=== PATIENT | female | born 1995 ===

== ENCOUNTER 2024-11-16 21:46 | Emergency (ER) | payer MEDICAID, SELFPAY ==
[2024-11-16 21:51] VITALS: BP 141/111; PULSE 81; RESP 17; TEMP 36.4; O2SAT 97; BMI 30.1
[2024-11-16 22:27] LABS: MANUAL DIFF FLAG NO
[2024-11-16 22:28] LABS: Basophils Percent Auto 0.7 % (0-2); Eosinophils Absolute Auto 0.2 X10*3/uL (0.0-0.4); Eosinophils Percent Auto 2.9 % (0-4); Hematocrit 36.6 % (37.0-47.0); Hemoglobin 12.5 g/dl (12.0-16.0); Imm Gran Abs Auto 0.01 X10*3/uL (0.00-0.03); Imm Gran Pct Auto 0.2 % (0.0-0.4); Lymphocytes Percent Auto 33.3 % (20-40); Mean Corpuscular HGB Conc 34.2 g/dl (31.0-35.0); Mean Corpuscular Hemoglobin 31.8 pg (27.0-33.0); Mean Corpuscular Volume 93.1 fL (80.0-98.0); Mean Platelet Volume 9.3 fL (9.4-12.3); Monocytes Absolute Auto 0.4 X10*3/uL (0.1-1.2); Monocytes Percent Auto 6.5 % (2-11); Neutrophils Absolute Auto 3.3 x10*3/uL (2.0-8.3); Neutrophils Percent Auto 56.4 % (45-73); Platelet Count 302 X10*3/uL (160-400); Red Blood Count 3.93 X10*6/uL (4.20-5.50); Red Cell Distribution Width 13.8 % (11.0-16.0); White Blood Count 5.9 X10*3/uL (4.8-10.8)
[2024-11-16 22:41] LABS: Alanine Aminotransferase 80 U/L (0-31); Albumin Level 4.4 g/dL (3.5-5.0); Alkaline Phosphatase 137 U/L (39-117); Anion Gap 16 (12-20); Aspartate Amino Transferase 248 U/L (5-31); Bilirubin Total 0.9 mg/dL (0.0-1.0); Blood Urea Nitrogen 13 mg/dL (9-16); Calcium 9.1 mg/dL (8.4-10.2); Carbon Dioxide 26 mmol/L (22-29); Chloride 103 mmol/L (96-108); Creatinine Clr Calc Pharmacy 88.1; Estimated Glomerular Filt Rate > 60; Glucose Random 108 mg/dL (60-115); Potassium 3.5 mmol/L (3.3-5.1); Sodium 141 mmol/L (135-145); Total Protein 7.8 g/dL (6.5-8.0)
== END 2024-11-17 01:58 | disposition left against medical advice (07) ==
PROVIDERS: Emergency Provider Emergency Medicine
DX: R21 Rash and other nonspecific skin eruption (principal); R10.2 Pelvic and perineal pain; M54.50 Low back pain, unspecified; M54.2 Cervicalgia; N64.4 Mastodynia; Z03.818 Encounter for observation for suspected exposure to other biological agents ruled out; Z79.899 Other long term (current) drug therapy
CPT/HCPCS: 0241U; 36415; 74177; 80048; 80053; 80076; 80307; 81001; 83690; 83735; 84702; 85025; 86704; 86706; 86709; 86803; 87086; 87340; 87651; 99281; 99284; J0131; J1200; J2270; J2919; Q9967

== ENCOUNTER 2024-11-17 04:24 | Emergency (ER) | payer MEDICAID, SELFPAY ==
--- NOTE | ~2024-11-17 | CT_ITS ---
EXAMINATION: CT ABDOMEN AND PELVIS WITH CONTRAST CLINICAL INFORMATION: Abdominal pain. History of pancreatitis. COMPARISON: None available. TECHNIQUE: Multidetector volumetric images were obtained from the superior aspect of the liver through the pubic symphysis following administration 85 mL of Omnipaque 350 intravenous contrast. Sagittal and coronal reformatted images were obtained on the technologist's workstation. Oral contrast: No This CT examination was performed using dose optimization techniques as appropriate, variously including the following: *Automated exposure control *Adjustment of mA and/or kV according to patient size (this includes techniques or standardized protocols for targeted exams where dose is matched to indication/reason for exam; i.e. extremities or head) *Use of iterative reconstruction technique DLP: 537 mGy centimeter. FINDINGS: LUNG BASES: No acute airspace disease or gross pulmonary nodules in the included lungs. LIVER, GALLBLADDER, AND BILIARY TREE: Liver measures 16 cm. Focal decreased enhancement adjacent to the falciform ligament likely focal fatty infiltration. No focal mass. Portal veins, hepatic veins and intrahepatic portion of the IVC are patent. Status post cholecystectomy. Common bile duct measures 7 mm. PANCREAS: No focal mass. No main pancreatic ductal dilatation. No peripancreatic fluid collections. No peripancreatic edema pattern. SPLEEN: 8 cm. No focal lesion. ADRENAL GLANDS: No nodular lesions. KIDNEYS AND URETERS: No renal mass. No hydronephrosis. 4 mm calcification in the posterior midportion left kidney. BLADDER: Fluid-filled. GASTROINTESTINAL TRACT: Appendix is normal, retrocecal and abutting the posterior inferior right hepatic lobe. Abundant stool. No intestinal obstruction pattern. Nonspecific gas fluid prominent proximal jejunal loops. No ascites. No pneumoperitoneum. No peripheral enhancing fluid collections in the peritoneal cavity. ABDOMINAL WALL: Small fat-containing umbilical hernia. LYMPH NODES: Nonspecific less than 1 cm mesenteric lymph nodes. VASCULAR: No aneurysm or dissection, abdominal aorta. PELVIC VISCERA: 2 cm cystic structure right adnexa likely dominant follicle. OSSEOUS STRUCTURES: Spondylosis L5-S1. Mild S-shaped curvature of the lower lumbar spine which could be positional. CT/CT abdomen pelvis w IV con IMPRESSION: Small fat-containing umbilical hernia. Probable 4 mm calcification left kidney without hydronephrosis. Mild enteritis should be considered in the correct clinical settings. Fleischner guidelines were followed. Electronically signed by: Dionte Lu MD 11/17/2024:01 PM LORI RP
[2024-11-17 04:41] VITALS: BP 144/99; PULSE 95; RESP 18; TEMP 36.9; O2SAT 98; BMI 31.1
--- NOTE | 2024-11-17 09:40 | ED.SKABFB ---
HPI - Skin/Abscess/Foreign Bdy General Chief complaint: Skin/Abscess/Foreign Body Stated complaint: rash Time Seen by Provider: 11/17/24 08:58 Source: patient and RN notes reviewed Mode of arrival: ambulatory Limitations: no limitations History of Present Illness ED Provider: Mami Styles PA-C HPI narrative: This is a 29-year-old female, with a history of pancreatitis, who presents emergency department with complaints of rash and abdominal pain. Patient states that over the last 3 days she has noticed a rash that started in her lower abdomen, which has since progressed throughout her torso and into her back. She states that the rashes burning and itching in nature. She also reports that over the last several days she has had increased pain, nausea and vomiting over the last 3 days. She denies any recent changes to her medications, new soaps, lotions, or detergents. Denies history of similar rashes in the past. Denies shortness or breath or difficulty swallowing. No other complaints or concerns at this time. MD complaint: rash Onset (ago): day(s) Location: generalized Severity: moderate Quality: burning Pain Consistency: constant Relieving factors: none Exacerbating factors: none Context: none Associated symptoms: denies other symptoms Treatments prior to arrival: none Related Data Previous Rx's ?Medication ?Instructions ?Recorded prednisone 20 mg tablet 40 mg (2 x 20 mg) PO DAILY 5 days 11/17/24 #10 tabs Allergies Allergy/AdvReac Type Severity Reaction Status Date / Time amoxicillin Allergy Shortness Verified 11/17/24 04:42 of Breath ceftriaxone Allergy Hives Verified 11/17/24 04:42 Penicillins Allergy Shortness Verified 11/17/24 04:42 of Breath potassium chloride Allergy Itching Verified 11/17/24 04:42 Review of Systems Review of Systems: Yes all other systems are reviewed and are negative Constitutional: Constitutional: Reports as per [facility] Social History Social History Advance Directives: No Advance Directives Information Provided: Yes Do you have a plan to hurt others: No Plan Physical Exam Vital Signs: Vital Signs: Last Vital Signs Temp 98.5 F 11/17/24 14:28 Pulse 65 11/17/24 14:28 Resp 15 11/17/24 14:28 BP 149/91 H 11/17/24 14:28 Pulse Ox 100 11/17/24 14:28 O2 Del Method Room Air 11/17/24 14:28 BMI result Body Mass Index 31.1 Const: General: cooperative, comfortable and no acute distress Orientation/consciousness: patient oriented x3 Limitations: no limitations HEENT: Head: Yes normal to inspection, Yes normocephalic and Yes atraumatic Ears: hearing grossly normal bilaterally General nose exam: Normal external nose present Face and sinus: Yes normal facial exam Mouth: Normal oral and palatal mucosa present, oropharynx normal and moist mucous membranes Throat: Yes posterior oropharynx normal Eyes: General: appearance normal, both eyes and all related structures Eyelids: Yes eyelids normal Conjunctivae: conjunctivae normal Sclerae: sclerae normal Pupils: Equal, round and reactive pupils present EOM: EOMs intact bilaterally Neck: Neck: Yes normal visual inspection, Yes full ROM and Yes no lymphadenopathy Lymphatic: no lymphadenopathy noted Chest: Chest palpation & inspection: normal inspection of the chest Resp: Effort & Inspection: normal respiratory effort and able to speak in complete sentences Auscultation: clear to auscultation bilaterally, no crackles, no rales, no rhonchi and no wheezes Cardio: Rate: regular rate Rhythm: regular rhythm Heart sounds: S1 normal heart sound present and S2 normal heart sound present GI: Other: Abdomen is soft, with diffuse tenderness throughout, worse in the upper quadrants. No rebound or guarding. Inspection: Yes normal to inspection Skin: Other: Diffuse maculopapular rash, sandpaper-like, noted on the abdomen, and extending into the back. Neuro: General: patient oriented x3 and moves all extremities Cranial nerves: Yes Equal, round and reactive pupils present Extrem: General: Yes normal to inspection Right upper extremity: normal to inspection Left upper extremity: normal to inspection Right lower extremity: normal to inspection Left lower extremity: normal to inspection Course Reevaluation(s) Reevaluation #1: CT abdomen and pelvis revealing enteritis. Also showing small fat containing umbilical hernia, and a probable 4 mm calcification left kidney without hydronephrosis. Discussed findings with patient. Patient reporting increased pain therefore will medicate with morphine. Will also treat with dose of Solu-Medrol to treat for rash. This will also help with inflammation as well. Will continue to monitor to ensure improvement of overall symptoms. Patient does have elevation in her liver enzymes. It appears that patient had labs drawn yesterday, revealing elevated AST 248, and elevated ALT at 80; I ordered labs, revealing AST and ALT of 100 and 58. We will continue to closely monitor. I inquired on patient's hepatitis status. She has no known history of hepatitis. No history of drug use. Will order hepatitis panel and will monitor for symptomatic improvement. She states that she drinks 3 to 4 times a week, last drink on Friday. Time: 14:15 Reevaluation #2: Patient feeling well, will discharge with course of prednisone. Will also draw for hepatitis panel. We will call with any positive results. She understands and agrees with plan. She will follow-up with the primary care physician. Given strict return precautions. Patient stable for discharge. Time: 15:30 Medications Administered Discontinued Medications Generic Name Dose Route Start Last Admin Trade Name Tracey PRN Reason Stop Dose Admin Diphenhydramine HCl 25 mg 11/17/24 09:49 11/17/24 10:18 Diphenhydramine Hcl 50 Mg/Ml Vial IVPUSH 11/17/24 09:50 25 mg ONCE ONE Administration Acetaminophen 1,000 mg in 100 mls @ 400 mls/hr 11/17/24 09:49 11/17/24 11:33 Ofirmev IV 11/17/24 10:03 Infused ONCE ONE Infusion Iohexol 100 ml 11/17/24 12:38 11/17/24 12:38 Iohexol 350 Mg/Ml 100 Ml Infus..Btl IV 11/17/24 12:39 85 ml ONCE ONE Administration Methylprednisolone Sodium Succinate 60 mg 11/17/24 13:39 11/17/24 14:15 Methylprednisolone Sod Succ 125 Mg/2 Ml Vial IVPUSH 11/17/24 13:40 60 mg ONCE ONE Administration Morphine Sulfate 4 mg 11/17/24 13:39 11/17/24 14:13 Morphine Sulfate 4 Mg/Ml Cartridge IVPUSH 11/17/24 13:40 4 mg ONCE ONE Administration Protocol Medical Decision Making Medical Decision Making MDM Narrative: This is a 29-year-old female who presents emergency department with concerns for rash and abdominal pain, nausea and vomiting. On arrival, blood pressure mildly elevated at 144/99, all other vital signs within normal limits. She is speaking full sentences under no acute distress. Lungs are clear to auscultation bilaterally. Dry, sandpaper-like rash noted to the abdomen, and back. Abdomen is soft, with tenderness throughout. She has a history of pancreatitis. Given abdominal pain, and rash, will obtain labs, CT. Will medicate with Tylenol, and Benadryl. Differential diagnoses include acute pancreatitis, gastroenteritis, SBO, gastritis, contact dermatitis, allergic reaction. She reports that she does not drink alcohol daily, last alcohol use was on Friday. Plan: Labs, CT abdomen and pelvis, medicate with Tylenol and Benadryl, we will continue to closely monitor. Differential Diagnosis Differential Diagnoses: The differential diagnosis associated with the presentation includes See above Admission/Observation Consideration of admission/observation: Escalation of care including admission/observation considered Lab Data MDM Lab Attestation statement: I reviewed the patient's lab results. 11/17/24 10:02 11/17/24 11:48 Labs: Lab Results 11/17/24 11/17/24 11/17/24 Range/Units 10:02 10:04 10:07 WBC 6.2 (4.8-10.8) X10*3/uL RBC 3.87 L (4.20-5.50) X10*6/uL Hgb 12.1 (12.0-16.0) g/dl Hct 36.1 L (37.0-47.0) % MCV 93.3 (80.0-98.0) fL MCH 31.3 (27.0-33.0) pg MCHC 33.5 (31.0-35.0) g/dl RDW 14.0 (11.0-16.0) % Plt Count 313 (160-400) X10*3/uL MPV 9.9 (9.4-12.3) fL Immature Gran % (Auto) 0.5 H (0.0-0.4) % Neut % (Auto) 63.2 (45-73) % Lymph % (Auto) 23.8 (20-40) % Eagle % (Auto) 7.4 (2-11) % Eos % (Auto) 4.3 H (0-4) % Baso % (Auto) 0.8 (0-2) % Lymph # (Auto) 1.5 (1.2-4.9) X10*3/uL Eagle # (Auto) 0.5 (0.1-1.2) X10*3/uL Eos # (Auto) 0.3 (0.0-0.4) X10*3/uL Baso # (Auto) 0.1 (0.0-0.2) X10*3/uL Abs Immat Gran (auto) 0.03 (0.00-0.03) X10*3/uL Absolute Neuts (auto) 3.9 (2.0-8.3) x10*3/uL Absolute Nucleated RBC 0.000 (0.0-0.012) X10*3/uL Nucleated RBC % (auto) 0.0 (0.0-0.2) /100WBC Sodium (135-145) mmol/L Potassium (3.3-5.1) mmol/L Chloride (96-108) mmol/L Carbon Dioxide (22-29) mmol/L Anion Gap (12-20) BUN (9-16) mg/dL Creatinine (0.5-1.4) mg/dL Estim Creat Clear Calc Estimated GFR Random Glucose (60-115) mg/dL Calcium (8.4-10.2) mg/dL Magnesium (1.6-2.6) mg/dL Total Bilirubin (0.0-1.0) mg/dL Direct Bilirubin (0.0-0.5) mg/dL AST (5-31) U/L ALT (0-31) U/L Alkaline Phosphatase (39-117) U/L Total Protein (6.5-8.0) g/dL Albumin (3.5-5.0) g/dL Lipase (8-78) U/L Beta HCG, Quant mIU/mL Urine Color Yellow Urine Appearance Turbid Urine pH 6.0 (5.0-9.0) Ur Specific [place] 1.025 (1.005-1.025) Urine Protein Trace (Neg-Trace) mg/dL Urine Glucose (UA) Negative (Negative) mg/dL Urine Ketones Negative (Negative) mg/dL Urine Blood Trace H (Negative) Urine Nitrite Negative (Negative) Ur Leukocyte Esterase Small (1+) H (Negative) Urine RBC 6-10 H (0-2) /HPF Urine WBC 11-20 H (0-5) /HPF Ur Squamous Epith Cells 11-20 (0-2) /HPF Urine Bacteria 4+ (None Seen) Hyaline Casts 0-2 (0-2) /LPF Ethyl Alcohol mg/dL Influenza Type A (PCR) NEGATIVE (Negative) Influenza Type B (PCR) NEGATIVE (Negative) RSV RNA Qual (PCR) NEGATIVE (Negative) SARS-CoV-2 RNA (RT-PCR) NEGATIVE (Negative) S. pyogenes GrpA ELEONORA Negative (Negative) 11/17/24 Range/Units 11:48 WBC (4.8-10.8) X10*3/uL RBC (4.20-5.50) X10*6/uL Hgb (12.0-16.0) g/dl Hct (37.0-47.0) % MCV (80.0-98.0) fL MCH (27.0-33.0) pg MCHC (31.0-35.0) g/dl RDW (11.0-16.0) % Plt Count (160-400) X10*3/uL MPV (9.4-12.3) fL Immature Gran % (Auto) (0.0-0.4) % Neut % (Auto) (45-73) % Lymph % (Auto) (20-40) % Eagle % (Auto) (2-11) % Eos % (Auto) (0-4) % Baso % (Auto) (0-2) % Lymph # (Auto) (1.2-4.9) X10*3/uL Eagle # (Auto) (0.1-1.2) X10*3/uL Eos # (Auto) (0.0-0.4) X10*3/uL Baso # (Auto) (0.0-0.2) X10*3/uL Abs Immat Gran (auto) (0.00-0.03) X10*3/uL Absolute Neuts (auto) (2.0-8.3) x10*3/uL Absolute Nucleated RBC (0.0-0.012) X10*3/uL Nucleated RBC % (auto) (0.0-0.2) /100WBC Sodium 138 (135-145) mmol/L Potassium 3.5 (3.3-5.1) mmol/L Chloride 106 (96-108) mmol/L Carbon Dioxide 24 (22-29) mmol/L Anion Gap 12 (12-20) BUN 9 (9-16) mg/dL Creatinine 0.83 (0.5-1.4) mg/dL Estim Creat Clear Calc 94.4 Estimated GFR > 60 Random Glucose 94 (60-115) mg/dL Calcium 8.5 D (8.4-10.2) mg/dL Magnesium 1.7 (1.6-2.6) mg/dL Total Bilirubin 0.6 (0.0-1.0) mg/dL Direct Bilirubin 0.2 (0.0-0.5) mg/dL AST 100 H (5-31) U/L ALT 58 H (0-31) U/L Alkaline Phosphatase 117 (39-117) U/L Total Protein 7.1 (6.5-8.0) g/dL Albumin 4.1 (3.5-5.0) g/dL Lipase 27 (8-78) U/L Beta HCG, Quant < 2 mIU/mL Urine Color Urine Appearance Urine pH (5.0-9.0) Ur Specific Durham (1.005-1.025) Urine Protein (Neg-Trace) mg/dL Urine Glucose (UA) (Negative) mg/dL Urine Ketones (Negative) mg/dL Urine Blood (Negative) Urine Nitrite (Negative) Ur Leukocyte Esterase (Negative) Urine RBC (0-2) /HPF Urine WBC (0-5) /HPF Ur Squamous Epith Cells (0-2) /HPF Urine Bacteria (None Seen) Hyaline Casts (0-2) /LPF Ethyl Alcohol < 10 mg/dL Influenza Type A (PCR) (Negative) Influenza Type B (PCR) (Negative) RSV RNA Qual (PCR) (Negative) SARS-CoV-2 RNA (RT-PCR) (Negative) S. pyogenes GrpA ELEONORA (Negative) Radiology Impression Discussion of test interpretation with radiology: I have reviewed the radiologist's reading. External Record Review External record reviewed: Inpatient record, Office record, Outpatient record, Prior outpatient labs, Prior outpatient radiology, Primary care record and Outside ED record Discharge Plan Discharge Clinical Impression: Enteritis, Rash Patient Disposition: Home, Self-Care Instructions: Acute Rash (ED), Enteritis (ED) Additional Instructions: You were seen in the emergency department due to rash, and abdominal pain. Your blood work was reassuring. You do have slight elevation in your liver enzymes therefore we marilyn for additional labs. Your rash could be something your allergic to, a viral rash, or related to your liver. Make sure you drink plenty of fluids get plenty of rest. Take prescribed prednisone as directed, finish the entire course even if your symptoms improve. We will call you if your hepatitis panel is positive. Please follow-up with your primary care physician. Continue Benadryl at home. If any new or worsening symptoms occur including but not limited to severe shortness of breath, chest pain, severe abdominal pain, please seek emergent care. Your CT scan shows the following: CT/CT abdomen pelvis w IV con IMPRESSION: Small fat-containing umbilical hernia. Probable 4 mm calcification left kidney without hydronephrosis. Mild enteritis should be considered in the correct clinical settings. Fleischner guidelines were followed. Prescriptions: New prednisone 20 mg tablet 40 mg PO DAILY 5 Days Qty: 10 0RF Print Language: Spanish
--- OUTSIDE RECORDS SUMMARY | 2024-11-17 09:44 | XMS_ITS | Encounter Summary ---
Author Organization [facility] Address [address] [place] [address] Care Team Providers Care Modeling Instructor Name Role Phone Unavailable Primary Care Provider Unavailabl e Encounter Details Date Type Department Care Team (Late st Contact Info) Description 11/28/2021 Documentation [facility] [address] [place], [place] [id number] Melchor Emerson LCSW [address] [place], [place] Social History Tobacco Use Types Packs/Day Years Used Date Smoking Tobacco: Every Day Cigarettes 0.3 15 Smokeless Tobacco: Never Alcohol Use Standard Drinks/Week Comments Yes 0 (1 standard drink = 0.6 oz pur e alcohol) occ PHQ-2 Answer Date Recorded PHQ-2 Total Score 0 10/24/2021 Comments No Sex and Gender Information Value Date Recorded Sex Assigned at Female 08/22/2021 1:39 PM EST Legal Sex Female 12:36 PM EST Gender Identity Female 08/22/2021 1:39 PM EST Sexual Orientation Straight 08/22/2021 1: 39 PM EST documented as of this encounter Miscellaneous Notes * Office/Comment Note - Melchor Emerson LCSW - 11/28/2021 11:50 AM EST BH referral received from medical/women health provider, this global technical writer reached out to clt regarding bh referral. This global technical writer was able to reach clt, therefore, though clt stated she was not free she wasat work and couldn't talk, global technical writer gave clt this global technical writer contact info and told her she could call back whenever desired. BH referral team will also reach out with a call and letter in attempt to engage clt. documented in this encounter Plan of Treatment Not on file documented as of this encounter Visit Diagnoses Not on filedocumented in this encounter Additional Health Concerns Infection Onset Date Last Indicated Resolved Time R/O Respiratory Virus 12/10/2021 12/10/20212021 10:04 PM EST R/O COVID-19 12/10/2021 12/10/2021 12/10/2021 10:0 4 PM EST R/O Respiratory Virus 01/13/2022 01/13/20222021 3:48 AM EDT R/O COVID-19 01/13/2022 01/13/2022 01/13/2022 3:48 AM EDT R/O COVID-19 01/20/2022 01/20/2022 01/20/2022 11:1 9 PM EDT R/O COVID-19 01/22/2022 01/22/2022 01/22/2022 9:02 PM EDT R/O COVID-19 02/05/2022 02/05/2022 02/05/2022 10:1 3 PM EDT R/O COVID-19 05/23/2022 05/23/2022 05/24/2022 12:2 8 AM EDT R/O COVID-19 05/28/2022 05/28/2022 05/28/2022 2:48 PM EDT R/O COVID-19 08/20/2022 08/20/2022 08/20/2022 4:17 AM EST R/O COVID-19 01/02/2023 01/02/2023 01/02/2023 4:53 AM EDT Assessment Noted Time PHQ-9 Depression Total Score: 0 01/19/20 22 4:55 PM EST documented as of this encounter
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
--- OUTSIDE RECORDS SUMMARY | 2024-11-17 09:45 | XMS_ITS | Encounter Summary ---
Author Organization [facility] and [facility] Address [address] [place] [phone] Care Team Providers Care Librarian Special Collections Name Role Phone Obtain, Unable To Primary Care Provider Unavaila ble Encounter Details Date Type Department Care Team (Late st Contact Info) Description 01/05/2015 Scanned Document [facility] [address] [facility] [address] [facility] [place], [place] [id number] Camilo Esteban MD [address] [place] [phone] Social History Tobacco Use Types Packs/Day Years Used Date Smoking Tobacco: Never Smokeless Tobacco: Never Alcohol Use Standard Drinks/Week Comments No 0 (1 standard drink = 0.6 oz pur e alcohol) Comments Unknown Sex and Gender Information Value Date Recorded Sex Assigned at Female 08/22/2021 1:39 PM EST Legal Sex Female 12:36 PM EST Gender Identity Female 08/22/2021 1:39 PM EST Sexual Orientation Straight 08/22/2021 1: 39 PM EST documented as of this encounter Plan of Treatment Not on file documented as of this encounter Visit Diagnoses Not on filedocumented in this encounter Additional Health Concerns Infection Onset Date Last Indicated Resolved Time R/O COVID-19 03/20/2021 03/20/2021 03/20/2021 9:41 AM EDT R/O COVID-19 10/15/2021 10/15/2021 10/15/2021 9:26 AM EST R/O Respiratory Virus 12/10/2021 12/10/20212021 10:04 PM [...] COVID-19 01/02/2023 01/02/2023 01/02/2023 4:53 AM EDT documented as of this encounter Care Teams Librarian Special Collections Relationship Specialty Start Date End Date Obtain, Unable To PCP - General 10/06/21 11/01/21 documented as of this encounter
--- OUTSIDE RECORDS SUMMARY | 2024-11-17 09:45 | XMS_ITS | Encounter Summary ---
Author Organization [facility] Address [address] [place] [address] Care Team Providers Care Housing Relocation Name Role Phone [facility] Primary Care Provider Encounter Details Date Type Department Care Team (Late st Contact Info) Description 03/22/2024 Scanned Document [facility] Terrell Harry MD [address] [place] [phone] Social History Tobacco Use Types Packs/Day Years Used Date Smoking Tobacco: Every Day Cigarettes Smokeless Tobacco: Never Alcohol Use Standard Drinks/Week Comments Yes 4 (1 standard drink = 0.6 oz pur e alcohol) Reports last drink 08/19 AUDIT-C Answer Date Recorded Q1: How often do you have a drink containing alc ohol? Monthly or less 02/15/2024 Q2: How many drinks containi ng alcohol do you have on a typical day when you are drinking? 1 or 2 02/15/2024 Q3: How often do you have si x or more drinks on one occasion? Never 02/15/2024 Sex and Gender Information Value Date Recorded Sex Assigned at Female 12/31/2022 9:09 AM EDT Gender Identity Female 12/31/2022 9:09 AM EDT Sexual Orientation Heterosexual (straight) 01/04 4:18 PM EDT Sexual Orientation Choose not to disclose 2023 4:18 PM EDT documented as of this encounter Plan of Treatment Not on file documented as of this encounter Visit Diagnoses Not on filedocumented in this encounter Care Teams Housing Relocation Relationship Specialty Start Date End Date Formerly [facility], [facility] [address] [place] [address] PCP - General 08/26/23 documented as of this encounter
--- OUTSIDE RECORDS SUMMARY | 2024-11-17 09:45 | XMS_ITS | Encounter Summary ---
Author Organization [facility] and [facility] Address [address] [place] [phone] Care Team Providers Care Health Inspector Name Role Phone Obtain, Unable To Primary Care Provider Unavaila ble Encounter Details Date Type Department Care Team (Late st Contact Info) Description 10/24/2012 Abstract [facility] Health Information Management [address] [place] [id number] [place] [address] [place] [address] [place] [address] Social History Tobacco Use Types Packs/Day Years Used Date Smoking Tobacco: Never Assessed Comments Yes Sex and Gender Information Value Date Recorded Sex Assigned at Female 08/22/2021 1:39 PM EST Legal Sex Female 12:36 PM EST Gender Identity Female 08/22/2021 1:39 PM EST Sexual Orientation Straight 08/22/2021 1: 39 PM EST documented as of this encounter Last Filed Vital Signs Vital Sign Reading Time Taken Comments Blood Pressure - - Pulse - - Temperature - - Respiratory Rate - - Oxygen Saturation - - Inhaled Oxygen Concentration - - Weight 64.8 kg (142 lb 12.7 oz) 012 12:01 AM EST Height 158.8 cm (5' 2.5 ) 06/04/2012 12 :01 AM EDT Body Mass Index 25.7 06/04/2012 12:01 AM EDT documented in this encounter Plan of Treatment [...] documented as of this encounter Care Teams Health Inspector Relationship Specialty Start Date End Date Obtain, Unable To PCP - General 10/06/21 11/01/21 documented as of this encounter
--- OUTSIDE RECORDS SUMMARY | 2024-11-17 09:45 | XMS_ITS ---
Author Organization [facility], Address [address] [place] [address] Care Team Providers Care Machine Joiner Cementer Name Role Phone Barron LUTHER, Edmund Unavailable Unavailable Avril Giordano Unavailable [phone] Allergies Allergen (clinical drug ingredient) Drug/Non Drug Allergy documented on EMR Reaction Allergy Type Onset Date Status amoxicillin Amoxicillin Unknown Drug Allergy Act edgar Results Component Value Reference Range Notes Strep A Cepheid Reviewed date:12/31/2023 06:15:00 PM Interpretation: Performing Lab: Notes/Report: Strep A NOT DETECTED NOT DETECTED Cepheid 4 Plex Reviewed date:12/31/2023 06:15:00 PM Interpretation: Performing Lab: Notes/Report: Avril Giordano, [id number] [address] [place] [phone] Flu A NEGATIVE Negative Flu B NEGATIVE Negative RSV NEGATIVE Negative SARS RT-PCR NEGATIVE Negative REASON FOR VISIT SORE THROAT , FEVER 100.6 FOR THE PAST 2 DAYS . BODAY ACHE AND HEADACHE. PT STATED TOOK MUCINEX , TYLENOL, MOTRIN . TERAFLU. Medications Medication SIG (Take, Route, Frequency, Duration) Notes Start Date End Date Status Promethazine-Codeine 6.25-10 MG/5ML 5 ml as needed for severe cough Orally every 12 hrs.avoid alcohol, driving adn operating [address] as the syrup may cause drowsiness for 4 days 12/22/2015 Not-Taking Zithromax Z-Aldo 250 MG 2 tablets on the first day, then 1 tablet daily for 4 days Orally Once a day for 5 day(s) 12/22/2015 Not-Taki ng Lidocaine Viscous HCl 2 % 15 ml as needed swish and spit Mouth/Throat every 8 hrs for 2 days 12/31/2023 01/02/2024 Active Social History Tobacco Use: Social History Observation Description Date Details (start date - stop date) Current Smoker NA - NA Sex Assigned At : Social History Observation Description Sex Assigned At Female Tobacco Use/Smoking Question Answer Notes Are you a current smoker Alcohol Screen (Audit-C) Question Answer Notes Did you have a drink containing alcohol in the p ast year? Yes Tobacco use other than smoking: Question Answer Notes Are you an other tobacco user? No Problems Problem Type SNOMED Code ICD Code Onset Dates Problem Status W/U Status Risk Notes Problem Exposure to communicable disease (391286670) Contact with and (suspected) exposure to other viral communicable diseases (Z20.828) Active confirmed Problem 591096556 Sore throat (J02.9) Active confirmed Problem Depression Screening (859642110) Encounter for screening for depression (Z13.31) Active confirmed Problem Body mass index 30.00 to 34.99 (530449078402468 ) Body mass index [BMI] 31.0-31.9, adult (Z68.31) Active confirmed Vital Signs Temperature 98.8 degrees Fahrenheit 12/31/19 24 Heart Rate 86 /min 12/31/2023 Blood pressure systolic 122 mm Hg 12/31/19 24 Blood pressure diastolic 84 mm Hg 024 Height 63 in 12/31/2023 Weight 180 lbs 12/31/2023 BMI 31.88 kg/m2 12/31/2023 Respiratory Rate 18 /min 12/31/2023 Oximetry 98 % 12/31/2023 Encounters Encounter Location Date Provider Diagnosis [facility] [address] [place] [address] 12/31/2023 Avril Giordano Contact with and (suspected) exposure to other viral communicable diseases Z20.828 ; Sore throat J02.9 ; Encounter for screening for depression Z13.31 and Body mass index [BMI] 31.0-31.9, adult Z68.31 Assessments Encounter Date Diagnosis (ICD Code) Assessment Notes Treatment Notes Treatment Clinical Notes Section Notes 12/31/2023 Contact with and (suspected) exposure to other viral communicable diseases (ICD-10 - Z20.828) Patient was swabbed in office today Rapid COVID PCR test came back If covid positive than paxlovid and or molnupiravir would be indicated If flu positive than xofluxa and or oseltemavir would be indicated. Testing discussed more information available [email or web address] 12/31/2023 Sore throat (ICD-10 - J02.9) If positive than antibiotics to be administered. strep A negative throat c to lab work note 01/01/24 12/31/2023 Encounter for screening for depression (ICD-10 - Z13.31) 12/31/2023 Body mass index [BMI] 31.0-31.9, adult (ICD-10 - Z68.31) 12/31/2023 Other Telemedicine visit performed using synchronous audio video technology Physical examination was performed using FDA approved tyMultiplicom clinical device, that enables remote temperature check, lung exams, ear exams, heart sounds, throat exams, abdomen sounds, skin exams Plan Of Treatment Medication Medication Name Sig Start Date Stop Date Notes Lidocaine Viscous HCl 2 % 15 ml as neede d swish and spit Mouth/Throat every 8 hrs for 2 days 12/31/2023 01/02/2024 Treatment Notes Assessment Notes Contact with and (suspected) exposure to other viral communicable diseases Patient was swabbed in office today Rapid COVID PCR test came back If covid positive than paxlovid and or molnupiravir would be indicated If flu positive than xofluxa and or oseltemavir would be indicated. Testing discussed more information available [email or web address] Sore throat If positive than antibiotics to be administered. strep A negative throat c to lab work note 01/01/24 Other Telemedicine visit performed using synchronous audio video technology Physical examination was performed using FDA approved [employer] clinical device, that enables remote temperature check, lung exams, ear exams, heart sounds, throat exams, abdomen sounds, skin exams Next Appt Details Follow Up: 2-3 days, Reason: Progress Notes * Charlette CHANidaDOB:1994 (28 yo F)Acc No.[id number]:12/31/2023 Progress Notes Patient:?Red CHAN Provider:?Avril Giordano MD :1995???Age:28 Y???Sex:Female D ate:12/31/2023 Address:[place], [id number] Subjective: * Chief Complaints: * ???1. SORE THROAT , FEVER 10 0.6 FOR THE PAST 2 DAYS . BODAY ACHE AND HEADACHE. PT STATED TOOK MUCINEX , TYLENOL, MOTRIN . TERAFLU.. * HPI: ???Depression Screening:?PHQ-9?Little interest or pleasure in doing things?Not at all ?Feeling down, depressed, or hopeless?Not at all ?Trouble falling or staying asleep, or sleeping too much?Not at all ?Feeling tired or having little energy?Not at all ?Poor appetite or overeating?Not at all ?Feeling bad about yourself or that you are a failure, or have let yourself or your family down?Not at all ?Trouble concentrating on things, such as reading the newspaper or watching television?Not at all ?Moving or speaking so slowly that other people could have noticed; or the opposite, being so fidgety or restless that you have been moving around a lot more than usual?Not at all ?Thoughts that you would be better off or of hurting yourself in some way?Not at all ?Interpretation?Minimal Depression score 0-4, no action ???Comprehensive health Assessment:?[facility] Comprehensive Health Assessment?Race? 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 Sex?Female ???hpi:? [place] 28 yr old female bodyaches, sore throat, HARDIN, T 100.6, dry cough x3days(friday morning on ) 10 yr old son is ok works, [employer]. * ROS:?see HPI see HPI. * Medical History:?PTSD, ANXIE TY, Anemia: No, asthma: Yes, Cancer: No, DEPRESSION: No, Diabetes: No, high blood pressure: Yes, kidney disease: No, seizures: No, thyroid disease: No, Surgical History: None. * Family History:?Father: Edelmira west.?Spouse: Alive.?Mother: Alive.?Paternal Grand Father: Alive.?Paternal Grand Mother: Alive.?Maternal Grand Father: Alive.?Maternal Grand Mother: Alive.?Siblings: Alive.?Children: Alive.? depression, asthma, high blood pressure, anxiety. * Social History:?Tobacco Use:?Tobacco Use/Smoking?Are you a?current smoker ?Tobacco use other than smoking?Are you an other tobacco user??No ???Drugs/Alcohol:?Alcohol Screen (Audit-C)?Did you have a drink containing alcohol in the past year??Yes * Medications:?Not-Taking Zith romax Z-Aldo 250 MG Tablet 2 tablets on the first day, then 1 tablet daily for 4 days Orally Once a day , Not-Taking Promethazine- Codeine 6.25-10 MG/5ML Syrup 5 ml as needed for severe cough Orally every 12 hrs.avoid alcohol, driving adn operating [address] as the syrup may cause drowsiness , Medication List reviewed and reconciled with the patient * Allergies:?Amoxicillin. Objective: * Vitals:?Temp: 98.8 F, HR: 86 /min, BP: 122/84 mm Hg, Ht: 63 in, Wt: 180 lbs, BMI: 31.88 Index, RR: 18, Oxygen sat %: 98 %. * Examination: ???General Examination: ?GENERAL APPEARANCE:?Well developed, well nourished. No acute distress, non toxic appearing, alert , Well developed, well nourished. No acute distress, non toxic appearing, alert.?THROAT:??erythema, no exudate.? Assessment: * Assessment: 1.?Contact with and (suspect ed) exposure to other viral communicable diseases - Z20.828 (Primary)?2.?Sore throat - J02.9?3.?Encounter for screening for depression - Z13.31?4.?Body mass index [BMI] 31.0-31.9, adult - Z68.31? Plan: * Treatment: 2.?Sore throat? Start Lidocaine Viscous HCl Solution, 2 %, 15 ml as needed swish and spit, Mouth/Throat, every 8 hrs, 2 days, 90 ML, Refills 0.?LAB: Strep A Cepheid (Collection Date & Time - 12/31/2023 10:36 AM) Notes: If positive than antibiotics to be administered. strep A negative throat c to lab work note 01/01/24?? 3.?Others? Notes: Telemedicine visit performed using synchronous audio video technology Physical examination was performed using FDA approved [employer] clinical device, that enables remote temperature check, lung exams, ear exams, heart sounds, throat exams, abdomen sounds, skin exams?? * Labs:? * ?Lab: Cepheid 4 Plex (Co llection Date & Time - 12/31/2023 10:35 AM) ? Value Reference Range ?Influenza Virus B RNA [ Presence] in Respiratory specimen by FLAKITO with probe detection NEGATIVE Negative - * ?Influenza Virus A RNA [ Presence] in Respiratory specimen by FLAKITO with probe detection NEGATIVE Negative - * ?Respiratory syncytial v irus RNA [Presence] in Respiratory specimen by FLAKITO with probe detection NEGATIVE Neg ative - * ?LAURA-related coronavirus RNA [Presence] in Respiratory specimen by FLAKITO with probe detection NEGATIVE Neg ative - ?Lab: Strep A Cepheid (Collection Date & Time - 12/31/2023 10:36 AM)* ? Value Reference Range ?Strep A NOT DETECTED NOT DETECTED - * Procedure Codes:?99698 Covid - serology - in house, Modifiers: QW , 0241U NFCT DS VIR RESP RNA 4 TRGT, Modifiers: QW , 27228 STREP A, DNA, AMP PROBE, Modifiers: QW , 61780 BRIEF EMOTIONAL/BEHAV ASSMT * Follow Up:?2-3 days Care Plan: * Problems:? * Billing Information: * Visit Code:? 91082 Office Visit, New Patient. * Procedure Codes:? 51350 Covid - serology - in house. Modifiers: QW 0241U NFCT DS VIR RESP RNA 4 TRGT. Modifiers: QW 90736 STREP A, DNA, AMP PROBE. Modifiers: QW 19239 BRIEF EMOTIONAL/BEHAV ASSMT. Care Plan Details* * Sign off status: Completed true * Provider:?Avril Giordano MD Date:? 024 Generated for Butch carpenter/Vasile/eTransmitting on:?11/17/2024 09:44 AM EST History and Physical Notes * HPI (History of Present Illness) Category Sub-Category Detail Notes Category Not es Depression Screening PHQ-9 Little inte rest or pleasure in doing things: Not at all Feeling down, depressed, or hopeless: No t at all Trouble falling or staying asleep, or sl eeping too much: Not at all Feeling tired or having little energy: N ot at all Poor appetite or overeating: Not at all Feeling bad about yourself o r that you are a failure, or have let yourself or your family down: Not at all Trouble concentrating on thi ngs, such as reading the newspaper or watching television: Not at all Moving or speaking so slowly that other people could have noticed; or the opposite, being so fidgety or restless that you have been moving around a lot more than usual: Not at all Thoughts that you would be b ruma off or of hurting yourself in some way: Not at all Interpretation: Minimal Depression score 0-4, no action Comprehensive health Assessment PCM Comprehensive Health Assessment Race: or Martial Status: single 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 No acute distress, non toxic appearing, alert , Well developed, well nourished. No acute distress, non toxic appearing, alert THROAT: erythema, no exudate
--- OUTSIDE RECORDS SUMMARY | 2024-11-17 09:45 | XMS_ITS | Clinical Summary ---
Author Organization [address] [address] Phone Care Team Providers Care Refurbish Technician Name Role Phone Unavailable Primary Care Provider Unavailabl e Allergies Active Allergy Reactions Criticality Noted Date Comments Amoxicillin Swelling Medium 10/17/2012 Ceftriaxone Hives High 05/14/2019 Penicillins Angioedema 09/02/2019 Potassium Hives High 01/21/2022 Pt states The IV bag with the red letters makes me break out in hives Medications * This document contains information received from the source organization and may not represent a complete record from that organization. Miscellaneous Medical Supply Thigh high GAURAV hose stocking - 15-20 mm Hg Use as directed. 1 each 2 Active albuterol sulfate (PROAIR HFA) 90 mcg/actuation HFA aerosol inhalerIndications :Asthma, unspecified asthma severity, unspecified whether complicated, unspecified whether persistent Inhale 2 puffs into the lungs every 4 (four) hours as needed for wheezing. 6.7 g 1 3 Active acetaminophen (TYLENOL) 500 mg tablet Take 2 tablets (1,000 mg total) by mouth every 6 (six) hours as needed. Active ondansetron (ZOFRAN-ODT) [address] 1 tablet (4 mg total) onto the tongue every 8 (eight) hours as needed for nausea. Active disulfiram (ANTABUSE) 250 mg tablet Take 1 tablet (250 mg total) by mouth daily. 30 tablet 2 4 Active metoclopramide HCl (REGLAN) 10 mg tablet Take 1 tablet (10 mg total) by mouth 2 (two) times daily as needed for nausea or vomiting. 10 tablet 4 Active oxyCODONE (ROXICODONE) 10 mg Immediate Release tablet Take 1 tablet (10 mg total) by mouth every 6 (six) hours as needed for pain. 15 tablet 4 Active sertraline (ZOLOFT) 50 mg tabletIndications: Anxiety Take 1 tablet (50 mg total) by mouth daily. 90 tablet 3 2 022 Discontin ued(Stop Taking at Discharge ) Active Problems Problem Noted Date Diagnosed Date Chronic pancreatitis due to chronic alcoholism ( HC CODE) 04/06/2024 Alcohol-induced acute pancre atitis, unspecified complication status 2024 Hematemesis with nausea 02/26/2023 Vomiting 01/02/2023 Intractable nausea and vomiting 08/20/2022 Pancreatitis, unspecified pancreatitis type 05/07 Abdominal pain, unspecified abdominal location 0 05/23/2022 'Bthwz-gcs-izvys' with signs of mal nutrition 02/05/2022 Leg pain 02/05/2022 Closed fracture of left tibi al plafond with fibula involvement with routine healing, subsequent encounter 02/01/2022 Fracture of bone 01/22/2022 Acute left ankle pain 01/21/2022 Nausea & vomiting 01/13/2022 Esophagitis 12/15/2021 Epigastric pain 08/13/2021 Pelvic inflammatory disease 03/31/2018 Need for HPV vaccination 02/01/2015 Overview (02/01/2015): Please check with patient to see if she has received HPV vaccine. If not please offer History of vaginal delivery 02/27/2013 Asthma 10/17/2012 Resolved Problems Problem Noted Date Diagnosed Date Resolved Date Acute on chronic pancreatiti s (HC Code) (HC CODE) 12/10/2021 01/16/2022 Alcohol cessation counseling 10/24/2021 04/15/2023 Hyperemesis 10/20/2021 01/16/2022 Abdominal pain 10/15/2021 01/16/2022 Recurrent acute pancreatitis 03/20/2021 01/16/2022 PID (acute pelvic inflammatory disease) 03/31/2018 05/26/2022 care following vaginal delivery 01/26/2013 02/27/2013 Active labor 01/23/2013 01/26/2013 GBS (group B Streptococcus c arrier), +RV culture, currently 12/26/2012 01/24/2013 ERRONEOUS ENCOUNTER--DISREGARD 12/09/2012 12/23/2012 Supervision of normal first 10/17/2012 02/27/2013 Immunizations Name Administration Dates Next Due HPV9 05/24/2019 Influenza, split virus, trivalent, Preservative Free 07/08/2012 Influenza, trivalent, 0.25 m L (6-35MO) injectable, contains preservative 07/08/2012 MMR 01/26/2013 Pneumococcal polysaccharide PPSV23 01/26/2013 Tdap 01/20/2022,01/25/2013 Family History Medical History Relation Name Comments Depression Maternal Grandmother Breast cancer Mother Depression Mother Hypertension Mother Migraines Mother Relation Name Status Comments Maternal Grandmother Mother Alive Social History Tobacco Use Types Packs/Day Years Used Date Smoking Tobacco: Every Day Cigarettes 0.3 15 Smokeless Tobacco: Never Tobacco Cessation:Ready to Q uit: No; Counseling Given: No Comments:4 cigs per day Alcohol Use Standard Drinks/Week Comments Yes 1 (1 standard drink = 0.6 oz pur e alcohol) socially [facility] Utilities Answer Date Recorded In the past 12 months has Do IT developers, oil, or water [place] threatened to shut off services in your home? No 2024 AUDIT-C Answer Date Recorded Q1: How often do you have a drink containing alc ohol? 2-4 times a month 04/06/2024 Q2: How many drinks containi ng alcohol do you have on a typical day when you are drinking? 3 or 4 04/06/2024 Q3: How often do you have si x or more drinks on one occasion? Monthly 04/06/2024 Overall Financial Resource Strain (CARDIA) Answe r Date Recorded How hard is it for you to pa y for the very basics like food, housing, medical care, and heating? Patient declined 01/02/2023 PHQ-2 Answer Date Recorded PHQ-2 Total Score 0 04/06/2024 Hunger Vital Sign Answer Date Recorded Within the past 12 months, y ou worried that your food would run out before you got the money to buy more. Never true 02/10/20 24 Within the past 12 months, t he food you bought just didn't last and you didn't have money to get more. Never true 2024 PRAPARE - Transportation Answer Date Re corded In the past 12 months, has l ack of transportation kept you from medical appointments or from getting medications? No 04/2024 In the past 12 months, has l ack of transportation kept you from meetings, work, or from getting things needed for daily living? No 2024 Housing Stability Answer Date Recorded What is your living situation today? I have a [facility] place to live 2024 Housing Stability Not on file 2024 Interpersonal Safety Answer Date Record ed Is there anyone in your life that is hurting or threatening you in anyway? no 04/06/2024 Physical Indicators of Abuse No evidence of phys ical abuse 04/06/2024 Comments No Sex and Gender Information Value Date Recorded Sex Assigned at Female 08/22/2021 1:39 PM EST Legal Sex Female 12:36 PM EST Gender Identity Female 08/22/2021 1:39 PM EST Sexual Orientation Straight 08/22/2021 1: 39 PM EST Last Filed Vital Signs Vital Sign Reading Time Taken Comments Blood Pressure 138/92 04/08/2024 1:47 PM EDT Pulse 91 04/08/2024 1:47 PM EDT Temperature 36.9 ??C (98.4 ??F) 04/08/2024 1:47 PM ED T Respiratory Rate 20 04/08/2024 1:47 PM EDT Oxygen Saturation 97% 04/08/2024 1:47 PM EDT Inhaled Oxygen Concentration - - Weight 86 kg (189 lb 9.5 oz) 02/12/2024 1:39 PM EDT Height 160 cm (5' 3 ) 2024 5:58 PM EDT Body Mass Index 33.59 2024 5:58 PM EDT Plan of Treatment Health Maintenance Due Date Last Done Comments Pneumococcal Vaccine (2 of 2 - PCV) 01/26/2014 01/26/2013 Cervical cancer screening 05/24/2022 05/24/2019 Influenza vaccine 05/06/2024 07/08/2012, 07/08/2012 Covid-19 vaccine series (2 - season) 2024 04/15/2021 Tetanus adult (Td q 10,TDAP once) 01/20/2033 01/20/2023, 01/20/2022, 01/25/2013 RSV Discussion (1 - 1-dose 75+ series) 02/11/2068 Hepatitis C screening Completed 05/26/2022 , 03/31/2018, 08/04/2015 HIV screening Completed 2024, 05/07, 05/26/2022, Additional history exists Meningococcal Vaccine Aged Out No jessa neelima eligible based on patient's age to complete this topic Medical Devices Implanted Type Area Sand System Operator Device Identifier Shelf Expiration Date Model / Serial / Lot Plate 6hl 69x9 Lckg Tublr - [id number] Implanted:Qty: 1 on 01/21/2022 by Anderson Werner MD at [facility] [address] Implant Left: Fibula J J [employer] [id number] 241.361 / / Screw Donny 3.5x12mm Slf Tap St - [id number] Implanted:Qty: 5 on 01/21/2022 by Anderson Werner MD at [facility] [address] Implant Left: Fibula J J FALLON [id number] 02.200.0 12 / / Screw Donny 3.5x16mm Slf Tap St - [id number] Implanted:Qty: 1 on 01/21/2022 by Anderson Werner MD at [facility] [address] Implant Left: Fibula J J FALLON [id number] 02.200.0 16 / / Screw Metasp Sftap 2.7x30 W/T8 - [id number] Implanted:Qty: 1 on 02/01/2022 by Anderson Werner MD at [facility] [address] Implant Left: Ankle J J FALLON [id number] 02.118.5 30 / / Screw Strdrv Self-Tap 2.7x32mm - [id number] Implanted:Qty: 1 on 02/01/2022 by Anderson Werner MD at [facility] [address] Implant Left: Ankle Shea LEHMAN [id number] 02.118.5 32 / / Screw Metaphy W/T8 Viluops02e - [id number] Implanted:Qty: 1 on 02/01/2022 by Anderson Werner MD at [facility] [address] Implant Left: Ankle Shea Valdivia LEWIS TIFFANIE LEWIS [id number] 02.118.5 36 / / Screw Donny 2.7x[address] Ft Hex - [id number] Implanted:Qty: 2 on 02/01/2022 by Anderson Werner MD at [facility] [address] Implant Left: Ankle Shea LEHMAN [id number] 202.824 / / Screw Donny 3.5x[address] Ft Hex - [id number] Implanted:Qty: 1 on 02/01/2022 by Anderson Werner MD at [facility] [address] Implant Left: Ankle Shea Shea LEHMAN [id number] 204.824 / / Screw Donny 2.7x[address] Ft Hex - [id number] Implanted:Qty: 1 on 02/01/2022 by Anderson Werner MD at [facility] [address] Implant Left: Ankle Shea Shea LEHMAN [id number] 202.832 / / Screw Donny 3.5x26 [address] Ft Hex - [id number] Implanted:Qty: 1 on 02/01/2022 by Anderson Werner MD at [facility] [address] Implant Left: Ankle Shae Shea LEHMAN [id number] 204.826 / / Screw Donny 3.5x30mm Slf Tap - [id number] Implanted:Qty: 1 on 02/01/2022 by Anderson Werner MD at [facility] [address] Implant Left: Ankle Shea Shea LEHMAN [id number] 204.830 / / Screw Donny 2.4x36mm Cruciform - [id number] Implanted:Qty: 2 on 02/01/2022 by Anderson Werner MD at [facility] [address] Implant Left: Ankle Shea LEHMAN [id number] 201.666 / / Screw Donny 2.7x[address] Ft Hex - [id number] Implanted:Qty: 1 on 02/01/2022 by Anderson Werner MD at [facility] [address] Implant Left: Ankle Shea TUCKER LEWIS [id number] 202.824 / / Screw Donny 2.7x[address] Ft Hex - [id number] Implanted:Qty: 1 on 02/01/2022 by Anderson Werner MD at [facility] [address] Implant Left: Ankle Shea TUCKER LEWIS [id number] 202.812 / / Screw Donny 2.7x[address] Ft Hex - [id number] Implanted:Qty: 1 on 02/01/2022 by Anderson Werner MD at [facility] [address] Implant Left: Ankle Shea Shea LEHMAN [id number] 202.818 / / Cancellous Chip 15cc 1.7-10mm - [id number] Implanted:Qty: 1 on 02/01/2022 by Anderson Werner MD at [facility] [address] Implant Left: Ankle LIFENET 07/22/2026 [id number] / [id number] / [id number] 2.7/3.5mm Va-Lcp Anterolateral - [id number] Implanted:Qty: 1 on 02/01/2022 by Anderson Werner MD at [facility] [address] Implant Left: Ankle Shea Valdivia FALLON [id number] 02.118.2 07 / / Plate Lc-Dcp 12hl/113m 2.7mm - [id number] Implanted:Qty: 1 on 02/01/2022 by Anderson Werner MD at [facility] [address] Implant Left: Ankle Shea Valdivia FALLON [id number] 242.222 / / Plate 27x1.2 2mm 4hl - [id number] Implanted:Qty: 1 on 02/01/2022 by Anderson Werner MD at [facility] [address] Implant Left: Ankle Shea SAUCEDO [employer] LEWIS [id number] 243.584 / / Screw Donny 2.4x34mm Cruciform - [id number] Implanted:Qty: 1 on 02/01/2022 by Anderson Werner MD at [facility] [address] Implant Left: Ankle Shea Shea [employer]UC[employer] LEW[employer] [id number] 201.664 / / Explanted Type Area Sand System Operator Device Identifier Shelf Expiration Date Model / Serial / Lot Screw Donny 2.4x36mm Cruciform - [id number] Explanted:Qty : 1 on 02/01/2022 by Anderson Werner MD at [facility] [address] Implant Left: Ankle Shea [employer]UC[employer] [id number] 201.666 / / Screw [id number] 80mm Thrd Shnz - [id number] Explanted:Qty : 1 on 02/01/2022 by Anderson Werner MD at [facility] [address] Implant Left: Ankle Shea [employer]UC[employer] LEW[employer] [id number] 294.786 / / Screw [id number] 60mm Thrd Shnz - [id number] Implanted:Qty : 3 on 01/21/2022 by Anderson Werner MD at [facility] [address] Explanted:Qty : 3 on 02/01/2022 by Anderson Werner MD at [facility] [address] Implant Left: LEG LOWER Shea LEHMAN [id number] 294.785 / / Procedures Procedure Name Priority Date/Time Associated Diagnosis Comments HIV-1/HIV-2 ANTIBODY/ANTIGEN SCREEN W/REFLEX ([facility]) STAT 2024 11:24 AM EDT HEPATITIS C AB WITH REFLEX TO HCV PCR Routine 05/26/2022 6:33 AM EDT CYTOLOGY DOG FOOD DOUGH MIXER CASES ([facility]) Routine 05/24/2019 2:52 PM EDT Encounter for gynecological examination with abnormal finding from Last 3 Months or Most Recently Relevant to Health Maintenance Results * Automated HIV-1/HIV-2 antibody/antigen screen w/reflex ([facility]) (2024 11:24 AM EDT) HIV 1 and 2 Antibody/Antigen Screen Negative Negative 2024 5:09 PM EDT [facility]PARTMENT OF LABORATORY MEDICINE Comment:Interpretation: This specimen is HIV antibody and antigen negative. A negative test does not exclude the possibility of infection with HIV. If suspicion is high, submit a sample for HIV nucleic acid testing. Negative results may be seen in early infection, advanced AIDS and agammaglobulinemic patients, among others. Antiretroviral drugs taken for treatment and prophylaxis may limit the ability of diagnostic tests to detect HIV infection. The performance of this assay has not been clinically validated in patients less than 2 years old. Blood Venipuncture / Unknown 2024 11:24 AM EDT 2024 11:30 AM EDT Víctor RODRIGUEZ LAB BLOOD ORDERABLES Final Re sult Performing Organization Address [facility] Co de Phone Number [facility] DEPARTMENT OF LABORATORY MEDICINE [address] [place] [address] * Hepatitis C Ab with reflex to HCV PCR (05/26/2022 6:33 AM EDT) Pathologist [facility] Hepatitis C Antibody Negative Negative 05/26/2022 12:29 PM EDT [facility] OF LABORATORY MEDICINE Comment:A negative result do es not exclude HCV infection, since antibodies are not detectable for 4-8 weeks after initial infection, or may not develop in compromised hosts. In high-risk individuals, repeat antibody testing in 2 months and/or HCV RNA PCR should be considered. Blood ARM NEC / Unknown Venipuncture / Unknown 05/26/2022 6:33 AM EDT 05/26/2022 7:39 AM EDT Diogo Ruiz MD LAB BLOOD ORDERABLES Fin al Result Performing Organization Address [facility]/ZIP Co de Phone Number [facility] DEPARTMENT OF LABORATORY MEDICINE [address] [place] [address] * CYTOLOGY DOG FOOD DOUGH MIXER CASES ([facility]) - Place a patient demographic label on the specimen and send with the printed requisition form (05/24/2019 2:52 PM EDT) Cytology Stave Cutting Supervisor Cases ?CYTOLOGY REPORT ? Patient: DUSTIN, RED ?MR #: [id number] ([id number]=[id number]) ?Submitted by: Bianca Lara M.D. FINAL DIAGNOSIS SUREPATH PAP SMEAR: ? Primary Diagnosis: ? NEGATIVE FOR INTRAEPITHELIAL LESION OR MALIGNANCY. ? Additional Findings: NO ENDOCERVICAL CELLS SEEN. Specimen Adequacy: THIS SPECIMEN IS SATISFACTORY FOR EVALUATION. ? This specimen was manually screened with the assistance of the BD FocalPoint? ? Beyond [employer] System. NOTE: ??Cervical/vaginal cytology is a screening tool for cervical carcinoma and its precursor lesions with an inherent false negative rate. ??It is an inaccurate test for detection of endometrial lesions and should not be used to evaluate suspected endometrial abnormalities. ??(The [employer] System, 2001) ?? 05/31/2019 15:44 ?* Report Electronically Signed Out * ? This electronic signature indicates that the pathologist has personally reviewed the available gross and/or microscopic material and has based the diagnosis on that evaluation. ? Specimen(s) Received: SUREPATH PAP SMEAR Clinical History and Impression: {Not Available} ? [facility] CYTOLOGY Cervical Tracking Result Non-Tracking [facility] High Risk HPV Screening Not Applicable [facility] HPV 16/18 Genotyping Not Applicable [facility] Papanicolaou smear specimen (specimen) 05/24/2019 2:52 PM EDT Comment:SUREPATH PAP SMEAR Bianca Lara MD PATHOLOGY/CYTOLOGY ORDERABLES Final Result Performing Organization Address [facility]/State/[facility] Co de Phone Number [facility] CYTOLOGY Department of Pathology [address] [place] [address] [phone] [place] [address] from Last 3 Months or Most Recently Relevant to Health Maintenance Insurance [place] Advance Directives * Full Code (Latest Code Status on File) Date Activated Date Inactivated Comments 04/06/2024 9:01 PM 04/08/2024 6:54 PM Question Answer Comments With Whom was the Code Status Discussed? Patient * Full Code Date Activated Date Inactivated Comments 2024 6:44 PM 02/11/2024 2:47 PM * Full Code Date Activated Date Inactivated Comments 01/02/2023 7:52 AM 01/05/2023 4:05 PM Question Answer Comments With Whom was the Code Status Discussed? Patient * Full ACLS Date Activated Date Inactivated Comments 08/20/2022 4:36 AM 08/21/2022 9:18 PM * Full ACLS Date Activated Date Inactivated Comments 05/28/2022 3:52 PM 05/29/2022 2:30 PM Question Answer Comments With Whom was the Code Status Discussed? Patient
--- OUTSIDE RECORDS SUMMARY | 2024-11-17 09:45 | XMS_ITS ---
Author Name [facility] Organization Unknown Results Test Name/Text Value Interpretation Date Range Source AST SerPl-cCnc 18U/L Normal [id number] 10 - 50 [facility] ALP SerPl-cCnc 82U/L Normal [id number] 32 - 122 [facility] ALT SerPl-cCnc 14U/L Normal [id number] 10 - 50 [facility] Globulin Ser Calc-mCnc 2.5g/dL Normal [id number] 1.5 - 3.9 [facility] Bil[facility]ub Direct SerPl-mCnc 0.2mg/dL Normal [id number] 0 - 0.2 [facility] Albumin/Glob SerPl 1.4Ratio Normal [id number] 1 - 1.8 [facility] Albumin SerPl-mCnc 3.6g/dL Normal [id number] 3.5 - 5 [facility] Prot SerPl-mCnc 6.1g/dL Below low normal [id number] 6.3 - 8.3 [facility] Bilirub SerPl-mCnc 0.4mg/dL Normal [id number] 0.2 - 1 [facility] Calcium SerPl-mCnc 7.9mg/dL Below low normal [id number] 8 .7 - 10.5 [facility] BUN SerPl-mCnc 7mg/dL Below low normal [id number] 8 - 2 1 [facility] Creat SerPl-mCnc 0.8mg/dL Normal [id number] 0.4 - 1.1 [facility] GFR/BSA.pred SerPlBld ZDW-AFY-AzHSuz 90 Normal [id number] 59 - [facility] Chloride SerPl-sCnc 103mmol/L Normal [id number] 98 - 10 7 [facility] BUN/Creat SerPl 9Ratio Below low normal [id number] 10 - 25 [facility] CO2 SerPl-sCnc 25mmol/L Normal [id number] 22 - 33 [facility] Anion Gap Bld-sCnc 11 Normal [id number] 4 - 16 [facility] Potassium SerPl-sCnc 3.1mmol/L Below low normal [id number] 3.4 - 5.3 [facility] Glucose SerPl-mCnc 82mg/dL Normal [id number] 65 - 99 [facility] Sodium SerPl-sCnc 139mmol/L Normal [id number] 136 - 145 [facility] Magnesium SerPl-mCnc 1.6mg/dL Normal [id number] 1.6 - 2.7 [facility] Neutrophils num Bld Auto 2.93Thou/uL Normal [id number] 2 - 7.5 [facility] Monocytes num Bld Auto 0.39Thou/uL Normal [id number] 0.2 - 1.5 [facility] Eosinophil num Bld Auto 0.21Thou/uL Normal [id number] 0 - 0.7 [facility] WBC num Bld Auto 6Thou/uL Normal [id number] 4 - 11 [facility] MCHC RBC Auto-mCnc 32.5g/dL Normal [id number] 30 - 36 [facility] Monocytes/leuk NFr Bld Auto 6.5% Normal [id number] [facility] Hct VFr Bld Auto 31.4% Below low normal [id number] 35 - 47 [facility] RBC num Bld Auto 3.3Mil/uL Below low normal [id number] 4 - 5.4 [facility] RDW RBC Auto-Rto 15% Above high normal [id number] 11 .5 - 14.5 [facility] PMV Bld Auto 9.4fL Normal [id number] 7.5 - 12.[address] Eosinophil/leuk NFr Bld Auto 3.5% Normal 510404619438 [facility] MCH RBC Qn Auto 30.9pg Normal [id number] 26 - 34 [facility] Basophils/leuk NFr Bld Auto 0.7% Normal [id number] [facility] Basophils num Bld Auto 0.04Thou/uL Normal [id number] 0 - 0.2 [facility] Platelet num Bld Auto 231Thou/uL Normal [id number] 150 - 450 [facility] Neutrophils/leuk NFr Bld Auto 48.8% Normal [id number] [facility] MCV RBC Auto 95fL Normal [id number] 80 - 100 [facility] T Lymphocytes/leuk NFr Bld Auto 40.2% Normal [id number] [facility] Lymphocytes num Bld Auto 2.41Thou/uL Normal [id number] 1.5 - 4.5 [facility] Imm Granulocytes/leuk NFr Bld Auto 0.3% Normal [id number] [facility] Hgb Bld-mCnc 10.2g/dL Below low normal [id number] 11.7 - 15.7 [facility] Imm Granulocytes num Bld Auto 0.02Thou/uL Normal [id number] 0 - 0.1 [facility] Lipase SerPl-cCnc 54U/L Normal 13 - 60 [facility] AST SerPl-cCnc 31U/L Normal 10 - 50 [facility] ALT SerPl-cCnc 21U/L Normal 10 - 50 [facility] Creat SerPl-mCnc 1mg/dL Normal [id number] 0.4 - 1.1 [facility] Globulin Ser Calc-mCnc 3.2g/dL Normal [id number] 1.5 - 3.9 [facility] CO2 SerPl-sCnc 22mmol/L Normal [id number] 22 - 33 [facility] CCT Albumin/Glob SerPl 1.5Ratio Normal [id number] 1 - 1.8 [facility] Anion Gap Bld-sCnc 18 Above high normal [id number] 4 - 16 [facility] Potassium SerPl-sCnc 3.3mmol/L Below low normal [id number] 3.4 - 5.3 [facility] Bilirub SerPl-mCnc 0.3mg/dL Normal [id number] 0.2 - 1 [facility] Calcium SerPl-mCnc 10.1mg/dL Normal [id number] 8.7 - 10 .5 [facility] BUN SerPl-mCnc 13mg/dL Normal [id number] 8 - 21 [facility] ALP SerPl-cCnc 110U/L Normal [id number] 32 - 122 [facility] GFR/BSA.pred SerPlBld OTQ-TKT-QrSMwp 77 Normal [id number] 59 - [facility] Chloride SerPl-sCnc 100mmol/L Normal [id number] 98 - 10 7 [facility] BUN/Creat SerPl 13Ratio Normal [id number] 10 - 25 [facility] Albumin SerPl-mCnc 4.7g/dL Normal [id number] 3.5 - 5 [facility] Prot SerPl-mCnc 7.9g/dL Normal [id number] 6.3 - 8.3 [facility] Glucose SerPl-mCnc 112mg/dL Above high normal [id number] 65 - 99 [facility] Sodium SerPl-sCnc 140mmol/L Normal [id number] 136 - 145 [facility] Lipase SerPl-cCnc 52U/L Normal [id number] 13 - 60 [facility] Neutrophils num Bld Auto 6.73Thou/uL Normal [id number] 2 - 7.5 [facility] Monocytes num Bld Auto 0.76Thou/uL Normal [id number] 0.2 - 1.5 [facility] Eosinophil num Bld Auto 0.28Thou/uL Normal [id number] 0 - 0.7 [facility] WBC num Bld Auto 10.4Thou/uL Normal [id number] 4 - 11 [facility] MCHC RBC Auto-mCnc 34.3g/dL Normal [id number] 30 - 36 [facility] Monocytes/leuk NFr Bld Auto 7.3% Normal [id number] [facility] Hct VFr Bld Auto 36.1% Normal [id number] 35 - 47 [facility] RBC num Bld Auto 4Mil/uL Normal [id number] 4 - 5.4 [facility] RDW RBC Auto-Rto 14.9% Above high normal [id number] 11 .5 - 14.5 [facility] PMV Bld Auto 9.9fL Normal [id number] 7.5 - 12.[address] Eosinophil/leuk NFr Bld Auto 2.7% Normal [id number] [facility] MCH RBC Qn Auto 31pg Normal [id number] 26 - 34 [facility] Basophils/leuk NFr Bld Auto 0.5% Normal [id number] [facility] Basophils num Bld Auto 0.05Thou/uL Normal [id number] 0 - 0.2 [facility] Platelet num Bld Auto 327Thou/uL Normal [id number] 150 - 450 [facility] Neutrophils/leuk NFr Bld Auto 64.7% Normal 893305024150 [facility] MCV RBC Auto 90fL Normal [id number] 80 - 100 [facility] T Lymphocytes/leuk NFr Bld Auto 24.3% Normal [id number] [facility] Lymphocytes num Bld Auto 2.53Thou/uL Normal [id number] 1.5 - 4.5 [facility] Imm Granulocytes/leuk NFr Bld Auto 0.5% Normal [id number] [facility] Hgb Bld-mCnc 12.4g/dL Normal 11.7 - 15.7 HH CCT Imm Granulocytes num Bld Auto 0.05Thou/uL Normal 0 - 0.1 [facility] AST SerPl-cCnc 28U/L Normal 10 - 50 [facility] ALT SerPl-cCnc 18U/L Normal [id number] 10 - 50 [facility] CCT Creat SerPl-mCnc 0.8mg/dL Normal [id number] 0.4 - 1.1 [facility] Globulin Ser Calc-mCnc 3.2g/dL Normal 1.5 - 3.9 [facility] CO2 SerPl-sCnc 27mmol/L Normal [id number] 22 - 33 [facility] Albumin/Glob SerPl 1.1Ratio Normal [id number] 1 - 1.8 [facility] Anion Gap Bld-sCnc 10 Normal [id number] 4 - 16 [facility] Potassium SerPl-sCnc 3.7mmol/L Normal [id number] 3.4 - 5.3 [facility] Bilirub SerPl-mCnc 0.2mg/dL Normal [id number] 0.2 - 1 [facility] Calcium SerPl-mCnc 9.1mg/dL Normal [id number] 8.7 - 10 .5 [facility] BUN SerPl-mCnc 7mg/dL Below low normal [id number] 8 - 2 1 [facility] ALP SerPl-cCnc 171U/L Above high normal [id number] 32 - 122 [facility] GFR/BSA.pred SerPlBld QUA-UGD-WeVChu 90 Normal [id number] 59 - [facility] Chloride SerPl-sCnc 101mmol/L Normal [id number] 98 - 10 7 [facility] BUN/Creat SerPl 9Ratio Below low normal [id number] 10 - 25 [facility] Albumin SerPl-mCnc 3.6g/dL Normal [id number] 3.5 - 5 [facility] Prot SerPl-mCnc 6.8g/dL Normal [id number] 6.3 - 8.3 [facility] Glucose SerPl-mCnc 111mg/dL Above high normal [id number] 65 - 99 [facility] Sodium SerPl-sCnc 138mmol/L Normal [id number] 136 - 145 [facility] Ethanol SerPl-mCnc 11mg/dL Normal [id number] [facility] Lipase SerPl-cCnc 78U/L Above high normal [id number] 1 3 - 60 [facility] Neutrophils num Bld Auto 4.77Thou/uL Normal [id number] 2 - 7.5 [facility] Monocytes num Bld Auto 0.55Thou/uL Normal [id number] 0.2 - 1.5 [facility] Eosinophil num Bld Auto 0.27Thou/uL Normal [id number] 0 - 0.7 [facility] WBC num Bld Auto 7.3Thou/uL Normal [id number] 4 - 11 [facility] MCHC RBC Auto-mCnc 33.4g/dL Normal [id number] 30 - 36 [facility] Monocytes/leuk NFr Bld Auto 7.6% Normal [id number] [facility] Hct VFr Bld Auto 33.2% Below low normal [id number] 35 - 47 [facility] RBC num Bld Auto 3.62Mil/uL Below low normal [id number] 4 - 5.4 [facility] RDW RBC Auto-Rto 13.8% Normal [id number] 11.5 - 14. 5 [facility] PMV Bld Auto 9.6fL Normal [id number] 7.5 - 12.[address] Eosinophil/leuk NFr Bld Auto 3.7% Normal [id number] [facility] MCH RBC Qn Auto 30.7pg Normal [id number] 26 - 34 [facility] Basophils/leuk NFr Bld Auto 0.6% Normal [id number] [facility] Basophils num Bld Auto 0.04Thou/uL Normal [id number] 0 - 0.2 [facility] Platelet num Bld Auto 399Thou/uL Normal [id number] 150 - 450 [facility] Neutrophils/leuk NFr Bld Auto 65.7% Normal [id number] [facility] MCV RBC Auto 92fL Normal [id number] 80 - 100 [facility] T Lymphocytes/leuk NFr Bld Auto 22.1% Normal [id number] [facility] Lymphocytes num Bld Auto 1.6Thou/uL Normal [id number] 1.5 - 4.5 [facility] Imm Granulocytes/leuk NFr Bld Auto 0.3% Normal [id number] [facility] Hgb Bld-mCnc 11.1g/dL Below low normal [id number] 11.7 - 15.7 [facility] Imm Granulocytes num Bld Auto 0.02Thou/uL Normal [id number] 0 - 0.1 [facility] IgG1 Ser-mCnc 440mg/dL Normal [id number] 382 - 929 [facility] IgG2 Ser-mCnc 296mg/dL Normal [id number] 242 - 700 [facility] IgG4 Ser-mCnc 35.5mg/dL Normal [id number] 3.9 - 86.4 [facility] IgG3 Ser-mCnc 75mg/dL Normal [id number] 22 - 176 [facility] IgG SerPl-mCnc 903mg/dL Normal [id number] 700 - 1600 [facility] Mitochondria M2 IgG Ser-aCnc 5.8Units Normal [id number] - [facility] AST/ALT SerPl-cRto 1.7 Normal [id number] - [facility] Glucose SerPl-mCnc 96mg/dL Normal [id number] 70 - 100 [facility] AST SerPl w P-5'-P-cCnc 17U/L Normal [id number] 10 - 35 [facility] Calcium SerPl-mCnc 8.7mg/dL Below low normal [id number] 8 .8 - 10.2 [facility] ALT SerPl w/o P-5'-P-cCnc 10U/L Normal [id number] 10 - 35 [facility] Sodium SerPl-sCnc 138mmol/L Normal [id number] 136 - 144 [facility] BUN SerPl-mCnc 4mg/dL Below low normal [id number] 6 - 2 0 [facility] ALP SerPl-cCnc 103U/L Normal [id number] 9 - 122 [facility] Globulin Plas-mCnc 2.5g/dL Normal 693930228535 2 - 3.9 [facility] HCO3 SerPl-sCnc 26mmol/L Normal [id number] 20 - 30 [facility] Creat SerPl-mCnc 0.7mg/dL Normal [id number] 0.4 - 1.3 [facility] Anion Gap3 SerPl-sCnc 13 Normal [id number] 7 - 17 [facility] BUN/Creat SerPl 5.7 Below low normal [id number] 8 - 23 [facility] Albumin SerPl BCG-mCnc 3.9g/dL Normal [id number] 3.6 - 5.1 [facility] Bilirub SerPl-mCnc 0.6mg/dL Normal 878983961611 - [facility] Chloride SerPl-sCnc 99mmol/L Normal [id number] 98 - 10 7 [facility] Albumin/Glob SerPl 1.6 Normal [id number] 1 - 2.2 [facility] Potassium SerPl-sCnc 3.4mmol/L Normal [id number] 3.3 - 5.3 [facility] GFR/BSA.pred SerPlBld WGH-PKR-UcSQah 60mL/min/1.73m2 Normal [id number] - [facility] Prot SerPl-mCnc 6.4g/dL Normal [id number] 5.9 - 8.3 [facility] Phosphate SerPl-mCnc 2.5mg/dL Normal [id number] 2.2 - 4.5 [facility] Magnesium SerPl-mCnc 1.7mg/dL Normal [id number] 1.7 - 2.4 [facility] MCV RBC Auto 94.2fL Normal [id number] 80 - 100 [facility] Lymphocytes # Bld Auto 1.12g6493/uL Normal [id number] 0.6 - 3.7 [facility] WBC # Bld Auto 13.4f1791/uL Above high normal [id number] 4 - 11 [facility] Monocytes/leuk NFr Bld Auto 5.3% Normal [id number] 4 - 12 [facility] Imm Granulocytes/leuk NFr Bld Auto 0.4% Normal 381049037708 0 - 1 [facility] nRBC # Bld Auto 2m2135/uL Normal [id number] 0 - 1 [facility] Platelet # Bld Auto 561c9727/uL Normal [id number] 150 - 420 [facility] PMV Bld Auto 10.3fL Normal 369501329800 8 - 12 [facility] MCH RBC Qn Auto 31.4pg Normal [id number] 27 - 33 [facility] Eosinophil # Bld Auto 0.87w0108/uL Normal 364396554084 0 - 1 [facility] Neutrophils/leuk NFr Bld Auto 83.1% Above high normal 614121867704 39 - 72 [facility] Imm Granulocytes # Bld Auto 0.22f9728/uL Normal 476454026713 0 - 0.3 [facility] RBC # Bld Auto 3.79M/uL Below low normal 384862111475 4 - 6 [facility] Monocytes # Bld Auto 0.35e5302/uL Normal 480685990406 0 - 1 [facility] RDW RBC Auto-Rto 14.6% Normal 418837922034 11 - 15 [facility] Lymphocytes/leuk NFr Bld Auto 8.8% Below low normal 200117753403 17 - 50 [facility] Eosinophil/leuk NFr Bld Auto 2% Normal [id number] 0 - 5 [facility] Basophils # Bld Auto 0.97t5192/uL Normal 892973716575 0 - 1 [facility] nRBC/100 WBC Bld Auto-Rto 0% Normal [id number] 0 - 1 [facility] Neutrophils # Bld Auto 11.70a9964/uL Above high normal 998355805624 2 - 7.6 [facility] Hct VFr Bld Auto 35.7% Normal [id number] 35 - 45 [facility] Hgb Bld-mCnc 11.9g/dL Normal [id number] 11.7 - 15.5 [facility] MCHC RBC Auto-mCnc 33.3g/dL Normal [id number] 31 - 36 [facility] Basophils/leuk NFr Bld Auto 0.4% Normal 411188379145 0 - 1.4 [facility] IgA SerPl-mCnc 107mg/dL Normal 863240996812 70 - 470 [facility] IgM SerPl-mCnc 135mg/dL Normal [id number] 40 - 230 [facility] IgG SerPl-mCnc 952mg/dL Normal 614179933035 700 - 1600 [facility] AST/ALT SerPl-cRto 1.4 Normal [id number] - [facility] Glucose SerPl-mCnc 109mg/dL Above high normal 537057781629 70 - 100 [facility] AST SerPl w P-5'-P-cCnc 18U/L Normal [id number] 10 - 35 [facility] Calcium SerPl-mCnc 9mg/dL Normal 436214851530 8.8 - 10 .2 [facility] ALT SerPl w/o P-5'-P-cCnc 13U/L Normal [id number] 10 - 35 [facility] Sodium SerPl-sCnc 139mmol/L Normal [id number] 136 - 144 [facility] BUN SerPl-mCnc 7mg/dL Normal [id number] 6 - 20 [facility] ALP SerPl-cCnc 110U/L Normal [id number] 9 - 122 [facility] Globulin Plas-mCnc 2.5g/dL Normal [id number] 2 - 3.9 [facility] HCO3 SerPl-sCnc 23mmol/L Normal [id number] 20 - 30 [facility] Creat SerPl-mCnc 0.8mg/dL Normal 693652581797 0.4 - 1.3 [facility] Anion Gap3 SerPl-sCnc 15 Normal [id number] 7 - 17 [facility] BUN/Creat SerPl 8.8 Normal [id number] 8 - 23 [facility] Albumin SerPl BCG-mCnc 4.2g/dL Normal 497863340537 3.6 - 5.1 [facility] Bilirub SerPl-mCnc 0.7mg/dL Normal [id number] - [facility] Chloride SerPl-sCnc 101mmol/L Normal [id number] 98 - 10 7 [facility] Albumin/Glob SerPl 1.7 Normal [id number] 1 - 2.2 [facility] Potassium SerPl-sCnc 3.5mmol/L Normal 974582889490 3.3 - 5.3 [facility] GFR/BSA.pred SerPlBld WEY-GRF-FsZKsw 60mL/min/1.73m2 Normal [id number] - [facility] Prot SerPl-mCnc 6.7g/dL Normal [id number] 5.9 - 8.3 [facility] Phosphate SerPl-mCnc 2.7mg/dL Normal 404813938465 2.2 - 4.5 [facility] Magnesium SerPl-mCnc 1.7mg/dL Normal 051916564005 1.7 - 2.4 [facility] MCV RBC Auto 94fL Normal 738446398592 80 - 100 [facility] Lymphocytes # Bld Auto 1.11e6792/uL Normal 518982526844 0.6 - 3.7 [facility] WBC # Bld Auto 16.8d6588/uL Above high normal 729855873974 4 - 11 [facility] Monocytes/leuk NFr Bld Auto 4.9% Normal 678060908377 4 - 12 [facility] Imm Granulocytes/leuk NFr Bld Auto 0.4% Normal 206558125084 0 - 1 [facility] nRBC # Bld Auto 2h3862/uL Normal 967380490353 0 - 1 [facility] Platelet # Bld Auto 872g9837/uL Above high normal 8639191961 18 150 - 420 [facility] PMV Bld Auto 10.1fL Normal 290936973858 8 - 12 [facility] MCH RBC Qn Auto 30.9pg Normal 757662923363 27 - 33 [facility] Eosinophil # Bld Auto 0.87x0675/uL Normal 882862839213 0 - 1 [facility] Neutrophils/leuk NFr Bld Auto 84.1% Above high normal 748394526788 39 - 72 [facility] Imm Granulocytes # Bld Auto 0.22z0206/uL Normal 118496503089 0 - 0.3 [facility] RBC # Bld Auto 3.98M/uL Below low normal 897262070229 4 - 6 [facility] Monocytes # Bld Auto 0.8v4238/uL Normal 927279362498 0 - 1 [facility] RDW RBC Auto-Rto 14.6% Normal 847747231436 11 - 15 [facility] Lymphocytes/leuk NFr Bld Auto 10% Below low normal 795674320177 17 - 50 [facility] Eosinophil/leuk NFr Bld Auto 0.2% Normal 938769043103 0 - 5 [facility] Basophils # Bld Auto 0.44p5320/uL Normal 073582015324 0 - 1 [facility] nRBC/100 WBC Bld Auto-Rto 0% Normal 558899360526 0 - 1 [facility] Neutrophils # Bld Auto 13.29e4238/uL Above high normal 008488242538 2 - 7.6 [facility] Hct VFr Bld Auto 37.4% Normal 938279298950 35 - 45 [facility] Hgb Bld-mCnc 12.3g/dL Normal 784255680607 11.7 - 15.5 [facility] MCHC RBC Auto-mCnc 32.9g/dL Normal 138806061062 31 - 36 [facility] Basophils/leuk NFr Bld Auto 0.4% Normal 714872742742 0 - 1.4 [facility] Trigl SerPl-mCnc 50mg/dL Normal 889078122139 - [facility] Ethanol SerPl-mCnc 10mg/dL Normal 120828835818 - 10 [facility] CRP SerPl HS-mCnc 0.6mg/L Normal 921710990388 - [facility] Bacteria # Ur Auto Rare Normal [id number] - [facility] Squamous #/area UrnS Auto 15/HPF Above high normal 628095239115 0 - 5 [facility] WBC #/area UrnS Auto 1/HPF Normal 659967902048 0 - 5 [facility] RBC #/area UrnS Auto 5/HPF Above high normal 224453356889 0 - 2 [facility] Hyaline Casts #/area UrnS 1/LPF Normal 0 - 3 [facility] Glucose Ur Strip.auto-mCnc Negative Normal 548098550109 - [facility] Hgb Ur Ql Strip.auto 3+ Abnormal [id number] - [facility] Color Ur Auto Yellow Normal - [facility] Bilirub Ur Ql Strip.auto Negative Normal - [facility] Clarity Ur Refract.auto Cloudy Abnormal - [facility] Prot Ur Strip.auto-mCnc 1+ Abnormal 050370554300 - [facility] Nitrite Ur Ql Strip.auto Negative Normal - [facility] Ketones Ur Strip.auto-mCnc 1+ Abnormal 276594336795 - [facility] WBC # Ur Strip Negative Normal - [facility] Sp Gr Ur Refract.auto 1.028 Normal 1.005 - 1.03 [facility] Urobilinogen Ur Strip-mCnc 2mg/dL Normal - [facility] pH Ur Strip.auto 6.5 Normal 5.5 - 7.5 [facility] HCO3 SerPl-sCnc 21mmol/L Normal 20 - 30 [facility] Glucose SerPl-mCnc 119mg/dL Above high normal 70 - 100 [facility] Creat SerPl-mCnc 0.9mg/dL Normal 0.4 - 1.3 [facility] Calcium SerPl-mCnc 9.6mg/dL Normal 8.8 - 10 .2 [facility] Sodium SerPl-sCnc 139mmol/L Normal 136 - 144 [facility] Anion Gap3 SerPl-sCnc 18 Above high normal 090349853493 7 - 17 [facility] BUN SerPl-mCnc 10mg/dL Normal 581990323080 6 - 20 [facility] BUN/Creat SerPl 11.1 Normal 369336728110 8 - 23 [facility] Chloride SerPl-sCnc 100mmol/L Normal 366323237611 98 - 10 7 [facility] Potassium SerPl-sCnc 3.9mmol/L Normal 144689114949 3.3 - 5.3 [facility] GFR/BSA.pred SerPlBld SRL-ESE-EjGQkh 60mL/min/1.73m2 Normal 032233209135 - [facility] Lipase SerPl-cCnc 543U/L Above high normal 240318185737 1 1 - 55 [facility] Magnesium SerPl-mCnc 2mg/dL Normal [id number] 1.7 - 2.4 [facility] AST/ALT SerPl-cRto 1.9 Normal [id number] - [facility] AST SerPl w P-5'-P-cCnc 35U/L Normal 517889221551 10 - 35 [facility] ALT SerPl w/o P-5'-P-cCnc 18U/L Normal 793896115503 10 - 35 [facility] Bilirub Direct SerPl-mCnc 0.2mg/dL Normal [id number] - [facility] ALP SerPl-cCnc 116U/L Normal [id number] 9 - 122 [facility] Albumin SerPl BCG-mCnc 4.5g/dL Normal 215390665403 3.6 - 5.1 [facility] Bilirub SerPl-mCnc 0.4mg/dL Normal 379156964873 - [facility] Albumin/Glob SerPl 1.5 Normal 332574341225 1 - 2.2 [facility] Globulin Plas-mCnc 3.1g/dL Normal 431507165359 2 - 3.9 [facility] Prot SerPl-mCnc 7.6g/dL Normal [id number] 5.9 - 8.3 [facility] MCV RBC Auto 91.9fL Normal 232516940728 80 - 100 [facility] Lymphocytes # Bld Auto 3.57g6909/uL Normal 744593136021 0.6 - 3.7 [facility] WBC # Bld Auto 11.0b5231/uL Above high normal 065016626496 4 - 11 [facility] Monocytes/leuk NFr Bld Auto 5.2% Normal 892957938589 4 - 12 [facility] Imm Granulocytes/leuk NFr Bld Auto 0.3% Normal 891087354321 0 - 1 [facility] nRBC # Bld Auto 4m7794/uL Normal 346502497744 0 - 1 [facility] Platelet # Bld Auto 075h6465/uL Above high normal 2094534242 40 150 - 420 [facility] PMV Bld Auto 9.7fL Normal 554014163801 8 - 12 [facility] MCH RBC Qn Auto 30.4pg Normal [id number] 27 - 33 [facility] Eosinophil # Bld Auto 0.91t3797/uL Normal 167994296777 0 - 1 [facility] Neutrophils/leuk NFr Bld Auto 60.3% Normal 350540511909 39 - 72 [facility] Imm Granulocytes # Bld Auto 0.13z4864/uL Normal 988469440463 0 - 0.3 [facility] RBC # Bld Auto 4.44M/uL Normal 096277037409 4 - 6 [facility] Monocytes # Bld Auto 0.22o7799/uL Normal 095887032709 0 - 1 [facility] RDW RBC Auto-Rto 14.6% Normal 736685445383 11 - 15 [facility] Lymphocytes/leuk NFr Bld Auto 31% Normal 042080050367 17 - 50 [facility] Eosinophil/leuk NFr Bld Auto 2.4% Normal [id number] 0 - 5 [facility] Basophils # Bld Auto 0.89v8652/uL Normal 322419738136 0 - 1 [facility] nRBC/100 WBC Bld Auto-Rto 0% Normal 798771527930 0 - 1 [facility] Neutrophils # Bld Auto 6.42q9731/uL Normal [id number] 2 - 7.6 [facility] Hct VFr Bld Auto 40.8% Normal 954566512726 35 - 45 [facility] Hgb Bld-mCnc 13.5g/dL Normal 841449495408 11.7 - 15.5 [facility] MCHC RBC Auto-mCnc 33.1g/dL Normal 615572625904 31 - 36 [facility] Basophils/leuk NFr Bld Auto 0.8% Normal 872504667137 0 - 1.4 [facility] Magnesium SerPl-mCnc 1.8mg/dL Normal 437924324556 1.6 - 2.7 [facility] Phosphate SerPl-mCnc 2.6mg/dL Below low normal [id number] 2.7 - 4.5 [facility] AST SerPl-cCnc 30U/L Normal [id number] 10 - 50 [facility] ALT SerPl-cCnc 67U/L Above high normal [id number] 10 - 50 [facility] Creat SerPl-mCnc 0.7mg/dL Normal [id number] 0.4 - 1.1 [facility] Globulin Ser Calc-mCnc 2.4g/dL Normal [id number] 1.5 - 3.9 [facility] CO2 SerPl-sCnc 24mmol/L Normal [id number] 22 - 33 [facility] Albumin/Glob SerPl 1.5Ratio Normal [id number] 1 - 1.8 [facility] Anion Gap Bld-sCnc 8 Normal [id number] 4 - 16 [facility] Potassium SerPl-sCnc 3.9mmol/L Normal [id number] 3.4 - 5.3 [facility] Bilirub SerPl-mCnc 0.3mg/dL Normal [id number] 0.2 - 1 [facility] Calcium SerPl-mCnc 8.6mg/dL Below low normal [id number] 8 .7 - 10.5 [facility] BUN SerPl-mCnc 4mg/dL Below low normal [id number] 8 - 2 1 [facility] ALP SerPl-cCnc 159U/L Above high normal [id number] 32 - 122 [facility] GFR/BSA.pred SerPlBld SBH-GPA-ThTDvw 90 Normal [id number] 59 - [facility] Chloride SerPl-sCnc 105mmol/L Normal [id number] 98 - 10 7 [facility] BUN/Creat SerPl 6Ratio Below low normal [id number] 10 - 25 [facility] Albumin SerPl-mCnc 3.5g/dL Normal [id number] 3.5 - 5 [facility] Prot SerPl-mCnc 5.9g/dL Below low normal [id number] 6.3 - 8.3 [facility] Glucose SerPl-mCnc 146mg/dL Above high normal [id number] 65 - 99 [facility] Sodium SerPl-sCnc 137mmol/L Normal [id number] 136 - 145 [facility] Neutrophils num Bld Auto 10.87Thou/uL Above high normal [id number] 2 - 7.5 [facility] Monocytes num Bld Auto 1.44Thou/uL Normal [id number] 0.2 - 1.5 [facility] Eosinophil num Bld Auto 0Thou/uL Normal [id number] 0 - 0.7 [facility] WBC num Bld Auto 13.6Thou/uL Above high normal [id number] 4 - 11 [facility] MCHC RBC Auto-mCnc 33.2g/dL Normal [id number] 30 - 36 [facility] Monocytes/leuk NFr Bld Auto 10.6% Normal [id number] [facility] Hct VFr Bld Auto 34.3% Below low normal [id number] 35 - 47 [facility] RBC num Bld Auto 3.62Mil/uL Below low normal [id number] 4 - 5.4 [facility] RDW RBC Auto-Rto 14.8% Above high normal [id number] 11 .5 - 14.5 [facility] PMV Bld Auto 10.2fL Normal [id number] 7.5 - 12.[address] Eosinophil/leuk NFr Bld Auto 0% Normal [id number] [facility] MCH RBC Qn Auto 31.5pg Normal [id number] 26 - 34 [facility] Basophils/leuk NFr Bld Auto 0.2% Normal [id number] [facility] Basophils num Bld Auto 0.03Thou/uL Normal [id number] 0 - 0.2 [facility] Platelet num Bld Auto 338Thou/uL Normal [id number] 150 - 450 [facility] Neutrophils/leuk NFr Bld Auto 79.9% Normal [id number] [facility] MCV RBC Auto 95fL Normal [id number] 80 - 100 [facility] T Lymphocytes/leuk NFr Bld Auto 8.8% Normal [id number] [facility] Lymphocytes num Bld Auto 1.19Thou/uL Below low normal [id number] 1.5 - 4.5 [facility] Imm Granulocytes/leuk NFr Bld Auto 0.5% Normal [id number] [facility] Hgb Bld-mCnc 11.4g/dL Below low normal [id number] 11.7 - 15.7 [facility] Imm Granulocytes num Bld Auto 0.07Thou/uL Normal [id number] 0 - 0.1 [facility] Potassium SerPl-sCnc 3.8mmol/L Normal [id number] 3.4 - 5.3 [facility] POC Glucose 93mg/dL Normal [id number] 65 - 99 [facility] Magnesium SerPl-mCnc 1.8mg/dL Normal [id number] 1.6 - 2.7 [facility] AST SerPl-cCnc 35U/L Normal [id number] 10 - 50 [facility] CCT ALT SerPl-cCnc 87U/L Above high normal [id number] 10 - 50 [facility] Creat SerPl-mCnc 0.8mg/dL Normal [id number] 0.4 - 1.1 [facility] Globulin Ser Calc-mCnc 2.3g/dL Normal [id number] 1.5 - 3.9 [facility] CO2 SerPl-sCnc 24mmol/L Normal [id number] 22 - 33 [facility] CCT Albumin/Glob SerPl 1.5Ratio Normal [id number] 1 - 1.8 [facility] Anion Gap Bld-sCnc 10 Normal [id number] 4 - 16 [facility] Potassium SerPl-sCnc 3.6mmol/L Normal [id number] 3.4 - 5.3 [facility] Bilirub SerPl-mCnc 0.5mg/dL Normal [id number] 0.2 - 1 [facility] Calcium SerPl-mCnc 8.6mg/dL Below low normal [id number] 8 .7 - 10.5 [facility] BUN SerPl-mCnc 4mg/dL Below low normal [id number] 8 - 2 1 [facility] ALP SerPl-cCnc 189U/L Above high normal [id number] 32 - 122 [facility] GFR/BSA.pred SerPlBld YXN-EXF-OgPPvp 90 Normal [id number] 59 - [facility] Chloride SerPl-sCnc 105mmol/L Normal [id number] 98 - 10 7 [facility] BUN/Creat SerPl 5Ratio Below low normal [id number] 10 - 25 [facility] Albumin SerPl-mCnc 3.5g/dL Normal [id number] 3.5 - 5 [facility] Prot SerPl-mCnc 5.8g/dL Below low normal [id number] 6.3 - 8.3 [facility] Glucose SerPl-mCnc 102mg/dL Above high normal [id number] 65 - 99 [facility] Sodium SerPl-sCnc 139mmol/L Normal [id number] 136 - 145 [facility] Phosphate SerPl-mCnc 2.2mg/dL Below low normal [id number] 2.7 - 4.5 [facility] Neutrophils num Bld Auto 4.5Thou/uL Normal [id number] 2 - 7.5 [facility] Monocytes num Bld Auto 0.82Thou/uL Normal [id number] 0.2 - 1.5 [facility] Eosinophil num Bld Auto 0.26Thou/uL Normal [id number] 0 - 0.7 [facility] WBC num Bld Auto 7.5Thou/uL Normal [id number] 4 - 11 [facility] RBC Auto-mCnc 32.5g/dL Normal [id number] 30 - 36 [facility] Monocytes/leuk NFr Bld Auto 10.9% Normal [id number] [facility] Hct VFr Bld Auto 35.1% Normal [id number] 35 - 47 [facility] RBC num Bld Auto 3.64Mil/uL Below low normal [id number] 4 - 5.4 [facility] RDW RBC Auto-Rto 14.8% Above high normal [id number] 11 .5 - 14.5 [facility] PMV Bld Auto 10.3fL Normal [id number] 7.5 - 12.[address] Eosinophil/leuk NFr Bld Auto 3.4% Normal [id number] [facility] MCH RBC Qn Auto 31.3pg Normal [id number] 26 - 34 [facility] Basophils/leuk NFr Bld Auto 0.5% Normal [id number] [facility] Basophils num Bld Auto 0.04Thou/uL Normal [id number] 0 - 0.2 [facility] Platelet num Bld Auto 309Thou/uL Normal [id number] 150 - 450 [facility] Neutrophils/leuk NFr Bld Auto 59.7% Normal [id number] [facility] MCV RBC Auto 96fL Normal [id number] 80 - 100 [facility] T Lymphocytes/leuk NFr Bld Auto 25.1% Normal [id number] [facility] Lymphocytes num Bld Auto 1.89Thou/uL Normal [id number] 1.5 - 4.5 [facility] Imm Granulocytes/leuk NFr Bld Auto 0.4% Normal [id number] [facility] Hgb Bld-mCnc 11.4g/dL Below low normal [id number] 11.7 - 15.7 [facility] Imm Granulocytes num Bld Auto 0.03Thou/uL Normal [id number] 0 - 0.1 [facility] Potassium SerPl-sCnc 3.8mmol/L Normal [id number] 3.4 - 5.3 [facility] Magnesium SerPl-mCnc 1.8mg/dL Normal [id number] 1.6 - 2.7 [facility] Neutrophils num Bld Auto 6.11Thou/uL Normal [id number] 2 - 7.5 [facility] Monocytes num Bld Auto 0.81Thou/uL Normal [id number] 0.2 - 1.5 [facility] Eosinophil num Bld Auto 0.18Thou/uL Normal [id number] 0 - 0.7 [facility] WBC num Bld Auto 8.9Thou/uL Normal [id number] 4 - 11 [facility] RBC Auto-mCnc 32.9g/dL Normal [id number] 30 - 36 [facility] Monocytes/leuk NFr Bld Auto 9.1% Normal [id number] [facility] Hct VFr Bld Auto 34.6% Below low normal [id number] 35 - 47 [facility] RBC num Bld Auto 3.63Mil/uL Below low normal [id number] 4 - 5.4 [facility] RDW RBC Auto-Rto 14.7% Above high normal [id number] 11 .5 - 14.5 [facility] PMV Bld Auto 9.7fL Normal [id number] 7.5 - 12.[address] Eosinophil/leuk NFr Bld Auto 2% Normal [id number] [facility] MCH RBC Qn Auto 31.4pg Normal [id number] 26 - 34 [facility] Basophils/leuk NFr Bld Auto 0.3% Normal [id number] [facility] Basophils num Bld Auto 0.03Thou/uL Normal [id number] 0 - 0.2 [facility] Platelet num Bld Auto 310Thou/uL Normal [id number] 150 - 450 [facility] Neutrophils/leuk NFr Bld Auto 68.6% Normal [id number] [facility] MCV RBC Auto 95fL Normal [id number] 80 - 100 [facility] T Lymphocytes/leuk NFr Bld Auto 19.8% Normal [id number] [facility] Lymphocytes num Bld Auto 1.76Thou/uL Normal [id number] 1.5 - 4.5 [facility] Imm Granulocytes/leuk NFr Bld Auto 0.2% Normal [id number] [facility] Hgb Bld-mCnc 11.4g/dL Below low normal [id number] 11.7 - 15.7 [facility] Imm Granulocytes num Bld Auto 0.02Thou/uL Normal [id number] 0 - 0.1 [facility] AST SerPl-cCnc 93U/L Above high normal [id number] 10 - 50 [facility] ALT SerPl-cCnc 130U/L Above high normal [id number] 10 - 50 [facility] Creat SerPl-mCnc 0.7mg/dL Normal [id number] 0.4 - 1.1 [facility] Globulin Ser Calc-mCnc 2.3g/dL Normal [id number] 1.5 - 3.9 [facility] CO2 SerPl-sCnc 24mmol/L Normal [id number] 22 - 33 [facility] Albumin/Glob SerPl 1.6Ratio Normal [id number] 1 - 1.8 [facility] Anion Gap Bld-sCnc 11 Normal [id number] 4 - 16 [facility] Potassium SerPl-sCnc 3.3mmol/L Below low normal [id number] 3.4 - 5.3 [facility] Bilirub SerPl-mCnc 0.7mg/dL Normal [id number] 0.2 - 1 [facility] Calcium SerPl-mCnc 8.5mg/dL Below low normal [id number] 8 .7 - 10.5 [facility] BUN SerPl-mCnc 6mg/dL Below low normal [id number] 8 - 2 1 [facility] ALP SerPl-cCnc 237U/L Above high normal [id number] 32 - 122 [facility] GFR/BSA.pred SerPlBld BLN-GZD-EpIWui 90 Normal [id number] 59 - [facility] Chloride SerPl-sCnc 102mmol/L Normal [id number] 98 - 10 7 [facility] BUN/Creat SerPl 9Ratio Below low normal [id number] 10 - 25 [facility] Albumin SerPl-mCnc 3.7g/dL Normal [id number] 3.5 - 5 [facility] Prot SerPl-mCnc 6g/dL Below low normal [id number] 6.3 - 8.3 [facility] Glucose SerPl-mCnc 96mg/dL Normal [id number] 65 - 99 [facility] Sodium SerPl-sCnc 137mmol/L Normal [id number] 136 - 145 [facility] Lipase SerPl-cCnc 16U/L Normal [id number] 13 - 60 [facility] Neutrophils num Bld Auto 7.63Thou/uL Above high normal [id number] 2 - 7.5 [facility] Monocytes num Bld Auto 0.83Thou/uL Normal [id number] 0.2 - 1.5 [facility] Eosinophil num Bld Auto 0.09Thou/uL Normal [id number] 0 - 0.7 [facility] WBC num Bld Auto 9.9Thou/uL Normal [id number] 4 - 11 [facility] RBC Auto-mCnc 33g/dL Normal [id number] 30 - 36 [facility] Monocytes/leuk NFr Bld Auto 8.4% Normal [id number] [facility] Hct VFr Bld Auto 34.9% Below low normal [id number] 35 - 47 [facility] RBC num Bld Auto 3.62Mil/uL Below low normal [id number] 4 - 5.4 [facility] RDW RBC Auto-Rto 14.7% Above high normal [id number] 11 .5 - 14.5 [facility] PMV Bld Auto 10.1fL Normal [id number] 7.5 - 12.[address] Eosinophil/leuk NFr Bld Auto 0.9% Normal [id number] [facility] MCH RBC Qn Auto 31.8pg Normal [id number] 26 - 34 [facility] Basophils/leuk NFr Bld Auto 0.3% Normal [id number] [facility] Basophils num Bld Auto 0.03Thou/uL Normal [id number] 0 - 0.2 [facility] Platelet num Bld Auto 312Thou/uL Normal [id number] 150 - 450 [facility] Neutrophils/leuk NFr Bld Auto 77% Normal [id number] [facility] MCV RBC Auto 96fL Normal [id number] 80 - 100 [facility] T Lymphocytes/leuk NFr Bld Auto 12.9% Normal [id number] [facility] Lymphocytes num Bld Auto 1.28Thou/uL Below low normal [id number] 1.5 - 4.5 [facility] Imm Granulocytes/leuk NFr Bld Auto 0.5% Normal [id number] [facility] Hgb Bld-mCnc 11.5g/dL Below low normal [id number] 11.7 - 15.7 [facility] Imm Granulocytes num Bld Auto 0.05Thou/uL Normal [id number] 0 - 0.1 [facility] RBC num/area UrnS HPF 5perhpf Above high normal [id number] 0 - 4 [facility] WBC num/area UrnS HPF 5perhpf Above high normal [id number] 0 - 4 [facility] Squamous num/area UrnS HPF 20PERHPF Normal [id number] [facility] Crystals UrnS Ql Micro Normal [id number] [facility] Ketones Ur Strip-mCnc Abnormal [id number] - [facility] Prot Ur Strip-mCnc Abnormal [id number] - [facility] Leukocyte esterase Ur Ql Strip Normal [id number] - [facility] Color Ur Normal [id number] [facility] pH Ur Strip 8 Normal [id number] 5 - 8 [facility] Sp Gr Ur Strip 1.039 Above high normal [id number] 1 .003 - 1.03 [facility] Nitrite Ur Ql Strip Normal [id number] - [facility] Glucose Ur Strip-mCnc Normal [id number] 0 - 99 [facility] Hgb Ur Ql Strip Normal [id number] - H [facility]CT Bilirub Ur Strip-mCnc Normal [id number] - [facility] Clarity Ur Normal [id number] [facility] Lipase SerPl-cCnc 46U/L Normal [id number] 13 - 60 [facility] AST SerPl-cCnc 246U/L Above high normal [id number] 10 - 50 [facility] ALT SerPl-cCnc 194U/L Above high normal [id number] 10 - 50 [facility] Creat SerPl-mCnc 0.9mg/dL Normal [id number] 0.4 - 1.1 [facility] Globulin Ser Calc-mCnc 3.4g/dL Normal [id number] 1.5 - 3.9 [facility] CO2 SerPl-sCnc 21mmol/L Below low normal [id number] 22 - 33 [facility] Albumin/Glob SerPl 1.3Ratio Normal [id number] 1 - 1.8 [facility] Anion Gap Bld-sCnc 19 Above high normal 773871482154 4 - 16 [facility] Potassium SerPl-sCnc 3.7mmol/L Normal [id number] 3.4 - 5.3 [facility] Bilirub SerPl-mCnc 1.5mg/dL Above high normal 808143948886 0.2 - 1 [facility] Calcium SerPl-mCnc 9.9mg/dL Normal [id number] 8.7 - 10 .5 [facility] BUN SerPl-mCnc 7mg/dL Below low normal [id number] 8 - 2 1 [facility] ALP SerPl-cCnc 307U/L Above high normal [id number] 32 - 122 [facility] GFR/BSA.pred SerPlBld UGO-GSD-EvUWmq 88 Normal [id number] 59 - [facility]CT Chloride SerPl-sCnc 98mmol/L Normal [id number] 98 - 10 7 [facility] BUN/Creat SerPl 8Ratio Below low normal [id number] 10 - 25 [facility] Albumin SerPl-mCnc 4.3g/dL Normal [id number] 3.5 - 5 [facility] Prot SerPl-mCnc 7.7g/dL Normal [id number] 6.3 - 8.3 [facility] Glucose SerPl-mCnc 123mg/dL Above high normal [id number] 65 - 99 [facility] Sodium SerPl-sCnc 138mmol/L Normal [id number] 136 - 145 [facility] Neutrophils num Bld Auto 9.27Thou/uL Above high normal [id number] 2 - 7.5 [facility] Monocytes num Bld Auto 0.73Thou/uL Normal [id number] 0.2 - 1.5 [facility] Eosinophil num Bld Auto 0.15Thou/uL Normal [id number] 0 - 0.7 [facility] WBC num Bld Auto 11.7Thou/uL Above high normal [id number] 4 - 11 [facility] MCHC RBC Auto-mCnc 34.4g/dL Normal [id number] 30 - 36 [facility] Monocytes/leuk NFr Bld Auto 6.2% Normal [id number] [facility] Hct VFr Bld Auto 38.7% Normal [id number] 35 - 47 [facility] RBC num Bld Auto 4.19Mil/uL Normal [id number] 4 - 5.4 [facility] RDW RBC Auto-Rto 14.4% Normal [id number] 11.5 - 14. 5 [facility] PMV Bld Auto 9.8fL Normal [id number] 7.5 - 12.[address] Eosinophil/leuk NFr Bld Auto 1.3% Normal 867587151620 [facility] MCH RBC Qn Auto 31.7pg Normal [id number] 26 - 34 [facility] Basophils/leuk NFr Bld Auto 0.4% Normal [id number] [facility] Basophils num Bld Auto 0.05Thou/uL Normal [id number] 0 - 0.2 [facility] Platelet num Bld Auto 386Thou/uL Normal [id number] 150 - 450 [facility] Neutrophils/leuk NFr Bld Auto 79.3% Normal [id number] [facility] MCV RBC Auto 92fL Normal [id number] 80 - 100 [facility] T Lymphocytes/leuk NFr Bld Auto 12.6% Normal [id number] [facility] Lymphocytes num Bld Auto 1.48Thou/uL Below low normal [id number] 1.5 - 4.5 [facility] Imm Granulocytes/leuk NFr Bld Auto 0.2% Normal [id number] [facility] Hgb Bld-mCnc 13.3g/dL Normal [id number] 11.7 - 15.7 HH [facility] Imm Granulocytes num Bld Auto 0.02Thou/uL Normal [id number] 0 - 0.1 [facility] BKR REFLEX URINE CULTURE See Comment Normal [id number] [facility] Bacteria # Ur Auto Rare Normal [id number] - [facility] Squamous #/area UrnS Auto 10/HPF Above high normal [id number] 0 - 5 [facility] WBC #/area UrnS Auto 3/HPF Normal [id number] 0 - 5 [facility] RBC #/area UrnS Auto 5/HPF Above high normal [id number] 0 - 2 [facility] AST/ALT SerPl-cRto 2 Normal [id number] - [facility] AST SerPl w P-5'-P-cCnc 115U/L Above high normal [id number] 10 - 35 [facility] ALT SerPl w/o P-5'-P-cCnc 57U/L Above high normal [id number] 10 - 35 [facility] Bilirub Direct SerPl-mCnc 0.3mg/dL Normal [id number] - [facility] ALP SerPl-cCnc 138U/L Above high normal [id number] 9 - 122 [facility] Albumin SerPl BCG-mCnc 4.3g/dL Normal [id number] 3.6 - 5.1 [facility] Bilirub SerPl-mCnc 0.6mg/dL Normal [id number] - [facility] Albumin/Glob SerPl 1.7 Normal [id number] 1 - 2.2 [facility] Globulin Plas-mCnc 2.6g/dL Normal [id number] 2 - 3.9 [facility] Prot SerPl-mCnc 6.9g/dL Normal [id number] 5.9 - 8.3 [facility] HCO3 SerPl-sCnc 28mmol/L Normal [id number] 20 - 30 [facility] Glucose SerPl-mCnc 114mg/dL Above high normal [id number] 70 - 100 [facility] Creat SerPl-mCnc 0.9mg/dL Normal 0.4 - 1.3 [facility] Calcium SerPl-mCnc 9.3mg/dL Normal 203387595381 8.8 - 10 .2 [facility] Sodium SerPl-sCnc 140mmol/L Normal 136 - 144 [facility] Anion Gap3 SerPl-sCnc 11 Normal [id number] 7 - 17 [facility] BUN SerPl-mCnc 5mg/dL Below low normal 131963982071 6 - 2 0 [facility] BUN/Creat SerPl 5.6 Below low normal 8 - 23 [facility] Chloride SerPl-sCnc 101mmol/L Normal 98 - 10 7 [facility] Potassium SerPl-sCnc 3.6mmol/L Normal 3.3 - 5.3 [facility] GFR/BSA.pred SerPlBld TGL-TAM-EgNHwq 60mL/min/1.73m2 Normal - [facility] Lipase SerPl-cCnc 49U/L Normal 11 - 55 [facility] Glucose Ur Strip.auto-mCnc Negative Normal [id number] - [facility] Hgb Ur Ql Strip.auto Trace Abnormal - [facility] Color Ur Auto Yellow Normal - [facility] Bilirub Ur Ql Strip.auto Negative Normal [id number] - [facility] Clarity Ur Refract.auto Cloudy Abnormal 126307194226 - [facility] Prot Ur Strip.auto-mCnc Trace Normal 862792651546 - [facility] Nitrite Ur Ql Strip.auto Negative Normal 758004282598 - [facility] Ketones Ur Strip.auto-mCnc Negative Normal [id number] - [facility] WBC # Ur Strip Negative Normal - [facility] Sp Gr Ur Refract.auto 1.019 Normal 1.005 - 1.03 [facility] Urobilinogen Ur Strip-mCnc 2mg/dL Normal [id number] - [facility] pH Ur Strip.auto 6 Normal [id number] 5.5 - 7.5 [facility] MCV RBC Auto 94.8fL Normal 645335753353 80 - 100 [facility] Lymphocytes # Bld Auto 1.75v7380/uL Normal 052505799421 0.6 - 3.7 [facility] WBC # Bld Auto 2e9568/uL Normal [id number] 4 - 11 [facility] Monocytes/leuk NFr Bld Auto 7.8% Normal [id number] 4 - 12 [facility] Imm Granulocytes/leuk NFr Bld Auto 0.4% Normal [id number] 0 - 1 [facility] nRBC # Bld Auto 5f3908/uL Normal 080098245638 0 - 1 [facility] Platelet # Bld Auto 138s8336/uL Normal [id number] 150 - 420 [facility] PMV Bld Auto 9.3fL Normal 695824457511 8 - 12 [facility] MCH RBC Qn Auto 31.1pg Normal 546160851760 27 - 33 [facility] Eosinophil # Bld Auto 0.08t8816/uL Normal 529027132230 0 - 1 [facility] Neutrophils/leuk NFr Bld Auto 66.1% Normal 418114583540 39 - 72 [facility] Imm Granulocytes # Bld Auto 0.13j1678/uL Normal 059266229430 0 - 0.3 [facility] RBC # Bld Auto 4.05M/uL Normal [id number] 4 - 6 [facility] Monocytes # Bld Auto 0.65n5556/uL Normal 757845267480 0 - 1 [facility] RDW RBC Auto-Rto 14.4% Normal 905525507099 11 - 15 [facility] Lymphocytes/leuk NFr Bld Auto 23.5% Normal 626806520762 17 - 50 [facility] Eosinophil/leuk NFr Bld Auto 1.6% Normal 655809705240 0 - 5 [facility] Basophils # Bld Auto 0.15c1287/uL Normal 824505182417 0 - 1 [facility] nRBC/100 WBC Bld Auto-Rto 0% Normal [id number] 0 - 1 [facility] Neutrophils # Bld Auto 5.08a8663/uL Normal 2 - 7.6 [facility] Hct VFr Bld Auto 38.4% Normal [id number] 35 - 45 [facility] Hgb Bld-mCnc 12.6g/dL Normal 11.7 - 15.5 [facility] MCHC RBC Auto-mCnc 32.8g/dL Normal 31 - 36 [facility] Basophils/leuk NFr Bld Auto 0.6% Normal 0 - 1.4 [facility] HCO3 SerPl-sCnc 23mmol/L Normal [id number] 20 - 30 [facility] Glucose SerPl-mCnc 98mg/dL Normal 426805052189 70 - 100 [facility] Creat SerPl-mCnc 0.8mg/dL Normal [id number] 0.4 - 1.3 [facility] Calcium SerPl-mCnc 8.6mg/dL Below low normal 763662209366 8 .8 - 10.2 [facility] Sodium SerPl-sCnc 136mmol/L Normal [id number] 136 - 144 [facility] Anion Gap3 SerPl-sCnc 11 Normal 404840946535 7 - 17 [facility] BUN SerPl-mCnc 5mg/dL Below low normal 366383086184 6 - 2 0 [facility] BUN/Creat SerPl 6.3 Below low normal 748662490734 8 - 23 [facility] Chloride SerPl-sCnc 102mmol/L Normal [id number] 98 - 10 7 [facility] Potassium SerPl-sCnc 3.3mmol/L Normal [id number] 3.3 - 5.3 [facility] GFR/BSA.pred SerPlBld DAM-KFE-MmQHhu 60mL/min/1.73m2 Normal [id number] - [facility] Magnesium SerPl-mCnc 1.9mg/dL Normal 372792092470 1.7 - 2.4 [facility] Phosphate SerPl-mCnc 2mg/dL Below low normal 624930106132 2.2 - 4.5 [facility] MCV RBC Auto 93.8fL Normal 379593791768 80 - 100 [facility] RBC # Bld Auto 3.68M/uL Below low normal 149941078013 4 - 6 [facility] WBC # Bld Auto 11.9s6118/uL Above high normal 034909816636 4 - 11 [facility] RDW RBC Auto-Rto 14.4% Normal [id number] 11 - 15 [facility] Neutrophils # Bld Auto 7.97l3159/uL Above high normal 196840246267 2 - 7.6 [facility] Hct VFr Bld Auto 34.5% Below low normal 075519057766 35 - 45 [facility] Platelet # Bld Auto 786p8600/uL Normal [id number] 150 - 420 [facility] PMV Bld Auto 9.8fL Normal [id number] 8 - 12 [facility] Hgb Bld-mCnc 11.6g/dL Below low normal 970303043082 11.7 - 15.5 [facility] MCH RBC Qn Auto 31.5pg Normal [id number] 27 - 33 [facility] MCHC RBC Auto-mCnc 33.6g/dL Normal [id number] 31 - 36 [facility] BKR REFLEX URINE CULTURE See Comment Normal 916927868059 [facility] Squamous #/area UrnS Auto 18/HPF Above high normal [id number] 0 - 5 [facility] WBC #/area UrnS Auto 3/HPF Normal [id number] 0 - 5 [facility] RBC #/area UrnS Auto 9/HPF Above high normal [id number] 0 - 2 [facility] Glucose Ur Strip.auto-mCnc Negative Normal [id number] - [facility] Hgb Ur Ql Strip.auto Trace Abnormal 459079739663 - [facility] Color Ur Auto Yellow Normal [id number] - [facility] Bilirub Ur Ql Strip.auto Negative Normal [id number] - [facility] Clarity Ur Refract.auto Cloudy Abnormal 070026355307 - [facility] Prot Ur Strip.auto-mCnc 1+ Abnormal [id number] - [facility] Nitrite Ur Ql Strip.auto Negative Normal 499420040802 - [facility] Ketones Ur Strip.auto-mCnc 2+ Abnormal 939258182789 - [facility] WBC # Ur Strip Negative Normal [id number] - [facility] Sp Gr Ur Refract.auto 1.028 Normal [id number] 1.005 - 1.03 [facility] Urobilinogen Ur Strip-mCnc 2mg/dL Normal 001307076776 - [facility] pH Ur Strip.auto 6.5 Normal [id number] 5.5 - 7.5 [facility] BUN SerPl-mCnc 8mg/dL Normal 600135623694 6 - 20 [facility] Creat SerPl-mCnc 0.9mg/dL Normal 646486361362 0.4 - 1.3 [facility] Anion Gap3 SerPl-sCnc 12 Normal [id number] 7 - 17 [facility] GFR/BSA.pred SerPlBld NOD-DPX-HvHLfl 60mL/min/1.73m2 Normal [id number] - [facility] HCO3 SerPl-sCnc 24mmol/L Normal [id number] 20 - 30 [facility] Glucose SerPl-mCnc 105mg/dL Above high normal 049060214809 70 - 100 [facility] BUN/Creat SerPl 8.9 Normal 790962404462 8 - 23 [facility] Chloride SerPl-sCnc 99mmol/L Normal [id number] 98 - 10 7 [facility] Calcium SerPl-mCnc 9.2mg/dL Normal 112210012650 8.8 - 10 .2 [facility] Sodium SerPl-sCnc 135mmol/L Below low normal 567902969510 13 6 - 144 [facility] Potassium SerPl-sCnc 3.8mmol/L Normal 606850720666 3.3 - 5.3 [facility] Lipase SerPl-cCnc 120U/L Above high normal 354547418881 1 1 - 55 [facility] AST/ALT SerPl-cRto 2.5 Normal [id number] - [facility] Bilirub Direct SerPl-mCnc 0.2mg/dL Normal 490891202628 - [facility] ALP SerPl-cCnc 78U/L Normal [id number] 9 - 122 [facility] Globulin Plas-mCnc 2.9g/dL Normal 996581687949 2 - 3.9 [facility] ALT SerPl w/o P-5'-P-cCnc 10U/L Normal 569986220602 10 - 35 [facility] Albumin SerPl BCG-mCnc 4.4g/dL Normal [id number] 3.6 - 5.1 [facility] AST SerPl w P-5'-P-cCnc 25U/L Normal [id number] 10 - 35 [facility] Bilirub SerPl-mCnc 0.5mg/dL Normal 742715409015 - [facility] Albumin/Glob SerPl 1.5 Normal [id number] 1 - 2.2 [facility] Prot SerPl-mCnc 7.3g/dL Normal [id number] 5.9 - 8.3 [facility] Hgb Bld-mCnc 13.1g/dL Normal 700459515413 11.7 - 15.5 [facility] Eosinophil # Bld Auto 0.10n7908/uL Normal 266271428697 0 - 1 [facility] MCHC RBC Auto-mCnc 33.2g/dL Normal 544876583776 31 - 36 [facility] PMV Bld Auto 9.6fL Normal 594061886574 8 - 12 [facility] Basophils/leuk NFr Bld Auto 0.5% Normal 711915969624 0 - 1.4 [facility] Monocytes/leuk NFr Bld Auto 6.6% Normal 791510408082 4 - 12 [facility] RDW RBC Auto-Rto 14.6% Normal 700904955537 11 - 15 [facility] Monocytes # Bld Auto 0.77u6761/uL Normal 205095310344 0 - 1 [facility] Basophils # Bld Auto 0.22f4779/uL Normal 673153972072 0 - 1 [facility] Imm Granulocytes # Bld Auto 0.95m3475/uL Normal 953878623248 0 - 0.3 [facility] Neutrophils # Bld Auto 6.40k5527/uL Normal 261613503744 2 - 7.6 [facility] Hct VFr Bld Auto 39.5% Normal 394144450387 35 - 45 [facility] Lymphocytes/leuk NFr Bld Auto 24.9% Normal 224732352466 17 - 50 [facility] Lymphocytes # Bld Auto 2.91n8105/uL Normal 695445260544 0.6 - 3.7 [facility] nRBC/100 WBC Bld Auto-Rto 0% Normal 598612406263 0 - 1 [facility] RBC # Bld Auto 4.22M/uL Normal 741998853284 4 - 6 [facility] Neutrophils/leuk NFr Bld Auto 66.4% Normal 833206893787 39 - 72 [facility] Eosinophil/leuk NFr Bld Auto 1.3% Normal 798622152923 0 - 5 [facility] Imm Granulocytes/leuk NFr Bld Auto 0.3% Normal 173288190725 0 - 1 [facility] WBC # Bld Auto 9.2h1032/uL Normal [id number] 4 - 11 [facility] nRBC # Bld Auto 7r4648/uL Normal 535123068558 0 - 1 [facility] MCV RBC Auto 93.6fL Normal 337195369972 80 - 100 [facility] MCH RBC Qn Auto 31pg Normal 843768751457 27 - 33 [facility] Platelet # Bld Auto 560p0184/uL Normal [id number] 150 - 420 [facility] BKR REFLEX URINE CULTURE See Comment Normal 189831166248 [facility] BKR URINE SQUAMOUS EPITHELIAL CELLS, UA (NUMERIC) 2/HPF Normal [id number] 0 - 5 [facility] BKR RBC/HPF INSTRUMENT 420/HPF Above high normal 995952723937 0 - 2 [facility] BKR WBC/HPF INSTRUMENT 1/HPF Normal [id number] 0 - 5 [facility] Glucose Ur Strip.auto-mCnc Negative Normal [id number] - [facility] Color Ur Auto Yellow Normal [id number] - [facility] Hgb Ur Ql Strip.auto 3+ Abnormal [id number] - [facility] Ketones Ur Strip.auto-mCnc 3+ Abnormal [id number] - [facility] Prot Ur Strip.auto-mCnc 1+ Abnormal [id number] - [facility] Bilirub Ur Ql Strip.auto Negative Normal [id number] - [facility] WBC # Ur Strip 1+ Abnormal [id number] - [facility] Nitrite Ur Ql Strip.auto Negative Normal [id number] - [facility] Clarity Ur Refract.auto Cloudy Abnormal 714606411193 - [facility] pH Ur Strip.auto 6.5 Normal [id number] 5.5 - 7.5 [facility] Urobilinogen Ur Strip-mCnc 3mg/dL Above high normal 731758641907 - [facility] Sp Gr Ur Refract.auto 1.044 Above high normal 999892074603 1.005 - 1.03 [facility] BUN SerPl-mCnc 8mg/dL Normal 581580956849 6 - 20 [facility] Creat SerPl-mCnc 0.94mg/dL Normal 0.4 - 1.3 [facility] Anion Gap3 SerPl-sCnc 17 Normal [id number] 7 - 17 [facility] GFR/BSA.pred SerPlBld AJC-RIC-VkPSdh 60mL/min/1.73m2 Normal [id number] - [facility] HCO3 SerPl-sCnc 20mmol/L Normal 20 - 30 [facility] Glucose SerPl-mCnc 130mg/dL Above high normal [id number] 70 - 100 [facility] BUN/Creat SerPl 8.5 Normal 8 - 23 [facility] Chloride SerPl-sCnc 100mmol/L Normal [id number] 98 - 10 7 [facility] Calcium SerPl-mCnc 9.4mg/dL Normal 8.8 - 10 .2 [facility] Sodium SerPl-sCnc 137mmol/L Normal [id number] 136 - 144 [facility] Potassium SerPl-sCnc 3.6mmol/L Normal [id number] 3.3 - 5.3 [facility] AST/ALT SerPl-cRto 1.8 Normal - [facility] Bilirub Direct SerPl-mCnc 0.2mg/dL Normal [id number] - [facility] ALP SerPl-cCnc 65U/L Normal [id number] 9 - 122 [facility] Globulin Plas-mCnc 3g/dL Normal [id number] 2.3 - 3. 5 [facility] ALT SerPl w/o P-5'-P-cCnc 19U/L Normal 10 - 35 [facility] Albumin SerPl BCG-mCnc 4.3g/dL Normal 3.6 - 4.9 [facility] AST SerPl w P-5'-P-cCnc 34U/L Normal 10 - 35 [facility] Bilirub SerPl-mCnc 0.4mg/dL Normal [id number] - [facility] Albumin/Glob SerPl 1.4 Normal 1 - 2.2 [facility] Prot SerPl-mCnc 7.3g/dL Normal 6.6 - 8.7 [facility] Lipase SerPl-cCnc 25U/L Normal 11 - 55 [facility] Magnesium SerPl-mCnc 1.9mg/dL Normal 1.7 - 2.4 [facility] Hgb Bld-mCnc 13.1g/dL Normal [id number] 11.7 - 15.5 [facility] Eosinophil # Bld Auto 0.40j6569/uL Normal [id number] 0 - 1 [facility] MCHC RBC Auto-mCnc 34.2g/dL Normal [id number] 31 - 36 [facility] PMV Bld Auto 10.1fL Normal [id number] 8 - 12 [facility] Basophils/leuk NFr Bld Auto 0.2% Normal [id number] 0 - 1.4 [facility] Monocytes/leuk NFr Bld Auto 4.8% Normal [id number] 4 - 12 [facility] RDW RBC Auto-Rto 13.2% Normal [id number] 11 - 15 [facility] Monocytes # Bld Auto 0.47z1835/uL Normal 622110306218 0 - 1 [facility] Imm Granulocytes # Bld Auto 0.30e2710/uL Normal [id number] 0 - 0.3 [facility] Neutrophils # Bld Auto 6.91n3772/uL Normal [id number] 2 - 7.6 [facility] Hct VFr Bld Auto 38.3% Normal [id number] 35 - 45 [facility] Lymphocytes/leuk NFr Bld Auto 18.2% Normal [id number] 17 - 50 [facility] Lymphocytes # Bld Auto 1.3n9965/uL Normal [id number] 0.6 - 3.7 [facility] nRBC/100 WBC Bld Auto-Rto 0% Normal [id number] 0 - 1 [facility] RBC # Bld Auto 4.19M/uL Normal [id number] 4 - 6 [facility] Neutrophils/leuk NFr Bld Auto 75.6% Above high normal [id number] 39 - 72 [facility] Eosinophil/leuk NFr Bld Auto 0.7% Normal [id number] 0 - 5 [facility] Imm Granulocytes/leuk NFr Bld Auto 0.5% Normal [id number] 0 - 1 [facility] WBC # Bld Auto 8.8b1561/uL Normal [id number] 4 - 11 [facility] nRBC # Bld Auto 7w4505/uL Normal [id number] 0 - 1 [facility] MCV RBC Auto 91.4fL Normal [id number] 80 - 100 [facility] MCH RBC Qn Auto 31.3pg Normal [id number] 27 - 33 [facility] BKR WAM BASOPHIL ABSOLUTE COUNT. 0.70t5041/uL Normal [id number] 0 - 1 [facility] Platelet # Bld Auto 094m8986/uL Above high normal 9762525321 40 150 - 420 [facility] BKR REFLEX URINE CULTURE See Comment Normal [id number] [facility] BKR BACTERIA, UA Rare Normal [id number] - [facility] BKR URINE SQUAMOUS EPITHELIAL CELLS, UA (NUMERIC) 8/HPF Above high normal 024534103409 0 - 5 [facility] BKR RBC/HPF INSTRUMENT 322/HPF Above high normal [id number] 0 - 2 [facility] BKR WBC/HPF INSTRUMENT 3/HPF Normal [id number] 0 - 5 [facility] Glucose Ur Strip.auto-mCnc Negative Normal [id number] - [facility] Ketones Ur Strip.auto-mCnc 3+ Abnormal [id number] - [facility] Clarity Ur Refract.auto Cloudy Abnormal [id number] - [facility] Hgb Ur Ql Strip.auto 3+ Abnormal [id number] - [facility] Bilirub Ur Ql Strip.auto Negative Normal [id number] - [facility] Nitrite Ur Ql Strip.auto Negative Normal [id number] - [facility] Color Ur Auto [place] Abnormal [id number] - [facility] WBC # Ur Strip 1+ Abnormal [id number] - [facility] Prot Ur Strip.auto-mCnc 2+ Abnormal [id number] - [facility] Urobilinogen Ur Strip-mCnc 2mg/dL Normal [id number] - [facility] Sp Gr Ur Refract.auto 1.039 Above high normal [id number] 1.005 - 1.03 [facility] pH Ur Strip.auto 7.5 Normal [id number] 5.5 - 7.5 [facility] BUN SerPl-mCnc 8mg/dL Normal [id number] 6 - 20 [facility] Creat SerPl-mCnc 0.95mg/dL Normal [id number] 0.4 - 1.3 [facility] Glucose SerPl-mCnc 120mg/dL Above high normal [id number] 70 - 100 [facility] BUN/Creat SerPl 8.4 Normal [id number] 8 - 23 [facility] Sodium SerPl-sCnc 138mmol/L Normal [id number] 136 - 144 [facility] Anion Gap3 SerPl-sCnc 13 Normal [id number] 7 - 17 [facility] Chloride SerPl-sCnc 104mmol/L Normal [id number] 98 - 10 7 [facility] HCO3 SerPl-sCnc 21mmol/L Normal [id number] 20 - 30 [facility] Potassium SerPl-sCnc 3.7mmol/L Normal [id number] 3.3 - 5.3 [facility] Calcium SerPl-mCnc 9.5mg/dL Normal 185498472942 8.8 - 10 .2 [facility] eGFRcr SerPlBld CKD-EPI 2020 60mL/min/1.73m2 Normal [id number] - [facility] Lipase SerPl-cCnc 48U/L Normal [id number] 11 - 55 [facility] AST SerPl w P-5'-P-cCnc 25U/L Normal [id number] 10 - 35 [facility] Globulin Plas-mCnc 2.7g/dL Normal [id number] 2.3 - 3. 5 [facility] ALP SerPl-cCnc 74U/L Normal [id number] 9 - 122 [facility] Bilirub Direct SerPl-mCnc 0.2mg/dL Normal [id number] - [facility] AST/ALT SerPl-cRto 2.3 Normal [id number] - [facility] Albumin SerPl BCG-mCnc 4.4g/dL Normal [id number] 3.6 - 4.9 [facility] Bilirub SerPl-mCnc 0.5mg/dL Normal [id number] - [facility] ALT SerPl w/o P-5'-P-cCnc 11U/L Normal [id number] 10 - 35 [facility] Prot SerPl-mCnc 7.1g/dL Normal [id number] 6.6 - 8.7 [facility] Albumin/Glob SerPl 1.6 Normal [id number] 1 - 2.2 [facility] Magnesium SerPl-mCnc 1.8mg/dL Normal [id number] 1.7 - 2.4 [facility] Lymphocytes/leuk NFr Bld Auto 13.2% Below low normal [id number] 17 - 50 [facility] WBC # Bld Auto 11.5u6495/uL Above high normal 834537752792 4 - 11 [facility] PMV Bld Auto 9.8fL Normal [id number] 8 - 12 [facility]CH RBC Qn Auto 31pg Normal [id number] 27 - 33 [facility] Imm Granulocytes/leuk NFr Bld Auto 0.4% Normal 055649627853 0 - 1 [facility] Neutrophils # Bld Auto 9.86q9542/uL Above high normal 422802938336 2 - 7.6 [facility] Imm Granulocytes # Bld Auto 0.92s3587/uL Normal 076811191607 0 - 0.3 [facility] RDW RBC Auto-Rto 13.6% Normal [id number] 11 - 15 [facility] nRBC # Bld Auto 8g0948/uL Normal [id number] 0 - 1 [facility] MCHC RBC Auto-mCnc 33.5g/dL Normal [id number] 31 - 36 [facility] nRBC/100 WBC Bld Auto-Rto 0% Normal [id number] 0 - 1 [facility] RBC # Bld Auto 4.45M/uL Normal [id number] 4 - 6 [facility] Platelet # Bld Auto 978c8704/uL Normal [id number] 150 - 420 [facility] Eosinophil/leuk NFr Bld Auto 0.4% Normal [id number] 0 - 5 [facility] Basophils/leuk NFr Bld Auto 0.4% Normal [id number] 0 - 1.4 [facility] Eosinophil # Bld Auto 0.15l2759/uL Normal 825927381908 0 - 1 [facility] Lymphocytes # Bld Auto 1.0c0722/uL Normal [id number] 0.6 - 3.7 [facility] Monocytes # Bld Auto 0.87m9775/uL Normal [id number] 0 - 1 [facility] Monocytes/leuk NFr Bld Auto 4.8% Normal [id number] 4 - 12 [facility] BKR WAM BASOPHIL ABSOLUTE COUNT. 0.25r5899/uL Normal [id number] 0 - 1 [facility] Hgb Bld-mCnc 13.8g/dL Normal [id number] 11.7 - 15.5 [facility] Hct VFr Bld Auto 41.2% Normal [id number] 35 - 45 [facility] MCV RBC Auto 92.6fL Normal [id number] 80 - 100 [facility] Neutrophils/leuk NFr Bld Auto 80.8% Above high normal [id number] 39 - 72 [facility] Lipase SerPl-cCnc 79U/L Above high normal 485710651592 1 1 - 55 [facility] BUN SerPl-mCnc 12mg/dL Normal [id number] 6 - 20 [facility] Creat SerPl-mCnc 1.01mg/dL Normal [id number] 0.4 - 1.3 [facility] Glucose SerPl-mCnc 124mg/dL Above high normal 760119219903 70 - 100 [facility] BUN/Creat SerPl 11.9 Normal [id number] 8 - 23 [facility] Sodium SerPl-sCnc 139mmol/L Normal [id number] 136 - 144 [facility] Anion Gap3 SerPl-sCnc 16 Normal [id number] 7 - 17 [facility] Chloride SerPl-sCnc 96mmol/L Below low normal [id number] 98 - 107 [facility] HCO3 SerPl-sCnc 27mmol/L Normal [id number] 20 - 30 [facility] Potassium SerPl-sCnc 3.6mmol/L Normal [id number] 3.3 - 5.3 [facility] Calcium SerPl-mCnc 9.9mg/dL Normal 559867107831 8.8 - 10 .2 [facility] eGFRcr SerPlBld CKD-EPI 2020 60mL/min/1.73m2 Normal [id number] - [facility] AST SerPl w P-5'-P-cCnc 22U/L Normal [id number] 10 - 35 [facility] Globulin Plas-mCnc 3.2g/dL Normal [id number] 2.3 - 3. 5 [facility] ALP SerPl-cCnc 76U/L Normal [id number] 9 - 122 [facility] Bilirub Direct SerPl-mCnc 0.3mg/dL Normal [id number] - [facility] AST/ALT SerPl-cRto 1.3 Normal [id number] - [facility] Albumin SerPl BCG-mCnc 4.9g/dL Normal [id number] 3.6 - 4.9 [facility] Bilirub SerPl-mCnc 1mg/dL Normal [id number] - [facility] ALT SerPl w/o P-5'-P-cCnc 17U/L Normal [id number] 10 - 35 [facility] Prot SerPl-mCnc 8.1g/dL Normal 255456719883 6.6 - 8.7 [facility] Albumin/Glob SerPl 1.5 Normal 557058339914 1 - 2.2 [facility] Magnesium SerPl-mCnc 1.9mg/dL Normal [id number] 1.7 - 2.4 [facility] Lymphocytes/leuk NFr Bld Auto 16.3% Below low normal [id number] 17 - 50 [facility] WBC # Bld Auto 11.6x9204/uL Above high normal 268429193305 4 - 11 [facility] PMV Bld Auto 10.1fL Normal [id number] 8 - 12 [facility] MCH RBC Qn Auto 30.3pg Normal 787094883577 27 - 33 [facility] Imm Granulocytes/leuk NFr Bld Auto 0.4% Normal 805988257776 0 - 1 [facility] Neutrophils # Bld Auto 8.01k1321/uL Above high normal 012720106733 2 - 7.6 [facility] Imm Granulocytes # Bld Auto 0.13c8682/uL Normal [id number] 0 - 0.3 [facility] RDW RBC Auto-Rto 14.7% Normal [id number] 11 - 15 [facility] nRBC # Bld Auto 0x3138/uL Normal [id number] 0 - 1 [facility] MCHC RBC Auto-mCnc 32.2g/dL Normal 547905919778 31 - 36 [facility] nRBC/100 WBC Bld Auto-Rto 0% Normal 910383734254 0 - 1 [facility] RBC # Bld Auto 4.39M/uL Normal [id number] 4 - 6 [facility] Platelet # Bld Auto 737m9802/uL Normal [id number] 150 - 420 [facility] Eosinophil/leuk NFr Bld Auto 0.3% Normal [id number] 0 - 5 [facility] Basophils/leuk NFr Bld Auto 0.4% Normal [id number] 0 - 1.4 [facility] Eosinophil # Bld Auto 0.07z4720/uL Normal [id number] 0 - 1 [facility] Lymphocytes # Bld Auto 1.12h2326/uL Normal [id number] 0.6 - 3.7 [facility] Monocytes # Bld Auto 0.64m4834/uL Normal 487978479875 0 - 1 [facility] Monocytes/leuk NFr Bld Auto 6.6% Normal [id number] 4 - 12 [facility] BKR WAM BASOPHIL ABSOLUTE COUNT. 0.92p2730/uL Normal [id number] 0 - 1 [facility] Hgb Bld-mCnc 13.3g/dL Normal [id number] 11.7 - 15.5 [facility] Hct VFr Bld Auto 41.3% Normal [id number] 35 - 45 [facility] MCV RBC Auto 94.1fL Normal 711727166047 80 - 100 [facility] Neutrophils/leuk NFr Bld Auto 76% Above high normal [id number] 39 - 72 [facility] BKR REFLEX URINE CULTURE See Comment Normal [id number] [facility] Troponin T SerPl HS-mCnc 6ng/L Normal [id number] - [facility] B[facility] TROPONIN T HS 1 HOUR DELTA FROM 0 HOUR 0ng/L Normal 924141025509 [facility] BKR BACTERIA, UA Rare Normal [id number] - [facility] BKR RBC/HPF INSTRUMENT 8/HPF Above high normal 638579650049 0 - 2 [facility] BKR WBC/HPF INSTRUMENT 1/HPF Normal [id number] 0 - 5 [facility] BKR URINE SQUAMOUS EPITHELIAL CELLS, UA (NUMERIC) 4/HPF Normal [id number] 0 - 5 [facility] Glucose Ur Strip.auto-mCnc Negative Normal - [facility] Ketones Ur Strip.auto-mCnc 2+ Abnormal - [facility] Clarity Ur Refract.auto Cloudy Abnormal - [facility] Hgb Ur Ql Strip.auto Trace Abnormal - [facility] Bilirub Ur Ql Strip.auto Negative Normal [id number] - [facility] Nitrite Ur Ql Strip.auto Negative Normal - [facility] Color Ur Auto Yellow Normal [id number] - [facility] WBC # Ur Strip Negative Normal [id number] - [facility] Prot Ur Strip.auto-mCnc 2+ Abnormal - [facility] Urobilinogen Ur Strip-mCnc 4mg/dL Above high normal - [facility] Sp Gr Ur Refract.auto 1.042 Above high normal 239330126975 1.005 - 1.03 [facility] pH Ur Strip.auto 6.5 Normal [id number] 5.5 - 7.5 [facility] Troponin T SerPl HS-mCnc 6ng/L Normal [id number] - [facility] Lymphocytes/leuk NFr Bld Auto 15.1% Below low normal [id number] 17 - 50 [facility] WBC # Bld Auto 10.9k0685/uL Normal [id number] 4 - 11 [facility] PMV Bld Auto 10.1fL Normal [id number] 8 - 12 [facility] MCH RBC Qn Auto 30.5pg Normal [id number] 27 - 33 [facility] Imm Granulocytes/leuk NFr Bld Auto 0.3% Normal 533576775910 0 - 1 [facility] Neutrophils # Bld Auto 8.74s0906/uL Above high normal 379369522553 2 - 7.6 [facility] Imm Granulocytes # Bld Auto 0.23k0329/uL Normal [id number] 0 - 0.3 [facility] RDW RBC Auto-Rto 15.1% Above high normal [id number] 11 - 15 [facility] nRBC # Bld Auto 2h9762/uL Normal [id number] 0 - 1 [facility] MCHC RBC Auto-mCnc 33.5g/dL Normal [id number] 31 - 36 [facility] nRBC/100 WBC Bld Auto-Rto 0% Normal [id number] 0 - 1 [facility] RBC # Bld Auto 4.42M/uL Normal [id number] 4 - 6 [facility] Platelet # Bld Auto 285l5305/uL Normal [id number] 150 - 420 [facility] Eosinophil/leuk NFr Bld Auto 0.1% Normal [id number] 0 - 5 [facility] Basophils/leuk NFr Bld Auto 0.6% Normal [id number] 0 - 1.4 [facility] Eosinophil # Bld Auto 0.25l6747/uL Normal [id number] 0 - 1 [facility] Lymphocytes # Bld Auto 1.62g7235/uL Normal [id number] 0.6 - 3.7 [facility] Monocytes # Bld Auto 0.72o7314/uL Normal [id number] 0 - 1 [facility] Monocytes/leuk NFr Bld Auto 7.1% Normal [id number] 4 - 12 [facility] BKR WAM BASOPHIL ABSOLUTE COUNT. 0.70a2322/uL Normal [id number] 0 - 1 [facility] Hgb Bld-mCnc 13.5g/dL Normal [id number] 11.7 - 15.5 [facility] Hct VFr Bld Auto 40.3% Normal [id number] 35 - 45 [facility] MCV RBC Auto 91.2fL Normal [id number] 80 - 100 [facility] Neutrophils/leuk NFr Bld Auto 76.8% Above high normal [id number] 39 - 72 [facility] BUN SerPl-mCnc 12mg/dL Normal [id number] 6 - 20 [facility] Creat SerPl-mCnc 0.9mg/dL Normal [id number] 0.4 - 1.3 [facility] Glucose SerPl-mCnc 117mg/dL Above high normal 493398678149 70 - 100 [facility] BUN/Creat SerPl 13.3 Normal [id number] 8 - 23 [facility] Sodium SerPl-sCnc 139mmol/L Normal [id number] 136 - 144 [facility] Anion Gap3 SerPl-sCnc 14 Normal 162050411217 7 - 17 [facility] Chloride SerPl-sCnc 98mmol/L Normal [id number] 98 - 10 7 [facility] HCO3 SerPl-sCnc 27mmol/L Normal [id number] 20 - 30 [facility] Potassium SerPl-sCnc 3.4mmol/L Normal [id number] 3.3 - 5.3 [facility] Calcium SerPl-mCnc 9.9mg/dL Normal [id number] 8.8 - 10 .2 [facility] eGFRcr SerPlBld CKD-EPI 2020 60mL/min/1.73m2 Normal [id number] - [facility] Lipase SerPl-cCnc 61U/L Above high normal 758132509770 1 1 - 55 [facility] AST SerPl w P-5'-P-cCnc 22U/L Normal [id number] 10 - 35 [facility] Globulin Plas-mCnc 3.1g/dL Normal [id number] 2.3 - 3. 5 [facility] ALP SerPl-cCnc 83U/L Normal [id number] 9 - 122 [facility] Bilirub Direct SerPl-mCnc 0.2mg/dL Normal [id number] - [facility] AST/ALT SerPl-cRto 1.6 Normal [id number] - [facility] Albumin SerPl BCG-mCnc 5g/dL Above high normal [id number] 3.6 - 4.9 [facility] Bilirub SerPl-mCnc 1.1mg/dL Normal [id number] - [facility] ALT SerPl w/o P-5'-P-cCnc 14U/L Normal [id number] 10 - 35 [facility] Prot SerPl-mCnc 8.1g/dL Normal [id number] 6.6 - 8.7 [facility] Albumin/Glob SerPl 1.6 Normal [id number] 1 - 2.2 [facility] Magnesium SerPl-mCnc 2mg/dL Normal 852521832720 1.7 - 2.4 [facility] Prothrombin time 10.9seconds Normal [id number] 9.5 - 12 .1 [facility] INR PPP 1.03 Normal [id number] 0.89 - 1.15 [facility] HOLD SPECIMEN BB RECVD Normal [id number] [facility] BKR OXYCODONE, LCMSMS, UR Negative by LC-MS/MS Normal [id number] - [facility] B[facility] OXYMORPHONE, LCMSMS, UR Positive by LC-MS/MS Abnormal [id number] - [facility] BKR HYDROCODONE, LCMSMS, UR Negative by LC-MS/MS Normal [id number] - [facility] BKR MEPERIDINE, LCMSMS, UR Negative by LC-MS/MS Normal [id number] - [facility] BKR MORPHINE, LCMSMS, UR Positive by LC-MS/MS Abnormal [id number] - [facility] B[facility] CODEINE, LCMSMS, UR Negative by LC-MS/MS Normal [id number] - [facility] BKR NALOXONE, LCMSMS, UR Negative by LC-MS/MS Normal [id number] - [facility] BKR NORMEPERIDINE, LCMSMS, UR Negative by LC-MS/MS Normal [id number] - [facility] BKR HYDROMORPHONE, LCMSMS, UR Negative by LC-MS/MS Normal [id number] - [facility] BKR 6-ACETYLMORPHINE, LCMSMS, UR Negative by LC-MS/MS Normal [id number] - [facility] Trigl SerPl-mCnc 0.9mmol/L Normal [id number] 0.5 - 2.2 [facility] Lipase SerPl-cCnc 41U/L Normal [id number] 11 - 55 [facility] BUN SerPl-mCnc 6mg/dL Normal [id number] 6 - 20 [facility] Globulin Plas-mCnc 2.8g/dL Normal 2.3 - 3. 5 [facility] Glucose SerPl-mCnc 90mg/dL Normal [id number] 70 - 100 [facility] ALP SerPl-cCnc 94U/L Normal 9 - 122 [facility] AST/ALT SerPl-cRto 1.1 Normal [id number] - [facility] Calcium SerPl-mCnc 9.6mg/dL Normal 989594944128 8.8 - 10 .2 [facility] HCO3 Plas-sCnc 27mmol/L Normal [id number] 20 - 30 [facility] Creat SerPl-mCnc 1mg/dL Normal [id number] 0.4 - 1.3 [facility] BUN/Creat SerPl 6 Below low normal [id number] 8 - 23 [facility] Sodium SerPl-sCnc 136mmol/L Normal [id number] 136 - 144 [facility] AST SerPl-cCnc 23U/L Normal [id number] 10 - 35 [facility] Anion Gap3 SerPl-sCnc 12 Normal [id number] 7 - 17 [facility] Bilirub SerPl-mCnc 0.3mg/dL Normal [id number] - [facility] Chloride SerPl-sCnc 97mmol/L Below low normal 783317311105 98 - 107 [facility] ALT SerPl w/o P-5'-P-cCnc 21U/L Normal [id number] 10 - 35 [facility] Potassium SerPl-sCnc 3.2mmol/L Below low normal [id number] 3.3 - 5.3 [facility] Albumin SerPl BCP-mCnc 3.9g/dL Normal [id number] 3.6 - 4.9 [facility] eGFRcr SerPlBld CKD-EPI 2020 60mL/min/1.73m2 Normal [id number] - [facility] Prot SerPl-mCnc 6.7g/dL Normal [id number] 6.6 - 8.7 [facility] Albumin/Glob SerPl 1.4 Normal [id number] 1 - 2.2 [facility] Phosphate SerPl-mCnc 5.2mg/dL Above high normal [id number] 2.2 - 4.5 [facility] Magnesium SerPl-mCnc 1.8mg/dL Normal [id number] 1.7 - 2.4 [facility] WBC # Bld Auto 7.8a7735/uL Normal [id number] 4 - 11 [facility] PMV Bld Auto 9.8fL Normal [id number] 8 - 12 [facility] MCH RBC Qn Auto 30.2pg Normal 613656540330 27 - 33 [facility] Neutrophils # Bld Auto 4.95j8781/uL Normal [id number] 2 - 7.6 [facility] RDW RBC Auto-Rto 13.5% Normal [id number] 11 - 15 [facility] MCHC RBC Auto-mCnc 32.5g/dL Normal [id number] 31 - 36 [facility] Hgb Bld-mCnc 13.6g/dL Normal [id number] 11.7 - 15.5 [facility] RBC # Bld Auto 4.5M/uL Normal [id number] 4 - 6 [facility] Platelet # Bld Auto 135z7871/uL Normal [id number] 150 - 420 [facility] Hct VFr Bld Auto 41.9% Normal [id number] 35 - 45 [facility] MCV RBC Auto 93.1fL Normal [id number] 80 - 100 [facility] BUN SerPl-mCnc 3mg/dL Below low normal 387343111632 6 - 2 0 [facility] Creat SerPl-mCnc 0.8mg/dL Normal [id number] 0.4 - 1.3 [facility] Glucose SerPl-mCnc 115mg/dL Above high normal 029883737302 70 - 100 [facility] BUN/Creat SerPl 3.8 Below low normal 437584627221 8 - 23 [facility] Sodium SerPl-sCnc 137mmol/L Normal [id number] 136 - 144 [facility] Anion Gap3 SerPl-sCnc 12 Normal [id number] 7 - 17 [facility] Chloride SerPl-sCnc 99mmol/L Normal [id number] 98 - 10 7 [facility] Potassium SerPl-sCnc 3.2mmol/L Below low normal 335202780760 3.3 - 5.3 [facility] Calcium SerPl-mCnc 9.4mg/dL Normal 119545134685 8.8 - 10 .2 [facility] eGFRcr SerPlBld CKD-EPI 1 60mL/min/1.73m2 Normal [id number] - [facility] HCO3 Plas-sCnc 26mmol/L Normal [id number] 20 - 30 [facility] Lymphocytes/leuk NFr Bld Auto 21.5% Normal [id number] 17 - 50 [facility] WBC # Bld Auto 9.5b4952/uL Normal [id number] 4 - 11 [facility] PMV Bld Auto 9.7fL Normal [id number] 8 - 12 [facility] MCH RBC Qn Auto 30.1pg Normal 633058625775 27 - 33 [facility] Imm Granulocytes/leuk NFr Bld Auto 0.4% Normal [id number] 0 - 1 [facility] Neutrophils # Bld Auto 6.53e4596/uL Normal 568825281096 2 - 7.6 [facility] RDW RBC Auto-Rto 13.3% Normal [id number] 11 - 15 [facility] nRBC # Bld Auto 2e1052/uL Normal [id number] 0 - 1 [facility] MCHC RBC Auto-mCnc 32.8g/dL Normal [id number] 31 - 36 [facility] nRBC/100 WBC Bld Auto-Rto 0% Normal [id number] 0 - 1 [facility] BKR WAM MONOCYTE ABSOLUTE COUNT. 0.05d5634/uL Normal 005185415904 0 - 1 [facility] RBC # Bld Auto 4.35M/uL Normal [id number] 4 - 6 [facility] Platelet # Bld Auto 437v2980/uL Normal [id number] 150 - 420 [facility] Eosinophil/leuk NFr Bld Auto 1.7% Normal [id number] 0 - 5 [facility] Basophils/leuk NFr Bld Auto 0.3% Normal 677916171301 0 - 1.4 [facility] Eosinophil # Bld Auto 0.20q6527/uL Normal [id number] 0 - 1 [facility] BKR WAM ABSOLUTE IMMATURE GRANULOCYTES. 0.84x8645/uL Normal [id number] 0 - 0.3 [facility] Monocytes/leuk NFr Bld Auto 10.4% Normal [id number] 4 - 12 [facility] BKR WAM ABSOLUTE LYMPHOCYTE COUNT. 2.35o3554/uL Normal 0.6 - 3.7 [facility] BKR WAM BASOPHIL ABSOLUTE COUNT. 0.23x1724/uL Normal 0 - 1 [facility] Hgb Bld-mCnc 13.1g/dL Normal 11.7 - 15.5 [facility] Hct VFr Bld Auto 39.9% Normal 35 - 45 [facility] MCV RBC Auto 91.7fL Normal 80 - 100 [facility] Neutrophils/leuk NFr Bld Auto 65.7% Normal 39 - 72 [facility] T3Free SerPl-mCnc 1.33ng/dL Normal [id number] - [facility] BUN SerPl-mCnc 3mg/dL Below low normal 329607142233 6 - 2 0 [facility] Creat SerPl-mCnc 0.8mg/dL Normal 871311109102 0.4 - 1.3 [facility] Glucose SerPl-mCnc 122mg/dL Above high normal 619401845036 70 - 100 [facility] BUN/Creat SerPl 3.8 Below low normal 962728747502 8 - 23 [facility] Sodium SerPl-sCnc 135mmol/L Below low normal 894687066418 13 6 - 144 [facility] Anion Gap3 SerPl-sCnc 11 Normal [id number] 7 - 17 [facility] Chloride SerPl-sCnc 96mmol/L Below low normal 595576390131 98 - 107 [facility] Potassium SerPl-sCnc 3.1mmol/L Below low normal [id number] 3.3 - 5.3 [facility] Calcium SerPl-mCnc 9.3mg/dL Normal [id number] 8.8 - 10 .2 [facility] eGFRcr SerPlBld CKD-EPI 2020 60mL/min/1.73m2 Normal [id number] - [facility] HCO3 Plas-sCnc 28mmol/L Normal 955997303721 20 - 30 [facility] TSH SerPl DL<=0.005 mIU/L-aCnc 5.97uIU/mL Above high normal [id number] - [facility] Lymphocytes/leuk NFr Bld Auto 16.5% Below low normal 522694059590 17 - 50 [facility] WBC # Bld Auto 11.4y1182/uL Above high normal [id number] 4 - 11 [facility] PMV Bld Auto 9.9fL Normal 771336308417 8 - 12 [facility] MCH RBC Qn Auto 30.2pg Normal 986024337413 27 - 33 [facility] Imm Granulocytes/leuk NFr Bld Auto 0.6% Normal [id number] 0 - 1 [facility] Neutrophils # Bld Auto 8.20b4224/uL Above high normal 371712942292 2 - 7.6 [facility] RDW RBC Auto-Rto 13.3% Normal [id number] 11 - 15 [facility] nRBC # Bld Auto 4k1371/uL Normal [id number] 0 - 1 [facility] MCHC RBC Auto-mCnc 33.1g/dL Normal [id number] 31 - 36 [facility] nRBC/100 WBC Bld Auto-Rto 0% Normal [id number] 0 - 1 [facility] BKR WAM MONOCYTE ABSOLUTE COUNT. 0.77m6518/uL Normal [id number] 0 - 1 [facility] RBC # Bld Auto 4.1M/uL Normal [id number] 4 - 6 [facility] Platelet # Bld Auto 980p0473/uL Normal [id number] 150 - 420 [facility] Eosinophil/leuk NFr Bld Auto 0.9% Normal 984580260552 0 - 5 [facility] Basophils/leuk NFr Bld Auto 0.4% Normal [id number] 0 - 1.4 [facility] Eosinophil # Bld Auto 0.9k4293/uL Normal [id number] 0 - 1 [facility] BKR WAM ABSOLUTE IMMATURE GRANULOCYTES. 0.47k5895/uL Normal [id number] 0 - 0.3 [facility] Monocytes/leuk NFr Bld Auto 8.2% Normal [id number] 4 - 12 [facility] BKR WAM ABSOLUTE LYMPHOCYTE COUNT. 1.20n0279/uL Normal 568634389694 0.6 - 3.7 [facility] BKR WAM BASOPHIL ABSOLUTE COUNT. 0.56f0009/uL Normal [id number] 0 - 1 [facility] Hgb Bld-mCnc 12.4g/dL Normal [id number] 11.7 - 15.5 [facility] Hct VFr Bld Auto 37.5% Normal [id number] 35 - 45 [facility] MCV RBC Auto 91.5fL Normal 438822657173 80 - 100 [facility] Neutrophils/leuk NFr Bld Auto 73.4% Above high normal 351476992914 39 - 72 [facility] oxyCODONE Ur Ql Scn Positive Abnormal 729547591924 - [facility] Barbiturates Ur Ql Scn Negative Normal 053615333095 - [facility] BKR METHADONE METABOLITE SCREEN, URINE, W/ CONF. Negative Normal [id number] - [facility] PCP Ur Ql Scn>25 ng/mL Negative Normal 871397347027 - [facility] BKR DRUGS OF ABUSE NOTE Normal 142687080510 [facility] Amphetamines Ur Ql Scn Negative Normal 762280177144 - [facility] BZE Ur Ql Scn Negative Normal [id number] - [facility] Opiates Ur Ql Scn Positive Abnormal [id number] - [facility] Cannabinoids Ur Ql Scn Positive Abnormal [id number] - [facility] Benzodiaz Ur Ql Scn Negative Normal [id number] - [facility] Glucose Ur Strip.auto-mCnc Negative Normal [id number] - [facility] Ketones Ur Strip.auto-mCnc 2+ Abnormal [id number] - [facility] Clarity Ur Refract.auto Clear Normal [id number] - [facility] Hgb Ur Ql Strip.auto Negative Normal [id number] - [facility] Bilirub Ur Ql Strip.auto Negative Normal [id number] - [facility] Nitrite Ur Ql Strip.auto Negative Normal [id number] - [facility] Color Ur Auto Yellow Normal [id number] - [facility] WBC # Ur Strip Negative Normal [id number] - [facility] Prot Ur Strip.auto-mCnc Trace Normal [id number] - [facility] Urobilinogen Ur Strip-mCnc 2mg/dL Normal [id number] - [facility] Sp Gr Ur Refract.auto 1.021 Normal [id number] 1.005 - 1.03 [facility] pH Ur Strip.auto 7 Normal [id number] 5.5 - 7.5 [facility] CK SerPl-cCnc 312U/L Above high normal [id number] 11 - 204 [facility] Phosphate SerPl-mCnc 3.4mg/dL Normal 2.2 - 4.5 [facility] Magnesium SerPl-mCnc 1.8mg/dL Normal 1.7 - 2.4 [facility] BUN SerPl-mCnc 6mg/dL Normal [id number] 6 - 20 [facility] Creat SerPl-mCnc 0.8mg/dL Normal [id number] 0.4 - 1.3 [facility] Glucose SerPl-mCnc 102mg/dL Above high normal [id number] 70 - 100 [facility] BUN/Creat SerPl 7.5 Below low normal [id number] 8 - 23 [facility] Sodium SerPl-sCnc 138mmol/L Normal [id number] 136 - 144 [facility] Anion Gap3 SerPl-sCnc 10 Normal [id number] 7 - 17 [facility] Chloride SerPl-sCnc 101mmol/L Normal [id number] 98 - 10 7 [facility] Potassium SerPl-sCnc 3.7mmol/L Normal [id number] 3.3 - 5.3 [facility] Calcium SerPl-mCnc 8.8mg/dL Normal [id number] 8.8 - 10 .2 [facility] eGFRcr SerPlBld CKD-EPI 2020 60mL/min/1.73m2 Normal [id number] - [facility] HCO3 Plas-sCnc 27mmol/L Normal [id number] 20 - 30 [facility] Lipase SerPl-cCnc 44U/L Normal [id number] 11 - 55 [facility] Globulin Plas-mCnc 2.5g/dL Normal [id number] 2.3 - 3. 5 [facility] ALP SerPl-cCnc 93U/L Normal [id number] 9 - 122 [facility] Bilirub Direct SerPl-mCnc 0.2mg/dL Normal [id number] - [facility] AST/ALT SerPl-cRto 1.5 Normal [id number] - [facility] AST SerPl-cCnc 20U/L Normal [id number] 10 - 35 [facility] Bilirub SerPl-mCnc 0.3mg/dL Normal [id number] - [facility] ALT SerPl w/o P-5'-P-cCnc 13U/L Normal [id number] 10 - 35 [facility] Albumin SerPl BCP-mCnc 3.9g/dL Normal [id number] 3.6 - 4.9 [facility] Prot SerPl-mCnc 6.4g/dL Below low normal [id number] 6.6 - 8.7 [facility] Albumin/Glob SerPl 1.6 Normal [id number] 1 - 2.2 [facility] Lymphocytes/leuk NFr Bld Auto 25.5% Normal [id number] 17 - 50 [facility] WBC # Bld Auto 10.5e4933/uL Normal [id number] 4 - 11 [facility] PMV Bld Auto 9.7fL Normal [id number] 8 - 12 [facility] MCH RBC Qn Auto 30.7pg Normal [id number] 27 - 33 [facility] Imm Granulocytes/leuk NFr Bld Auto 0.3% Normal [id number] 0 - 1 [facility] Neutrophils # Bld Auto 6.13p7223/uL Normal [id number] 2 - 7.6 [facility] RDW RBC Auto-Rto 13.5% Normal [id number] 11 - 15 [facility] nRBC # Bld Auto 9c8625/uL Normal [id number] 0 - 1 [facility] MCHC RBC Auto-mCnc 32.8g/dL Normal [id number] 31 - 36 [facility] nRBC/100 WBC Bld Auto-Rto 0% Normal [id number] 0 - 1 [facility] BKR WAM MONOCYTE ABSOLUTE COUNT. 0.99d6544/uL Normal [id number] 0 - 1 [facility] RBC # Bld Auto 3.97M/uL Below low normal [id number] 4 - 6 [facility] Platelet # Bld Auto 708h1914/uL Normal [id number] 150 - 420 [facility] Eosinophil/leuk NFr Bld Auto 0.5% Normal [id number] 0 - 5 [facility] Basophils/leuk NFr Bld Auto 0.5% Normal [id number] 0 - 1.4 [facility] Eosinophil # Bld Auto 0.11u1258/uL Normal [id number] 0 - 1 [facility] BKR WAM ABSOLUTE IMMATURE GRANULOCYTES. 0.27g7253/uL Normal [id number] 0 - 0.3 [facility] Monocytes/leuk NFr Bld Auto 6.8% Normal [id number] 4 - 12 [facility] BKR WAM ABSOLUTE LYMPHOCYTE COUNT. 2.61t5318/uL Normal [id number] 0.6 - 3.7 [facility] BKR WAM BASOPHIL ABSOLUTE COUNT. 0.69w9535/uL Normal [id number] 0 - 1 [facility] Hgb Bld-mCnc 12.2g/dL Normal [id number] 11.7 - 15.5 [facility] Hct VFr Bld Auto 37.2% Normal [id number] 35 - 45 [facility] MCV RBC Auto 93.7fL Normal [id number] 80 - 100 [facility] Neutrophils/leuk NFr Bld Auto 66.4% Normal [id number] 39 - 72 [facility] History of Medication Use Medication Directions Dispensed Refills Start Date End Date Stat ondansetron (ZOFRAN-ODT) 8 MG disintegrating tablet Take 1 tablet (8 mg total) by mouth 3 times daily (every 8 hours) as needed for nausea or vomiting. Place tablet on tongue and to dissolve. 04/13/2024 active lidocaine (XYLOCAINE) 2 % solution 01/01/2024 active famotidine (PEPCID) 20 MG tablet Take 1 tablet (20 mg total) by mouth 2 (two) times a day. 08/22/2023 02/25/2024 active HYDROmorphone (DILAUDID) 2 MG tablet Take 1 tablet (2 mg total) by mouth 4 times daily (every 6 hours) as needed for severe pain. Max Daily Amount: 8 mg 02/17/2024 active folic acid (FOLVITE) 1 MG tablet Take 1 tablet (1 mg total) by mouth daily. 08/31/2023 active ibuprofen (MOTRIN) 600 MG tablet Take 1 tablet (600 mg total) by mouth 4 times daily (every 6 hours) as needed for mild pain or moderate pain (pain). 02/09/2024 active multivitamin with minerals Tab tablet Take 1 tablet by mouth daily. 08/31/2023 active acetaminophen (TYLENOL) 325 MG tablet Take 2 tablets (650 mg total) by mouth 4 times daily (every 6 hours) as needed for mild pain. 08/30/2023 active thiamine mononitrate (VITAMIN B-1) 100 MG tablet Take 2 tablets (200 mg total) by mouth daily. 08/31/2023 07/09/2024 active benzonatate (TESSALON) 200 MG capsule Take 1 capsule (200 mg total) by mouth 3 (three) times a day as needed for cough. 01/09/2024 active oxyCODONE (ROXICODONE) 5 MG immediate release tablet Take 1 tablet (5 mg total) by mouth 4 times daily (every 6 hours) as needed for severe pain. Max Daily Amount: 20 mg 02/17/2024 02/21/2024 active Problems Problem Status Onset Date Problem Type Date of Resolution Source Pain localized to upper abdomen active 2024-02-15 ProblemAct [facility] Acute pancreatitis with uninfected necrosis active 2023-08-26 ProblemAct [facility] Alcohol-induced acute pancreatitis with uninfected necrosis [facility] Es[facility] active 2021-12-15 ProblemAct [facility] Acute left ankle pain active 2022-01-21 ProblemAct [facility] Fracture of bone active 2022-01-22 ProblemAct [facility] Need for HPV vaccination active 2015-02-01 ProblemAct [facility] Intractable nausea and vomiting active 2022-08-20 ProblemAct [facility] Chronic pancreatitis due to chronic alcoholism (HC CODE) active 2024-04-06 ProblemAct [facility] Leg pain active 2022-02-05 ProblemAct [facility] Vomiting active 2023-01-02 ProblemAct [facility] Closed fracture of left tibial plafond with fibula involvement with routine healing, subsequent encounter active 2022-02-01 ProblemAct [facility] 'Mnujw-gcj-yziee' infant with signs of malnutrition active 2022-02-05 ProblemAct [facility] Alcohol induced acute pancreatitis without necrosis or infection active 2024-06-07 ProblemAct [facility] Abdominal pain, unspecified abdominal location active 2022-05-23 ProblemAct [facility] Epigastric pain active 2021-08-13 ProblemAct [facility] Asthma active 2012-10-17 ProblemAct [facility] Alcohol-induced acute pancreatitis, unspecified complication status active 2024 ProblemAct [facility] Pancreatitis, unspecified pancreatitis type active 2022-05-28 ProblemAct [facility] Biliary colic active EncounterDiagnosisAct [facility] Cholecystitis active 2024-02-14 ProblemAct [facility] Acute cholecystitis active 2024-02-17 ProblemAct [facility] History of vaginal delivery active 2013-02-27 ProblemAct [facility] Hematemesis with nausea active 2023-02-26 ProblemAct [facility] Pelvic inflammatory disease active 2018-03-31 ProblemAct [facility] Immunizations Vaccine Date Source Lot Number Status Tdap 01/20/2023 [facility] [id number] completed Influenza, seasonal, injecta ble, preservative free 07/08/2012 [facility] completed Tdap 01/20/2022 [facility] [id number] completed Pneumococcal polysaccharide PPSV23 01/26/2013 [facility] [id number] completed Tdap 01/25/2013 [facility] [id number] completed HPV9 05/24/2019 [facility] [id number] completed MMR 01/26/2013 [facility] [id number] completed Influenza, seasonal, injectable 07/08/2012 [facility] completed
--- OUTSIDE RECORDS SUMMARY | 2024-11-17 09:45 | XMS_ITS | Clinical Summary ---
Author Organization [facility] Address [address] [place] [address] Care Team Providers Care Women'S Swim Coach Name Role [facility] Primary Care Provider Allergies Active Allergy Reactions Criticality Noted Date Comments Amoxicillin Unknown/Patient and Family Unable to Define Medium 01/20/2023 Ceftriaxone Hives High 05/14/2019 Penicillins Angioedema,Swelling High 10/17/2012 Potassium Hives High 01/21/2022 Pt states The IV bag with the red letters makes me break out in hives Medications Medication Sig Dispensed Refills Start Date End Date Status PANTOprazole (PROTONIX) 40 MG EC tablet Take 1 tablet (40 mg total) by mouth every morning before breakfast. 30 tablet 08/19/2022 Active acetaminophen (TYLENOL) 325 MG tabletIndications:Pa ncreatitis Take 2 tablets (650 mg total) by mouth 4 times daily (every 6 hours) as needed for mild pain. 90 tablet 08/30/2023 Active folic acid (FOLVITE) 1 MG tabletIndications:Al coholism (HCC) Take 1 tablet (1 mg total) by mouth daily. 30 tablet 08/31/2023 Active multivitamin with minerals Tab tabletIndications:Al coholism (HCC) Take 1 tablet by mouth daily. 30 tablet 08/31/2023 Active lidocaine (XYLOCAINE) 2 % solution 01/01/2024 Active albuterol (PROVENTIL HFA; VENTOLIN HFA) 108 (90 Base) MCG/ACT inhaler Inhale 2 puffs every 4 (four) hours as needed. 01/05/2023 Active predniSONE (DELTASONE) 50 MG tabletIndications:Ac sun'aq bronchitis, viral Take 1 tablet (50 mg total) by mouth daily. With food. 5 tablet 01/09/2024 Active benzonatate (TESSALON) 200 MG capsuleIndications:A cute bronchitis, viral Take 1 capsule (200 mg total) by mouth 3 (three) times a day as needed for cough. 30 capsule 01/09/2024 Active albuterol (PROVENTIL HFA; VENTOLIN HFA) 108 (90 Base) MCG/ACT inhalerIndications:A cute bronchitis, viral Inhale 2 puffs every 4 (four) hours as needed for wheezing or shortness of breath. 1 each 01/09/2024 Active ibuprofen (MOTRIN) 600 MG tablet Take 1 tablet (600 mg total) by mouth 4 times daily (every 6 hours) as needed for mild pain or moderate pain (pain). 30 tablet 02/09/2024 Active famotidine (PEPCID) 20 MG tablet Take 1 tablet (20 mg total) by mouth 2 (two) times a day. 30 tablet 02/09/2024 Active ondansetron (ZOFRAN-ODT) 4 MG disintegrating tablet Take 1 tablet (4 mg total) by mouth 4 times daily (every 6 hours) as needed for nausea or vomiting. Place tablet on tongue to dissolve. 15 tablet 02/09/2024 Active HYDROmorphone (DILAUDID) 2 MG tabletIndications:Ac sun'aq cholecystitis Take 1 tablet (2 mg total) by mouth 4 times daily (every 6 hours) as needed for severe pain. Max Daily Amount: 8 mg 12 tablet 02/17/2024 Active polyethylene glycol (miraLAx) 17 g packetIndications:Ac sun'aq cholecystitis Take 1 packet (17 g total) by mouth daily. Take to help avoid constipation related to pain medication 10 packet 02/18/2024 Active oxyCODONE (ROXICODONE) 5 MG immediate release tabletIndications:Ch olecystitis Take 1 tablet (5 mg total) by mouth 4 times daily (every 6 hours) as needed for moderate pain or severe pain. Max Daily Amount: 20 mg 12 tablet 02/17/2024 Active ondansetron (ZOFRAN-ODT) 8 MG disintegrating tablet Take 1 tablet (8 mg total) by mouth 3 times daily (every 8 hours) as needed for nausea or vomiting. Place tablet on tongue and to dissolve. 10 tablet 04/13/2024 Active oxyCODONE (ROXICODONE) 5 MG immediate release tabletIndications:Al cohol-induced acute pancreatitis, unspecified complication status Take 1 tablet (5 mg total) by mouth 4 times daily (every 6 hours) as needed for severe pain. Max Daily Amount: 20 mg 10 tablet 06/08/2024 Active thiamine mononitrate (VITAMIN B-1) 100 MG tabletIndications:Al cohol-induced acute pancreatitis, unspecified complication status Take 2 tablets (200 mg total) by mouth daily. 60 tablet 06/08/2024 Active Active Problems Problem Noted Date Diagnosed Date Alcohol induced acute pancre atitis without necrosis or infection 06/07/2024 Acute cholecystitis 02/17/2024 Pain localized to upper abdomen 02/15/2024 Cholecystitis 02/14/2024 Acute pancreatitis with uninfected necrosis 08/07 Immunizations Name Administration Dates Next Due Tdap 01/20/2023 Social History Tobacco Use Types Packs/Day Years Used Date Smoking Tobacco: Every Day Cigarettes Smokeless Tobacco: Never Tobacco Cessation:Ready to Q uit: Not Asked; Counseling Given: Not Answered Alcohol Use Standard Drinks/Week Comments Yes 4 (1 standard drink = 0.6 oz pur e alcohol) Reports last drink 08/19 [facility] Utilities Answer Date Recorded In the past 12 months has Magnetic, gas, oil, or water [employer] threatened to shut off services in your home? No 08/14/2024 Social Connection and Isolat ion Panel [NHANES] Answer Date Recorded In a typical week, how many times do you talk on the phone with family, friends, or neighbors? More than three times a week 08/14/2024 Frequency of Social Gatherin gs with Friends and Family Not on file 08/14/2024 Attends Gnosticist Services Not on file 08/14 Active Member of Clubs or Organizations Not on f ile 08/14/2024 Attends Club or Organization Meetings Not on sanjay e 08/14/2024 Marital Status Not on file 08/14/2024 AUDIT-C Answer Date Recorded Q1: How often do you have a drink containing alcohol? 2-3 times a week 08/14/2024 Q2: How many drinks containi ng alcohol do you have on a typical day when you are drinking? 7 to 9 Q3: How often do you have si x or more drinks on one occasion? Daily or almost daily 08/14/2024 Overall Financial Resource Strain (CARDIA) Answe r Date Recorded How hard is it for you to pa y for the very basics like food, housing, medical care, and heating? Somewhat hard 06/08/2024 PHQ-2 Answer Date Recorded PHQ-2 Total Score 2 08/14/2024 Hunger Vital Sign Answer Date Recorded Within the past 12 months, y ou worried that your food would run out before you got the money to buy more. Never true 08/14/20 24 Within the past 12 months, t he food you bought just didn't last and you didn't have money to get more. Never true 08/14/2024 PRAPARE - Transportation Answer Date Re corded In the past 12 months, has l ack of transportation kept you from medical appointments or from getting medications? No 06/2024 In the past 12 months, has l ack of transportation kept you from meetings, work, or from getting things needed for daily living? No 08/14/2024 Housing Stability Vital Sign Answer Durga e Recorded In the last 12 months, was t here a time when you were not able to pay the mortgage or rent on time? No 08/14/2024 In the past 12 months, how m any times have you moved where you were living? 0 08/14/2024 At any time in the past 12 m [facility], were you homeless or living in a long-term (including now)? No 08/14/2024 Physical Activity Answer Date Recorded On average, how many days pe r week do you engage in moderate to strenuous exercise (like a brisk walk)? 5 days 08/14/2024 On average, how many minutes do you exercise per day at this level? 60 min 08/14/2024 Sex and Gender Information Value Date Recorded Sex Assigned at Female 12/31/2022 9:09 AM EDT Gender Identity Female 12/31/2022 9:09 AM EDT Sexual Orientation Heterosexual (straight) 01/04 4:18 PM EDT Sexual Orientation Choose not to disclose 2023 4:18 PM EDT Last Filed Vital Signs Vital Sign Reading Time Taken Comments Blood Pressure 129/78 06/18/2024 12:51 PM EDT Pulse 86 06/18/2024 12:51 PM EDT Temperature 36.8 ??C (98.3 ??F) 06/18/2024 12:14 PM E DT Respiratory Rate 18 06/18/2024 12:51 PM EDT Oxygen Saturation 100% 06/18/2024 12:51 PM EDT Inhaled Oxygen Concentration - - Weight 80.7 kg (178 lb) 06/16/2024 7:50 AM EDT Height 160 cm (5' 3 ) 06/16/2024 7:50 AM EDT Body Mass Index 31.53 06/16/2024 7:50 AM EDT Plan of Treatment Health Maintenance Due Date Last Done Comments Hepatitis C Virus Screening 1993 Hepatitis B Vaccines (1 of 3 - 19+ 3-dose series) 02/11/2012 Pneumococcal Vaccine: Pediatric (0-5 Years) and At-Risk Patients (6 to 49 Years) (1 of 2 - PCV) 02/11/2012 Pap Smear (Ages 21-65) 2014 Influenza Vaccine 05/06/2024 07/08/2012, 07/08/2012 COVID-19 Vaccine (2 - 2023- season) 2024 04/15/2021 DTaP/Tdap/Td Vaccines (2 - Td or Tdap) 01/20/2033 01/20/2023 HIV Screening Completed 2024, 05/07, 05/26/2022, Additional history exists HPV Vaccines Aged Out No longer eligi ble based on patient's age to complete this topic Advance Directives * Full Code (Latest Code Status on File) Date Activated Date Inactivated Comments 06/07/2024 9:10 AM 06/18/2024 9:34 AM * Full Code Date Activated Date Inactivated Comments 02/15/2024 1:42 AM 02/27/2024 8:55 AM * Full Code Date Activated Date Inactivated Comments 08/26/2023 10:41 AM 02/08/2024 11:14 PM Care Teams Women'S Swim Coach Relationship Specialty Start Date End Date [facility] [address] [place] [id number] PCP - General 08/26/23
--- OUTSIDE RECORDS SUMMARY | 2024-11-17 09:45 | XMS_ITS | Encounter Summary ---
Author Organization [facility] Address [address] [place] [phone] Care Team Providers Care Financial Service Representative Name Role Phone Unavailable Primary Care Provider Unavailabl e Encounter Details Date Type Department Care Team (Late st Contact Info) Description 12/05/2022 Orders Only Anesthesia [address] [place] [address] [id number] Tiffanie Thibodeaux, DIRECTOR [employer] [address] [place] [phone] Social History Tobacco Use Types Packs/Day Years Used Date Smoking Tobacco: Every Day Cigarettes 0.3 15 Smokeless Tobacco: Never Comments:4 cigs per day Alcohol Use Standard Drinks/Week Comments Yes 1 (1 standard drink = 0.6 oz pur e alcohol) socially AUDIT-C Answer Date Recorded Q1: How often do you have a drink containing alc ohol? Monthly or less 08/20/2022 Q2: How many drinks containi ng alcohol do you have on a typical day when you are drinking? 1 or 2 08/20/2022 Q3: How often do you have si x or more drinks on one occasion? Never 08/20/2022 Overall Financial Resource Strain (CARDIA) Elsiee r Date Recorded How hard is it for you to pa y for the very basics like food, housing, medical care, and heating? Patient declined 05/27/2022 PHQ-2 Answer Date Recorded PHQ-2 Total Score 0 08/20/2022 Hunger Vital Sign Answer Date Recorded Within the past 12 months, y ou worried that your food would run out before you got the money to buy more. Patient declined Within the past 12 months, t he food you bought just didn't last and you didn't have money to get more. Patient declined PRAPARE - Transportation Answer Date Re corded In the past 12 months, has l ack of transportation kept you from medical appointments or from getting medications? Patient declined 05/27/2022 In the past 12 months, has l ack of transportation kept you from meetings, work, or from getting things needed for daily living? Patient declined 05/27/2022 Housing Stability Answer Date Recorded Housing Stability I have a steady place to live 05/27/2022 Comments No Sex and Gender Information Value Date Recorded Sex Assigned at Female 08/22/2021 1:39 PM EST Legal Sex Female 12:36 PM EST Gender Identity Female 08/22/2021 1:39 PM EST Sexual Orientation Straight 08/22/2021 1: 39 PM EST COVID-19 Exposure Response Date Recorded In the last 10 days, have yo u been in contact with someone who was confirmed or suspected to have Coronavirus/COVID-19? No / Unsure 12/02/2022 4:15 PM EST documented as of this encounter Plan of Treatment Not on file documented as of this encounter Visit Diagnoses Not on filedocumented in this encounter Additional Health Concerns Infection Onset Date Last Indicated Resolved Time R/O COVID-19 01/02/2023 01/02/2023 01/02/2023 4:53 AM EDT Assessment Noted Time PHQ-9 Depression Total Score: 0 08/20/20 6:00 AM EST documented as of this encounter
--- OUTSIDE RECORDS SUMMARY | 2024-11-17 09:45 | XMS_ITS | Encounter Summary ---
Author Organization [facility] Address [address] [place] [address] Care Team Providers Care Legal Secretary Receptionist Name Role Phone Unavailable Primary Care Provider Unavailabl e Encounter Details Date Type Department Care Team (Late st Contact Info) Description 12/04/2022 Orders Only [facility] [address] [place] [id number] Tiffanie Thibodeaux, HIP HOP ARTIST [address] [place] [phone] Social History Tobacco Use Types Packs/Day Years [...]
--- OUTSIDE RECORDS SUMMARY | 2024-11-17 09:45 | XMS_ITS | Patient Health Record ---
Author Organization [facility] [place], Address [address] [place] [address] Care Team Providers Care Conventional Machinist Name Role Phone Barron LUTHER, Edmund Unavailable Unavailable Avril Giordano Unavailable [phone] Allergies Allergen (clinical drug ingredient) Drug/Non Drug Allergy documented on EMR Reaction Allergy Type Onset Date Status amoxicillin Amoxicillin Unknown Drug Allergy Act edgar Results Component Value Reference Range Notes Cepheid 4 Plex Reviewed date:12/31/2023 06:15:00 PM Interpretation: Performing Lab: Notes/Report: Avril Giordano, [id number] [address] [place] [address] Flu A NEGATIVE Negative Flu B NEGATIVE Negative RSV NEGATIVE Negative SARS RT-PCR NEGATIVE Negative Strep A Cepheid Reviewed date:12/31/2023 06:15:00 PM Interpretation: Performing Lab: Notes/Report: Strep A NOT DETECTED NOT DETECTED Reason For Referral No Information Medications Medication SIG (Take, Route, Frequency, Duration) Notes Start Date End Date Status Promethazine-Codeine 6.25-10 MG/5ML 5 ml as needed for severe cough Orally every 12 hrs.avoid alcohol, driving adn operating [facility] as the syrup may cause drowsiness for 4 days 12/22/2015 Not-Taking Zithromax Z-Aldo 250 MG 2 tablets on the first day, then 1 tablet daily for 4 days Orally Once a day for 5 day(s) 12/22/2015 Not-Taking Social History Tobacco Use: Social History Observation [...] Problem Status W/U Status Risk Notes Problem Backache (263305834) Unspecified backache (724.5) Active confirmed Problem Postnasal drip (74353579) Postnasal drip (784.91) Active confirmed Problem Cough (32950154) COUGH (786.2) Active confirmed Problem Exposure to communicable disease (703636737) Contact with and (suspected) exposure to other viral communicable diseases (Z20.828) Active confirmed Problem Depression Screening (049555045) Encounter for screening for depression (Z13.31) Active confirmed Problem Body mass index 30.00 to 34.99 (008686457050970 ) Body mass index [BMI] 31.0-31.9, adult (Z68.31) Active confirmed Problem 087235979 Sore throat (J02.9) Active confirmed Vital Signs Heart Rate 86 /min 12/31/2023 Temperature 98.8 degrees Fahrenheit 12/31/2023 Respiratory Rate 18 /min 12/31/2023 Blood pressure diastolic 84 mm Hg 12/31/2023 Oximetry 98 % 12/31/2023 Height 63 in 12/31/2023 Blood pressure systolic 122 mm Hg 12/31/2023 Weight 180 lbs 12/31/2023 BMI 31.88 kg/m2 12/31/2023 Encounters Encounter Location Date Provider Diagnosis [facility] [address] [facility] [address] 12/31/2023 Avril Giordano Contact with and (suspected) exposure to other viral communicable diseases Z20.828 ; Sore throat J02.9 ; Encounter for screening for depression Z13.31 and Body mass index [BMI] 31.0-31.9, adult Z68.31 [facility] [address] [place] [address] 12/31/2023 Assessments Encounter Date Diagnosis (ICD Code) Assessment [...] be indicated. Testing discussed more information available [email or web address] 12/31/2023 Sore throat (ICD-10 - J02.9) If positive than antibiotics to be administered. strep A negative throat c to lab work note 01/01/24 12/31/2023 Encounter for screening for depression (ICD-10 - Z13.31) 12/31/2023 Body mass index [BMI] 31.0-31.9, adult (ICD-10 - Z68.31) 12/31/2023 Other Telemedicine visit performed using synchronous audio video technology Physical examination was performed using FDA approved WorkCast clinical device, that enables remote temperature check, lung exams, ear exams, heart sounds, throat exams, abdomen sounds, skin exams Plan Of Treatment Pending Test Test Name Order Date Chest X-ray PA and lateral 12/22/2015 Insurance Providers Payer Name Payer Address Payer Phone Subscriber Number Group Number Insured Name Patient Relationship to Insured Coverage Start Date Coverage End Date [employer] of [place] [address] [place] [address] [id number] RED MILLER Self - patient is the insured Medical (General) History Medical History History ICD Code PTSD ANXIETY Anemia: No asthma: Yes Cancer: No DEPRESSION: No Diabetes: No high blood pressure: Yes kidney disease: No seizures: No thyroid disease: No Surgical History: None
--- OUTSIDE RECORDS SUMMARY | 2024-11-17 09:45 | XMS_ITS | Encounter Summary ---
Author Organization [facility] Address [address] [place] [phone] Care Team Providers Care Slubber Operator Name Role Phone Obtain, Unable To Primary Care Provider Unavaila ble Encounter Details Date Type Department Care Team (Late st Contact Info) Description 10/15/2012 Abstract [facility] [address] [facility] [address] [place] [address] Roger Biggs MD PhD Social History Tobacco Use Types Packs/Day Years [...] 9:26 AM EST R/O Respiratory Virus 12/10/2021 12/10/202112/10/ 2022 10:04 PM EST R/O COVID-19 12/10/2021 12/10/2021 [...] documented as of this encounter Care Teams Slubber Operator Relationship Specialty Start Date End Date Obtain, Unable To PCP - General 10/06/21 11/01/21 documented as of this encounter
--- OUTSIDE RECORDS SUMMARY | 2024-11-17 09:45 | XMS_ITS | Encounter Summary ---
Author Organization [facility] Address [address] [place] [address] Care Team Providers Care Retail Wireless Associate Name Role Phone Unavailable Primary Care Provider Unavailabl e Reason for Visit * Reason Comments Letter for School/Work Encounter Details Date Type Department Care Team (Late st Contact Info) Description 01/08/2022 Telephone [facility] [address] [place], [place] [phone] Micaela Davis, STUDENT Letter for School/Work Social History Tobacco Use Types Packs/Day Years Used Date Smoking Tobacco: Every Day Cigarettes 0.3 15 Smokeless Tobacco: Never Alcohol Use Standard Drinks/Week Comments Yes 0 (1 standard drink = 0.6 oz pur e alcohol) occ PHQ-2 Answer Date Recorded PHQ-2 Total Score 0 01/07/2022 Comments No Sex and Gender Information Value [...] have Coronavirus / COVID-19? No / Unsure 12/10/2021 5:46 PM EST documented as of this encounter Miscellaneous Notes * Telephone Encounter - Suzanne Bliss - 01/08/2022 1:11 PM EDT Patient called and stated that she received a letter but it was e-signed and needs to have a signature. She is requesting if letter can be resubmitted with a signature. Patient can be reached at [phone] documented in this encounter Plan of Treatment Not on file documented as of this encounter Visit Diagnoses Not on filedocumented in this encounter Additional Health Concerns Infection Onset Date Last Indicated Resolved Time R/O Respiratory Virus 01/13/2022 01/13/20222021 3:48 AM [...] Noted Time PHQ-9 Depression Total Score: 0 01/08/20 2:15 PM EDT documented as of this encounter
--- OUTSIDE RECORDS SUMMARY | 2024-11-17 09:45 | XMS_ITS | Encounter Summary ---
Author Organization [facility] and [facility] Address [address] [place] [address] Care Team Providers Care Wooden Fence Erector Name Role Phone Unavailable Primary Care Provider Unavailabl e Reason for Visit * Reason Comments Triage Encounter Details Date Type Department Care Team (Late st Contact Info) Description 01/22/2022 Telephone [facility] SCHEDULING [address] [place], [place] [address] Anderson Werner MD [address] [place] [phone] Triage Social History Tobacco Use Types Packs/Day Years Used Date Smoking Tobacco: Every Day Cigarettes 0.3 15 Smokeless Tobacco: Never Alcohol Use Standard Drinks/Week Comments Yes 1 (1 standard drink = 0.6 oz pur e alcohol) occ PHQ-2 Answer Date Recorded PHQ-2 Total Score 0 01/22/2022 Comments No Sex and Gender Information Value [...] have Coronavirus / COVID-19? No / Unsure 01/22/2022 7:25 PM EDT documented as of this encounter Miscellaneous Notes * Telephone Encounter - Joyce Núñez RN - 01/23/2022 8:06 AM EDT Contacted patient, reports she is currently admitted due to pain. Tearful on phone. Per chart review, ortho residents have been consulting patient. Will route to Dr. Werner and treating team as FYI. * Telephone Encounter - Macy Bobo - 01/22/2022 4:37 PM EDT Pt c/o severe pain and dislocoloration in lt ankle, she can be reached @ [phone] documented in this encounter Plan of Treatment Not on file documented as of this encounter Visit Diagnoses Not on filedocumented in this encounter Additional Health Concerns Infection Onset Date Last Indicated Resolved Time R/O COVID-19 01/22/2022 01/22/2022 01/22/2022 9:02 PM EDT R/O COVID-19 02/05/2022 02/05/2022 02/05/2022 10:1 3 PM EDT R/O COVID-19 05/23/2022 05/23/2022 05/24/2022 12:2 8 AM EDT R/O COVID-19 05/28/2022 05/28/2022 05/28/2022 2:4 8 PM EDT R/O COVID-19 08/20/2022 08/20/2022 08/20/2022 4:17 AM EST R/O COVID-19 01/02/2023 01/02/2023 01/02/2023 4:53 AM EDT Assessment Noted Time PHQ-9 Depression Total Score: 0 01/23/20 10:20 PM EDT documented as of this encounter
--- OUTSIDE RECORDS SUMMARY | 2024-11-17 09:45 | XMS_ITS | Encounter Summary ---
Author Organization [facility] Address [address] [place] [address] Care Team Providers Care Senior Business Objects Developer Name Role Phone Obtain, Unable To Primary Care Provider Unavaila ble Encounter Details Date Type Department Care Team (Late st Contact Info) Description 11/12/2012 Abstract [facility] Health Information Management [address] [place] [address] [place], Primary Care [address] [place] [address] [place] [address] Social History Tobacco Use Types Packs/Day Years [...] - Inhaled Oxygen Concentration - - Weight 67.7 kg (149 lb 5.1 oz) 10/23/2012 12:01 AM EST Height - - Body Mass Index 27.31 10/17/2012 12:24 PM EST documented in this encounter Plan of Treatment [...] documented as of this encounter Care Teams Senior Business Objects Developer Relationship Specialty Start Date End Date Obtain, Unable To PCP - General 10/06/21 11/01/21 documented as of this encounter
[2024-11-17 10:12] LABS: MANUAL DIFF FLAG NO
[2024-11-17 10:17] LABS: Basophils Absolute Auto 0.1 X10*3/uL (0.0-0.2); Basophils Percent Auto 0.8 % (0-2); Eosinophils Absolute Auto 0.3 X10*3/uL (0.0-0.4); Eosinophils Percent Auto 4.3 % (0-4); Hematocrit 36.1 % (37.0-47.0); Hemoglobin 12.1 g/dl (12.0-16.0); Imm Gran Abs Auto 0.03 X10*3/uL (0.00-0.03); Imm Gran Pct Auto 0.5 % (0.0-0.4); Lymphocytes Absolute Auto 1.5 X10*3/uL (1.2-4.9); Lymphocytes Percent Auto 23.8 % (20-40); Mean Corpuscular HGB Conc 33.5 g/dl (31.0-35.0); Mean Corpuscular Hemoglobin 31.3 pg (27.0-33.0); Mean Corpuscular Volume 93.3 fL (80.0-98.0); Mean Platelet Volume 9.9 fL (9.4-12.3); Monocytes Absolute Auto 0.5 X10*3/uL (0.1-1.2); Monocytes Percent Auto 7.4 % (2-11); Neutrophils Absolute Auto 3.9 x10*3/uL (2.0-8.3); Neutrophils Percent Auto 63.2 % (45-73); Platelet Count 313 X10*3/uL (160-400); Red Blood Count 3.87 X10*6/uL (4.20-5.50); White Blood Count 6.2 X10*3/uL (4.8-10.8)
[2024-11-17 10:18] LABS: Appearance Urine Turbid; Color Urine Yellow; Glucose Urine UA Negative (Negative); Leukocyte Esterase Urine Small (1+) (Negative); Nitrite Urine Negative (Negative); Specific Gravity - Urine 1.025 (1.005-1.025); UMIC TRIGGER UACC YES; Urine Blood Trace (Negative); Urine Ketones Negative (Negative); Urine Protein Trace mg/dL (Neg-Trace)
[2024-11-17] MEDS: diphenhydrAMINE HCL 50 MG/ML VIAL 25 MG IVPUSH (10:18)
[2024-11-17] MEDS: Acetaminophen 1,000 MG/100 ML PIGGYBACK 400 MG IV (10:22)
[2024-11-17 10:23] LABS: Bacteria Urine 4+ (None Seen); Hyaline Casts Urine 0-2 /LPF (0-2); UACC Culture Trigger YES
[2024-11-17 10:37] LABS: IDNOW Serial# 58CA691E; Strep A Nucleic Acid Negative (Negative)
[2024-11-17 10:48] LABS: Influenza A PCR NEGATIVE (Negative); Influenza B PCR NEGATIVE (Negative); Resp Syncy Virus RNA Qual PCR NEGATIVE (Negative); SARS COV2 PCR INHOUSE NEGATIVE (Negative)
[2024-11-17 12:07] LABS: Ethanol < 10 mg/dL
[2024-11-17 12:09] LABS: Alanine Aminotransferase 58 U/L (0-31); Albumin Level 4.1 g/dL (3.5-5.0); Alkaline Phosphatase 117 U/L (39-117); Anion Gap 12 (12-20); Aspartate Amino Transferase 100 U/L (5-31); Bilirubin Direct 0.2 mg/dL (0.0-0.5); Bilirubin Total 0.6 mg/dL (0.0-1.0); Blood Urea Nitrogen 9 mg/dL (9-16); Calcium 8.5 mg/dL (8.4-10.2); Carbon Dioxide 24 mmol/L (22-29); Chloride 106 mmol/L (96-108); Creatinine Clr Calc Pharmacy 94.4; Estimated Glomerular Filt Rate > 60; Glucose Random 94 mg/dL (60-115); Lipase 27 U/L (8-78); Magnesium 1.7 mg/dL (1.6-2.6); Potassium 3.5 mmol/L (3.3-5.1); Sodium 138 mmol/L (135-145); Total Protein 7.1 g/dL (6.5-8.0)
[2024-11-17 12:20] LABS: HCG Quantitative < 2 mIU/mL
[2024-11-17] MEDS: iohexoL 350 MG/ML 100 ML INFUS..BTL IV (12:38)
[2024-11-17] MEDS: Morphine Sulfate 4 MG/ML CARTRIDGE IVPUSH (14:13)
[2024-11-17] MEDS: methylPREDNISolone Sod Succ 125 MG/2 ML VIAL 60 MG IVPUSH (14:15)
[2024-11-17 14:28] VITALS: BP 149/91; PULSE 65; RESP 15; TEMP 36.9; O2SAT 100
[2024-11-17 16:12] VITALS: BP 149/91; PULSE 65; RESP 15; TEMP 36.9; O2SAT 100
[2024-11-18 06:13] LABS: HBS Num1 1.21 mIU/mL (0-7.99); HBc Num1 0.12 S/CO (0.00-0.79); HBsAGNum1 0.33 S/CO (0.00-0.99); Hepatitis A Antibody IgM 0.18 Index (0-0.79); Hepatitis B Core Antibody Nonreactive (Nonreactive); Hepatitis B Surface Antigen Negative (Negative); ~HepC Num1 0.06 S/CO (0.00-0.79); ~Hepatitis A Antibody IgM Nonreactive (Nonreactive); ~Hepatitis B Surface Antibody NONREACTIVE (Nonreactive); ~Hepatitis C Antibody Nonreactive (Nonreactive)
== END 2024-11-17 16:12 | disposition home or self-care (01) ==
PROVIDERS: Physician Assistant Medical; Emergency Provider Emergency Medicine
DX: K52.9 Noninfective gastroenteritis and colitis, unspecified (principal); R21 Rash and other nonspecific skin eruption; R10.2 Pelvic and perineal pain; R11.2 Nausea with vomiting, unspecified; Z79.899 Other long term (current) drug therapy
CPT/HCPCS: 0241U; 36415; 74177; 80048; 80076; 80307; 81001; 83690; 83735; 84702; 85025; 86704; 86706; 86709; 86803; 87086; 87340; 87651; 96374; 96375; 99284; J0131; J1200; J2270; J2919; Q9967

== ENCOUNTER → 2024-11-17 09:48 | Outpatient (BNV) | payer MEDICAID, SELFPAY | PROVIDERS: Emergency Provider Emergency Medicine; Visit Provider Radiology Diagnostic Radiology | DX: K42.9 Umbilical hernia without obstruction or gangrene (principal) | CPT/HCPCS: 74177 ==

== ENCOUNTER 2024-11-19 04:18 | Emergency (ER) | payer MEDICAID, SELFPAY ==
--- NOTE | ~2024-11-19 | CT_ITS ---
CLINICAL HISTORY: severe upper abdo pain CT abdomen and pelvis with contrast Comparison: 11/17/2024 Findings: No consolidation or effusion. Solid organs are within normal limits. There are no abnormal findings in the gallbladder fossa. There is left renal parenchymal calculus with no acute obstructive changes No bowel obstruction, pneumoperitoneum, or pneumatosis. Pelvic contents unremarkable. Normal appendix. No acute fracture. IMPRESSION: No acute findings. This document has been electronically signed by: Valentin Banks MD on 11/19/2024 07:48:49
[2024-11-19 04:34] VITALS: BP 138/96; BP 139/92; PULSE 112; PULSE 90; RESP 24; TEMP 36.8; O2SAT 96; O2SAT 99; BMI 31.7
[2024-11-19 04:36] LABS: Basophils Percent Auto 0.3 % (0-2); Eosinophils Absolute Auto 0.1 X10*3/uL (0.0-0.4); Eosinophils Percent Auto 0.7 % (0-4); Hematocrit 37.7 % (37.0-47.0); Imm Gran Abs Auto 0.05 X10*3/uL (0.00-0.03); Imm Gran Pct Auto 0.4 % (0.0-0.4); Lymphocytes Percent Auto 21.6 % (20-40); MANUAL DIFF FLAG NO; Mean Corpuscular HGB Conc 34.5 g/dl (31.0-35.0); Mean Corpuscular Hemoglobin 31.4 pg (27.0-33.0); Mean Corpuscular Volume 91.1 fL (80.0-98.0); Mean Platelet Volume 9.6 fL (9.4-12.3); Monocytes Absolute Auto 0.6 X10*3/uL (0.1-1.2); Monocytes Percent Auto 4.5 % (2-11); Neutrophils Absolute Auto 9.9 x10*3/uL (2.0-8.3); Neutrophils Percent Auto 72.5 % (45-73); Platelet Count 341 X10*3/uL (160-400); Red Blood Count 4.14 X10*6/uL (4.20-5.50); Red Cell Distribution Width 13.7 % (11.0-16.0); White Blood Count 13.7 X10*3/uL (4.8-10.8)
[2024-11-19] MEDS: Ketorolac Tromethamine 15 MG/ML VIAL 10 MG IVPUSH (04:47)
[2024-11-19] MEDS: ondansetron HCL 4 MG/2 ML VIAL IVPUSH (04:48)
[2024-11-19] MEDS: Famotidine/PF 20 MG/2 ML VIAL IVPUSH (04:50)
[2024-11-19] MEDS: 0.9 % Sodium Chloride 1,000 ML 999 ML IV (04:51)
[2024-11-19 05:00] LABS: Alanine Aminotransferase 42 U/L (0-31); Albumin Level 4.6 g/dL (3.5-5.0); Alkaline Phosphatase 115 U/L (39-117); Anion Gap 17 (12-20); Aspartate Amino Transferase 48 U/L (5-31); Bilirubin Total 0.4 mg/dL (0.0-1.0); Blood Urea Nitrogen 14 mg/dL (9-16); Calcium 9.8 mg/dL (8.4-10.2); Carbon Dioxide 22 mmol/L (22-29); Chloride 104 mmol/L (96-108); Creatinine Clr Calc Pharmacy 82.2; Estimated Glomerular Filt Rate > 60; Glucose Random 104 mg/dL (60-115); Lipase 53 U/L (8-78); Potassium 4.2 mmol/L (3.3-5.1); Sodium 139 mmol/L (135-145); Total Protein 8.6 g/dL (6.5-8.0)
[2024-11-19 05:13] LABS: Influenza A PCR NEGATIVE (Negative); Influenza B PCR NEGATIVE (Negative); Resp Syncy Virus RNA Qual PCR NEGATIVE (Negative); SARS COV2 PCR INHOUSE NEGATIVE (Negative)
--- OUTSIDE RECORDS SUMMARY | 2024-11-19 05:37 | XMS_ITS | Encounter Summary ---
Author Organization [facility] Address [address] [place] [address] Care Team Providers Care Community Engagement Coordinator Name Role Phone Unavailable Primary Care Provider Unavailabl e Reason for Visit * Reason Comments Letter for School/Work Encounter Details Date Type Department Care Team (Late st Contact Info) Description 01/08/2022 Telephone [facility] [address] [place], [place] [phone] Micaela Davis, STUDENT Letter for School/Work Social [...] a signature. Patient can be reached at [phone] documented in this encounter Plan of Treatment [...]
--- OUTSIDE RECORDS SUMMARY | 2024-11-19 05:37 | XMS_ITS | Encounter Summary ---
Author Organization [facility] Address [address] [place] [address] Care Team Providers Care Cake Froster Name Role Phone Unavailable Primary Care Provider Unavailabl e Encounter Details Date Type Department Care Team (Late st Contact Info) Description 01/15/2022 Documentation [facility] [address] [place], [place] [address] Devora Solorio LPC Social History Tobacco Use [...] Solorio LPC - 01/15/2022 10:53 AM EDT [facility] REFERRAL DATA COLLECTION Date of Order: 01/15/2022 Referring Provider: Dr. Joe Ye Provider???s reason for placing the referral order: Dianne GARVEY ([phone]) at [facility] reports that Shalini was admitted 01/14/2022 to [...] mental health medications. Reports Shalini lives in [place] and would like appointment wherever is sooner. Client???s Name: Shalini Duncan Date of : 1995 Work Phone Number: Insurance: Loringeena Salcedo Address: [address] [place] [address] Preferred Language: Bruneian Client information verified? No Does the client [...] client ever been hospitalized for psychiatric reasons? [facility]: Dates: Reason for treatment: Has the client ever participated in an Intensive Outpatient Program or Partial Hospital Program? [facility]: Dates: Reason for treatment: Has the client ever participated in Outpatient Treatment? [facility]: Dates: Reason for treatment: Psychiatric [...] probation? No Currently on parole? No Comments Rn Anesthesiology Comments: Dianne GARVEY ([phone]) at [facility] reports that Shalini was admitted 01/14/2022 to [...] mental health medications. Reports Shalini lives in [place] and would like appointment wherever is sooner. Will be submitted to network control operators supervisor for approval and insurance verified. Clinician [...]
--- OUTSIDE RECORDS SUMMARY | 2024-11-19 05:38 | XMS_ITS | Clinical Summary ---
Author Organization [facility] Address [address] [place] [address] Care Team Providers Care Hosiery Mater Name Role Phone [facility] Primary Care Provider Allergies Active Allergy Reactions [...] 01/05/2023 Active predniSONE (DELTASONE) 50 MG tabletIndications:Ac [place] bronchitis, viral Take 1 tablet (50 mg [...] 02/09/2024 Active HYDROmorphone (DILAUDID) 2 MG tabletIndications:[place] cholecystitis Take 1 tablet (2 mg total) by mouth 4 times daily (every 6 hours) as needed for severe pain. Max Daily Amount: 8 mg 12 tablet 02/17/2024 Active polyethylene glycol (miraLAx) 17 g packetIndications:Ac [place] cholecystitis Take 1 packet (17 g total) [...] pur e alcohol) Reports last drink 08/19 [facility] Utilities Answer Date Recorded In the past 12 months has [employer], gas, oil, or water [employer] threatened to shut off services in your home? No 08/14/2024 Social Connection and Isolat ion Panel [NHANES] Answer Date Recorded In a typical week, how many times do you talk on the phone with family, friends, or neighbors? More than three times a week 08/14/2024 Frequency of Social Gatherin gs with Friends and Family Not on file 08/14/2024 Attends Hoahaoism Services Not on file 08/14 Active Member [...] any time in the past 12 m [facility], were you homeless or living in a jail (including now)? No 08/14/2024 Physical Activity Answer [...] 10:41 AM 02/08/2024 11:14 PM Care Teams Hosiery Mater Relationship Specialty Start Date End Date [facility] [address] [place] [address] PCP - General 08/26/23
--- OUTSIDE RECORDS SUMMARY | 2024-11-19 05:38 | XMS_ITS | Encounter Summary ---
Author Organization [facility] Address [address] [place] [phone] Care Team Providers Care Dredge Pumper Name Role Phone Unavailable Primary Care Provider Unavailabl e Encounter Details Date Type Department Care Team (Late st Contact Info) Description 12/05/2022 Orders Only Anesthesia [address] [place] [phone] Tiffanie Thibodeaux, NON GARMENT SEWING MACHINE OPERATOR [address] [place] [phone] Social History Tobacco Use Types Packs/Day [...]
--- OUTSIDE RECORDS SUMMARY | 2024-11-19 05:38 | XMS_ITS | Encounter Summary ---
Author Organization [facility] and [facility] Address [address] [place] [phone] Care Team Providers Care Classroom Technology Coach Name Role Phone Obtain, Unable To Primary Care Provider Unavaila ble Encounter Details Date Type Department Care Team (Late st Contact Info) Description 10/15/2012 Abstract [facility] [address] [facility] [address] [place] [address] Roger Biggs MD PhD Social History Tobacco [...] documented as of this encounter Care Teams Classroom Technology Coach Relationship Specialty Start Date End Date Obtain, Unable To PCP - General 10/06/21 11/01/21 documented as of this encounter
--- OUTSIDE RECORDS SUMMARY | 2024-11-19 05:38 | XMS_ITS | Encounter Summary ---
Author Organization [facility] Address [address] [place] [phone] Care Team Providers Care Trimmer Buffing Wheel Name Role Phone Obtain, Unable To Primary Care Provider Unavaila ble Encounter Details Date Type Department Care Team (Late st Contact Info) Description 01/05/2015 Scanned Document [facility] [address] [facility] [address] [facility] [place], [place] [address] Camilo Esteban MD [address] [place] [phone] Social History Tobacco Use Types Packs/Day Years [...] documented as of this encounter Care Teams Trimmer Buffing Wheel Relationship Specialty Start Date End Date Obtain, Unable To PCP - General 10/06/21 11/01/21 documented as of this encounter
--- OUTSIDE RECORDS SUMMARY | 2024-11-19 05:38 | XMS_ITS | Encounter Summary ---
Author Organization [facility] Address [address] [place] [address] Care Team Providers Care Poultry Offal Icer Name Role Phone Unavailable Primary Care Provider Unavailabl e Reason for Visit * Reason Comments Triage Encounter Details Date Type Department Care Team (Late st Contact Info) Description 01/22/2022 Telephone [facility] SCHEDULING [address] [place], [place] [address] Anderson Werner MD [address] [place] [phone] Triage Social History Tobacco Use Types Packs/Day [...] lt ankle, she can be reached @ [phone] documented in this encounter Plan of Treatment [...]
--- OUTSIDE RECORDS SUMMARY | 2024-11-19 05:38 | XMS_ITS | Patient Health Record ---
Author Organization [facility], Address [address] [place] [address] Care Team Providers Care Outdoor Studies Professor Name Role Phone Barron LUTHER, Edmund Unavailable Unavailable Avril Giordano Unavailable [phone] Allergies Allergen (clinical drug ingredient) Drug/Non Drug Allergy documented on EMR Reaction Allergy Type Onset Date Status amoxicillin Amoxicillin Unknown Drug Allergy Act edgar Results Component Value Reference Range Notes Cepheid 4 Plex Reviewed date:12/31/2023 06:15:00 PM Interpretation: Performing Lab: Notes/Report: Avril Giordano, [id number] [address] [place] [address] Flu A NEGATIVE Negative Flu B NEGATIVE [...] every 12 hrs.avoid alcohol, driving adn operating [employer] as the syrup may cause drowsiness for [...] Status W/U Status Risk Notes Problem Backache (126429270) Unspecified backache (724.5) Active confirmed Problem Postnasal drip (60203953) Postnasal drip (784.91) Active confirmed Problem Cough (69020116) COUGH (786.2) Active confirmed Problem Exposure to communicable disease (862909285) Contact with and (suspected) exposure to other viral communicable diseases (Z20.828) Active confirmed Problem Depression Screening (749803102) Encounter for screening for depression (Z13.31) Active confirmed Problem Body mass index 30.00 to 34.99 (876603789302987 ) Body mass index [BMI] 31.0-31.9, adult (Z68.31) Active confirmed Problem 422755942 Sore throat (J02.9) Active confirmed Vital Signs Heart Rate 86 /min 12/31/2023 Temperature 98.8 degrees Fahrenheit 12/31/2023 Respiratory Rate 18 /min 12/31/2023 Blood pressure diastolic 84 mm Hg 12/31/2023 Oximetry 98 % 12/31/2023 Height 63 in 12/31/2023 Blood pressure systolic 122 mm Hg 12/31/2023 Weight 180 lbs 12/31/2023 BMI 31.88 kg/m2 12/31/2023 Encounters Encounter Location Date Provider Diagnosis [facility] [address] [place] [address] 12/31/2023 Avril Giordano Contact with and (suspected) exposure to other viral communicable diseases Z20.828 ; Sore throat J02.9 ; Encounter for screening for depression Z13.31 and Body mass index [BMI] 31.0-31.9, adult Z68.31 [facility] [address] [place] [address] 12/31/2023 Assessments Encounter Date Diagnosis (ICD Code) [...] be indicated. Testing discussed more information available [email or web address] 12/31/2023 Sore throat (ICD-10 - J02.9) If positive than antibiotics to be administered. strep A negative throat c to lab work note 01/01/24 12/31/2023 Encounter for screening for depression (ICD-10 - Z13.31) 12/31/2023 Body mass index [BMI] 31.0-31.9, adult (ICD-10 - Z68.31) 12/31/2023 Other Telemedicine visit performed using synchronous audio video technology Physical examination was performed using FDA approved [employer] [place] clinical device, that enables remote temperature check, [...] Date Medicaid of [place] [address] [place] [address] [phone] [id number] RED MILLER Self - patient is the insured Medical (General) History Medical History History ICD Code PTSD ANXIETY Anemia: No asthma: Yes Cancer: No DEPRESSION: No Diabetes: No high blood pressure: Yes kidney disease: No seizures: No thyroid disease: No Surgical History: None
--- OUTSIDE RECORDS SUMMARY | 2024-11-19 05:38 | XMS_ITS | Encounter Summary ---
Author Organization [facility] Address [address] [place] [address] Care Team Providers Care Farm Instructor Name Role Phone [facility] Primary Care Provider Encounter Details Date Type Department Care Team (Late st Contact Info) Description 03/22/2024 Scanned Document [facility] Terrell Harry MD [address] [place] [address] Social History Tobacco Use Types Packs/Day Years [...] on filedocumented in this encounter Care Teams Farm Instructor Relationship Specialty Start Date End Date [facility] [address] [place] [address] PCP - General 08/26/23 documented as of this encounter
--- OUTSIDE RECORDS SUMMARY | 2024-11-19 05:38 | XMS_ITS | Encounter Summary ---
Author Organization [facility] Address [address] [place] [phone] Care Team Providers Care Telephoto Engineer Name Role Phone Obtain, Unable To Primary Care Provider Unavaila ble Encounter Details Date Type Department Care Team (Late st Contact Info) Description 11/12/2012 Abstract [facility] Health Information Management [address] [place] [address] [place], Primary Care [address] [place] [address] [place] [address] Social History Tobacco Use Types Packs/Day Years [...] documented as of this encounter Care Teams Telephoto Engineer Relationship Specialty Start Date End Date Obtain, Unable To PCP - General 10/06/21 11/01/21 documented as of this encounter
--- OUTSIDE RECORDS SUMMARY | 2024-11-19 05:38 | XMS_ITS | Encounter Summary ---
Author Organization [facility] Address [address] [place] [phone] Care Team Providers Care Research Nutritionist Name Role Phone Obtain, Unable To Primary Care Provider Unavaila ble Encounter Details Date Type Department Care Team (Late st Contact Info) Description 10/24/2012 Abstract [facility] Health Information Management [address] [place] [address] [place], Primary Care [address] [place] [address] [place] [address] Social History Tobacco Use Types Packs/Day Years [...] documented as of this encounter Care Teams Research Nutritionist Relationship Specialty Start Date End Date Obtain, Unable To PCP - General 10/06/21 11/01/21 documented as of this encounter
--- OUTSIDE RECORDS SUMMARY | 2024-11-19 05:38 | XMS_ITS ---
Author Organization [facility], Address [address] [place] [address] Care Team Providers Care Research And Development Chemist Name Role Phone Barron LUTHER, Edmund Unavailable Unavailable Avril Giordano Unavailable [phone] Allergies Allergen (clinical drug ingredient) Drug/Non Drug Allergy documented on EMR Reaction Allergy Type Onset Date Status amoxicillin Amoxicillin Unknown Drug Allergy Act edgar Results Component Value Reference Range Notes Strep A Cepheid Reviewed date:12/31/2023 06:15:00 PM Interpretation: Performing Lab: Notes/Report: Strep A NOT DETECTED NOT DETECTED Cepheid 4 Plex Reviewed date:12/31/2023 06:15:00 PM Interpretation: Performing Lab: Notes/Report: Avril Giordano, [id number] [address] [place] [id number] Flu A NEGATIVE Negative Flu B NEGATIVE [...] every 12 hrs.avoid alcohol, driving adn operating [employer] as the syrup may cause drowsiness for [...] Risk Notes Problem Exposure to communicable disease (259275702) Contact with and (suspected) exposure to other viral communicable diseases (Z20.828) Active confirmed Problem 884056882 Sore throat (J02.9) Active confirmed Problem Depression Screening (051652661) Encounter for screening for depression (Z13.31) Active confirmed Problem Body mass index 30.00 to 34.99 (589267864993217 ) Body mass index [BMI] 31.0-31.9, adult (Z68.31) Active confirmed Vital Signs Temperature 98.8 degrees Fahrenheit 12/31/19 24 Blood pressure systolic 122 mm Hg 12/31/19 24 Blood pressure diastolic 84 mm Hg 024 Heart Rate 86 /min 12/31/2023 Respiratory Rate 18 /min 12/31/2023 Height 63 in 12/31/2023 Weight 180 lbs 12/31/2023 BMI 31.88 kg/m2 12/31/2023 Oximetry 98 % 12/31/2023 Encounters Encounter Location Date Provider Diagnosis [facility] [address] [place] [address] 12/31/2023 Avril Giordano Contact with and (suspected) [...] be indicated. Testing discussed more information available [email or web address] 12/31/2023 Sore throat (ICD-10 - J02.9) If positive than antibiotics to be administered. strep A negative throat c to lab work note 01/01/24 12/31/2023 Encounter for screening for depression (ICD-10 - Z13.31) 12/31/2023 Body mass index [BMI] 31.0-31.9, adult (ICD-10 - Z68.31) 12/31/2023 Other Telemedicine visit performed using synchronous audio video technology Physical examination was performed using FDA approved tyMobilePro clinical device, that enables remote temperature check, [...] be indicated. Testing discussed more information available [email or web address] Sore throat If positive than antibiotics to be administered. strep A negative throat c to lab work note 01/01/24 Other Telemedicine visit performed using synchronous audio video technology Physical examination was performed using FDA approved GetApp clinical device, that enables remote temperature check, lung exams, ear exams, heart sounds, throat exams, abdomen sounds, skin exams Next Appt Details Follow Up: 2-3 days, Reason: Progress Notes * Charlette CHANidaDOB:1994 (28 yo F)Acc No.[id number]:12/31/2023 Progress Notes Patient:?Red CHAN Provider:?Avril Giordano MD :1995???Age:28 Y???Sex:Female D ate:12/31/2023 Address:[place], [id number] Subjective: * Chief Complaints: * ???1. SORE [...] Depression score 0-4, no action ???Comprehensive health Assessment:?[facility] Comprehensive Health Assessment?Race? 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 Sex?Female ???hpi:? [place] 28 yr old female bodyaches, sore throat, HARDIN, T 100.6, dry cough x3days(friday morning on ) 10 yr old son is ok works, [employer]. * ROS:?see HPI see HPI. * Medical [...] every 12 hrs.avoid alcohol, driving adn operating [employer] as the syrup may cause drowsiness , [...] Physical examination was performed using FDA approved GetApp clinical device, that enables remote temperature check, [...] NOT DETECTED NOT DETECTED - * Procedure Codes:?46859 Covid - serology - in house, Modifiers: QW , 0241U NFCT DS VIR RESP RNA 4 TRGT, Modifiers: QW , 30715 STREP A, DNA, AMP PROBE, Modifiers: QW , 58768 BRIEF EMOTIONAL/BEHAV ASSMT * Follow Up:?2-3 days Care Plan: * Problems:? * Billing Information: * Visit Code:? 16831 Office Visit, New Patient. * Procedure Codes:? 96383 Covid - serology - in house. Modifiers: QW 0241U NFCT DS VIR RESP RNA 4 TRGT. Modifiers: QW 38368 STREP A, DNA, AMP PROBE. Modifiers: QW 27428 BRIEF EMOTIONAL/BEHAV ASSMT. Care Plan Details* * Sign off status: Completed true * Provider:?Avril Giordano MD Date:? 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 No acute distress, non toxic appearing, alert , Well developed, well nourished. No acute distress, non toxic appearing, alert THROAT: erythema, no exudate
--- OUTSIDE RECORDS SUMMARY | 2024-11-19 05:38 | XMS_ITS | Clinical Summary ---
Author Organization [address] [address] Phone Care Team Providers Care Loan Representative Name Role Phone Unavailable Primary Care [...] Abdominal pain, unspecified abdominal location 0 05/23/2022 'Resez-che-ytgsi' with signs of mal nutrition 02/05/2022 Leg [...] = 0.6 oz pur e alcohol) socially [facility] Utilities Answer Date Recorded In the past 12 months has [employer], oil, or water [employer] threatened to shut off services in your [...] your living situation today? I have a [facility] place to live 2024 Housing Stability [...] Date Last Done Comments Pneumococcal Vaccine (2 - 49 years) (2 of 2 - PCV) 01/26/2014 01/26/2013 [...] this topic Medical Devices Implanted Type Area Test Director Device Identifier Shelf Expiration Date Model / Serial / Lot Plate 6hl 69x9 Lckg Tublr - [id number] Implanted:Qty: 1 on 01/21/2022 by Anderson Werner MD at [facility] [address] Implant Left: Fibula J J FALLON [id number] 241.361 / / Screw Donny 3.5x12mm Slf Tap St - [id number] Implanted:Qty: 5 on 01/21/2022 by Anderson Werner MD at [facility] [address] Implant Left: Fibula J J FALLON [id number] 02.200.0 12 / / Screw Donny 3.5x16mm Slf Tap St - [id number] Implanted:Qty: 1 on 01/21/2022 by Anderson Werner MD at [facility] [address] Implant Left: Fibula J Shea LEHMAN [id number] 02.200.0 16 / / Screw Metasp Sftap 2.7x30 W/T8 - [id number] Implanted:Qty: 1 on 02/01/2022 by Anderson Werner MD at [facility] [address] Implant Left: Ankle J J FALLON [id number] 02.118.5 30 / / Screw Strdrv Self-Tap 2.7x32mm - [id number] Implanted:Qty: 1 on 02/01/2022 by Anderson Werner MD at [facility] [address] Implant Left: Ankle Shea Valdivia FALLON [id number] 02.118.5 32 / / Screw Metaphy W/T8 Rcbqosu60g - [id number] Implanted:Qty: 1 on 02/01/2022 by Anderson Werner MD at [facility] [address] Implant Left: Ankle Shea LEHMAN [id number] 02.118.5 36 / / Screw Donny 2.7x[address] Ft Hex - [id number] Implanted:Qty: 2 on 02/01/2022 by Anderson Werner MD at [facility] [address] Implant Left: Ankle Shea LEHMAN [id number] 202.824 / / Screw Donny 3.5x24 [address] Ft Hex - [id number] Implanted:Qty: 1 on 02/01/2022 by Anderson Werner MD at [facility] [address] Implant Left: Ankle Shea LEHMAN [id number] 204.824 / / Screw Donny 2.7x32 S[address] Ft Hex - [id number] Implanted:Qty: 1 on 02/01/2022 by Anderson Werner MD at [facility] [address] Implant Left: Ankle Shea LEHMAN [id number] 202.832 / / Screw Donny 3.5x26 S[address] Ft Hex - [id number] Implanted:Qty: 1 on 02/01/2022 by Anderson Werner MD at [facility] [address] Implant Left: Ankle Shea LEHMAN [id number] 204.826 / / Screw Donny 3.5x30mm Slf Tap - [id number] Implanted:Qty: 1 on 02/01/2022 by Anderson Werner MD at [facility] [address] Implant Left: Ankle Shea LEHMAN [id number] 204.830 / / Screw Donny 2.4x36mm Cruciform - [id number] Implanted:Qty: 2 on 02/01/2022 by Anderson Werner MD at [facility] [address] Implant Left: Ankle Shea LEHMAN [id number] 201.666 / / Screw Donny 2.7x[address] Ft Hex - [id number] Implanted:Qty: 1 on 02/01/2022 by Anderson Werner MD at [facility] [address] Implant Left: Ankle Shea LEHMAN [id number] 202.824 / / Screw Donny 2.7x[address] Ft Hex - [id number] Implanted:Qty: 1 on 02/01/2022 by Anderson Werner MD at [facility] [address] Implant Left: Ankle Shea LEHMAN [id number] 202.812 / / Screw Donny 2.7x[address] Ft Hex - [id number] Implanted:Qty: 1 on 02/01/2022 by Anderson Werner MD at [facility] [address] Implant Left: Ankle Shea Shea LEHMAN [id number] 202.818 / / Cancellous Chip 15cc 1.7-10mm - [id number] Implanted:Qty: 1 on 02/01/2022 by Anderson Werner MD at [facility] [address] Implant Left: Ankle LIFENET 07/22/2026 PCAN15 1710 / [id number] / [id number] 2.7/3.5mm Va-Lcp Anterolateral - [id number] Implanted:Qty: 1 on 02/01/2022 by Anderson Werner MD at [facility] [address] Implant Left: Ankle Shea Shea LEHMAN [id number] 02.118.2 07 / / Plate Lc-Dcp 12hl/113m 2.7mm - [id number] Implanted:Qty: 1 on 02/01/2022 by Anderson Werner MD at [facility] [address] Implant Left: Ankle Shea Shea LEHMAN [id number] 242.222 / / Plate 27x1.2 2mm 4hl - [id number] Implanted:Qty: 1 on 02/01/2022 by Anderson Werner MD at [facility] [address] Implant Left: Ankle Shea SAUCEDO AND LEWIS [id number] 243.584 / / Screw Donny 2.4x34mm Cruciform - [id number] Implanted:Qty: 1 on 02/01/2022 by Anderson Werner MD at [facility] [address] Implant Left: Ankle Shea [employer]UC[employer] [id number] 201.664 / / Explanted Type Area Test Director Device Identifier Shelf Expiration Date Model / Serial / Lot Screw Donny 2.4x36mm Cruciform - [id number] Explanted:Qty : 1 on 02/01/2022 by Anderson Werner MD at [facility] [address] Implant Left: Ankle Shea J [employer]WIS [employer] LEW[employer] [id number] 201.666 / / Screw [id number] 80mm Thrd Shnz - [id number] Explanted:Qty : 1 on 02/01/2022 by Anderson Werner MD at [facility] [address] Implant Left: Ankle Shea [employer] [id number] 294.786 / / Screw 5.6u303co 60mm Thrd Shnz - [id number] Implanted:Qty : 3 on 01/21/2022 by Anderson Werner MD at [facility] [address] Explanted:Qty : 3 on 02/01/2022 by Anderson Werner MD at [facility] [address] Implant Left: LEG LOWER Shea LEHMAN [id number] 294.785 / / Procedures Procedure Name Priority Date/Time Associated Diagnosis Comments HIV-1/HIV-2 ANTIBODY/ANTIGEN SCREEN W/REFLEX ([facility]) STAT 2024 11:24 AM EDT HEPATITIS C AB WITH REFLEX TO HCV PCR Routine 05/26/2022 6:33 AM EDT CYTOLOGY TRADE SHOW MANAGER CASES ([facility]) Routine 05/24/2019 2:52 PM EDT Encounter for gynecological examination with abnormal finding from Last 3 Months or Most Recently Relevant to Health Maintenance Results * Automated HIV-1/HIV-2 antibody/antigen screen w/reflex ([facility]) (2024 11:24 AM EDT) HIV 1 and 2 Antibody/Antigen Screen Negative Negative 2024 5:09 PM EDT [facility] DEPARTMENT OF LABORATORY MEDICINE Comment:Interpretation: This specimen [...] ORDERABLES Final Re sult Performing Organization Address City/[facility]/ZIP Co de Phone Number [facility] DEPARTMENT OF LABORATORY MEDICINE [address] [place] [address] * Hepatitis C Ab with reflex to HCV PCR (05/26/2022 6:33 AM EDT) Pathologist [facility] Hepatitis C Antibody Negative Negative 05/26/2022 12:29 PM EDT [facility] OF LABORATORY MEDICINE Comment:A negative result [...] ORDERABLES Fin al Result Performing Organization Address City/[facility]/ZIP Co de Phone Number [facility] DEPARTMENT OF LABORATORY MEDICINE [address] [place] [address] * CYTOLOGY TRADE SHOW MANAGER CASES ([facility]) - Place a patient demographic label on the specimen and send with the printed requisition form (05/24/2019 2:52 PM EDT) Cytology Concrete Analyst Cases ?CYTOLOGY REPORT ? Patient: DUSTIN, RED ?MR #: [id number] ([id number]) ?Submitted by: Bianca Lara M.D. FINAL DIAGNOSIS SUREPATH PAP SMEAR: ? Primary Diagnosis: ? NEGATIVE FOR INTRAEPITHELIAL LESION OR MALIGNANCY. ? Additional Findings: NO ENDOCERVICAL CELLS SEEN. Specimen Adequacy: THIS SPECIMEN IS SATISFACTORY FOR EVALUATION. ? This specimen was manually screened with the assistance of the BD FocalPoint? ? [employer] System. NOTE: ??Cervical/vaginal cytology is a screening tool for cervical carcinoma and its precursor lesions with an inherent false negative rate. ??It is an inaccurate test for detection of endometrial lesions and should not be used to evaluate suspected endometrial abnormalities. ??(The [employer] System, 2001) ?? 05/31/2019 15:44 ?* Report Electronically Signed Out * ? This electronic signature indicates that the pathologist has personally reviewed the available gross and/or microscopic material and has based the diagnosis on that evaluation. ? Specimen(s) Received: SUREPATH PAP SMEAR Clinical History and Impression: {Not Available} ? [facility] Cervical Tracking Result Non-Tracking [facility] High Risk HPV Screening Not Applicable [facility] HPV 16/18 Genotyping Not Applicable [facility] Papanicolaou smear specimen (specimen) 05/24/2019 2:52 PM EDT Comment:SUREPATH PAP SMEAR Bianca Lara MD PATHOLOGY/CYTOLOGY ORDERABLES Final Result Performing Organization Address City/State/[facility] Co de Phone Number [facility] Department of Pathology [address] [place] [address] [phone] [place] [address] from Last 3 Months or Most Recently [...]
--- OUTSIDE RECORDS SUMMARY | 2024-11-19 05:38 | XMS_ITS | Encounter Summary ---
Author Organization [facility] Address [address] [place] [address] Care Team Providers Care Informix Developer Name Role Phone Unavailable Primary Care Provider Unavailabl e Encounter Details Date Type Department Care Team (Late st Contact Info) Description 12/04/2022 Orders Only [facility] PREADMISSION TESTING [address] [place] [id number] Tiffanie Thibodeaux, TRAVEL OT [address] [place] [phone] Social History Tobacco Use Types Packs/Day Years [...]
--- NOTE | 2024-11-19 05:57 | ED.GENADULT ---
HPI - General Adult General Chief complaint: Abdominal Pain Stated complaint: ab pain w/ hx of pancreas issues Time Seen by Provider: 11/19/24 05:57 History of Present Illness ED Provider: Mame MONTEZ narrative: The patient is a 29-year-old female who says that she has a history of pancreatitis that was attributed to alcohol use. She says that she is no longer a heavy drinker and that she only drinks occasionally. Her last drink was 5 days ago on Friday. She says that she developed pain 2 days later on Friday, 3 days ago. She indicates that the pain is primarily in her upper abdomen, she points to her epigastrium. She says that pain had gotten much worse this morning at around midnight she came to the emergency department. She has had nausea and vomiting. No fevers. Related Data Previous Rx's ?Medication ?Instructions ?Recorded prednisone 20 mg tablet 40 mg (2 x 20 mg) PO DAILY 5 days 11/17/24 #10 tabs omeprazole 40 mg capsule,delayed 40 mg PO DAILY #30 caps 11/19/24 release sucralfate 1 gram tablet 1 g PO TID PRN Epigastric pain #60 11/19/24 tabs Allergies Allergy/AdvReac Type Severity Reaction Status Date / Time amoxicillin Allergy Shortness Verified 11/19/24 04:37 of Breath ceftriaxone Allergy Hives Verified 11/19/24 04:37 Penicillins Allergy Shortness Verified 11/19/24 04:37 of Breath potassium chloride Allergy Itching Verified 11/19/24 04:37 Review of Systems Review of Systems: Yes all other systems are reviewed and are negative [facility] Social History Social History Substance Use Type: Marijuana Physical Exam ED Vital Signs: Vital Signs - 24 hr 11/19/24 04:34 11/19/24 06:13 11/19/24 07:08 Temperature 98.3 F Pulse Rate 112 H Respiratory Rate 24 H 18 16 Blood Pressure 139/92 H Pulse Oximetry 96 Oxygen Delivery Method Room Air BMI result Body Mass Index 31.7 Const Other: the patient is awake and alert. She looks uncomfortable. Orientation/consciousness: patient oriented x3 HENMT Other: Face is symmetrical. Mucous membranes moist. Eyes General: appearance normal, both eyes and all related structures Neck Neck: Yes full ROM and Yes no lymphadenopathy Resp Effort & Inspection: normal respiratory effort Auscultation: clear to auscultation bilaterally Cardio Rate: regular rate Heart sounds: S1 normal heart sound present and S2 normal heart sound present GI Other: The patient is tender in the epigastrium. The remainder the abdomen seems nontender. Skin General skin exam: no rashes or lesions noted Neuro General: patient oriented x3, moves all extremities, no focal motor deficits and CN's II-XI intact bilaterally Extrem Other: No peripheral edema Medications Administered Discontinued Medications Generic Name Dose Route Start Last Admin Trade Name Tracey PRN Reason Stop Dose Admin Diphenhydramine HCl 25 mg 11/19/24 06:05 11/19/24 06:12 Diphenhydramine Hcl 50 Mg/Ml Vial IVPUSH 11/19/24 06:06 25 mg ONCE ONE Administration Famotidine 20 mg 11/19/24 04:42 11/19/24 04:50 Famotidine/Pf 20 Mg/2 Ml Vial IVPUSH 11/19/24 04:43 20 mg ONCE ONE Administration Sodium Chloride 1,000 mls @ 999 mls/hr 11/19/24 04:45 11/19/24 09:11 Ns IV 11/19/24 05:45 Infused .Q1H1M BETTY Infusion Iohexol 85 ml 11/19/24 06:51 11/19/24 06:52 Iohexol 350 Mg/Ml 100 Ml Infus..Btl IV 11/19/24 06:52 85 ml ONCE ONE Administration Ketorolac Tromethamine 10 mg 11/19/24 04:42 11/19/24 04:47 Ketorolac Tromethamine 15 Mg/Ml Vial IVPUSH 11/19/24 04:43 10 mg ONCE ONE Administration Metoclopramide HCl 10 mg 11/19/24 06:05 11/19/24 06:13 Metoclopramide Hcl 10 Mg/2 Ml Vial IVPUSH 11/19/24 06:06 10 mg ONCE ONE Administration Morphine Sulfate 4 mg 11/19/24 06:00 11/19/24 06:13 Morphine Sulfate 4 Mg/Ml Cartridge IVPUSH 11/19/24 06:01 4 mg ONCE ONE Administration Protocol Ondansetron HCl 4 mg 11/19/24 04:42 11/19/24 04:48 Ondansetron Hcl 4 Mg/2 Ml Vial IVPUSH 11/19/24 04:43 4 mg ONCE ONE Administration Pantoprazole Sodium 40 mg 11/19/24 08:21 11/19/24 09:02 Pantoprazole Sodium 40 Mg/10 Ml Vial IVPUSH 11/19/24 08:22 40 mg ONCE ONE Administration Sucralfate 2 gm 11/19/24 08:21 11/19/24 09:02 Sucralfate Oral Suspension 1 Gm/10 Ml Oral.Susp PO 11/19/24 08:22 2 gm ONCE ONE Administration Medical Decision Making Medical Decision Making [facility] Narrative: the patient is a 29-year-old female who has a history of alcoholic pancreatitis. She presents with abdominal pain she thought might be recurrence of pancreatitis. Her lipase is normal. A CT scan of the abdomen and pelvis shows no acute findings. I suspect the patient probably has gastritis. She was treated symptomatically with some improvement. She will be discharged with prescriptions for omeprazole and sucralfate. Lab Data 11/19/24 04:31 11/19/24 04:31 Labs: Lab Results 11/19/24 Range/Units 04:31 WBC 13.7 H (4.8-10.8) X10*3/uL RBC 4.14 L (4.20-5.50) X10*6/uL Hgb 13.0 (12.0-16.0) g/dl Hct 37.7 (37.0-47.0) % MCV 91.1 (80.0-98.0) fL MCH 31.4 (27.0-33.0) pg MCHC 34.5 (31.0-35.0) g/dl RDW 13.7 (11.0-16.0) % Plt Count 341 (160-400) X10*3/uL MPV 9.6 (9.4-12.3) fL Immature Gran % (Auto) 0.4 (0.0-0.4) % Neut % (Auto) 72.5 (45-73) % Lymph % (Auto) 21.6 (20-40) % Wheeler % (Auto) 4.5 (2-11) % Eos % (Auto) 0.7 (0-4) % Baso % (Auto) 0.3 (0-2) % Lymph # (Auto) 3.0 (1.2-4.9) X10*3/uL Wheeler # (Auto) 0.6 (0.1-1.2) X10*3/uL Eos # (Auto) 0.1 (0.0-0.4) X10*3/uL Baso # (Auto) 0.0 (0.0-0.2) X10*3/uL Abs Immat Gran (auto) 0.05 H (0.00-0.03) X10*3/uL Absolute Neuts (auto) 9.9 H (2.0-8.3) x10*3/uL Absolute Nucleated RBC 0.000 (0.0-0.012) X10*3/uL Nucleated RBC % (auto) 0.0 (0.0-0.2) /100WBC Sodium 139 (135-145) mmol/L Potassium 4.2 (3.3-5.1) mmol/L Chloride 104 (96-108) mmol/L Carbon Dioxide 22 (22-29) mmol/L Anion Gap 17 (12-20) BUN 14 (9-16) mg/dL Creatinine 1.00 (0.5-1.4) mg/dL Estim Creat Clear Calc 82.2 Estimated GFR > 60 Random Glucose 104 (60-115) mg/dL Calcium 9.8 D (8.4-10.2) mg/dL Total Bilirubin 0.4 (0.0-1.0) mg/dL AST 48 H (5-31) U/L ALT 42 H (0-31) U/L Alkaline Phosphatase 115 (39-117) U/L C-Reactive Protein 0.19 (< or = 0.50) mg/dL Total Protein 8.6 H (6.5-8.0) g/dL Albumin 4.6 (3.5-5.0) g/dL Lipase 53 (8-78) U/L Beta HCG, Quant < 2 mIU/mL Ethyl Alcohol < 10 mg/dL Influenza Type A (PCR) NEGATIVE (Negative) Influenza Type B (PCR) NEGATIVE (Negative) RSV RNA Qual (PCR) NEGATIVE (Negative) SARS-CoV-2 RNA (RT-PCR) NEGATIVE (Negative) Discharge Plan Discharge Clinical Impression: Epigastric abdominal pain Patient Disposition: Home, Self-Care Instructions: Gastritis (ED) Additional Instructions: There is no sign of pancreatitis today. I think your pain is probably being caused by a condition we called gastritis. Gastritis is an irritation of the lining of the stomach from stomach acid. I have sent a prescription for a medication called omeprazole that helps reduce stomach acid production. Please take this once a day. I have also sent a medication called sucralfate. This medication soothes the lining of the stomach. You may use this on an as-needed basis up to 3 times per day. You may also take Tylenol as needed for pain. Please avoid alcohol. Alcohol can make gastritis worse. Also avoid ibuprofen or naproxen or similar drugs. These can also worsened gastritis. Please try to follow up soon with a primary care doctor. Return to the emergency room if worse. Prescriptions: New omeprazole 40 mg capsule,delayed release(DR/EC) 40 mg PO DAILY Qty: 30 0RF sucralfate 1 gram tablet 1 g PO TID PRN (Reason: Epigastric pain) Qty: 60 0RF No Action prednisone 20 mg tablet 40 mg PO DAILY 5 Days Qty: 10 0RF Interventions: ED Discharge Assessment Last Done: 11/19/24 09:02 Discharge Date/Time: 11/19/24 09:10 Print Language: Paraguayan
[2024-11-19] MEDS: diphenhydrAMINE HCL 50 MG/ML VIAL 25 MG IVPUSH (06:12)
[2024-11-19 06:13] VITALS: RESP 18
[2024-11-19] MEDS: Metoclopramide HCl 10 MG/2 ML VIAL IVPUSH (06:13)
[2024-11-19] MEDS: Morphine Sulfate 4 MG/ML CARTRIDGE IVPUSH (06:13)
[2024-11-19 06:35] LABS: C Reactive Protein 0.19 mg/dL (< or = 0.50); Ethanol < 10 mg/dL
[2024-11-19 06:38] LABS: HCG Quantitative < 2 mIU/mL
[2024-11-19] MEDS: iohexoL 350 MG/ML 100 ML INFUS..BTL 85 ML IV (06:52)
[2024-11-19 07:08] VITALS: RESP 16
[2024-11-19 09:02] VITALS: BP 138/84; PULSE 70; RESP 16; TEMP 36.6; O2SAT 98
[2024-11-19] MEDS: Sucralfate Oral Suspension 1 GM/10 ML ORAL.SUSP 2 GM PO (09:02)
[2024-11-19] MEDS: Pantoprazole Sodium 40 MG/10 ML VIAL IVPUSH (09:02)
== END 2024-11-19 09:10 | disposition home or self-care (01) ==
PROVIDERS: Emergency Provider Emergency Medicine
DX: R10.13 Epigastric pain (principal); R10.2 Pelvic and perineal pain; R11.2 Nausea with vomiting, unspecified; Z03.818 Encounter for observation for suspected exposure to other biological agents ruled out; Z79.899 Other long term (current) drug therapy
CPT/HCPCS: 0241U; 36415; 74177; 80053; 80307; 83690; 84702; 85025; 86140; 96361; 96374; 96375; 99285; J1200; J1885; J2270; J2405; J2470; J2765; Q9967

== ENCOUNTER → 2024-11-19 06:06 | Outpatient (BNV) | payer MEDICAID, SELFPAY | PROVIDERS: Emergency Provider Emergency Medicine; Visit Provider Specialist | DX: R10.10 Upper abdominal pain, unspecified (principal) | CPT/HCPCS: 74177 ==

== ENCOUNTER 2024-12-17 04:22 | Inpatient (IN) | payer MEDICAID, SELFPAY ==
[2024-12-17] VITALS (9 sets, daily range): BP systolic 115–153; BP diastolic 60–105; PULSE 50–88; RESP 12–20; TEMP 36.1–36.5; O2SAT 96–99; BMI 30.1; BMI 30.2
--- NOTE | 2024-12-17 | ECG_ITS ---
Test Reason : CHEST PAIN Blood Pressure : */* mmHG Vent. Rate : 75 BPM Atrial Rate : 75 BPM P-R Int : 138 ms QRS Dur : 80 ms QT Int : 422 ms P-R-T Axes : 75 68 33 degrees QTcB Int : 471 ms Normal sinus rhythm with sinus arrhythmia Normal ECG No previous ECGs available Referred By: Claribel Swain Electronically Signed By: FARRAH FAUST
--- NOTE | ~2024-12-17 | CT_ITS ---
CLINICAL HISTORY: epigastric pain, hx pancreatitis CT abdomen and pelvis with contrast Comparison: CT/SR - CT ABDOMEN PELVIS W IV CON - 11/19/24 06:43 EST Findings: The lung bases are clear. The gallbladder is absent. The liver, spleen and adrenal glands are unremarkable. The pancreas demonstrates peripancreatic stranding without fluid collection or abscess. Nonobstructing 4 mm left renal calculus. Otherwise kidneys, ureters and bladder are unremarkable. Uterus and adnexa are within normal limits. Normal appendix. No bowel obstruction or free air. No acute osseous finding. Impression: Findings are consistent with acute pancreatitis. No peripancreatic fluid collection or evidence of abscess This document has been electronically signed by: Kareem Avalos MD on 12/17/2024 06:32:07
[2024-12-17 04:42] LABS: Basophils Absolute Auto 0.1 X10*3/uL (0.0-0.2); Basophils Percent Auto 0.7 % (0-2); Eosinophils Absolute Auto 0.2 X10*3/uL (0.0-0.4); Eosinophils Percent Auto 2.7 % (0-4); Hematocrit 36.2 % (37.0-47.0); Hemoglobin 12.6 g/dl (12.0-16.0); Imm Gran Abs Auto 0.02 X10*3/uL (0.00-0.03); Imm Gran Pct Auto 0.3 % (0.0-0.4); Lymphocytes Absolute Auto 2.4 X10*3/uL (1.2-4.9); Lymphocytes Percent Auto 34.1 % (20-40); MANUAL DIFF FLAG NO; Mean Corpuscular HGB Conc 34.8 g/dl (31.0-35.0); Mean Corpuscular Hemoglobin 31.6 pg (27.0-33.0); Mean Corpuscular Volume 90.7 fL (80.0-98.0); Mean Platelet Volume 9.1 fL (9.4-12.3); Monocytes Absolute Auto 0.4 X10*3/uL (0.1-1.2); Monocytes Percent Auto 6.2 % (2-11); Platelet Count 366 X10*3/uL (160-400); Red Blood Count 3.99 X10*6/uL (4.20-5.50); Red Cell Distribution Width 13.4 % (11.0-16.0); White Blood Count 7.1 X10*3/uL (4.8-10.8)
[2024-12-17] MEDS: Morphine Sulfate 4 MG/ML CARTRIDGE IVPUSH ×2 (04:46→06:46)
[2024-12-17] MEDS: 0.9 % Sodium Chloride 1,000 ML 999 ML IV (04:46)
[2024-12-17] MEDS: ondansetron HCL 4 MG/2 ML VIAL IVPUSH ×4 (04:46→23:28)
--- NOTE | 2024-12-17 04:48 | ED.ABDPAIN ---
HPI - Abdominal Pain General Chief Complaint: Abdominal Pain Stated Complaint: pancreas pain Time Seen by Provider: 12/17/24 04:26 Source: patient and EMS Mode of arrival: EMS Limitations: no limitations History of Present Illness ED Provider: Dr. Claribel Swain HPI narrative: Patient comes in the emergency room complaining of almost 24 hours of severe epigastric pain. Patient states that she recently returned from [place] and had a lot of alcohol to drink. Patient states that her last drink was 3 days ago. Patient states that she does not drink alcohol daily, she used drank too much this time. Patient admits that she has had history of pancreatitis in the past. Patient was here approximately a month ago with same complaint. However, patient states that this time the pain is unbearable. Denies diarrhea. Denies fever chills Related Data Previous Rx's ?Medication ?Instructions ?Recorded prednisone 20 mg tablet 40 mg (2 x 20 mg) PO DAILY 5 days 11/17/24 #10 tabs omeprazole 40 mg capsule,delayed 40 mg PO DAILY #30 caps 11/19/24 release sucralfate 1 gram tablet 1 g PO TID PRN Epigastric pain #60 11/19/24 tabs Allergies Allergy/AdvReac Type Severity Reaction Status Date / Time amoxicillin Allergy Shortness Verified 12/17/24 04:27 of Breath ceftriaxone Allergy Hives Verified 12/17/24 04:27 Penicillins Allergy Shortness Verified 12/17/24 04:27 of Breath potassium chloride Allergy Itching Verified 12/17/24 04:27 Review of Systems Review of Systems Constitutional : No Weight loss, No Fever, No Chills, No Night Sweats, No Fatigue, No Malaise ENT/Mouth : No Hearing loss, No Ear Pain, No Nasal Congestion, No Sinus Pain, No Hoarseness, No sore throat, No Rhinorrhea, No Swallowing Difficulty Eyes: No Eye Pain, No Swelling, No Redness, No Foreign Body, No Discharge, No Vision Changes Cardiovascular : No Chest Pain, No SOB, No Dyspnea on Exertion, No Orthopnea, No Edema, No Palpitations Respiratory : No Cough, No Sputum, No Wheezing, No Smoke Exposure, No Dyspnea Gastrointestinal : complaining of nausea and vomiting, complaining of severe epigastric pain, no diarrhea Genitourinary : no irregular bleeding, No Dysuria, No Urinary Frequency, No Hematuria, No Urinary Incontinence, No Urgency, No Flank Pain, No Urinary Flow Changes, No Hesitancy Musculoskeletal : No joint pain, No Myalgias, No Joint Swelling Skin : No Skin Lesions, No rash Neuro : No Weakness, No Numbness, No Paresthesias, No Loss of Consciousness, No Dizziness, No Headache Psych : No Anxiety/Panic, No Depression, No SI/HI/AH/VH, admits to binge drinking alcohol a few days ago. Heme/Lymph: No Bruising, No Bleeding,No Lymphadenopathy Endocrine : No Polyuria, No Polydipsia, No Temperature Intolerance [facility] Past Medical History Medical History (Updated 12/17/24 @ 06:45 by Claribel Swain MD) Pancreatitis Asthma Social History Social History Alcohol intake: current Alcohol intake frequency: a few times a week Alcohol type: wine and hard liquor Smoked in Last 30 Days: No Use of substances other than those prescribed or required for medical reasons: No Substance Use Type: Marijuana Advance Directives: No Advance Directives Information Provided: Yes Do you have a plan to hurt others: No Plan Physical Exam ED Vital Signs: Vital Signs - 24 hr 12/17/24 04:26 12/17/24 06:00 Temperature 97.4 F 97.6 F Pulse Rate 79 51 Respiratory Rate 20 16 Blood Pressure 139/96 H 132/79 Pulse Oximetry 99 96 Oxygen Delivery Method Room Air Room Air BMI result Body Mass Index 30.1 Const Other: Appearance: Alert. Oriented X3 crying, very uncomfortable Eyes: Pupils equal, round and reactive to light. ENT: Pharynx normal. Neck: Normal inspection. Neck supple. No lymph nodes noted. No crepitus CVS: Normal heart rate and rhythm. Pulses normal. Normal S1 and S2 Respiratory: No respiratory distress. Breath sounds normal. No Wheezing. No rales Abdomen: Soft , tenderness to palpation in epigastric area, no rebound or guarding Skin: Skin warm and dry. Normal skin color. Normal skin turgor. Extremities: No lower extremity edema. No Lacerations. No Rash Neuro: Oriented X 3. No motor deficit. No sensory deficit. Moving all extremities. No slurred speech. CN 2 through 12 grossly intact Psych: cooperative, crying, in pain Course Course Course Narrative: patient receiving IV fluids, morphine , Pepcid and Zofran all of patient's labs pending CT scan pending Medical Decision Making Medical Decision Making [facility] Narrative: my interpretation of EKG: Normal sinus rhythm, heart rate 75, no ST segment depression or elevation, no T-wave inversion, QTC 471 my interpretation of labs: No significant abnormality in patient's hematology and chemistry. Lipase 478. , hCG negative CT scan consistent with pancreatitis Patient received 1 dose of Dilaudid, 2 doses of 4 mg of morphine, Zofran, prochlorperazine, famotidine. IV fluids I discussed the patient with Dr. Doyle from the Medicine team, patient being admitted. Differential Diagnosis Differential Diagnoses: The differential diagnosis associated with the presentation includes ( alcoholic gastritis, peptic ulcer disease, pancreatitis, perforated ulcer) Admission/Observation Consideration of admission/observation: Escalation of care including admission/observation considered ( given patient's amount of discomfort and history, observation / admission has been considered) Consult Healthcare Provider Management of the patient was discussed with: Hospitalist Lab Data [facility] Lab Attestation statement: I reviewed the patient's lab results. 12/17/24 04:38 12/17/24 04:47 Labs: Lab Results 12/17/24 12/17/24 12/17/24 Range/Units 04:38 04:47 05:07 WBC 7.1 (4.8-10.8) X10*3/uL RBC 3.99 L (4.20-5.50) X10*6/uL Hgb 12.6 (12.0-16.0) g/dl Hct 36.2 L (37.0-47.0) % MCV 90.7 (80.0-98.0) fL MCH 31.6 (27.0-33.0) pg MCHC 34.8 (31.0-35.0) g/dl RDW 13.4 (11.0-16.0) % Plt Count 366 (160-400) X10*3/uL MPV 9.1 L (9.4-12.3) fL Immature Gran % (Auto) 0.3 (0.0-0.4) % Neut % (Auto) 56.0 (45-73) % Lymph % (Auto) 34.1 (20-40) % Potter % (Auto) 6.2 (2-11) % Eos % (Auto) 2.7 (0-4) % Baso % (Auto) 0.7 (0-2) % Lymph # (Auto) 2.4 (1.2-4.9) X10*3/uL Potter # (Auto) 0.4 (0.1-1.2) X10*3/uL Eos # (Auto) 0.2 (0.0-0.4) X10*3/uL Baso # (Auto) 0.1 (0.0-0.2) X10*3/uL Abs Immat Gran (auto) 0.02 (0.00-0.03) X10*3/uL Absolute Neuts (auto) 4.0 (2.0-8.3) x10*3/uL Absolute Nucleated RBC 0.000 (0.0-0.012) X10*3/uL Nucleated RBC % (auto) 0.0 (0.0-0.2) /100WBC Sodium 139 (135-145) mmol/L Potassium 3.5 (3.3-5.1) mmol/L Chloride 107 (96-108) mmol/L Carbon Dioxide 21 L (22-29) mmol/L Anion Gap 15 (12-20) BUN 12 (9-16) mg/dL Creatinine 0.88 (0.5-1.4) mg/dL Estim Creat Clear Calc 91.0 Estimated GFR > 60 Random Glucose 91 (60-115) mg/dL Calcium 8.6 D (8.4-10.2) mg/dL Magnesium 1.7 (1.6-2.6) mg/dL Total Bilirubin 0.7 (0.0-1.0) mg/dL Direct Bilirubin 0.2 (0.0-0.5) mg/dL AST 93 H (5-31) U/L ALT 18 (0-31) U/L Alkaline Phosphatase 104 (39-117) U/L Total Protein 7.8 (6.5-8.0) g/dL Albumin 4.2 (3.5-5.0) g/dL Lipase 478 H (8-78) U/L Urine Color Yellow Urine Appearance Cloudy Urine pH 6.0 (5.0-9.0) Ur Specific [place] >= 1.030 H (1.005-1.025) Urine Protein Trace (Neg-Trace) mg/dL Urine Glucose (UA) Negative (Negative) mg/dL Urine Ketones 15 (Negative) mg/dL Urine Blood Trace H (Negative) Urine Nitrite Negative (Negative) Ur Leukocyte Esterase Negative (Negative) Urine RBC 6-10 H (0-2) /HPF Urine WBC 0-5 (0-5) /HPF Ur Squamous Epith Cells 6-10 (0-2) /HPF Urine Bacteria 4+ (None Seen) Hyaline Casts 0-2 (0-2) /LPF Urine Test NEGATIVE (NEGATIVE) Urine Opiates Screen POSITIVE H (Not Detect) Ur Buprenorphine Scrn Not Detected (Not Detect) ng/mL Ur Oxycodone Screen Not Detected (Not Detect) ng/mL Urine Methadone Screen Not Detected (Not Detect) ng/mL Urine Fentanyl Screen Not Detected (Not Detect) Ur Barbiturates Screen Not Detected (Not Detect) Ur Phencyclidine Scrn Not Detected (Not Detect) Ur Amphetamines Screen Not Detected (Not Detect) U Benzodiazepines Scrn Not Detected (Not Detect) Urine Cocaine Screen Not Detected (Not Detect) U Marijuana (THC) Screen POSITIVE H (Not Detect) Independent Interpretation I performed an independent interpretation of an: EKG and CT Scan Radiology Impression Discussion of test interpretation with radiology: I have reviewed the radiologist's reading. Radiologist Impression: The lung bases are clear. The gallbladder is absent. The liver, spleen and adrenal glands are unremarkable. The pancreas demonstrates peripancreatic stranding without fluid collection or abscess. Nonobstructing 4 mm left renal calculus. Otherwise kidneys, ureters and bladder are unremarkable. Uterus and adnexa are within normal limits. Normal appendix. No bowel obstruction or free air. No acute osseous finding. Impression: Findings are consistent with acute pancreatitis. No peripancreatic fluid collection or evidence of abscess Medications Administered Discontinued Medications Generic Name Dose Route Start Last Admin Trade Name Freq PRN Reason Stop Dose Admin Famotidine 20 mg 12/17/24 04:51 12/17/24 05:04 Famotidine/Pf 20 Mg/2 Ml Vial IVPUSH 12/17/24 04:52 20 mg ONCE ONE Administration Hydromorphone HCl 1 mg 12/17/24 05:08 12/17/24 05:12 Hydromorphone Hcl 1 Mg/Ml Syringe IVPUSH 12/17/24 05:09 1 mg ONCE ONE Administration Protocol Sodium Chloride 1,000 mls @ 999 mls/hr 12/17/24 04:45 12/17/24 06:27 Ns IV 12/17/24 05:45 Infused .Q1H1M BETTY Infusion Iohexol 85 ml 12/17/24 05:45 12/17/24 05:45 Iohexol 350 Mg/Ml 100 Ml Infus..Btl IV 12/17/24 05:46 85 ml ONCE ONE Administration Morphine Sulfate 4 mg 12/17/24 04:41 12/17/24 04:46 Morphine Sulfate 4 Mg/Ml Cartridge IVPUSH 12/17/24 04:42 4 mg ONCE ONE Administration Protocol Ondansetron HCl 4 mg 12/17/24 04:41 12/17/24 04:46 Ondansetron Hcl 4 Mg/2 Ml Vial IVPUSH 12/17/24 04:42 4 mg ONCE ONE Administration Prochlorperazine Edisylate 10 mg 12/17/24 05:08 12/17/24 05:50 Prochlorperazine Edisylate 10 Mg/2 Ml Vial IVPUSH 12/17/24 05:09 10 mg ONCE ONE Administration Critical Care Time Critical Care Time Critical Care Time: Yes Total Critical Care Time: 60 Attestation: I have personally provided critical care time. Time includes review of lab data, radiology results, discussion with consultants, and monitoring for potential decompensation. Intervention performed as documented. Discharge Plan Discharge Clinical Impression: Pancreatitis Patient Disposition: Admitted As Inpatient Instructions: Pancreatitis (ED) Additional Instructions: Please follow-up with your primary care physician tomorrow. If you have any worsening or new symptoms, please return to the emergency room or call 911 Prescriptions: No Action omeprazole 40 mg capsule,delayed release(DR/EC) 40 mg PO DAILY Qty: 30 0RF sucralfate 1 gram tablet 1 g PO TID PRN (Reason: Epigastric pain) Qty: 60 0RF prednisone 20 mg tablet 40 mg PO DAILY 5 Days Qty: 10 0RF Print Language: Nauruan
--- NOTE | 2024-12-17 04:51 | PC.NURSE ---
pt changed over into hospital attire, Iv placed, lab collected and sent, medicated per dec.
[2024-12-17] MEDS: Famotidine/PF 20 MG/2 ML VIAL IVPUSH (05:04)
[2024-12-17 05:12] LABS: Appearance Urine Cloudy; Color Urine Yellow; Glucose Urine UA Negative (Negative); Leukocyte Esterase Urine Negative (Negative); Nitrite Urine Negative (Negative); Specific Gravity - Urine >= 1.030 (1.005-1.025); UMIC TRIGGER UACC YES; Urine Blood Trace (Negative); Urine Ketones 15 mg/dL (Negative); Urine Protein Trace mg/dL (Neg-Trace)
[2024-12-17] MEDS: HYDROmorphone HCl 1 MG/ML SYRINGE IVPUSH ×7 (05:12→23:58)
[2024-12-17 05:13] LABS: UPreg QC Valid YES; Urine Pregnancy NEGATIVE (NEGATIVE)
[2024-12-17 05:13] LABS: Alanine Aminotransferase 18 U/L (0-31); Albumin Level 4.2 g/dL (3.5-5.0); Alkaline Phosphatase 104 U/L (39-117); Anion Gap 15 (12-20); Aspartate Amino Transferase 93 U/L (5-31); Bilirubin Direct 0.2 mg/dL (0.0-0.5); Bilirubin Total 0.7 mg/dL (0.0-1.0); Blood Urea Nitrogen 12 mg/dL (9-16); Calcium 8.6 mg/dL (8.4-10.2); Carbon Dioxide 21 mmol/L (22-29); Chloride 107 mmol/L (96-108); Estimated Glomerular Filt Rate > 60; Glucose Random 91 mg/dL (60-115); Magnesium 1.7 mg/dL (1.6-2.6); Potassium 3.5 mmol/L (3.3-5.1); Sodium 139 mmol/L (135-145); Total Protein 7.8 g/dL (6.5-8.0)
--- NOTE | 2024-12-17 05:17 | PC.NURSE ---
medicated for pain management and nausea. pt awaiting ct scan.
[2024-12-17 05:18] LABS: Bacteria Urine 4+ (None Seen); Hyaline Casts Urine 0-2 /LPF (0-2); WBC Urine 0-5 /HPF (0-5)
[2024-12-17 05:23] LABS: Lipase 478 U/L (8-78)
--- OUTSIDE RECORDS SUMMARY | 2024-12-17 05:32 | XMS_ITS | Clinical Summary ---
Author Organization [facility] Address [address] [place] [address] Care Team Providers Care Welding Machine Tender Name Role Phone [facility] Primary Care Provider Allergies Active Allergy Reactions [...] 01/05/2023 Active predniSONE (DELTASONE) 50 MG tabletIndications:Ac [place] bronchitis, viral Take 1 tablet (50 mg [...] 02/09/2024 Active HYDROmorphone (DILAUDID) 2 MG tabletIndications:Ac [place] cholecystitis Take 1 tablet (2 mg total) by mouth 4 times daily (every 6 hours) as needed for severe pain. Max Daily Amount: 8 mg 12 tablet 02/17/2024 Active polyethylene glycol (miraLAx) 17 g packetIndications:Ac [place] cholecystitis Take 1 packet (17 g total) [...] pur e alcohol) Reports last drink 08/19 [facility] Utilities Answer Date Recorded In the past 12 months has [employer], gas, oil, or water [employer] threatened to shut off services in your home? No 08/14/2024 Social Connection and Isolat ion Panel [NHANES] Answer Date Recorded In a typical week, how many times do you talk on the phone with family, friends, or neighbors? More than three times a week 08/14/2024 Frequency of Social Gatherin gs with Friends and Family Not on file 08/14/2024 Attends Congregation Services Not on file 08/14 Active Member [...] any time in the past 12 m [facility], were you homeless or living in a prison (including now)? No 08/14/2024 Physical Activity Answer [...] 10:41 AM 02/08/2024 11:14 PM Care Teams Welding Machine Tender Relationship Specialty Start Date End Date [facility] [address] [place] [id number] PCP - General 08/26/23
--- OUTSIDE RECORDS SUMMARY | 2024-12-17 05:32 | XMS_ITS ---
Author Organization [facility] [place], Address [address] [place] [address] Care Team Providers Care Reproduction Order Processor Name Role Phone Barron LUTHER, Edmund Unavailable Unavailable Avril Giordano Unavailable [phone] Allergies Allergen (clinical drug ingredient) Drug/Non Drug Allergy documented on EMR Reaction Allergy Type Onset Date Status amoxicillin Amoxicillin Unknown Drug Allergy Act edgar Results Component Value Reference Range Notes Cepheid 4 Plex Reviewed date:12/31/2023 06:15:00 PM Interpretation: Performing Lab: Notes/Report: [address] [place] [id number] Avril Giordano, [id number] Flu A NEGATIVE Negative Flu B NEGATIVE Negative RSV NEGATIVE Negative SARS RT-PCR NEGATIVE Negative Strep A Cepheid Reviewed date:12/31/2023 06:15:00 PM Interpretation: Performing Lab: Notes/Report: Strep A NOT DETECTED NOT DETECTED REASON FOR VISIT SORE THROAT , FEVER 100.6 FOR THE PAST 2 DAYS . BODAY ACHE AND HEADACHE. PT STATED TOOK MUCINEX , TYLENOL, MOTRIN . TERAFLU. Medications Medication SIG (Take, Route, Frequency, Duration) Notes Start Date End Date Status Promethazine-Codeine 6.25-10 MG/5ML 5 ml as needed for severe cough Orally every 12 hrs.avoid alcohol, driving adn operating Queryly as the syrup may cause drowsiness for [...] Risk Notes Problem Exposure to communicable disease (870532648) Contact with and (suspected) exposure to other viral communicable diseases (Z20.828) Active confirmed Problem 387769345 Sore throat (J02.9) Active confirmed Problem Depression Screening (650332544) Encounter for screening for depression (Z13.31) Active confirmed Problem Body mass index 30.00 to 34.99 (523313134338475 ) Body mass index [BMI] 31.0-31.9, adult [...] Location Date Provider Diagnosis [facility] [address] [place] [address] 12/31/2023 Avril Giordano Contact with and (suspected) [...] be indicated. Testing discussed more information available [email or web address] 12/31/2023 Sore throat (ICD-10 - J02.9) If positive than antibiotics to be administered. strep A negative throat c to lab work note 01/01/24 12/31/2023 Encounter for screening for depression (ICD-10 - Z13.31) 12/31/2023 Body mass index [BMI] 31.0-31.9, adult (ICD-10 - Z68.31) 12/31/2023 Other Telemedicine visit performed using synchronous audio video technology Physical examination was performed using FDA approved tyePACT Network clinical device, that enables remote temperature check, [...] be indicated. Testing discussed more information available [email or web address] Sore throat If positive than antibiotics to be administered. strep A negative throat c to lab work note 01/01/24 Other Telemedicine visit performed using synchronous audio video technology Physical examination was performed using FDA approved Sape clinical device, that enables remote temperature check, lung exams, ear exams, heart sounds, throat exams, abdomen sounds, skin exams Next Appt Details Follow Up: 2-3 days, Reason: Progress Notes * Charlette CHANidaDOB:1994 (28 yo F)Acc No.[id number]:12/31/2023 Progress Notes Patient:?Red CHAN Provider:?Avril Giordano MD :1995???Age:28 Y???Sex:Female D ate:12/31/2023 Address:[place], [id number] Subjective: * Chief Complaints: * ???1. SORE [...] Depression score 0-4, no action ???Comprehensive health Assessment:?[facility] Comprehensive Health Assessment?Race? 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 Sex?Female ???hpi:? 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 * ROS:?see HPI see HPI. * Medical [...] every 12 hrs.avoid alcohol, driving adn operating Queryly as the syrup may cause drowsiness , [...] Physical examination was performed using FDA approved Sape clinical device, that enables remote temperature check, [...] NOT DETECTED NOT DETECTED - * Procedure Codes:?05483 Covid - serology - in house, Modifiers: QW , 0241U NFCT DS VIR RESP RNA 4 TRGT, Modifiers: QW , 27240 STREP A, DNA, AMP PROBE, Modifiers: QW , 42097 BRIEF EMOTIONAL/BEHAV ASSMT * Follow Up:?2-3 days Care Plan: * Problems:? * Billing Information: * Visit Code:? 61974 Office Visit, New Patient. * Procedure Codes:? 71835 Covid - serology - in house. Modifiers: QW 0241U NFCT DS VIR RESP RNA 4 TRGT. Modifiers: QW 25353 STREP A, DNA, AMP PROBE. Modifiers: QW 39681 BRIEF EMOTIONAL/BEHAV ASSMT. Care Plan Details* * Sign off status: Completed true * Provider:?Avril Giordano MD Date:? 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 No acute distress, non toxic appearing, alert , Well developed, well nourished. No acute distress, non toxic appearing, alert THROAT: erythema, no exudate
--- OUTSIDE RECORDS SUMMARY | 2024-12-17 05:32 | XMS_ITS | Encounter Summary ---
Author Organization [facility] Address [address] [place] [address] Care Team Providers Care Charter Coach Driver Name Role Phone [facility] Primary Care Provider Encounter Details Date Type Department Care Team (Late st Contact Info) Description 03/22/2024 Scanned Document [facility] Terrell Harry MD [address] [place] [id number] Social History Tobacco Use Types Packs/Day Years [...] on filedocumented in this encounter Care Teams Charter Coach Driver Relationship Specialty Start Date End Date [facility] [address] [place] [address] PCP - General 08/26/23 documented as of this encounter
--- OUTSIDE RECORDS SUMMARY | 2024-12-17 05:32 | XMS_ITS | Patient Health Record ---
Author Organization [facility] [place], Address [address] [place] [address] Care Team Providers Care Explosive Ordnance Handler Name Role Phone Barron LUTHER, Edmund Unavailable Unavailable Avril Giordano Unavailable [phone] Allergies Allergen (clinical drug ingredient) Drug/Non Drug Allergy documented on EMR Reaction Allergy Type Onset Date Status amoxicillin Amoxicillin Unknown Drug Allergy Act edgar Results Component Value Reference Range Notes Cepheid 4 Plex Reviewed date:12/31/2023 06:15:00 PM Interpretation: Performing Lab: Notes/Report: Avril Giordano, [id number] [address] [place] [address] Flu A NEGATIVE Negative Flu B NEGATIVE [...] every 12 hrs.avoid alcohol, driving adn operating Enertiv as the syrup may cause drowsiness for [...] Status W/U Status Risk Notes Problem Backache (856671667) Unspecified backache (724.5) Active confirmed Problem Postnasal drip (68171151) Postnasal drip (784.91) Active confirmed Problem Cough (41912796) COUGH (786.2) Active confirmed Problem Exposure to communicable disease (582091651) Contact with and (suspected) exposure to other viral communicable diseases (Z20.828) Active confirmed Problem Depression Screening (052959089) Encounter for screening for depression (Z13.31) Active confirmed Problem Body mass index 30.00 to 34.99 (752128979875421 ) Body mass index [BMI] 31.0-31.9, adult (Z68.31) Active confirmed Problem 368270694 Sore throat (J02.9) Active confirmed Vital Signs Heart Rate 86 /min 12/31/2023 Temperature 98.8 degrees Fahrenheit 12/31/2023 Respiratory Rate 18 /min 12/31/2023 Oximetry 98 % 12/31/2023 Blood pressure diastolic 84 mm Hg 12/31/2023 Height 63 in 12/31/2023 Blood pressure systolic 122 mm Hg 12/31/2023 Weight 180 lbs 12/31/2023 BMI 31.88 kg/m2 12/31/2023 Encounters Encounter Location Date Provider Diagnosis [facility] [address] [place] [address] 12/31/2023 Avril Giordano Contact with and (suspected) exposure to other viral communicable diseases Z20.828 ; Sore throat J02.9 ; Encounter for screening for depression Z13.31 and Body mass index [BMI] 31.0-31.9, adult Z68.31 [facility] [address] [place] [address] 12/31/2023 Assessments Encounter Date Diagnosis (ICD Code) [...] be indicated. Testing discussed more information available [email or web address] 12/31/2023 Sore throat (ICD-10 - J02.9) If positive than antibiotics to be administered. strep A negative throat c to lab work note 01/01/24 12/31/2023 Encounter for screening for depression (ICD-10 - Z13.31) 12/31/2023 Body mass index [BMI] 31.0-31.9, adult (ICD-10 - Z68.31) 12/31/2023 Other Telemedicine visit performed using synchronous audio video technology Physical examination was performed using FDA approved Mob[employer] clinical device, that enables remote temperature check, [...] Date Medicaid of [place] [address] [place] [address] [phone] [id number] RED MILLER Self - patient is the insured Medical (General) History Medical History History ICD Code PTSD ANXIETY Anemia: No asthma: Yes Cancer: No DEPRESSION: No Diabetes: No high blood pressure: Yes kidney disease: No seizures: No thyroid disease: No Surgical History: None
--- NOTE | 2024-12-17 05:39 | PC.NURSE ---
pt taken to ct scan
[2024-12-17 05:44] LABS: Amphetamine Screen Urine Not Detected (Not Detect); Barbiturates, Urine Not Detected (Not Detect); Benzodiazepines Screen Urine Not Detected (Not Detect); Buprenorphine Scr Not Detected (Not Detect); Cannabinoid Screen Urine POSITIVE (Not Detect); Cocaine Screen Urine Not Detected (Not Detect); Fentanyl, urine Not Detected (Not Detect); Methadone Screen, Urine Not Detected (Not Detect); Opiate Screen Urine POSITIVE (Not Detect); Oxycodone Screen Urine Not Detected (Not Detect); Phencyclidine Screen Urine Not Detected (Not Detect)
[2024-12-17] MEDS: iohexoL 350 MG/ML 100 ML INFUS..BTL 85 ML IV (05:45)
[2024-12-17] MEDS: Prochlorperazine Edisylate 10 MG/2 ML VIAL IVPUSH (05:50)
[2024-12-17] MEDS: 0.9 % Sodium Chloride 1,000 ML 999 ML IVCONT (06:46)
--- NOTE | 2024-12-17 06:48 | PC.NURSE ---
medicated per dec, pt oob to bathroom, unable to scan morphine tossed bottle in sharp container
--- NOTE | 2024-12-17 07:13 | P.HPHOSP_ITS ---
History of Present Illness Date of Service: 12/17/24 Chief Complaint: abd pain 29F PMH etoh dependence (describes as binge drinking, not daily), etoh pancreatitis, presented with abdominal pain. Patient reports pain started day prior to presentation similar to previous episodes of pancreatitis. Was epigastric radiating to back. Associated with nausea and vomiting. At 03:00 on day of presentation patient awoke with severe nausea and vomiting and worsening epigastric pain so came to the ED. In ED noted to have elevated lipase and pancreatitis on CT scan. Review of Systems 2 Review of Systems: Yes all other systems are reviewed and are negative [facility], [facility] Medical History Pancreatitis Asthma Social History Alcohol intake: current Alcohol intake frequency: a few times a week Alcohol type: wine and hard liquor Smoked in Last 30 Days: No Use of substances other than those prescribed or required for medical reasons: No Substance Use Type: Marijuana Advance Directives: No Advance Directives Information Provided: Yes Do you have a plan to hurt others: No Plan Meds Allergies Allergy/AdvReac Type Severity Reaction Status Date / Time amoxicillin Allergy Shortness Verified 12/17/24 04:27 of Breath ceftriaxone Allergy Hives Verified 12/17/24 04:27 Penicillins Allergy Shortness Verified 12/17/24 04:27 of Breath potassium chloride Allergy Itching Verified 12/17/24 04:27 Active Medications: Current Medications Sodium Chloride (Ns) 1,000 mls @ 999 mls/hr IVCONT .Q1H1M ONE Stop: 12/17/24 07:42 Last Admin: 12/17/24 06:46 Dose: 999 mls/hr Physical Exam 2 Vital Signs and Narrative: Vital Signs: Last Vital Signs Temp 97.6 F 12/17/24 06:00 Pulse 50 12/17/24 06:54 Resp 16 12/17/24 06:54 BP 130/60 12/17/24 06:54 Pulse Ox 97 12/17/24 06:54 O2 Del Method Room Air 12/17/24 06:54 BMI result Body Mass Index 30.1 General: AO X 3, no acute distress Resp: CTA bilateral, no accessory muscles used CVS: S1,S2,RRR GI: soft, epigastric tender, non distended Neuro: motor grossly intact, alert Psych: appropriate affect, appropriate insight Results Labs 12/17/24 04:38 12/17/24 04:47 Labs: Laboratory Results - last 24 hr 12/17/24 12/17/24 12/17/24 04:38 04:47 05:07 MCV 90.7 MCH 31.6 MCHC 34.8 RDW 13.4 Plt Count 366 MPV 9.1 L Immature Gran % (Auto) 0.3 Neut % (Auto) 56.0 Lymph % (Auto) 34.1 Murray % (Auto) 6.2 Eos % (Auto) 2.7 Baso % (Auto) 0.7 Lymph # (Auto) 2.4 Murray # (Auto) 0.4 Eos # (Auto) 0.2 Baso # (Auto) 0.1 Abs Immat Gran (auto) 0.02 Absolute Neuts (auto) 4.0 Absolute Nucleated RBC 0.000 Nucleated RBC % (auto) 0.0 Anion Gap 15 Estim Creat Clear Calc 91.0 Estimated GFR > 60 Random Glucose 91 Calcium 8.6 D Magnesium 1.7 Total Bilirubin 0.7 Direct Bilirubin 0.2 AST 93 H ALT 18 Alkaline Phosphatase 104 Total Protein 7.8 Albumin 4.2 Lipase 478 H Urine Color Yellow Urine Appearance Cloudy Urine pH 6.0 Ur Specific [place] >= 1.030 H Urine Protein Trace Urine Glucose (UA) Negative Urine Ketones 15 Urine Blood Trace H Urine Nitrite Negative Ur Leukocyte Esterase Negative Urine RBC 6-10 H Urine WBC 0-5 Ur Squamous Epith Cells 6-10 Urine Bacteria 4+ Hyaline Casts 0-2 Urine Test NEGATIVE Urine Opiates Screen POSITIVE H Ur Buprenorphine Scrn Not Detected Ur Oxycodone Screen Not Detected Urine Methadone Screen Not Detected Urine Fentanyl Screen Not Detected Ur Barbiturates Screen Not Detected Ur Phencyclidine Scrn Not Detected Ur Amphetamines Screen Not Detected U Benzodiazepines Scrn Not Detected Urine Cocaine Screen Not Detected U Marijuana (THC) Screen POSITIVE H Assessment and Plan (1) Pancreatitis: Status: Acute Plan 29F PMH etoh dependence (describes as binge drinking, not daily), etoh pancreatitis, presented with abdominal pain. Acute alcoholic pancreatitis IV fluids, pain meds, clear liquids for now advance as tolerated Alcohol dependence Monitor CIWA no history of withdrawal DVT prophylaxis Lovenox Full Code Quality Stroke Does the patient have a stroke diagnosis?: No VTE Prior VTE?: No VTE Risk Level:: Medical - moderate - high VTE Device Contraindication: Treatment Not Indicated VTE Drug Contraindication: N/A - Med Ordered
[2024-12-17] MEDS: Lactated Ringers 1,000 ML 125 ML IVCONT ×2 (08:50→18:07)
--- NOTE | 2024-12-17 09:06 | PHA.MEDREC ---
Addendum entered by Lizzie Orellana RPh 12/17/24 09:23: Reviewed by [facility] Original Note: Pharmacy Consult ? Medication Reconciliation Pharmacy has completed the medication reconciliation. Spoke to patient to confirm med list.
[2024-12-17] MEDS: oxyCODONE HCl Immed Release 5 MG TABLET PO ×2 (10:37→15:56)
--- NOTE | 2024-12-17 13:25 | PC.NURSE ---
IVF behind schedule. Pt frequently bending arm in an attempt to find comfortably position.
[2024-12-17] MEDS: Acetaminophen 325 MG TABLET 650 MG PO (13:49)
--- NOTE | 2024-12-17 17:42 | PC.NURSE ---
Pts IV fluids continue to be behind schedule as IV access is frequently kinked d/t Pt bending arm. Pt given frequent reminders about proper positioning for IVF infusion. This RN assessed for new IV access point in bilat hand, wrist, and FA as Pt was agreeable to new placement to keep IVF running more consistently. Unable to palpate or visualize new IV access vein. Pt agreeable to keep LUE out straight supported by pillow while IVF run. Will reassess for new IV access point when Pt is more hydrated.
--- NOTE | 2024-12-17 18:10 | MHC.EDTECH ---
pt refused dinner
--- NOTE | 2024-12-17 21:49 | PC.ADMIT ---
Addendum entered by Ash Beasley RN 12/18/24 06:21: Patients pain is not controlled. 9/10 abdominal pain, nausea, and dry heaves this morning. First dose of Dilaudid at 2100, patient c/o 10/10 pain at 2220. RN paged covering provider about pain issue at that time, no additional meds ordered. Dilaudid administered every 3 hours as ordered. Zofran administered every 6 hours. Will continue to monitor. Original Note: Patient arrived to med/surg from ED, current n/v, mid abdominal pain radiating to left side reported as a 9/10. Dilaudid administered as ordered which brought it down to a 5/10. Reports drinking a pint twice/week and recent trip to [place] where she over-did it. CIWA 9. Alert/oriented, independent in room. Very pleasant, calm, cooperative with care. scene shifter. LR at 125 infusing as ordered. No acute events. Will continue to monitor.
[2024-12-17] MEDS: 0.9 % Sodium Chloride Flush 3 ML SYRINGE IVFLUSH (23:58)
[2024-12-18] MEDS: Melatonin 3 MG TABLET 6 MG PO ×2 (01:35→23:50)
[2024-12-18] MEDS: HYDROmorphone HCl 1 MG/ML SYRINGE IVPUSH ×3 (03:06→09:05)
[2024-12-18] MEDS: Lactated Ringers 1,000 ML 125 ML IVCONT ×3 (03:06→18:31)
[2024-12-18 03:11] VITALS: BP 127/72; PULSE 62; RESP 18; TEMP 36.3; O2SAT 98
[2024-12-18 06:06] LABS: Hematocrit 32.3 % (37.0-47.0); Hemoglobin 11.2 g/dl (12.0-16.0); Mean Corpuscular HGB Conc 34.7 g/dl (31.0-35.0); Mean Corpuscular Hemoglobin 31.2 pg (27.0-33.0); Mean Platelet Volume 9.2 fL (9.4-12.3); Platelet Count 282 X10*3/uL (160-400); Red Blood Count 3.59 X10*6/uL (4.20-5.50); Red Cell Distribution Width 13.6 % (11.0-16.0); White Blood Count 8.2 X10*3/uL (4.8-10.8)
[2024-12-18] MEDS: ondansetron HCL 4 MG/2 ML VIAL IVPUSH ×3 (06:06→19:59)
[2024-12-18 06:19] LABS: Anion Gap 12 (12-20); Blood Urea Nitrogen 4 mg/dL (9-16); Calcium 8.1 mg/dL (8.4-10.2); Carbon Dioxide 23 mmol/L (22-29); Chloride 106 mmol/L (96-108); Creatinine Clr Calc Pharmacy 116.3; Estimated Glomerular Filt Rate > 60; Glucose Random 85 mg/dL (60-115); Magnesium 1.7 mg/dL (1.6-2.6); Potassium 3.1 mmol/L (3.3-5.1); Sodium 138 mmol/L (135-145)
[2024-12-18 07:02] VITALS: BP 170/90; PULSE 80; RESP 16; TEMP 36.6; O2SAT 98
[2024-12-18] MEDS: oxyCODONE HCl Immed Release 5 MG TABLET PO ×4 (07:37→22:07)
--- OUTSIDE RECORDS SUMMARY | 2024-12-18 09:07 | XMS_ITS | Encounter Summary ---
Author Organization [facility] Address [address] [place] [address] Care Team Providers Care Veterinary Bacteriologist Name Role Phone [facility] Primary Care Provider Encounter Details Date Type Department Care Team (Late st Contact Info) Description 03/22/2024 Scanned Document [facility] GASTRO [facility]AN Terrell Harry MD [address] [place] [id number] Social History Tobacco Use Types Packs/Day Years [...] on filedocumented in this encounter Care Teams Veterinary Bacteriologist Relationship Specialty Start Date End Date [facility] [address] [place] [address] PCP - General 08/26/23 documented as of this encounter
--- OUTSIDE RECORDS SUMMARY | 2024-12-18 09:08 | XMS_ITS ---
Author Organization [facility] [place], Address [address] [place] [address] Care Team Providers Care Pinion Polisher Name Role Phone Barron LUTHER, Edmund Unavailable Unavailable Avril Giordano Unavailable [phone] Allergies Allergen (clinical drug ingredient) Drug/Non Drug Allergy documented on EMR Reaction Allergy Type Onset Date Status amoxicillin Amoxicillin Unknown Drug Allergy Act edgar Results Component Value Reference Range Notes Strep A Cepheid Reviewed date:12/31/2023 06:15:00 PM Interpretation: Performing Lab: Notes/Report: Strep A NOT DETECTED NOT DETECTED Cepheid 4 Plex Reviewed date:12/31/2023 06:15:00 PM Interpretation: Performing Lab: Notes/Report: [address] [place] [id number] Avril Giordano, [phone] Flu A NEGATIVE Negative Flu B NEGATIVE [...] every 12 hrs.avoid alcohol, driving adn operating Propable as the syrup may cause drowsiness for [...] Risk Notes Problem Exposure to communicable disease (595475549) Contact with and (suspected) exposure to other viral communicable diseases (Z20.828) Active confirmed Problem 970264706 Sore throat (J02.9) Active confirmed Problem Depression Screening (221911393) Encounter for screening for depression (Z13.31) Active confirmed Problem Body mass index 30.00 to 34.99 (271731893655621 ) Body mass index [BMI] 31.0-31.9, adult [...] Date Provider Diagnosis [facility] [address] [place] [address] 12/31/2023 Avril Giordano Contact with and (suspected) [...] be indicated. Testing discussed more information available [email or web address] 12/31/2023 Sore throat (ICD-10 - J02.9) If positive than antibiotics to be administered. strep A negative throat c to lab work note 01/01/24 12/31/2023 Encounter for screening for depression (ICD-10 - Z13.31) 12/31/2023 Body mass index [BMI] 31.0-31.9, adult (ICD-10 - Z68.31) 12/31/2023 Other Telemedicine visit performed using synchronous audio video technology Physical examination was performed using FDA approved [email or web address] clinical device, that enables remote temperature check, [...] be indicated. Testing discussed more information available [email or web address] Sore throat If positive than antibiotics to be administered. strep A negative throat c to lab work note 01/01/24 Other Telemedicine visit performed using synchronous audio video technology Physical examination was performed using FDA approved [employer] clinical device, that enables remote temperature check, lung exams, ear exams, heart sounds, throat exams, abdomen sounds, skin exams Next Appt Details Follow Up: 2-3 days, Reason: Progress Notes * Charlette CHANidaDOB:1994 (28 yo F)Acc No.[id number]:12/31/2023 Progress Notes Patient:?Red CHAN Provider:?Avril Giordano MD :1995???Age:28 Y???Sex:Female D ate:12/31/2023 Address:[place], [id number] Subjective: * Chief Complaints: * ???1. SORE [...] Depression score 0-4, no action ???Comprehensive health Assessment:?[facility] Comprehensive Health Assessment?Race? 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 Sex?Female ???hpi:? 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 * ROS:?see HPI see HPI. * Medical [...] every 12 hrs.avoid alcohol, driving adn operating Propable as the syrup may cause drowsiness , [...] Physical examination was performed using FDA approved [employer] clinical device, that enables remote temperature check, [...] NOT DETECTED NOT DETECTED - * Procedure Codes:?34691 Covid - serology - in house, Modifiers: QW , 0241U NFCT DS VIR RESP RNA 4 TRGT, Modifiers: QW , 62355 STREP A, DNA, AMP PROBE, Modifiers: QW , 68385 BRIEF EMOTIONAL/BEHAV ASSMT * Follow Up:?2-3 days Care Plan: * Problems:? * Billing Information: * Visit Code:? 73640 Office Visit, New Patient. * Procedure Codes:? 02279 Covid - serology - in house. Modifiers: QW 0241U NFCT DS VIR RESP RNA 4 TRGT. Modifiers: QW 83191 STREP A, DNA, AMP PROBE. Modifiers: QW 09998 BRIEF EMOTIONAL/BEHAV ASSMT. Care Plan Details* * Sign off status: Completed true * Provider:?Avril Giordano MD Date:? 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 No acute distress, non toxic appearing, alert , Well developed, well nourished. No acute distress, non toxic appearing, alert THROAT: erythema, no exudate
--- OUTSIDE RECORDS SUMMARY | 2024-12-18 09:08 | XMS_ITS | Patient Health Record ---
Author Organization [facility] [place], Address [address] [place] [address] Care Team Providers Care Production Line Manager Name Role Phone Barron LUTHER, Edmund Unavailable Unavailable Avril Giordano Unavailable [phone] Allergies Allergen (clinical drug ingredient) Drug/Non Drug Allergy documented on EMR Reaction Allergy Type Onset Date Status amoxicillin Amoxicillin Unknown Drug Allergy Act edgar Results Component Value Reference Range Notes Cepheid 4 Plex Reviewed date:12/31/2023 06:15:00 PM Interpretation: Performing Lab: Notes/Report: Avril Giordano, [id number] [address] [place] [address] Flu A NEGATIVE Negative Flu B NEGATIVE [...] every 12 hrs.avoid alcohol, driving adn operating Advanced Patient Care as the syrup may cause drowsiness for [...] Status W/U Status Risk Notes Problem Backache (168269961) Unspecified backache (724.5) Active confirmed Problem Postnasal drip (32138276) Postnasal drip (784.91) Active confirmed Problem Cough (54858536) COUGH (786.2) Active confirmed Problem Exposure to communicable disease (599556180) Contact with and (suspected) exposure to other viral communicable diseases (Z20.828) Active confirmed Problem Depression Screening (050322526) Encounter for screening for depression (Z13.31) Active confirmed Problem Body mass index 30.00 to 34.99 (039105047616533 ) Body mass index [BMI] 31.0-31.9, adult (Z68.31) Active confirmed Problem 725744491 Sore throat (J02.9) Active confirmed Vital Signs Heart Rate 86 /min 12/31/2023 Temperature 98.8 degrees Fahrenheit 12/31/2023 Respiratory Rate 18 /min 12/31/2023 Oximetry 98 % 12/31/2023 Blood pressure diastolic 84 mm Hg 12/31/2023 Height 63 in 12/31/2023 Blood pressure systolic 122 mm Hg 12/31/2023 Weight 180 lbs 12/31/2023 BMI 31.88 kg/m2 12/31/2023 Encounters Encounter Location Date Provider Diagnosis [facility] [address] [place] [facility] [place] [address] 12/31/2023 Avril Giordano Contact with and (suspected) exposure to other viral communicable diseases Z20.828 ; Sore throat J02.9 ; Encounter for screening for depression Z13.31 and Body mass index [BMI] 31.0-31.9, adult Z68.31 [facility] [address] [place] [address] 12/31/2023 Assessments Encounter Date Diagnosis (ICD Code) [...] be indicated. Testing discussed more information available [email or web address] 12/31/2023 Sore throat (ICD-10 - J02.9) If positive than antibiotics to be administered. strep A negative throat c to lab work note 01/01/24 12/31/2023 Encounter for screening for depression (ICD-10 - Z13.31) 12/31/2023 Body mass index [BMI] 31.0-31.9, adult (ICD-10 - Z68.31) 12/31/2023 Other Telemedicine visit performed using synchronous audio video technology Physical examination was performed using FDA approved [employer] clinical device, that enables remote temperature check, [...] Date Medicaid of [place] [address] [place] [address] [phone] [id number] RED MILLER Self - patient is the insured Medical (General) History Medical History History ICD Code PTSD ANXIETY Anemia: No asthma: Yes Cancer: No DEPRESSION: No Diabetes: No high blood pressure: Yes kidney disease: No seizures: No thyroid disease: No Surgical History: None
--- OUTSIDE RECORDS SUMMARY | 2024-12-18 09:08 | XMS_ITS | Clinical Summary ---
Author Organization [facility] Address [address] [place] [address] Care Team Providers Care Ladle Mechanic Name Role Phone [facility] Primary Care Provider Allergies Active Allergy [...] 01/05/2023 Active predniSONE (DELTASONE) 50 MG tabletIndications:Ac kaw bronchitis, viral Take 1 tablet (50 mg [...] 02/09/2024 Active HYDROmorphone (DILAUDID) 2 MG tabletIndications:Ac kaw cholecystitis Take 1 tablet (2 mg total) by mouth 4 times daily (every 6 hours) as needed for severe pain. Max Daily Amount: 8 mg 12 tablet 02/17/2024 Active polyethylene glycol (miraLAx) 17 g packetIndications:Ac kaw cholecystitis Take 1 packet (17 g total) [...] pur e alcohol) Reports last drink 08/19 [facility] Utilities Answer Date Recorded In the past 12 months has [employer], gas, oil, or water Social [employer] threatened to shut off services in your home? No 08/14/2024 Social Connection and Isolat ion Panel [NHANES] Answer Date Recorded In a typical week, how many times do you talk on the phone with family, friends, or neighbors? More than three times a week 08/14/2024 Frequency of Social Gatherin gs with Friends and Family Not on file 08/14/2024 Attends Jehovah'[employer] Witness Services Not on file 08/14 Active Member [...] were you homeless or living in a fci (including now)? No 08/14/2024 Physical Activity Answer [...] 10:41 AM 02/08/2024 11:14 PM Care Teams Ladle Mechanic Relationship Specialty Start Date End Date [facility] [address] [place] [id number] PCP - General 08/26/23
--- NOTE | 2024-12-18 09:26 | P.PNIM_ITS ---
Subjective Subjective Date of Service: 12/18/24 Interval History: abd pain Physical Exam 2 Vital Signs: Vital Signs: Last Vital Signs Temp 98 F 12/18/24 07:02 Pulse 80 12/18/24 07:02 Resp 16 12/18/24 07:02 BP 170/90 H 12/18/24 07:02 Pulse Ox 98 12/18/24 07:02 O2 Del Method Room Air 12/18/24 07:02 BMI result Body Mass Index 30.2 General: AO X 3, in pain Resp: CTA bilateral, no accessory muscles used CVS: S1,S2,RRR GI: soft, tender, non distended Neuro: motor grossly intact, alert Psych: appropriate affect, appropriate insight Objective Data Active Medications Acetaminophen (Acetaminophen 325 Mg Tablet) 650 mg PO Q6H PRN PRN Reason: Pain, Mild 1-3,fever,headache Last Admin: 12/17/24 13:49 Dose: 650 mg Documented By: ELIZA Albuterol Sulfate (Albuterol Sulfate 90 Mcg 8 Gm Inhaler) 2 puff INHALE Q4H PRN PRN Reason: Shortness Of Breath Or Wheezing Calcium Carbonate (Calcium Carbonate 750 Mg Tab.Chew) 750 mg PO Q4H PRN PRN Reason: Heartburn Enoxaparin Sodium (Enoxaparin Sodium 40 Mg/0.4 Ml Syringe) 40 mg SUBCUT Q24H [facility] Last Admin: 12/18/24 09:11 Dose: Not Given Documented By: SUSAN Non-Admin Reason: Patient Refused Hydromorphone HCl (Hydromorphone Hcl 1 Mg/Ml Syringe) 1 mg IVPUSH Q3H PRN; Protocol PRN Reason: Pain, Severe (Pain Scale 7-10) Last Admin: 12/18/24 09:05 Dose: 1 mg Documented By: SUSAN Lactated Ringer's (Lr) 1,000 mls @ 125 mls/hr IVCONT .Q8H [facility] Last Admin: 12/18/24 03:06 Dose: 125 mls/hr Documented By: WILNER Magnesium Hydroxide (Milk Of Magnesia 30 Ml Oral.Susp) 30 ml PO DAILY PRN PRN Reason: Constipation Melatonin (Melatonin 3 Mg Tablet) 6 mg PO BEDTIME PRN PRN Reason: Insomnia Last Admin: 12/18/24 01:35 Dose: 6 mg Documented By: WILNER Ondansetron HCl (Ondansetron Hcl 4 Mg/2 Ml Vial) 4 mg IVPUSH Q6H PRN PRN Reason: Nausea Last Admin: 12/18/24 06:06 Dose: 4 mg Documented By: WILNER Oxycodone HCl (Oxycodone Hcl Immed Release 5 Mg Tablet) 5 mg PO Q4H PRN PRN Reason: Pain, Moderate(Pain Scale 4-6) Last Admin: 12/18/24 07:37 Dose: 5 mg Documented By: SUSAN Sodium Chloride (0.9 % Sodium Chloride Flush 3 Ml Syringe) [facility] Last Admin: 12/18/24 07:42 Dose: Not Given Documented By: SUSAN Non-Admin Reason: IV Running Labs 12/18/24 05:47 12/18/24 05:47 Labs: Laboratory Results - last 24 hr 12/18/24 05:47 MCV 90.0 MCH 31.2 MCHC 34.7 RDW 13.6 Plt Count 282 MPV 9.2 L Absolute Nucleated RBC 0.000 Nucleated RBC % (auto) 0.0 Anion Gap 12 Estim Creat Clear Calc 116.3 Estimated GFR > 60 Random Glucose 85 Calcium 8.1 L Magnesium 1.7 Assessment and Plan (1) Pancreatitis: Status: Acute Plan 29F PMH etoh dependence (describes as binge drinking, not daily), etoh pancreatitis, presented with abdominal pain. Acute alcoholic pancreatitis IV fluids, pain meds, clear liquids for now advance as tolerated Alcohol dependence Monitor CIWA no history of withdrawal DVT prophylaxis Lovenox Full Code reason for continued hospitalization:still not tolerating will change to inpatient Quality Stroke Does the patient have a stroke diagnosis?: No VTE Prior VTE?: No VTE Risk Level:: Medical - moderate - high VTE Device Contraindication: Treatment Not Indicated VTE Drug Contraindication: N/A - Med Ordered
--- NOTE | 2024-12-18 10:15 | MHC.CM.PN ---
Addendum entered by Roxy Clemens RN 12/18/24 10:17: LÓPEZ DELIVERED. Original Note: PATIENT LIVES ALONE. FUNCTIONALLY INDEPENDENT. DENIES USE OF DME OR SERVICES. NO PCP. STATES SHE WILL FIND A PCP IN HER AREA ON [place] ([facility]). NO HCP. CM PROVIDED EDUCATION AND OFFERED ASSISTANCE. PATIENT DECLINED. DP: GOAL IS HOME SELF CARE, FRIEND TO TRANSPORT. CM WILL CONTINUE TO FOLLOW.
[2024-12-18] MEDS: HYDROmorphone HCl 1 MG/ML SYRINGE 1.5 MG IVPUSH ×5 (10:47→23:49)
[2024-12-18 15:16] VITALS: BP 126/72; PULSE 80; RESP 18; TEMP 36.6; O2SAT 98
[2024-12-18] MEDS: LORazepam 2 MG/ML VIAL 0.5 MG IVPUSH (16:14)
--- NOTE | 2024-12-18 19:06 | PC.NURSE ---
Patient alert and oriented, independent in the room, RA, c/o pain, nausea and vomiting. On clear liquid, not tolerating PO intake. Medicated with PRN pain and nausea medication. One time dose of Ativian administered with good result. Patient pain medication increased from Dilaudid 1mg to 1.5mg with better effect. Slept most of the shift.
[2024-12-18 19:36] VITALS: BP 153/94; PULSE 70; RESP 18; TEMP 36.7; O2SAT 94
[2024-12-18] MEDS: 0.9 % Sodium Chloride Flush 3 ML SYRINGE IVFLUSH (22:09)
[2024-12-19 03:02] VITALS: BP 167/89; PULSE 83; RESP 18; TEMP 36.6; O2SAT 95
[2024-12-19] MEDS: HYDROmorphone HCl 1 MG/ML SYRINGE 1.5 MG IVPUSH ×7 (03:41→22:33)
[2024-12-19] MEDS: LORazepam 2 MG/ML VIAL 0.5 MG IVPUSH (03:41)
[2024-12-19] MEDS: Lactated Ringers 1,000 ML 125 ML IVCONT (03:41)
[2024-12-19] MEDS: oxyCODONE HCl Immed Release 5 MG TABLET PO ×4 (05:39→20:51)
--- NOTE | 2024-12-19 05:54 | PC.NURSE ---
Patients Dilaudid increased yesterday to 1.5mg and she is also taking 5 oxycodone in between Dilaudid doses per patients request for 7-10 abdominal pain. Patient continues to have n/v, dry heaving at times and states uncontrolled abdominal pain. MD is aware and is active in her care. Will continue to monitor for now.
[2024-12-19 07:14] LABS: Hematocrit 33.6 % (37.0-47.0); Hemoglobin 11.2 g/dl (12.0-16.0); Mean Corpuscular HGB Conc 33.3 g/dl (31.0-35.0); Mean Corpuscular Volume 93.1 fL (80.0-98.0); Mean Platelet Volume 9.5 fL (9.4-12.3); Platelet Count 293 X10*3/uL (160-400); Red Blood Count 3.61 X10*6/uL (4.20-5.50); Red Cell Distribution Width 13.4 % (11.0-16.0)
[2024-12-19 07:32] VITALS: BP 156/92; PULSE 87; RESP 19; TEMP 36.3; O2SAT 97
[2024-12-19 07:40] LABS: Alanine Aminotransferase 67 U/L (0-31); Albumin Level 3.7 g/dL (3.5-5.0); Alkaline Phosphatase 292 U/L (39-117); Anion Gap 14 (12-20); Aspartate Amino Transferase 93 U/L (5-31); Bilirubin Direct 0.4 mg/dL (0.0-0.5); Bilirubin Total 0.8 mg/dL (0.0-1.0); Blood Urea Nitrogen 4 mg/dL (9-16); Calcium 8.4 mg/dL (8.4-10.2); Carbon Dioxide 24 mmol/L (22-29); Chloride 104 mmol/L (96-108); Estimated Glomerular Filt Rate > 60; Glucose Random 75 mg/dL (60-115); Magnesium 1.6 mg/dL (1.6-2.6); Potassium 3.4 mmol/L (3.3-5.1); Sodium 139 mmol/L (135-145); Total Protein 6.6 g/dL (6.5-8.0)
--- NOTE | 2024-12-19 08:34 | P.PNIM_ITS ---
Subjective Subjective Date of Service: 12/19/24 Interval History: still with pain but wants to try solids and weaning off iv pain meds Physical Exam 2 Vital Signs: Vital Signs: Last Vital Signs Temp 97.4 F 12/19/24 07:32 Pulse 87 12/19/24 07:32 Resp 19 12/19/24 07:32 BP 156/92 H 12/19/24 07:32 Pulse Ox 97 12/19/24 07:32 O2 Del Method Room Air 12/19/24 07:32 BMI result Body Mass Index 30.2 General: AO X 3, in pain Resp: CTA bilateral, no accessory muscles used CVS: S1,S2,RRR GI: soft, tender, non distended Neuro: motor grossly intact, alert Psych: appropriate affect, appropriate insight Objective Data Active Medications Acetaminophen (Acetaminophen 325 Mg Tablet) 650 mg PO Q6H PRN PRN Reason: Pain, Mild 1-3,fever,headache Last Admin: 12/17/24 13:49 Dose: 650 mg Documented By: ELIZA Albuterol Sulfate (Albuterol Sulfate 90 Mcg 8 Gm Inhaler) 2 puff INHALE Q4H PRN PRN Reason: Shortness Of Breath Or Wheezing Calcium Carbonate (Calcium Carbonate 750 Mg Tab.Chew) 750 mg PO Q4H PRN PRN Reason: Heartburn Enoxaparin Sodium (Enoxaparin Sodium 40 Mg/0.4 Ml Syringe) 40 mg SUBCUT Q24H [facility] Last Admin: 12/18/24 09:11 Dose: Not Given Documented By: SUSAN Non-Admin Reason: Patient Refused Hydromorphone HCl (Hydromorphone Hcl 1 Mg/Ml Syringe) 1.5 mg IVPUSH Q3H PRN; Protocol PRN Reason: Pain, Severe (Pain Scale 7-10) Last Admin: 12/19/24 06:33 Dose: 1.5 mg Documented By: WILNER Lactated Ringer's (Lr) 1,000 mls @ 125 mls/hr IVCONT .Q8H [facility] Last Admin: 12/19/24 03:41 Dose: 125 mls/hr Documented By: WILNER Magnesium Hydroxide (Milk Of Magnesia 30 Ml Oral.Susp) 30 ml PO DAILY PRN PRN Reason: Constipation Melatonin (Melatonin 3 Mg Tablet) 6 mg PO BEDTIME PRN PRN Reason: Insomnia Last Admin: 12/18/24 23:50 Dose: 6 mg Documented By: WILNER Ondansetron HCl (Ondansetron Hcl 4 Mg/2 Ml Vial) 4 mg IVPUSH Q6H PRN PRN Reason: Nausea Last Admin: 12/18/24 19:59 Dose: 4 mg Documented By: WILNER Oxycodone HCl (Oxycodone Hcl Immed Release 5 Mg Tablet) 5 mg PO Q4H PRN PRN Reason: Pain, Moderate(Pain Scale 4-6) Last Admin: 12/19/24 05:39 Dose: 5 mg Documented By: WILNER Sodium Chloride (0.9 % Sodium Chloride Flush 3 Ml Syringe) 3 ml IVFLUSH QSHIFT BETTY Last Admin: 12/19/24 07:07 Dose: Not Given Documented By: DEZ Non-Admin Reason: IV Running Labs 12/19/24 07:04 12/19/24 07:04 Labs: Laboratory Results - last 24 hr 12/19/24 07:04 MCV 93.1 MCH 31.0 MCHC 33.3 RDW 13.4 Plt Count 293 MPV 9.5 Absolute Nucleated RBC 0.000 Nucleated RBC % (auto) 0.0 Anion Gap 14 Estim Creat Clear Calc 107.0 Estimated GFR > 60 Random Glucose 75 Calcium 8.4 Magnesium 1.6 Total Bilirubin 0.8 Direct Bilirubin 0.4 AST 93 H ALT 67 H Alkaline Phosphatase 292 H Total Protein 6.6 Albumin 3.7 Assessment and Plan (1) Pancreatitis: Status: Acute Plan 29F PMH etoh dependence (describes as binge drinking, not daily), etoh pancreatitis, presented with abdominal pain. Acute alcoholic pancreatitis will dc IV fluids, po pain meds, advance to solids Alcohol dependence Monitor CIWA no history of withdrawal DVT prophylaxis Lovenox Full Code reason for continued hospitalization: monitor for tolerance of po Quality Stroke Does the patient have a stroke diagnosis?: No VTE Prior VTE?: No VTE Risk Level:: Medical - moderate - high VTE Device Contraindication: Treatment Not Indicated VTE Drug Contraindication: N/A - Med Ordered
[2024-12-19] MEDS: ondansetron HCL 4 MG/2 ML VIAL IVPUSH ×2 (11:16→17:51)
[2024-12-19 12:11] LABS: Bacterial Vaginosis PCR POSITIVE (Negative); Candida Group PCR NOT DETECTED (Not Detect); Candida glab krusei PCR NOT DETECTED (Not Detect); Trichomonas vaginalis PCR NOT DETECTED (Not Detect)
[2024-12-19 12:43] LABS: CT PCR NOT DETECTED (Not Detect.); NG PCR NOT DETECTED (Not Detect.)
[2024-12-19] MEDS: metroNIDAZOLE 500 MG TABLET PO (13:11)
[2024-12-19] MEDS: 0.9 % Sodium Chloride Flush 3 ML SYRINGE IVFLUSH (15:16)
[2024-12-19 15:24] VITALS: BP 146/83; PULSE 90; RESP 18; TEMP 36.9; O2SAT 97
[2024-12-19] MEDS: Acetaminophen 325 MG TABLET 650 MG PO ×2 (16:41→22:53)
[2024-12-19] MEDS: Lactated Ringers 1,000 ML 100 ML IVCONT (17:51)
[2024-12-19 19:49] VITALS: BP 175/104; PULSE 81; RESP 18; TEMP 36.4; O2SAT 96
[2024-12-19] MEDS: Melatonin 3 MG TABLET 6 MG PO (22:36)
[2024-12-20] MEDS: oxyCODONE HCl Immed Release 5 MG TABLET PO ×6 (00:50→22:02)
[2024-12-20] MEDS: HYDROmorphone HCl 1 MG/ML SYRINGE 1.5 MG IVPUSH ×8 (01:26→23:39)
[2024-12-20] MEDS: metroNIDAZOLE 500 MG TABLET PO ×2 (01:26→13:00)
[2024-12-20 04:00] VITALS: BP 164/94; PULSE 88; RESP 18; TEMP 36.6; O2SAT 98
[2024-12-20] MEDS: Lactated Ringers 1,000 ML 100 ML IVCONT ×2 (04:28→15:28)
[2024-12-20 07:09] VITALS: BP 130/85; PULSE 75; RESP 18; TEMP 36.2; O2SAT 97
[2024-12-20] MEDS: 0.9 % Sodium Chloride Flush 3 ML SYRINGE IVFLUSH (07:27)
[2024-12-20] MEDS: Milk of Magnesia 30 ML ORAL.SUSP PO (07:35)
[2024-12-20 08:21] LABS: HBS Num1 1.01 mIU/mL (0-7.99); HBsAGNum1 0.22 S/CO (0.00-0.99); Hepatitis B Core Antibody Nonreactive (Nonreactive); Hepatitis B Surface Antigen Negative (Negative); ~HepC Num1 0.08 S/CO (0.00-0.79); ~Hepatitis B Surface Antibody NONREACTIVE (Nonreactive); ~Hepatitis C Antibody Nonreactive (Nonreactive)
--- NOTE | 2024-12-20 08:50 | HO.PM.IMPN ---
Subjective Subjective Date of Service: 12/20/24 Interval History: still with pain Physical Exam Vital Signs: Vital Signs: Last Vital Signs Temp 97.2 F 12/20/24 07:09 Pulse 75 12/20/24 07:09 Resp 18 12/20/24 07:09 BP 130/85 12/20/24 07:09 Pulse Ox 97 12/20/24 07:09 O2 Del Method Room Air 12/20/24 07:09 BMI result Body Mass Index 30.2 General: AO X 3, in pain Resp: CTA bilateral, no accessory muscles used CVS: S1,S2,RRR GI: soft, tender, non distended Neuro: motor grossly intact, alert Psych: appropriate affect, appropriate insight Objective Data Active Medications Acetaminophen (Acetaminophen 325 Mg Tablet) 650 mg PO Q6H PRN PRN Reason: Pain, Mild 1-3,fever,headache Last Admin: 12/19/24 22:53 Dose: 650 mg Documented By: VITA Albuterol Sulfate (Albuterol Sulfate 90 Mcg 8 Gm Inhaler) 2 puff INHALE Q4H PRN PRN Reason: Shortness Of Breath Or Wheezing Calcium Carbonate (Calcium Carbonate 750 Mg Tab.Chew) 750 mg PO Q4H PRN PRN Reason: Heartburn Enoxaparin Sodium (Enoxaparin Sodium 40 Mg/0.4 Ml Syringe) 40 mg SUBCUT Q24H [facility] Last Admin: 12/20/24 07:49 Dose: Not Given Documented By: MARCELLA Non-Admin Reason: Patient Refused Hydromorphone HCl (Hydromorphone Hcl 1 Mg/Ml Syringe) 1.5 mg IVPUSH Q3H PRN; Protocol PRN Reason: Pain, Severe (Pain Scale 7-10) Last Admin: 12/20/24 07:25 Dose: 1.5 mg Documented By: MARCELLA Lactated Ringer's (Lr) 1,000 mls @ 100 mls/hr IVCONT .Q10H [facility] Last Admin: 12/20/24 04:28 Dose: 100 mls/hr Documented By: VITA Lorazepam (Lorazepam 2 Mg/Ml Vial) 0.5 mg IVPUSH Q4H PRN PRN Reason: Anxiety Magnesium Hydroxide (Milk Of Magnesia 30 Ml Oral.Susp) 30 ml PO DAILY PRN PRN Reason: Constipation Last Admin: 12/20/24 07:35 Dose: 30 ml Documented By: MARCELLA Melatonin (Melatonin 3 Mg Tablet) 6 mg PO BEDTIME PRN PRN Reason: Insomnia Last Admin: 12/19/24 22:36 Dose: 6 mg Documented By: VITA Metronidazole (Metronidazole 500 Mg Tablet) 500 mg PO Q12H BETTY Last Admin: 12/20/24 01:26 Dose: 500 mg Documented By: VITA Ondansetron HCl (Ondansetron Hcl 4 Mg/2 Ml Vial) 4 mg IVPUSH Q6H PRN PRN Reason: Nausea Last Admin: 12/19/24 17:51 Dose: 4 mg Documented By: DEZ Oxycodone HCl (Oxycodone Hcl Immed Release 5 Mg Tablet) 5 mg PO Q4H PRN PRN Reason: Pain, Moderate(Pain Scale 4-6) Last Admin: 12/20/24 04:56 Dose: 5 mg Documented By: VITA Sodium Chloride (0.9 % Sodium Chloride Flush 3 Ml Syringe) 3 ml IVFLUSH QSHIFT [facility] Last Admin: 12/20/24 07:27 Dose: 3 ml Documented By: MARCELLA Labs 12/19/24 07:04 12/19/24 07:04 Labs: Laboratory Results - last 24 hr 12/19/24 12/19/24 09:35 11:44 Chlam trachomat DNA PCR NOT DETECTED Hep Bs Antigen Negative Hep Bs Antibody NONREACTIVE Hep B Core Total Ab Nonreactive Hepatitis C Ab (EIA) Nonreactive N.gonorrhoeae DNA (PCR) NOT DETECTED T. vaginalis (PCR) NOT DETECTED Bact vaginosis (PCR) POSITIVE A C. krusei/glabrata (PCR) NOT DETECTED Angelia group (PCR) NOT DETECTED T. vaginalis Amp RNA Cancelled Assessment and Plan (1) Pancreatitis: Status: Acute Plan 29F PMH etoh dependence (describes as binge drinking, not daily), etoh pancreatitis, presented with abdominal pain. Acute alcoholic pancreatitis not tolerating solids, conitnue ivf, pain meds, will add ativan for component of anxiety Alcohol dependence Monitor CIWA no history of withdrawal bactereial vaginsosi flagyl 500mg bid until 12/26/24 DVT prophylaxis Lovenox Full Code reason for continued hospitalization: monitor for tolerance of po Quality Stroke Does the patient have a stroke diagnosis?: No VTE Prior VTE?: No VTE Risk Level:: Medical - moderate - high VTE Device Contraindication: Treatment Not Indicated VTE Drug Contraindication: N/A - Med Ordered
[2024-12-20] MEDS: LORazepam 2 MG/ML VIAL 0.5 MG IVPUSH ×2 (08:53→15:33)
[2024-12-20] MEDS: Acetaminophen 325 MG TABLET 650 MG PO ×2 (10:58→17:54)
--- NOTE | 2024-12-20 11:35 | HO.ADDICTCON ---
History of Present Illness Date of Service: 12/20/2024 Chief Complaint: panc Reason for Consult: +AUDIT screen HPI Narrative: AUDIT-C Brief Intervention---declined Pt had positive screen for unhealthy alcohol use on admission, subsequently met with t/w to discuss alcohol use and recovery supports/options. 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 She accepted resource folder and asked that t/w allow her to sleep and that she knows what she has to do once she leaves here. Chart review shows that patient presented on 12/17 with acute pain secondary to alcohol related pancreatitis. She has not required any phenobarb as she has not shown any withdrawal sx--she reported binge drinking, and most recently was on vacation for a week where she reported I overdid it . Additional Substance use or treatment history unknown (aside from patient reporting naltrexone rx) Home med report shows past disulfiram rx, not currently taking Also, Mass Pat showing 6 low quantity opiate rxs from February 2024-August 2024--possibly related to other episodes of pancreatitits. UDS +opiates and THC Review of Systems Constitutional: Reports as per HPI Diagnostics Vital Signs (24Hr): Vital Signs - 24 hr 12/19/24 15:24 12/19/24 19:49 12/20/24 04:00 Temperature 98.4 F 97.6 F 97.8 F Pulse Rate 90 81 88 Respiratory Rate 18 18 18 Blood Pressure 146/83 H 175/104 H 164/94 H Pulse Oximetry 97 96 98 Oxygen Delivery Method Room Air Room Air Room Air 12/20/24 07:09 Temperature 97.2 F Pulse Rate 75 Respiratory Rate 18 Blood Pressure 130/85 Pulse Oximetry 97 Oxygen Delivery Method Room Air BMI result Body Mass Index 30.2 Labs 12/19/24 07:04 12/19/24 07:04 Labs: Laboratory Results - last 48 hr 12/19/24 12/19/24 12/19/24 07:04 09:35 11:44 WBC 7.0 RBC 3.61 L Hgb 11.2 L Hct 33.6 L MCV 93.1 MCH 31.0 MCHC 33.3 RDW 13.4 Plt Count 293 MPV 9.5 Absolute Nucleated RBC 0.000 Nucleated RBC % (auto) 0.0 Sodium 139 Potassium 3.4 Chloride 104 Carbon Dioxide 24 Anion Gap 14 BUN 4 L Creatinine 0.75 Estim Creat Clear Calc 107.0 Estimated GFR > 60 Random Glucose 75 Calcium 8.4 Magnesium 1.6 Total Bilirubin 0.8 Direct Bilirubin 0.4 AST 93 H ALT 67 H Alkaline Phosphatase 292 H Total Protein 6.6 Albumin 3.7 Chlam trachomat DNA PCR NOT DETECTED Hep Bs Antigen Negative Hep Bs Antibody NONREACTIVE Hep B Core Total Ab Nonreactive Hepatitis C Ab (EIA) Nonreactive N.gonorrhoeae DNA (PCR) NOT DETECTED T. vaginalis (PCR) NOT DETECTED Bact vaginosis (PCR) POSITIVE A C. krusei/glabrata (PCR) NOT DETECTED Angelia group (PCR) NOT DETECTED T. vaginalis Amp RNA Cancelled Mental Status Exam Mental Status Exam Level of Consciousness: Awake Patient Behavior: Guarded Medications Medications Current Medications Acetaminophen (Acetaminophen 325 Mg Tablet) 650 mg PO Q6H PRN PRN Reason: Pain, Mild 1-3,fever,headache Last Admin: 12/20/24 10:58 Dose: 650 mg Albuterol Sulfate (Albuterol Sulfate 90 Mcg 8 Gm Inhaler) 2 puff INHALE Q4H PRN PRN Reason: Shortness Of Breath Or Wheezing Calcium Carbonate (Calcium Carbonate 750 Mg Tab.Chew) 750 mg PO Q4H PRN PRN Reason: Heartburn Enoxaparin Sodium (Enoxaparin Sodium 40 Mg/0.4 Ml Syringe) 40 mg SUBCUT Q24H [facility] Last Admin: 12/20/24 07:49 Dose: Not Given Hydromorphone HCl (Hydromorphone Hcl 1 Mg/Ml Syringe) 1.5 mg IVPUSH Q3H PRN; Protocol PRN Reason: Pain, Severe (Pain Scale 7-10) Last Admin: 12/20/24 10:53 Dose: 1.5 mg Lactated Ringer's (Lr) 1,000 mls @ 100 mls/hr IVCONT .Q10H [facility] Last Admin: 12/20/24 04:28 Dose: 100 mls/hr Lorazepam (Lorazepam 2 Mg/Ml Vial) 0.5 mg IVPUSH Q4H PRN PRN Reason: Anxiety Last Admin: 12/20/24 08:53 Dose: 0.5 mg Magnesium Hydroxide (Milk Of Magnesia 30 Ml Oral.Susp) 30 ml PO DAILY PRN PRN Reason: Constipation Last Admin: 12/20/24 07:35 Dose: 30 ml Melatonin (Melatonin 3 Mg Tablet) 6 mg PO BEDTIME PRN PRN Reason: Insomnia Last Admin: 12/19/24 22:36 Dose: 6 mg Metronidazole (Metronidazole 500 Mg Tablet) 500 mg PO Q12H BETTY Last Admin: 12/20/24 01:26 Dose: 500 mg Ondansetron HCl (Ondansetron Hcl 4 Mg/2 Ml Vial) 4 mg IVPUSH Q6H PRN PRN Reason: Nausea Last Admin: 12/19/24 17:51 Dose: 4 mg Oxycodone HCl (Oxycodone Hcl Immed Release 5 Mg Tablet) 5 mg PO Q4H PRN PRN Reason: Pain, Moderate(Pain Scale 4-6) Last Admin: 12/20/24 08:56 Dose: 5 mg Sodium Chloride (0.9 % Sodium Chloride Flush 3 Ml Syringe) 3 ml IVFLUSH QSHIFT [facility] Last Admin: 12/20/24 07:27 Dose: 3 ml Allergies Allergies Allergy/AdvReac Type Severity Reaction Status Date / Time amoxicillin Allergy Shortness Verified 12/17/24 04:27 of Breath ceftriaxone Allergy Hives Verified 12/17/24 04:27 Penicillins Allergy Shortness Verified 12/17/24 04:27 of Breath potassium chloride Allergy Itching Verified 12/17/24 04:27 Assessment & Plan Assessment & Plan (1) Alcohol use disorder, mild, abuse: Status: Acute Code(s): F10.10 - Alcohol abuse, uncomplicated Assessment and Plan: Information left at bedside. Patient declining discussion at this time. patient requesting naltrexone rx be order prior to discharge from [facility] so she can start taking once d/c no follow up indicated, unless requested by patient Total time managing care of this patient today __15__ minutes. PMFSH Past Medical History Medical History Pancreatitis Asthma Social History Social History Household Members: None Housing: Apartment Do you presently have visiting nurse or other home services: No Alcohol intake: current Alcohol intake frequency: a few times a week Alcohol type: wine and hard liquor Patient Tobacco Use Status: Current someday Tobacco user Tobacco use type: Cigarette Smoked in Last 30 Days: Yes e-Cigarette/Vaping Use: Currently Using Patient Interested in Nicotine Replacement: No Patient Given Instructions on How to Stop Smoking: Yes Date Education Initiated: 12/17/24 Second Hand Smoke Exposure: No Use of substances other than those prescribed or required for medical reasons: No Substance Use Type: Marijuana Currently Displaying Signs/Symptoms of Drug Intoxication Withdrawal: No Any prior treatment program specific to substance use: No Have you been hit, kicked, punched, or otherwise hurt by someone within the past year? If so, by whom?: No Do you feel safe in your current relationship?: No Current Relationship Is there a partner from a previous relationship who is making you feel unsafe now?: No Are you made to feel afraid or neglected: No Advance Directives: No Advance Directives Information Provided: Yes Advance Directives on File: No Do you have a plan to hurt others: No Plan Recently lost weight without trying: No How much weight loss: Not applicable Eating poorly because of decreased appetite: No Nutrition screen score: 0 Nutrition Risks: No Nutritional Risk Patient : No : No Poor oral hygiene: No service: No
[2024-12-20 15:43] VITALS: BP 172/100; PULSE 77; RESP 18; TEMP 36.6; O2SAT 96
--- NOTE | 2024-12-20 18:28 | PC.NURSE ---
Patients blood pressure is elevatedat 170's/100's, trended since admission and appears to be higher at baseline. MD made aware, no new orders
[2024-12-20 20:00] VITALS: BP 159/104; PULSE 89; RESP 18; TEMP 36.5; O2SAT 95
[2024-12-20] MEDS: ondansetron HCL 4 MG/2 ML VIAL IVPUSH (20:36)
[2024-12-20] MEDS: Metoclopramide HCl 10 MG/2 ML VIAL 5 MG IVPUSH (22:20)
[2024-12-20] MEDS: Melatonin 3 MG TABLET 6 MG PO (23:41)
[2024-12-20 23:43] VITALS: BP 164/105; PULSE 80
[2024-12-21] MEDS: LORazepam 2 MG/ML VIAL 0.5 MG IVPUSH ×2 (00:36→09:08)
[2024-12-21 01:00] VITALS: RESP 16
[2024-12-21] MEDS: Acetaminophen 325 MG TABLET 650 MG PO (01:43)
[2024-12-21] MEDS: oxyCODONE HCl Immed Release 5 MG TABLET PO ×2 (01:44→08:17)
[2024-12-21] MEDS: metroNIDAZOLE 500 MG TABLET PO (01:45)
[2024-12-21] MEDS: HYDROmorphone HCl 1 MG/ML SYRINGE 1.5 MG IVPUSH ×3 (02:51→09:09)
[2024-12-21] MEDS: Lactated Ringers 1,000 ML 100 ML IVCONT (02:55)
[2024-12-21 03:36] VITALS: BP 160/89; PULSE 79; RESP 18; TEMP 36.4; O2SAT 96
[2024-12-21 06:10] VITALS: RESP 16
[2024-12-21 06:26] LABS: Hematocrit 34.1 % (37.0-47.0); Hemoglobin 11.7 g/dl (12.0-16.0); Mean Corpuscular HGB Conc 34.3 g/dl (31.0-35.0); Mean Corpuscular Hemoglobin 31.5 pg (27.0-33.0); Mean Corpuscular Volume 91.9 fL (80.0-98.0); Mean Platelet Volume 9.3 fL (9.4-12.3); Platelet Count 320 X10*3/uL (160-400); Red Blood Count 3.71 X10*6/uL (4.20-5.50); Red Cell Distribution Width 13.6 % (11.0-16.0); White Blood Count 6.2 X10*3/uL (4.8-10.8)
[2024-12-21 06:52] LABS: Alanine Aminotransferase 39 U/L (0-31); Albumin Level 3.8 g/dL (3.5-5.0); Alkaline Phosphatase 218 U/L (39-117); Anion Gap 12 (12-20); Aspartate Amino Transferase 27 U/L (5-31); Bilirubin Direct 0.2 mg/dL (0.0-0.5); Bilirubin Total 0.4 mg/dL (0.0-1.0); Blood Urea Nitrogen 3 mg/dL (9-16); Calcium 9.5 mg/dL (8.4-10.2); Carbon Dioxide 27 mmol/L (22-29); Chloride 104 mmol/L (96-108); Creatinine Clr Calc Pharmacy 113.1; Estimated Glomerular Filt Rate > 60; Glucose Random 84 mg/dL (60-115); Potassium 3.4 mmol/L (3.3-5.1); Sodium 140 mmol/L (135-145); Total Protein 7.1 g/dL (6.5-8.0)
--- NOTE | 2024-12-21 08:03 | PM.DS ---
DS: Providers Provider Date of Service: 12/21/24 Date of admission: 12/17/24 13:04 Date of discharge: 12/21/24 Primary care physician: Unknown Physician DS: Diagnosis Discharge Diagnosis (1) Alcohol use disorder, mild, abuse: Status: Acute DS: Summary Hospital Course Hospital Course: from initial hpi: 29F PMH etoh dependence (describes as binge drinking, not daily), etoh pancreatitis, presented with abdominal pain. Patient reports pain started day prior to presentation similar to previous episodes of pancreatitis. Was epigastric radiating to back. Associated with nausea and vomiting. At 03:00 on day of presentation patient awoke with severe nausea and vomiting and worsening epigastric pain so came to the ED. In ED noted to have elevated lipase and pancreatitis on CT scan. hospital course: . For acute alcoholic pancreatitis. Was treated with IV fluids, pain meds. Pain slowly improved and diet was advanced to solids patient is now tolerating. Had no signs of withdrawal. Patient was complaining of vaginal discharge tested positive for bacterial vaginosis and will be treated with 7 day total Flagyl. Patient advised to avoid alcohol. Time Attestation Discharge Coordination Time (in mins): 34 Quality: Safe Use of Opioids Does Pt have an Active Cancer Diagnosis on the Problem List?: No Quality: Stroke Does the patient have a stroke diagnosis?: No Physical Exam Vital Signs: Vital Signs: Last Vital Signs Temp 97.5 F 12/21/24 03:36 Pulse 79 12/21/24 03:36 Resp 16 12/21/24 06:10 BP 160/89 H 12/21/24 03:36 Pulse Ox 96 12/21/24 03:36 O2 Del Method Room Air 12/21/24 03:36 BMI result Body Mass Index 30.2 General: AO X 3, no acute distress Resp: CTA bilateral, no accessory muscles used CVS: S1,S2,RRR GI: soft, non tender, non distended Neuro: motor grossly intact, alert Psych: appropriate affect, appropriate insight DS: Data Data Completed and Pending Labs on day of discharge: Laboratory Results - last 24 hr 12/19/24 12/21/24 11:44 05:43 WBC 6.2 RBC 3.71 L Hgb 11.7 L Hct 34.1 L MCV 91.9 MCH 31.5 MCHC 34.3 RDW 13.6 Plt Count 320 MPV 9.3 L Absolute Nucleated RBC 0.000 Nucleated RBC % (auto) 0.0 Sodium 140 Potassium 3.4 Chloride 104 Carbon Dioxide 27 Anion Gap 12 BUN 3 L Creatinine 0.71 Estim Creat Clear Calc 113.1 Estimated GFR > 60 Random Glucose 84 Calcium 9.5 D Magnesium 2.0 Total Bilirubin 0.4 Direct Bilirubin 0.2 AST 27 ALT 39 H Alkaline Phosphatase 218 H Total Protein 7.1 Albumin 3.8 Hep Bs Antigen Negative Hep Bs Antibody NONREACTIVE Hep B Core Total Ab Nonreactive Hepatitis C Ab (EIA) Nonreactive Discharge Plan Discharge Anticipated Discharge Date/Time: 12/21/24 08:01 Patient Disposition: Home, Self-Care Discharge Diagnosis: pacnreatitis Referrals: Physician,Unknown J [Primary Care Provider] - 1 Week Discharge Medications: New metronidazole 500 mg Tablet 500 mg PO Q12H Qty: 10 0RF oxycodone 5 mg Tablet 5 mg PO Q4H PRN (Reason: Pain, Moderate(Pain Scale 4-6)) Qty: 10 0RF Rx Instructions: Partial Fill upon patient request. Continued albuterol sulfate [Ventolin HFA] 90 mcg/actuation HFA aerosol inhaler 2 puff inhalation Q4H PRN (Reason: Shortness Of Breath Or Wheezing) Discharge Orders: Discharge Order (Routine); Ordered 12/21/24 Ordered By: Bakari Boggs Diet: no etoh, low fat food Activity on Discharge: As tolerated Stand Alone Forms: Patient Portal Discharge page Print Language: Azerbaijani Activity Restrictions/Additional Instructions: Please follow-up with your primary care physician tomorrow. If you have any worsening or new symptoms, please return to the emergency room or call 911 Care Plan Goals: recovery Health Concerns: BV, pancreatitis Plan of Treatment: 5 more days po flagyl avoid fatty foods and alcohol Assessment: see above Patient Instructions: Pancreatitis (ED)
[2024-12-21] MEDS: Milk of Magnesia 30 ML ORAL.SUSP PO (09:08)
[2024-12-21] MEDS: ondansetron HCL 4 MG/2 ML VIAL IVPUSH (09:09)
--- NOTE | 2024-12-21 09:12 | MHC.CM.PN ---
pt dcd home self care
--- NOTE | 2024-12-22 14:36 | PC.NURSE ---
Late Entry: on 12/17/24 at 1556, Pt c/o pain 06/15 to abd. Discussed with Pt that she was not due for her PRN Dilaudid at this time. Pt requested to take her PRN Oxycodone 5mg despite being aware that this medication is indicated for pain scale ratings of 4-6 out of 10. Pt medicated with Oxycodone 5mg per Pt request.
== END 2024-12-21 09:36 | disposition home or self-care (01) | DRG 282 ==
LOC: HO.ED 06:45 → HO.S3 19:36 → HO.EDOVER 12-18 09:06
PROVIDERS: Admitting Provider Internal Medicine; Emergency Provider Emergency Medicine; Visit Provider Internal Medicine
DX: K85.20 Alcohol induced acute pancreatitis without necrosis or infection (principal); F10.20 Alcohol dependence, uncomplicated; F17.210 Nicotine dependence, cigarettes, uncomplicated; Z71.6 Tobacco abuse counseling; N76.0 Acute vaginitis
CPT/HCPCS: 36415; 74177; 80048; 80053; 80076; 80307; 81001; 81025; 81515; 82248; 83690; 83735; 85025; 85027; 86704; 86706; 86803; 87340; 87491; 87591; 87661; 93005; 99221; 99285; J0737; J1171; J2060; J2270; J2405; J2765; J7120; Q9967

== ENCOUNTER → 2024-12-17 04:43 | Outpatient (BNV) | payer MEDICAID, SELFPAY | PROVIDERS: Emergency Provider Emergency Medicine; Visit Provider Radiology Vascular & Interventional Radiology | DX: R10.13 Epigastric pain (principal) | CPT/HCPCS: 74177 ==

== ENCOUNTER → 2024-12-17 04:46 | Outpatient (BNV) | payer MEDICAID, SELFPAY | PROVIDERS: Admitting Provider Internal Medicine; Emergency Provider Emergency Medicine; Visit Provider Internal Medicine | DX: R07.9 Chest pain, unspecified (principal) | CPT/HCPCS: 93010 ==

== ENCOUNTER → 2024-12-17 05:27 | Outpatient (BNV) | payer MEDICAID, SELFPAY | PROVIDERS: Emergency Provider Emergency Medicine; Visit Provider Internal Medicine | DX: K85.20 Alcohol induced acute pancreatitis without necrosis or infection (principal) | CPT/HCPCS: 99222; 99232 ==

== ENCOUNTER → 2024-12-17 13:04 | Outpatient (BNV) | payer MEDICAID, SELFPAY | PROVIDERS: Admitting Provider Internal Medicine; Emergency Provider Emergency Medicine; Visit Provider Nurse Practitioner Psychiatric/Mental Health | DX: F10.10 Alcohol abuse, uncomplicated (principal) | CPT/HCPCS: 99221 ==

== ENCOUNTER 2024-12-22 07:08 | Inpatient (IN) | payer MEDICAID, SELFPAY ==
[2024-12-22] VITALS (7 sets, daily range): BP systolic 129–177; BP diastolic 65–114; PULSE 79–102; RESP 18–24; TEMP 37–37.2; O2SAT 97–100; BMI 30.8
--- NOTE | 2024-12-22 | ECG_ITS ---
Test Reason : VOMITTING Blood Pressure : */* mmHG Vent. Rate : 85 BPM Atrial Rate : 85 BPM P-R Int : 138 ms QRS Dur : 72 ms QT Int : 396 ms P-R-T Axes : 56 41 9 degrees QTcB Int : 471 ms Normal sinus rhythm Possible Left atrial enlargement Borderline ECG When compared with ECG of 17-Dec-2024 04:46, No significant change was found Referred By: Jennifer Reveles Electronically Signed By: Nitesh aCll
--- NOTE | ~2024-12-22 | US_ITS ---
EXAMINATION: US ABDOMEN LIMITED HISTORY: epigastric pain known pancreatitis eval pseudocyst TECHNIQUE: Real-time grayscale ultrasound imaging of the right upper quadrant was performed and images were reviewed. COMPARISON: Correlation is made with a contrast-enhanced CT of the abdomen dated 12/17/2024. FINDINGS: Liver: The right lobe of the liver measures 13.7 cm in size. The left lobe of the liver measures 1.2 cm in size. The liver demonstrates normal homogeneous echotexture. No focal mass or intrahepatic biliary ductal dilatation is identified. There is normal hepatopedal flow in the portal vein. Gallbladder and biliary tree: The gallbladder is surgically absent. The common bile duct is normal in caliber measuring 4 mm. Right Kidney: The right kidney measures 9.6 cm in length. The right kidney is unremarkable, without evidence of masses, hydronephrosis, or calculi. Pancreas: The pancreatic head, neck, and body are unremarkable. The pancreatic tail is obscured by bowel gas. There may be trace peripancreatic fluid. No loculated collection is seen. Abdominal aorta and inferior vena cava: The visualized portions of the abdominal aorta and inferior vena cava are normal in caliber. There is no free fluid in the right upper quadrant. US/US abdomen limited IMPRESSION: No peripancreatic fluid collection is identified. The region of the pancreatic tail is obscured by bowel gas, however. This remains a clinical concern, contrast-enhanced CT is recommended. Electronically signed by: Marquis Doan MD 12/22/2024 11:09 AM EDT
--- NOTE | 2024-12-22 07:39 | ED_ITS ---
HPI - Abdominal Pain General Chief Complaint: Abdominal Pain Stated Complaint: vomiting blood, Here w/ pancreatitis x2 days Time Seen by Provider: 12/22/24 07:09 Source: patient, EMS and old records reviewed Mode of arrival: EMS Limitations: no limitations History of Present Illness ED Provider: ALVAREZ MONTEZ narrative: 29 yo female with alcohol use disorder and ETOH induced pancreatitis who was just admitted here 12/17-12/21 for pancreatitis without necrosis/abscess/cyst on CT scan 12/17. She also was treated for BV with flagyl. She comes in today with c/o vomiting since discharge and she vomited so much she started to have coffee ground emesis and saw some red streaks. She denies lower GIB symptoms. She feels her pancreatitis is still acting up. She did not drink ETOH since leaving. MD elicited complaint: abdominal pain Pertinent past history: other (pancreatitis) Onset (ago): day(s) (5) Pain Consistency: intermittent Location: epigastric Severity: severe Quality: stabbing Radiation: LUQ, RUQ and back Migration to: no migration Exacerbating factors: eating, vomiting and movement Relieving factors: nothing Associated symptoms: nausea, vomiting and hematemesis Related Data Home Medications ?Medication ?Instructions ?Recorded ?Confirmed albuterol sulfate 90 mcg/actuation 2 puff inhalation Q4H PRN 12/17/24 12/17/24 aerosol inhaler (Ventolin HFA) Shortness Of Breath Or Wheezing Previous Rx's ?Medication ?Instructions ?Recorded metronidazole 500 mg tablet 500 mg PO Q12H #10 tabs 12/21/24 oxycodone 5 mg tablet 5 mg PO Q4H PRN Pain, 12/21/24 Moderate(Pain Scale 4-6) #10 tabs Allergies Allergy/AdvReac Type Severity Reaction Status Date / Time amoxicillin Allergy Shortness Verified 12/22/24 07:16 of Breath ceftriaxone Allergy Hives Verified 12/22/24 07:16 Penicillins Allergy Shortness Verified 12/22/24 07:16 of Breath potassium chloride Allergy Itching Verified 12/22/24 07:16 Review of Systems Review of Systems Constitutional : No Weight loss, No Fever, No Chills ENT/Mouth : No sore throat, No Rhinorrhea Eyes: No Swelling, No Redness Cardiovascular : No Chest Pain, No SOB, NoEdema Respiratory : No Cough, No Sputum, No Wheezing Gastrointestinal : Positive Nausea, Positive Vomiting, positive Diarrhea, positive abdominal Pain, No Hematochezia, No Melena Genitourinary : No Dysuria, No Urinary Frequency, No Hematuria, No Urgency Musculoskeletal : No joint pain, No Myalgias, No Joint Swelling Skin : No Skin Lesions, No rash Neuro : No Weakness, No Numbness, No Dizziness, No Headache Psych : No Anxiety/Panic, No Depression Heme/Lymph: No Bruising, No Lymphadenopathy Endocrine : No Polyuria, No Polydipsia All other systems reviewed and are negative. [facility] Past Medical History Attestation statement: The following information was validated with the patient. Source: old records reviewed Medical History Pancreatitis Asthma Social History Social History Household Members: None Housing: Apartment Do you presently have visiting nurse or other home services: No Alcohol intake: current Alcohol intake frequency: a few times a week Alcohol type: wine and hard liquor Patient Tobacco Use Status: Current someday Tobacco user Tobacco use type: Cigarette Smoked in Last 30 Days: Yes e-Cigarette/Vaping Use: Currently Using Second Hand Smoke Exposure: No Use of substances other than those prescribed or required for medical reasons: Yes Substance Use Type: Marijuana Substance Use Frequency: Occasionally Last Used Substance: Weeks (ago) Any prior treatment program specific to substance use: No Advance Directives: No Advance Directives Information Provided: No Do you have a plan to hurt others: No Plan Patient : No service: No Physical Exam ED Vital Signs: Vital Signs - 24 hr 12/22/24 07:13 12/22/24 08:13 Temperature 98.9 F Pulse Rate 95 102 H Respiratory Rate 22 H 24 H Blood Pressure 153/91 H 142/80 H Pulse Oximetry 97 99 Oxygen Delivery Method Room Air Room Air BMI result Body Mass Index 30.8 Appearance: Alert. Oriented X3. active vomiting mild acute distress. Eyes: Pupils equal, round and reactive to light. ENT: Pharynx normal. in emesis bag no blood or coffee grounds seen en route with EMS I saw the bag myself Neck: Normal inspection. Neck supple. CVS: Normal heart rate and rhythm. Pulses normal. Respiratory: No respiratory distress. Breath sounds normal. Abdomen: Soft and moderate diffuse ttp no rebound or guarding Skin: Skin warm and dry. Normal skin color. Normal skin turgor. Extremities: No lower extremity edema. No calf ttp Neuro: Oriented X 3. No motor deficit. No sensory deficit. CN2-12 intact Medical Decision Making Medical Decision Making [facility] Narrative: 29 yo female with alcohol use disorder and ETOH induced pancreatitis here with c/o upper abdominal pain n/v/d and vomited bloody emesis she is not on thinners. She reports abstinence from ETOH since discharge at this time will need basic labs, IVF, IV morphine for pain control start on protonix. Work up and dispo pending labs and repeat assessments. Differential Diagnosis Differential Diagnoses: The differential diagnosis associated with the presentation includes pancreatitis, PUD, gastritis, MW tear, alcohol use Admission/Observation Consideration of admission/observation: Escalation of care including admission/observation considered admit for n/v intrctable pain Consult Healthcare Provider Management of the patient was discussed with: Hospitalist (will admit) Lab Data [facility] Lab Attestation statement: I reviewed the patient's lab results. 12/22/24 08:05 12/22/24 09:34 Labs: Lab Results 12/22/24 12/22/24 Range/Units 08:05 09:34 WBC 7.8 (4.8-10.8) X10*3/uL RBC 4.28 (4.20-5.50) X10*6/uL Hgb 13.5 (12.0-16.0) g/dl Hct 38.2 (37.0-47.0) % MCV 89.3 (80.0-98.0) fL MCH 31.5 (27.0-33.0) pg MCHC 35.3 H (31.0-35.0) g/dl RDW 13.6 (11.0-16.0) % Plt Count 434 H D (160-400) X10*3/uL MPV 9.3 L (9.4-12.3) fL Immature Gran % (Auto) 0.4 (0.0-0.4) % Neut % (Auto) 73.3 H (45-73) % Lymph % (Auto) 18.7 L (20-40) % [place] % (Auto) 6.9 (2-11) % Eos % (Auto) 0.3 (0-4) % Baso % (Auto) 0.4 (0-2) % Lymph # (Auto) 1.5 (1.2-4.9) X10*3/uL [place] # (Auto) 0.5 (0.1-1.2) X10*3/uL Eos # (Auto) 0.0 (0.0-0.4) X10*3/uL Baso # (Auto) 0.0 (0.0-0.2) X10*3/uL Abs Immat Gran (auto) 0.03 (0.00-0.03) X10*3/uL Absolute Neuts (auto) 5.7 (2.0-8.3) x10*3/uL Absolute Nucleated RBC 0.000 (0.0-0.012) X10*3/uL Nucleated RBC % (auto) 0.0 (0.0-0.2) /100WBC Sodium 139 (135-145) mmol/L Potassium 3.2 L (3.3-5.1) mmol/L Chloride 103 (96-108) mmol/L Carbon Dioxide 23 (22-29) mmol/L Anion Gap 16 (12-20) BUN 6 L (9-16) mg/dL Creatinine 0.85 (0.5-1.4) mg/dL Estim Creat Clear Calc 95.4 Estimated GFR > 60 Random Glucose 106 (60-115) mg/dL Calcium 9.5 (8.4-10.2) mg/dL Magnesium 2.1 (1.6-2.6) mg/dL Total Bilirubin 0.4 (0.0-1.0) mg/dL Direct Bilirubin 0.2 (0.0-0.5) mg/dL AST 24 (5-31) U/L ALT 30 (0-31) U/L Alkaline Phosphatase 201 H (39-117) U/L Total Protein 7.6 (6.5-8.0) g/dL Albumin 4.2 (3.5-5.0) g/dL Lipase 152 H (8-78) U/L Beta HCG, Quant < 2 mIU/mL Ethyl Alcohol < 10 mg/dL Independent Interpretation I performed an independent interpretation of an: Ultrasound (+ signs of pancreatitis) Radiology Impression Discussion of test interpretation with radiology: I have reviewed the radiologist's reading. Independent Historian Clinical information obtained from an independent historian. History obtained from or confirmed by: EMS External Record Review External record reviewed: Inpatient record, Outpatient record, Prior outpatient labs and Prior outpatient radiology Medications Administered Discontinued Medications Generic Name Dose Route Start Last Admin Trade Name Freq PRN Reason Stop Dose Admin Diphenhydramine HCl 25 mg 12/22/24 07:22 12/22/24 08:27 Diphenhydramine Hcl 50 Mg/Ml Vial IVPUSH 12/22/24 07:23 25 mg ONCE ONE Administration Lactated Ringer's 1,000 mls @ 999 mls/hr 12/22/24 07:22 12/22/24 09:07 Lr IV 12/22/24 08:22 Infused .Q1H1M ONE Infusion Lorazepam 1 mg 12/22/24 09:01 12/22/24 09:10 Lorazepam 2 Mg/Ml Vial IVPUSH 12/22/24 09:02 1 mg STAT STA Administration Metoclopramide HCl 10 mg 12/22/24 07:22 12/22/24 08:27 Metoclopramide Hcl 10 Mg/2 Ml Vial IVPUSH 12/22/24 07:23 10 mg ONCE ONE Administration Morphine Sulfate 4 mg 12/22/24 07:22 12/22/24 08:27 Morphine Sulfate 4 Mg/Ml Cartridge IVPUSH 12/22/24 07:23 4 mg ONCE ONE Administration Protocol Pantoprazole Sodium 40 mg 12/22/24 07:33 12/22/24 08:27 Pantoprazole Sodium 40 Mg/10 Ml Vial IVPUSH 12/22/24 07:34 40 mg ONCE ONE Administration Critical Care Time Critical Care Time Critical Care Time: Yes Total Critical Care Time: 45 Attestation: review of records, repeat IV morphine with improvement in pain. I attest to this time spent taking care of the patient Discharge Plan Discharge Clinical Impression: Pancreatitis, Vomiting Patient Disposition: Admitted As Inpatient Prescriptions: No Action albuterol sulfate [Ventolin HFA] 90 mcg/actuation HFA aerosol inhaler 2 puff inhalation Q4H PRN (Reason: Shortness Of Breath Or Wheezing) metronidazole 500 mg Tablet 500 mg PO Q12H Qty: 10 0RF oxycodone 5 mg Tablet 5 mg PO Q4H PRN (Reason: Pain, Moderate(Pain Scale 4-6)) Qty: 10 0RF Rx Instructions: Partial Fill upon patient request. Print Language: [place] Citizen
[2024-12-22] MEDS: Lactated Ringers 1,000 ML 999 ML IV (08:07)
[2024-12-22 08:13] LABS: MANUAL DIFF FLAG NO
[2024-12-22 08:16] LABS: Basophils Percent Auto 0.4 % (0-2); Eosinophils Percent Auto 0.3 % (0-4); Hematocrit 38.2 % (37.0-47.0); Hemoglobin 13.5 g/dl (12.0-16.0); Imm Gran Abs Auto 0.03 X10*3/uL (0.00-0.03); Imm Gran Pct Auto 0.4 % (0.0-0.4); Lymphocytes Absolute Auto 1.5 X10*3/uL (1.2-4.9); Lymphocytes Percent Auto 18.7 % (20-40); Mean Corpuscular HGB Conc 35.3 g/dl (31.0-35.0); Mean Corpuscular Hemoglobin 31.5 pg (27.0-33.0); Mean Corpuscular Volume 89.3 fL (80.0-98.0); Mean Platelet Volume 9.3 fL (9.4-12.3); Monocytes Absolute Auto 0.5 X10*3/uL (0.1-1.2); Monocytes Percent Auto 6.9 % (2-11); Neutrophils Absolute Auto 5.7 x10*3/uL (2.0-8.3); Neutrophils Percent Auto 73.3 % (45-73); Platelet Count 434 X10*3/uL (160-400); Red Blood Count 4.28 X10*6/uL (4.20-5.50); Red Cell Distribution Width 13.6 % (11.0-16.0); White Blood Count 7.8 X10*3/uL (4.8-10.8)
[2024-12-22] MEDS: Morphine Sulfate 4 MG/ML CARTRIDGE IVPUSH (08:27)
[2024-12-22] MEDS: Metoclopramide HCl 10 MG/2 ML VIAL IVPUSH ×2 (08:27→20:24)
[2024-12-22] MEDS: Pantoprazole Sodium 40 MG/10 ML VIAL IVPUSH (08:27)
[2024-12-22] MEDS: diphenhydrAMINE HCL 50 MG/ML VIAL 25 MG IVPUSH (08:27)
[2024-12-22] MEDS: LORazepam 2 MG/ML VIAL 1 MG IVPUSH (09:10)
[2024-12-22 10:07] LABS: Alanine Aminotransferase 30 U/L (0-31); Albumin Level 4.2 g/dL (3.5-5.0); Alkaline Phosphatase 201 U/L (39-117); Anion Gap 16 (12-20); Aspartate Amino Transferase 24 U/L (5-31); Bilirubin Direct 0.2 mg/dL (0.0-0.5); Bilirubin Total 0.4 mg/dL (0.0-1.0); Blood Urea Nitrogen 6 mg/dL (9-16); Calcium 9.5 mg/dL (8.4-10.2); Carbon Dioxide 23 mmol/L (22-29); Chloride 103 mmol/L (96-108); Creatinine Clr Calc Pharmacy 95.4; Estimated Glomerular Filt Rate > 60; Ethanol < 10 mg/dL; Glucose Random 106 mg/dL (60-115); HCG Quantitative < 2 mIU/mL; Lipase 152 U/L (8-78); Magnesium 2.1 mg/dL (1.6-2.6); Potassium 3.2 mmol/L (3.3-5.1); Sodium 139 mmol/L (135-145); Total Protein 7.6 g/dL (6.5-8.0)
[2024-12-22] MEDS: HYDROmorphone HCl 1 MG/ML SYRINGE IVPUSH (11:48)
--- NOTE | 2024-12-22 11:50 | PHA.MEDREC ---
Addendum entered by Laurie Escobar christina 12/22/24 12:03: reviewed Original Note: Pharmacy Consult ? Medication Reconciliation Pharmacy has completed the medication reconciliation. Spoke with patient and she was able to confirm her medications. Patient confirmed she just started a Metronidazole 500mg once every 12 hours regimen and an Oxycodone 5mg 1 tab every 4 hours as needed regimen yesterday and confirmed she last took the Metronidazole 500mg tab this morning @0200 and the Oxycodone 5mg tab this morning @0300.
[2024-12-22] MEDS: Lactated Ringers 1,000 ML 100 ML IVCONT (12:18)
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
[2024-12-22] MEDS: Thiamine HCL 100 MG in 0.9 % Sodium Chloride 100 ML 202 MG IV (14:22)
[2024-12-22] MEDS: ondansetron HCL 4 MG/2 ML VIAL IVPUSH (14:25)
[2024-12-22] MEDS: 0.9 % Sodium Chloride 1,000 ML 125 ML IVCONT ×2 (15:34→23:56)
[2024-12-22] MEDS: metroNIDAZOLE/NS 500 MG/100 ML PIGGYBACK 100 MG IV (15:34)
[2024-12-22] MEDS: Morphine Sulfate 2 MG/ML CARTRIDGE IVPUSH (15:55)
[2024-12-22 16:16] LABS: Amphetamine Screen Urine Not Detected (Not Detect); Barbiturates, Urine Not Detected (Not Detect); Benzodiazepines Screen Urine Not Detected (Not Detect); Buprenorphine Scr Not Detected (Not Detect); Cannabinoid Screen Urine POSITIVE (Not Detect); Cocaine Screen Urine Not Detected (Not Detect); Fentanyl, urine Not Detected (Not Detect); Methadone Screen, Urine Not Detected (Not Detect); Opiate Screen Urine POSITIVE (Not Detect); Oxycodone Screen Urine Positive (Not Detect); Phencyclidine Screen Urine Not Detected (Not Detect)
[2024-12-22] MEDS: Morphine Sulfate 2 MG/ML CARTRIDGE 4 MG IVPUSH ×2 (18:05→23:54)
[2024-12-22] MEDS: Folic Acid 1 MG in 0.9 % Sodium Chloride 50 ML 100.4 MG IV (18:09)
[2024-12-22] MEDS: HYDROmorphone HCl 2 MG/ML VIAL 1.5 MG IVPUSH (20:24)
[2024-12-22] MEDS: Sennosides 8.6 MG TABLET 17.2 MG PO (20:24)
[2024-12-22] MEDS: Melatonin 3 MG TABLET 6 MG PO (22:25)
[2024-12-23 04:00] VITALS: BP 163/95; PULSE 85; RESP 19; TEMP 36.7; O2SAT 98
[2024-12-23] MEDS: Morphine Sulfate 2 MG/ML CARTRIDGE 4 MG IVPUSH ×5 (04:01→21:40)
[2024-12-23] MEDS: metroNIDAZOLE/NS 500 MG/100 ML PIGGYBACK 100 MG IV (04:01)
[2024-12-23] MEDS: Pantoprazole Sodium 40 MG/10 ML VIAL IVPUSH (06:32)
[2024-12-23 07:24] VITALS: BP 139/85; PULSE 77; RESP 18; TEMP 36.4; O2SAT 96
[2024-12-23 08:03] LABS: MANUAL DIFF FLAG NO
[2024-12-23 08:11] LABS: Basophils Absolute Auto 0.1 X10*3/uL (0.0-0.2); Basophils Percent Auto 0.7 % (0-2); Eosinophils Absolute Auto 0.2 X10*3/uL (0.0-0.4); Eosinophils Percent Auto 2.8 % (0-4); Hematocrit 28.9 % (37.0-47.0); Hemoglobin 9.6 g/dl (12.0-16.0); Imm Gran Abs Auto 0.02 X10*3/uL (0.00-0.03); Imm Gran Pct Auto 0.3 % (0.0-0.4); Lymphocytes Absolute Auto 1.6 X10*3/uL (1.2-4.9); Lymphocytes Percent Auto 23.7 % (20-40); Mean Corpuscular HGB Conc 33.2 g/dl (31.0-35.0); Mean Corpuscular Hemoglobin 31.1 pg (27.0-33.0); Mean Corpuscular Volume 93.5 fL (80.0-98.0); Mean Platelet Volume 9.5 fL (9.4-12.3); Monocytes Absolute Auto 0.7 X10*3/uL (0.1-1.2); Monocytes Percent Auto 9.6 % (2-11); Neutrophils Absolute Auto 4.3 x10*3/uL (2.0-8.3); Neutrophils Percent Auto 62.9 % (45-73); Platelet Count 295 X10*3/uL (160-400); Red Blood Count 3.09 X10*6/uL (4.20-5.50); Red Cell Distribution Width 13.8 % (11.0-16.0); White Blood Count 6.9 X10*3/uL (4.8-10.8)
[2024-12-23 08:30] LABS: Alanine Aminotransferase 16 U/L (0-31); Albumin Level 3.4 g/dL (3.5-5.0); Alkaline Phosphatase 146 U/L (39-117); Aspartate Amino Transferase 19 U/L (5-31); Bilirubin Total 0.4 mg/dL (0.0-1.0); Blood Urea Nitrogen 6 mg/dL (9-16); Creatinine Clr Calc Pharmacy 130.7; Estimated Glomerular Filt Rate > 60; Glucose Random 67 mg/dL (60-115); Lipase 130 U/L (8-78); Total Protein 6.2 g/dL (6.5-8.0)
[2024-12-23 08:42] LABS: Anion Gap 14 (12-20); Calcium 7.9 mg/dL (8.4-10.2); Carbon Dioxide 21 mmol/L (22-29); Chloride 109 mmol/L (96-108); Sodium 141 mmol/L (135-145)
[2024-12-23] MEDS: 0.9 % Sodium Chloride 1,000 ML 125 ML IVCONT ×2 (08:56→17:33)
[2024-12-23] MEDS: Thiamine HCL 100 MG in 0.9 % Sodium Chloride 100 ML 202 MG IV (08:57)
[2024-12-23 08:59] LABS: Potassium 2.9 mmol/L (3.3-5.1)
--- NOTE | 2024-12-23 09:22 | MHC.CM.PN ---
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 PT DENIES HAVING A PCP D/T BEING A TRAVELING FOR WORK, PT FAMILIAR W/HCP'S AND DECLINES TO COMPLETE ONE THIS ADMISSION. ANTIC PT WILL BE MEDICALLY CLEARED LATER TODAY ONCE TOLERATING ADVANCED DIET.
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
[2024-12-23 10:42] LABS: Magnesium 1.8 mg/dL (1.6-2.6)
[2024-12-23] MEDS: Potassium Chloride ER 20 MEQ TAB.ER.PRT 40 MEQ PO ×2 (11:11→21:39)
[2024-12-23] MEDS: metroNIDAZOLE 500 MG TABLET PO ×2 (11:11→21:39)
[2024-12-23] MEDS: Folic Acid 1 MG in 0.9 % Sodium Chloride 50 ML 100.4 MG IV (11:11)
[2024-12-23] MEDS: Nicotine 7 MG PATCH.TD24 TRANSDERMA (13:15)
[2024-12-23] MEDS: Acetaminophen 325 MG TABLET 650 MG PO (15:26)
[2024-12-23 15:51] VITALS: BP 142/92; PULSE 82; RESP 18; TEMP 37.3; O2SAT 98
[2024-12-23 19:54] VITALS: BP 158/95; PULSE 79; RESP 18; TEMP 36.7; O2SAT 96
[2024-12-23] MEDS: Sennosides 8.6 MG TABLET 17.2 MG PO (21:39)
[2024-12-23] MEDS: Melatonin 3 MG TABLET 6 MG PO (23:37)
[2024-12-23] MEDS: ondansetron HCL 4 MG/2 ML VIAL IVPUSH (23:37)
[2024-12-24] MEDS: 0.9 % Sodium Chloride 1,000 ML 125 ML IVCONT (02:20)
[2024-12-24] MEDS: Morphine Sulfate 2 MG/ML CARTRIDGE 4 MG IVPUSH ×5 (02:20→19:39)
[2024-12-24 03:29] VITALS: BP 139/77; PULSE 62; RESP 16; TEMP 36.8; O2SAT 97
[2024-12-24] MEDS: Pantoprazole Sodium 40 MG/10 ML VIAL IVPUSH (06:34)
[2024-12-24 06:59] LABS: Hematocrit 33.8 % (37.0-47.0); Hemoglobin 11.5 g/dl (12.0-16.0); Mean Corpuscular Hemoglobin 30.9 pg (27.0-33.0); Mean Corpuscular Volume 90.9 fL (80.0-98.0); Mean Platelet Volume 9.3 fL (9.4-12.3); Platelet Count 374 X10*3/uL (160-400); Red Blood Count 3.72 X10*6/uL (4.20-5.50); Red Cell Distribution Width 13.3 % (11.0-16.0); White Blood Count 6.9 X10*3/uL (4.8-10.8)
[2024-12-24 07:16] LABS: Alanine Aminotransferase 18 U/L (0-31); Albumin Level 3.9 g/dL (3.5-5.0); Alkaline Phosphatase 155 U/L (39-117); Anion Gap 14 (12-20); Aspartate Amino Transferase 19 U/L (5-31); Bilirubin Total 0.4 mg/dL (0.0-1.0); Blood Urea Nitrogen 3 mg/dL (9-16); Calcium 9.1 mg/dL (8.4-10.2); Carbon Dioxide 22 mmol/L (22-29); Chloride 105 mmol/L (96-108); Creatinine Clr Calc Pharmacy 122.8; Estimated Glomerular Filt Rate > 60; Glucose Random 83 mg/dL (60-115); Magnesium 1.9 mg/dL (1.6-2.6); Potassium 4.1 mmol/L (3.3-5.1); Sodium 137 mmol/L (135-145); Total Protein 7.3 g/dL (6.5-8.0)
[2024-12-24 07:21] VITALS: BP 155/88; PULSE 80; RESP 20; TEMP 37.1; O2SAT 96
[2024-12-24] MEDS: metroNIDAZOLE 500 MG TABLET PO ×2 (09:38→22:20)
[2024-12-24] MEDS: Thiamine HCL 100 MG in 0.9 % Sodium Chloride 100 ML 101 MG IV (09:39)
[2024-12-24] MEDS: Folic Acid 1 MG in 0.9 % Sodium Chloride 50 ML 100.4 MG IV (10:28)
--- NOTE | 2024-12-24 11:04 | MHC.CM.PN ---
EMR REVIEWED, PER MULTIDISCIPLINARY ROUNDS PT STILL C/O PAIN, UNABLE TO TOLERATE DIET, NO PLAN FOR DC AT THIS TIME, CM WILL CONT TO FOLLOW DC NEEDS.
[2024-12-24 11:32] VITALS: BP 137/89; PULSE 88; RESP 20; TEMP 36.8; O2SAT 96
[2024-12-24 15:42] VITALS: PULSE 66; RESP 19; TEMP 37.3; O2SAT 94
[2024-12-24 16:37] VITALS: BP 138/88
--- NOTE | 2024-12-24 16:37 | P.PNIM_ITS ---
Subjective Subjective Date of Service: 12/24/24 Interval History: Slowly improving. Requesting advancement of diet Review of Systems Denies chest pain Denies shortness of breath Denies nausea vomiting diarrhea Admits to vague abdominal pain that has improved Physical Exam 2 Vital Signs: Vital Signs: Last Vital Signs Temp 99.1 F 12/24/24 15:42 Pulse 66 12/24/24 15:42 Resp 19 12/24/24 15:42 BP 137/89 12/24/24 11:32 Pulse Ox 94 12/24/24 15:42 O2 Del Method Room Air 12/24/24 15:42 BMI result Body Mass Index 30.8 Const: Other: Awake alert no acute distress Resp: Other: Clear to auscultation bilaterally no rales rhonchi or wheezes Cardio: Other: No S4; positive S1-S2; no S3 murmurs rubs or gallops GI: Other: Soft nontender nondistended mild guarding left upper quadrant Extrem: Other: No edema by lateral Objective Data Active Medications Acetaminophen (Acetaminophen 325 Mg Tablet) 650 mg PO Q6H PRN PRN Reason: Pain, Mild 1-3,fever,headache Last Admin: 12/23/24 15:26 Dose: 650 mg Documented By: CINTHYA Enoxaparin Sodium (Enoxaparin Sodium 40 Mg/0.4 Ml Syringe) 40 mg SUBCUT Q24H [facility] Last Admin: 12/24/24 13:54 Dose: Not Given Documented By: CINTHYA Non-Admin Reason: Patient Refused Thiamine HCl 100 mg/ Sodium (Chloride) 101 mls @ 202 mls/hr IV DAILY [facility] Last Infusion: 12/24/24 11:16 Dose: Infused Documented By: CINTHYA Folic Acid 1 mg/ Sodium (Chloride) 50.2 mls @ 100.4 mls/hr IV DAILY [facility] Last Infusion: 12/24/24 11:16 Dose: Infused Documented By: CINTHYA Magnesium Hydroxide (Milk Of Magnesia 30 Ml Oral.Susp) 30 ml PO DAILY PRN PRN Reason: Constipation Melatonin (Melatonin 3 Mg Tablet) 6 mg PO BEDTIME PRN PRN Reason: Insomnia Last Admin: 12/23/24 23:37 Dose: 6 mg Documented By: CHARLEY Metronidazole (Metronidazole 500 Mg Tablet) 500 mg PO Q12H [facility] Last Admin: 12/24/24 09:38 Dose: 500 mg Documented By: CINTHYA Morphine Sulfate (Morphine Sulfate 2 Mg/Ml Cartridge) 4 mg IVPUSH Q4H PRN; Protocol PRN Reason: Pain, Severe (Pain Scale 7-10) Last Admin: 12/24/24 15:19 Dose: 4 mg Documented By: CINTHYA Nicotine (Nicotine 7 Mg Patch.Td24) 7 mg TRANSDERMA DAILY [facility] Last Admin: 12/24/24 09:39 Dose: Not Given Documented By: CINTHYA Non-Admin Reason: Patient Refused Ondansetron HCl (Ondansetron Hcl 4 Mg/2 Ml Vial) 4 mg IVPUSH Q8H PRN PRN Reason: Nausea and Vomiting Last Admin: 12/23/24 23:37 Dose: 4 mg Documented By: CHARLEY Pantoprazole Sodium (Pantoprazole Sodium 40 Mg/10 Ml Vial) 40 mg IVPUSH DAILY@0630 [facility] Last Admin: 12/24/24 06:34 Dose: 40 mg Documented By: CHARLEY Polyethylene Glycol (Polyethylene Glycol 3350 17 Gm Powd.Pack) 17 gm PO DAILY PRN PRN Reason: Constipation Senna (Sennosides 8.6 Mg Tablet) 17.2 mg PO BEDTIME [facility] Last Admin: 12/23/24 21:39 Dose: 17.2 mg Documented By: CHARLEY Sodium Chloride (0.9 % Sodium Chloride Flush 3 Ml Syringe) 3 ml IVFLUSH QSHIFT [facility] Last Admin: 12/24/24 15:18 Dose: Not Given Documented By: CINTHYA Non-Admin Reason: IV Running Labs 12/24/24 06:26 12/24/24 06:26 Labs: Laboratory Results - last 24 hr 12/24/24 06:26 MCV 90.9 MCH 30.9 MCHC 34.0 RDW 13.3 Plt Count 374 D MPV 9.3 L Absolute Nucleated RBC 0.000 Nucleated RBC % (auto) 0.0 Anion Gap 14 Estim Creat Clear Calc 122.8 Estimated GFR > 60 Random Glucose 83 Calcium 9.1 D Magnesium 1.9 Total Bilirubin 0.4 AST 19 ALT 18 Alkaline Phosphatase 155 H Total Protein 7.3 Albumin 3.9 Assessment and Plan (1) Pancreatitis: Status: Acute (2) Alcohol use disorder, mild, abuse: Status: Acute (3) GERD (gastroesophageal reflux disease): Status: Acute Plan 29yo F with AUD admitted with recurrent EtOH pancreatitis 1.EtOH pancreatitis -advance diet to full liquids; regular diet in a.m. if tolerates -continue current pain medicine 2.AUD - Addiction Medicine consult, plan resuming naltrexone upon discharge, continue thiamine + folate 3.GERD - PPI enoxaparin dispo - eventual home In my clinical judgment, the patient requires continued inpatient hospitalization for the following reasons: IV fluids, IV analgesics Quality Stroke Does the patient have a stroke diagnosis?: No Reason for No Anti-thrombotic by Day Two: N/A - Med Ordered VTE Prior VTE?: No VTE Risk Level:: Medical - moderate - high VTE Device Contraindication: N/A - Device Ordered VTE Drug Contraindication: N/A - Med Ordered
[2024-12-24 19:22] VITALS: BP 167/101; PULSE 73; RESP 18; TEMP 36.8; O2SAT 98
[2024-12-24] MEDS: Milk of Magnesia 30 ML ORAL.SUSP PO (19:39)
[2024-12-24] MEDS: 0.9 % Sodium Chloride Flush 3 ML SYRINGE IVFLUSH (19:43)
[2024-12-24] MEDS: Sennosides 8.6 MG TABLET 17.2 MG PO (22:20)
[2024-12-25] MEDS: Morphine Sulfate 2 MG/ML CARTRIDGE 4 MG IVPUSH ×3 (00:18→09:19)
[2024-12-25] MEDS: Melatonin 3 MG TABLET 6 MG PO (00:18)
[2024-12-25 03:34] VITALS: BP 124/92; PULSE 75; RESP 18; TEMP 36.2; O2SAT 98
[2024-12-25] MEDS: Pantoprazole Sodium 40 MG/10 ML VIAL IVPUSH (06:02)
[2024-12-25 08:00] VITALS: BP 138/95; PULSE 72; RESP 18; TEMP 36.7; O2SAT 98
[2024-12-25] MEDS: Folic Acid 1 MG in 0.9 % Sodium Chloride 50 ML 100.4 MG IV (08:50)
[2024-12-25] MEDS: metroNIDAZOLE 500 MG TABLET PO (09:17)
[2024-12-25] MEDS: Thiamine HCL 100 MG in 0.9 % Sodium Chloride 100 ML 101 MG IV (09:18)
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
--- NOTE | 2024-12-25 10:59 | MHC.CM.PN ---
PT WILL DC HOME TODAY WITH NO SERVICES VIA PRIVATE TRANSPORT
== END 2024-12-25 12:28 | disposition home or self-care (01) | DRG 282 ==
LOC: HO.ED 11:25 → HO.EDOVER 13:39 → HO.IMC 15:55
PROVIDERS: Family Medicine; Admitting Provider Nurse Practitioner Family; Emergency Provider Emergency Medicine; Visit Provider Hospitalist
DX: K85.20 Alcohol induced acute pancreatitis without necrosis or infection (principal); D64.9 Anemia, unspecified; E87.6 Hypokalemia; F17.210 Nicotine dependence, cigarettes, uncomplicated; Z71.6 Tobacco abuse counseling; K21.9 Gastro-esophageal reflux disease without esophagitis; F10.90 Alcohol use, unspecified, uncomplicated; N76.0 Acute vaginitis
CPT/HCPCS: 36415; 76705; 80048; 80053; 80076; 80307; 83690; 83735; 84702; 85025; 85027; 93005; 99285; J1171; J1200; J1836; J2060; J2270; J2405; J2470; J2765; J3411; J7120; S9485

== ENCOUNTER → 2024-12-22 10:12 | Outpatient (BNV) | payer MEDICAID, SELFPAY | PROVIDERS: Emergency Provider Emergency Medicine; Visit Provider Radiology Diagnostic Radiology | DX: K85.90 Acute pancreatitis without necrosis or infection, unspecified (principal); R10.13 Epigastric pain | CPT/HCPCS: 76705 ==

== ENCOUNTER 2024-12-22 13:38 | Outpatient (BNV) | payer MEDICAID, SELFPAY | END 2024-12-22 15:26 | PROVIDERS: Admitting Provider Nurse Practitioner Family; Emergency Provider Emergency Medicine; Visit Provider Internal Medicine Cardiovascular Disease | DX: R94.31 Abnormal electrocardiogram [ECG] [EKG] (principal); R11.11 Vomiting without nausea | CPT/HCPCS: 93010 ==

== ENCOUNTER → 2024-12-22 13:38 | Outpatient (BNV) | payer MEDICAID, SELFPAY | PROVIDERS: Admitting Provider Nurse Practitioner Family; Emergency Provider Emergency Medicine; Visit Provider Nurse Practitioner Family | DX: K85.20 Alcohol induced acute pancreatitis without necrosis or infection (principal); F10.10 Alcohol abuse, uncomplicated; K21.9 Gastro-esophageal reflux disease without esophagitis | CPT/HCPCS: 99232; 99239 ==

== ENCOUNTER 2025-01-17 06:22 | Emergency (ER) | payer MEDICAID, SELFPAY ==
[2025-01-17 06:27] VITALS: BP 129/84; PULSE 93; RESP 16; TEMP 36.6; O2SAT 97; BMI 28.3
--- NOTE | 2025-01-17 06:47 | PC.NURSE ---
pt just brought back to the room and is now in the bathroom giving a urine at this time.
[2025-01-17 07:23] LABS: MANUAL DIFF FLAG NO
[2025-01-17 07:27] LABS: Basophils Absolute Auto 0.1 X10*3/uL (0.0-0.2); Basophils Percent Auto 0.5 % (0-2); Eosinophils Absolute Auto 0.4 X10*3/uL (0.0-0.4); Eosinophils Percent Auto 3.2 % (0-4); Hematocrit 32.8 % (37.0-47.0); Hemoglobin 11.1 g/dl (12.0-16.0); Imm Gran Abs Auto 0.05 X10*3/uL (0.00-0.03); Imm Gran Pct Auto 0.4 % (0.0-0.4); Lymphocytes Absolute Auto 2.1 X10*3/uL (1.2-4.9); Lymphocytes Percent Auto 17.6 % (20-40); Mean Corpuscular HGB Conc 33.8 g/dl (31.0-35.0); Mean Corpuscular Hemoglobin 31.3 pg (27.0-33.0); Mean Corpuscular Volume 92.4 fL (80.0-98.0); Mean Platelet Volume 9.5 fL (9.4-12.3); Monocytes Absolute Auto 0.7 X10*3/uL (0.1-1.2); Monocytes Percent Auto 6.2 % (2-11); Neutrophils Absolute Auto 8.5 x10*3/uL (2.0-8.3); Neutrophils Percent Auto 72.1 % (45-73); Platelet Count 259 X10*3/uL (160-400); Red Blood Count 3.55 X10*6/uL (4.20-5.50); Red Cell Distribution Width 13.8 % (11.0-16.0); White Blood Count 11.9 X10*3/uL (4.8-10.8)
[2025-01-17 07:28] LABS: Appearance Urine Clear; Color Urine Yellow; Glucose Urine UA Negative (Negative); Leukocyte Esterase Urine Negative (Negative); Nitrite Urine Negative (Negative); Urine Blood Negative (Negative); Urine Ketones Negative (Negative); Urine Protein Negative (Neg-Trace)
--- NOTE | 2025-01-17 07:38 | ED_ITS ---
HPI - General Adult General Chief complaint: General Medical Stated complaint: pain Time Seen by Provider: 01/17/25 07:03 Source: patient Mode of arrival: ambulatory Limitations: no limitations History of Present Illness ED Provider: ALVAREZ MONTEZ narrative: 29 yo female with PMH of ETOH use disorder, pancreatitis, BV who has had boils in her pubic area where she shaves but no hx of MRSA - she comes in with c/o L groin boil with pain x 2 days. NO fevers, n/v no other symptoms. She has not tried any therapy at home. Hurts to move and walk. MD complaint: boil Onset (ago): day(s) (2) Location: left and lower extremity Radiation: non-radiation Severity: moderate Quality: aching Pain Consistency: intermittent Relieving factors: immobilization Exacerbating factors: movement Associated symptoms: denies other symptoms Treatments prior to arrival: none Related Data Home Medications ?Medication ?Instructions ?Recorded ?Confirmed acetaminophen 325 mg tablet 650 - 1,950 mg PO Q4H PRN Pain 12/22/24 12/22/24 (Tylenol) Previous Rx's ?Medication ?Instructions ?Recorded oxycodone 5 mg tablet 5 mg PO Q6H PRN pain #14 tabs 12/25/24 doxycycline hyclate 100 mg capsule 100 mg PO BID 7 days #14 caps 01/17/25 Allergies Allergy/AdvReac Type Severity Reaction Status Date / Time amoxicillin Allergy Shortness Verified 01/17/25 06:27 of Breath ceftriaxone Allergy Hives Verified 01/17/25 06:27 Penicillins Allergy Shortness Verified 01/17/25 06:27 of Breath potassium chloride Allergy Itching Verified 01/17/25 06:27 Review of Systems 2 Review of Systems: Constitutional : No Fever, No Chills ENT/Mouth : No sore throat, No Rhinorrhea Eyes: No Eye Pain, No Swelling, No Redness Cardiovascular : No Chest Pain, No SOB Respiratory : No Cough, No Sputum Gastrointestinal : No Nausea, No Vomiting, No Diarrhea, No abdominal Pain Genitourinary : No Dysuria, No Hematuria Musculoskeletal : No joint pain, No Myalgias, No Joint Swelling Skin : No Skin Lesions, positive skin rash Neuro : No Weakness, No Numbness, No Headache All other systems reviewed and are negative PMFSH Past Medical History Attestation statement: The following information was validated with the patient. Source: old records reviewed Medical History Pancreatitis Asthma Social History Social History Household Members: None Housing: Apartment Do you presently have visiting nurse or other home services: No Alcohol intake: current Alcohol intake frequency: a few times a week Alcohol type: wine and hard liquor Patient Tobacco Use Status: Current everyday Tobacco user Tobacco use type: Cigarette Cigarettes Per Day: 1 e-Cigarette/Vaping Use: Currently Using Second Hand Smoke Exposure: No Substance Use Type: Marijuana Advance Directives: No Advance Directives Information Provided: Yes Do you have a plan to hurt others: No Plan service: No Physical Exam ED Vital Signs: Vital Signs - 24 hr 01/17/25 06:27 Temperature 97.9 F Pulse Rate 93 Respiratory Rate 16 Blood Pressure 129/84 Pulse Oximetry 97 Oxygen Delivery Method Room Air BMI result Body Mass Index 28.3 Appearance: Alert. Oriented X3. No acute distress. Eyes: Pupils equal, round and reactive to light. ENT: Pharynx normal. Neck: Normal inspection. Neck supple. CVS: Normal heart rate and rhythm. Pulses normal. Respiratory: No respiratory distress. Breath sounds normal. Abdomen: Soft and nontender. 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 Normal skin color. Normal skin turgor. Extremities: No lower extremity edema. No calf ttp Neuro: Oriented X 3. No motor deficit. No sensory deficit. CN2-12 intact Medications Administered Discontinued Medications Generic Name Dose Route Start Last Admin Trade Name Tracey PRN Reason Stop Dose Admin Hydrocodone Bitart/Acetaminophen 1 tab 01/17/25 07:22 01/17/25 08:28 Hydrocodone Bit/Acetam 5/325 Tablet PO 01/17/25 07:23 1 tab ONCE ONE Administration Lidocaine HCl 1 appl 01/17/25 07:22 01/17/25 08:18 Lidocaine 4 % Cream Kit TOPICAL 01/17/25 07:23 1 appl ONCE ONE Administration Protocol Lidocaine HCl 5 ml 01/17/25 07:22 01/17/25 08:18 Lidocaine Hcl 1 % Mpf 5 Ml Vial SUBCUT 01/17/25 07:23 5 ml ONCE ONE Administration Ondansetron HCl 4 mg 01/17/25 07:22 01/17/25 08:25 Ondansetron Odt 4 Mg Tab.Trevor VASQUEZINGU 01/17/25 07:23 4 mg ONCE ONE Administration Procedures Abscess I/D Site: lower extremity Side (if applicable): left Local Anesthetic: lidocaine 1% Amount of anesthesia used (mL): 3 Technique: needle aspiration Amount of fluid expressed (mL): 4 Sent for culture/gram staining?: No Irrigation: No Packing used?: none Medical Decision Making Medical Decision Making [facility] Narrative: 29 yo female with PMH of ETOH use disorder, pancreatitis, BV here with c/o L groin abscess it is isolated and does not extend to her thigh or perineum at this time labs, topical numbing cream and will anticipate aspirating or I/D the area. She has no systemic symptoms. Differential Diagnosis Differential Diagnoses: The differential diagnosis associated with the presentation includes abscess, cellulitis Admission/Observation Consideration of admission/observation: Escalation of care including admission/observation considered stable for outpatient management Lab Data [facility] Lab Attestation statement: I reviewed the patient's lab results. 01/17/25 07:17 01/17/25 07:17 Labs: Lab Results 01/17/25 Range/Units 07:17 WBC 11.9 H (4.8-10.8) X10*3/uL RBC 3.55 L (4.20-5.50) X10*6/uL Hgb 11.1 L (12.0-16.0) g/dl Hct 32.8 L (37.0-47.0) % MCV 92.4 (80.0-98.0) fL MCH 31.3 (27.0-33.0) pg MCHC 33.8 (31.0-35.0) g/dl RDW 13.8 (11.0-16.0) % Plt Count 259 D (160-400) X10*3/uL MPV 9.5 (9.4-12.3) fL Immature Gran % (Auto) 0.4 (0.0-0.4) % Neut % (Auto) 72.1 (45-73) % Lymph % (Auto) 17.6 L (20-40) % [place] % (Auto) 6.2 (2-11) % Eos % (Auto) 3.2 (0-4) % Baso % (Auto) 0.5 (0-2) % Lymph # (Auto) 2.1 (1.2-4.9) X10*3/uL [place] # (Auto) 0.7 (0.1-1.2) X10*3/uL Eos # (Auto) 0.4 (0.0-0.4) X10*3/uL Baso # (Auto) 0.1 (0.0-0.2) X10*3/uL Abs Immat Gran (auto) 0.05 H (0.00-0.03) X10*3/uL Absolute Neuts (auto) 8.5 H (2.0-8.3) x10*3/uL Absolute Nucleated RBC 0.000 (0.0-0.012) X10*3/uL Nucleated RBC % (auto) 0.0 (0.0-0.2) /100WBC Sodium 139 (135-145) mmol/L Potassium 3.6 (3.3-5.1) mmol/L Chloride 111 H (96-108) mmol/L Carbon Dioxide 23 (22-29) mmol/L Anion Gap 9 L (12-20) BUN 11 (9-16) mg/dL Creatinine 0.76 (0.5-1.4) mg/dL Estim Creat Clear Calc 102.3 Estimated GFR > 60 Random Glucose 93 (60-115) mg/dL Calcium 8.6 (8.4-10.2) mg/dL Total Bilirubin 0.2 (0.0-1.0) mg/dL AST 16 (5-31) U/L ALT 9 (0-31) U/L Alkaline Phosphatase 73 (39-117) U/L Total Protein 6.2 L (6.5-8.0) g/dL Albumin 3.6 (3.5-5.0) g/dL Urine Color Yellow Urine Appearance Clear Urine pH 6.0 (5.0-9.0) Ur Specific [place] 1.020 (1.005-1.025) Urine Protein Negative (Neg-Trace) mg/dL Urine Glucose (UA) Negative (Negative) mg/dL Urine Ketones Negative (Negative) mg/dL Urine Blood Negative (Negative) Urine Nitrite Negative (Negative) Ur Leukocyte Esterase Negative (Negative) External Record Review External record reviewed: Outpatient record Prescription Management I considered prescription management with: Pain Medication and Antibiotic Discharge Plan Discharge Clinical Impression: Abscess Patient Disposition: Home, Self-Care Instructions: Abscess (ED) Additional Instructions: okay to shower use warm clean compresses 3 times a day it will still drain a little return for worsening swelling, fevers, increased redness or any other concerns On doxycycline, do not take pills immediately before going to bed and swallow pills with plenty of water. Avoid direct sunlight, iron, antacids, and Pepto Bismol. Call your provider if you develop new ringing in your ears, new problems hearing, dizziness, difficulty swallowing, rash, abdominal discomfort, nausea, or diarrhea.? Prescriptions: New doxycycline hyclate 100 mg capsule 100 mg PO BID 7 Days Qty: 14 0RF No Action acetaminophen [Tylenol] 325 mg Tablet 650 - 1,950 mg PO Q4H PRN (Reason: Pain) oxycodone 5 mg tablet 5 mg PO Q6H PRN (Reason: pain) Qty: 14 0RF Rx Instructions: Partial Fill upon patient request. Print Language: Mexican
[2025-01-17 07:40] LABS: Alanine Aminotransferase 9 U/L (0-31); Albumin Level 3.6 g/dL (3.5-5.0); Alkaline Phosphatase 73 U/L (39-117); Anion Gap 9 (12-20); Aspartate Amino Transferase 16 U/L (5-31); Bilirubin Total 0.2 mg/dL (0.0-1.0); Blood Urea Nitrogen 11 mg/dL (9-16); Calcium 8.6 mg/dL (8.4-10.2); Carbon Dioxide 23 mmol/L (22-29); Chloride 111 mmol/L (96-108); Creatinine Clr Calc Pharmacy 102.3; Estimated Glomerular Filt Rate > 60; Glucose Random 93 mg/dL (60-115); Potassium 3.6 mmol/L (3.3-5.1); Sodium 139 mmol/L (135-145); Total Protein 6.2 g/dL (6.5-8.0)
[2025-01-17] MEDS: Lidocaine HCl 1 % MPF 5 ML VIAL SUBCUT (08:18)
[2025-01-17] MEDS: Lidocaine 4 % Cream KIT 1 APPL TOPICAL (08:18)
[2025-01-17] MEDS: Ondansetron ODT 4 MG TAB.RAPDIS TRANSLINGU (08:25)
[2025-01-17] MEDS: HYDROcodone Bit/Acetam 5/325 TABLET 1 TAB PO (08:28)
[2025-01-17 08:57] VITALS: BP 152/101; PULSE 74; RESP 18; TEMP 36.7; O2SAT 94
[2025-01-17 09:29] VITALS: BP 0/0; PULSE 0; RESP 0; TEMP -17.7; TEMP 0; O2SAT 0
== END 2025-01-17 09:30 | disposition home or self-care (01) ==
PROVIDERS: Emergency Provider Emergency Medicine
DX: L02.214 Cutaneous abscess of groin (principal); R10.2 Pelvic and perineal pain; F17.210 Nicotine dependence, cigarettes, uncomplicated; Z79.899 Other long term (current) drug therapy
CPT/HCPCS: 10060; 36415; 80053; 81003; 85025; 99283; 99284; J2003

== ENCOUNTER 2025-03-08 14:18 | Inpatient (IN) | payer MEDICAID, SELFPAY ==
--- NOTE | ~2025-03-08 | MR_ITS ---
EXAMINATION: MRCP HISTORY: pancreatitis COMPARISON: Correlation is made with a CT of the abdomen with contrast dated 03/08/2025. TECHNIQUE: Axial in and out of phase gradient echo T1, axial T2 and fat-suppressed T2, and coronal haste T2 with fat saturation images were obtained through the abdomen. 3D MRCP Reconstructed images and thick slab imaging of the biliary tree were obtained. FINDINGS: There is no significant loss of signal intensity within the liver on opposed phase imaging to suggest steatosis. There is no intra or extrahepatic biliary ductal dilatation. There is narrowing of the distal common bile duct in the pancreatic head, which could represent a stricture. No intraluminal filling defects are identified to suggest choledocholithiasis. The patient is status post cholecystectomy. No peripancreatic inflammatory stranding or fluid is seen to suggest acute pancreatitis. The pancreatic duct is slightly prominent, but not significantly dilated. There is no peripancreatic fluid collection. The spleen, adrenals, and kidneys are unremarkable. No retroperitoneal lymphadenopathy or ascites is identified in the upper abdomen. The visualized bones demonstrate normal signal intensity. MR/MR MRCP IMPRESSION: 1. No peripancreatic inflammatory stranding or fluid to suggest acute pancreatitis. 2. No evidence of choledocholithiasis. There is narrowing of the common bile duct in the pancreatic head which could indicate a stricture. Suggest ERCP evaluation. Electronically signed by: Marquis Doan MD 03/09/2025 03:01 PM EDT
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
--- NOTE | ~2025-03-08 | CT_ITS ---
CLINICAL HISTORY: gallstone pancreatitis?? CT abdomen and pelvis with contrast Comparison: 12/17/2024 Findings: Lung bases are clear. No acute bony abnormalities. Peripancreatic stranding primarily involving pancreatic head. No focal pancreatic abnormality identified. Liver, Spleen and adrenal glands unremarkable. Cholecystectomy. Nonobstructing left renal stones noted. No significant focal renal abnormality. No hydronephrosis identified. Abdominal aorta is normal in caliber. No free fluid or adenopathy in the pelvis. No diverticulitis. Appendix unremarkable. Uterus normal size. No adnexal abnormality. Impression: Acute pancreatitis without complicating feature This document has been electronically signed by: Bravo Gar MD on 03/08/2025 22:28:46
[2025-03-08 14:26] VITALS: BP 137/104; PULSE 82; RESP 18; TEMP 36.3; O2SAT 99; BMI 28.3
--- NOTE | 2025-03-08 14:28 | ECG_ITS ---
Test Reason : ABDOMINAL PAIN Blood Pressure : */* mmHG Vent. Rate : 68 BPM Atrial Rate : 68 BPM P-R Int : 150 ms QRS Dur : 84 ms QT Int : 416 ms P-R-T Axes : 66 50 39 degrees QTcB Int : 442 ms Normal sinus rhythm Possible Left atrial enlargement Borderline ECG When compared with ECG of 22-Dec-2024 15:26, Nonspecific T wave abnormality has replaced inverted T waves in Inferior leads Referred By: Arnulfo Conklin Electronically Signed By: FARRAH FAUST
--- NOTE | 2025-03-08 14:28 | ED_ITS ---
HPI - General Adult General Chief complaint: Abdominal Pain Stated complaint: Pancreas issues Time Seen by Provider: 03/08/25 19:50 Source: patient Limitations: no limitations History of Present Illness ED Provider: Lea Wilson PA-C HPI narrative: 30-year-old female with a history of alcohol use disorder, prior pancreatitis, GERD, status post cholecystectomy 2023 at outside facility, presents with upper abdominal discomfort x2 days. Pain over epigastric, with radiation across bilateral upper abdomen into the back. Eating triggers pain, nausea and vomiting. patient states she did have gallstones when she had her cholecystectomy, she states there was also a stent placed in 1 of the tubes . The stent has been removed since. Patient denies fevers. Related Data Home Medications ?Medication ?Instructions ?Recorded ?Confirmed acetaminophen 325 mg tablet 650 - 1,950 mg PO Q4H PRN Pain 12/22/24 12/22/24 (Tylenol) Previous Rx's ?Medication ?Instructions ?Recorded oxycodone 5 mg tablet 5 mg PO Q6H PRN pain #14 tabs 12/25/24 doxycycline hyclate 100 mg capsule 100 mg PO BID 7 days #14 caps 01/17/25 Allergies Allergy/AdvReac Type Severity Reaction Status Date / Time amoxicillin Allergy Shortness Verified 03/08/25 14:28 of Breath ceftriaxone Allergy Hives Verified 03/08/25 14:28 Penicillins Allergy Shortness Verified 03/08/25 14:28 of Breath potassium chloride Allergy Itching Verified 03/08/25 14:28 PMFSH Past Medical History Medical History Pancreatitis Asthma Social History Social History Household Members: None Housing: Apartment Do you presently have visiting nurse or other home services: No Alcohol intake: current Alcohol intake frequency: a few times a month Alcohol type: wine and hard liquor Patient Tobacco Use Status: Current everyday Tobacco user Tobacco use type: Cigarette Cigarettes Per Day: 1 Smoked in Last 30 Days: No e-Cigarette/Vaping Use: Currently Using Second Hand Smoke Exposure: No Use of substances other than those prescribed or required for medical reasons: No Substance Use Type: Marijuana Advance Directives: No Advance Directives Information Provided: No Do you have a plan to hurt others: No Plan Nutrition Risks: No Nutritional Risk Patient : No service: No Physical Exam ED Vital Signs: Vital Signs - 24 hr 03/08/25 14:26 03/08/25 19:28 03/08/25 20:00 Temperature 97.3 F 96.0 F L 96.0 F L Pulse Rate 82 61 61 Respiratory Rate 18 18 18 Blood Pressure 137/104 H 154/91 H 154/91 H Pulse Oximetry 99 100 100 Oxygen Delivery Method Room Air Room Air Room Air 03/08/25 22:05 Temperature 98.0 F Pulse Rate 59 Respiratory Rate 18 Blood Pressure 144/84 H Pulse Oximetry 99 Oxygen Delivery Method Room Air BMI result Body Mass Index 28.3 Course Course Course Narrative: RME, this is a rapid medical exam performed by Moo Conklin please refer to primary provider for complete H&P- 30-year-old female with a history of pancreatitis presents for evaluation of upper abdominal pain for the last couple of weeks. She reports drinking excessively for her birthday that was less than a month ago. She reports she was drinking for about a week. Her last drink was 2 days ago. Plan for labs, urinalysis and a test. Reevaluation(s) Reevaluation #1: I discussed findings with the patient, she denies that she has gone through alcohol withdrawal, the last time she drank was over the weekend. placing CIWA scale.... Spoke with the hospitalist Dr. Doyle....he wants Tylenol level, start nac, page GI, get utox Consultations Consultation #1: per Dr. Andre Time: 00:58 Medications Administered Generic Name Dose Route Start Last Admin Trade Name Freq PRN Reason Stop Dose Admin Hydromorphone HCl 0.5 mg 03/09/25 01:13 03/09/25 01:33 Hydromorphone Hcl 0.5 Mg/0.5 Ml Syringe IVPUSH 0.5 mg Q4H PRN Administration Breakthrough Pain Protocol Dextrose/Sodium Chloride 1,000 mls @ 100 mls/hr 03/08/25 23:30 03/09/25 01:33 D51/2ns IVCONT 100 mls/hr .Q10H BETTY Administration Sodium Chloride 3 ml 03/09/25 00:00 03/09/25 01:33 0.9 % Sodium Chloride Flush 3 Ml Syringe IVFLUSH 3 ml QSHIFT BETTY Administration Discontinued Medications Generic Name Dose Route Start Last Admin Trade Name Tracey PRN Reason Stop Dose Admin Sodium Chloride 1,000 mls @ 999 mls/hr 03/08/25 20:00 03/08/25 23:32 Ns IV 03/08/25 21:00 Infused .Q1H1M BETTY Infusion Acetylcysteine 10,886.25 mg/ 254.4313 mls @ 200 mls/hr 03/08/25 23:11 03/09/25 01:48 Dextrose IV 03/09/25 00:27 Infused ONCE ONE Infusion Iohexol 85 ml 03/08/25 21:55 03/08/25 21:56 Iohexol 350 Mg/Ml 100 Ml Infus..Btl IV 03/08/25 21:56 85 ml ONCE ONE Administration Lorazepam 2 mg 03/09/25 00:09 03/09/25 01:03 Lorazepam 1 Mg Tablet PO 03/09/25 00:10 2 mg ONCE ONE Administration Morphine Sulfate 4 mg 03/08/25 19:50 03/08/25 20:02 Morphine Sulfate 4 Mg/Ml Cartridge IVPUSH 03/08/25 19:51 4 mg ONCE ONE Administration Protocol Morphine Sulfate 4 mg 03/08/25 21:51 03/08/25 22:09 Morphine Sulfate 4 Mg/Ml Cartridge IVPUSH 03/08/25 21:52 4 mg ONCE ONE Administration Protocol Ondansetron HCl 4 mg 03/08/25 19:50 03/08/25 19:58 Ondansetron Hcl 4 Mg/2 Ml Vial IVPUSH 03/08/25 19:51 4 mg ONCE ONE Administration Procedures Procedure Narrative Procedure Narrative: ultrasound-guided IV 18 gauge 1-3/4 inch IV placed in left upper extremity, adequate blood return flushes well secured with Tegaderm Medical Decision Making Medical Decision Making MDM Narrative: 30-year-old female with a history of alcohol use disorder, prior pancreatitis, GERD, status post cholecystectomy 2023 at outside facility, presents with upper abdominal discomfort x2 days. Pain over epigastric, with radiation across bilateral upper abdomen into the back. Eating triggers pain, nausea and vomiting. patient states she did have gallstones when she had her cholecystectomy, she states there was also a stent placed in 1 of the tubes . The stent has been removed since. Patient denies fevers. problem: Prior pancreatitis, alcohol use disorder, GERD History: Per patient I have considered the following differential diagnoses: Alcoholic pancreatitis, gallstone pancreatitis, Cholangitis, gastritis Plan: screening labs were completing from triage, including LFTs. They are markedly elevated from her baseline, just 2 months ago. I am concerned for gallstone pancreatitis, her bilirubin is elevated, we will fractionate, AST ALT and alk phos are also elevated. We will be obtaining a CT scan. Giving morphine, Zofran and IV fluid. She states we have requested documents from her surgery in the past, we will do a chart review. I have independently reviewed the following tests: Labs: No leukocytosis, not anemic, ethanol negative, total bili 2.7, direct bili 1.7 ,AST 998, ALT 222, alk phos 195, lipase 83, not , <3 CT abdomen and pelvis:Lung bases are clear. No acute bony abnormalities. Peripancreatic stranding primarily involving pancreatic head. No focal pancreatic abnormality identified. Liver, Spleen and adrenal glands unremarkable. Cholecystectomy. Nonobstructing left renal stones noted. No significant focal renal abnormality. No hydronephrosis identified. Abdominal aorta is normal in caliber. No free fluid or adenopathy in the pelvis. No diverticulitis. Appendix unremarkable. Uterus normal size. No adnexal abnormality. Impression: Acute pancreatitis without complicating feature Lab Data 03/08/25 16:31 03/08/25 16:31 Labs: Lab Results 03/08/25 03/08/25 Range/Units 16:31 23:14 WBC 5.2 (4.8-10.8) X10*3/uL RBC 4.25 (4.20-5.50) X10*6/uL Hgb 13.3 (12.0-16.0) g/dl Hct 38.4 (37.0-47.0) % MCV 90.4 (80.0-98.0) fL MCH 31.3 (27.0-33.0) pg MCHC 34.6 (31.0-35.0) g/dl RDW 14.6 (11.0-16.0) % Plt Count 289 (160-400) X10*3/uL MPV 9.5 (9.4-12.3) fL Immature Gran % (Auto) 0.2 (0.0-0.4) % Neut % (Auto) 67.5 (45-73) % Lymph % (Auto) 22.0 (20-40) % [place] % (Auto) 8.0 (2-11) % Eos % (Auto) 1.5 (0-4) % Baso % (Auto) 0.8 (0-2) % Lymph # (Auto) 1.2 (1.2-4.9) X10*3/uL [place] # (Auto) 0.4 (0.1-1.2) X10*3/uL Eos # (Auto) 0.1 (0.0-0.4) X10*3/uL Baso # (Auto) 0.0 (0.0-0.2) X10*3/uL Abs Immat Gran (auto) 0.01 (0.00-0.03) X10*3/uL Absolute Neuts (auto) 3.5 (2.0-8.3) x10*3/uL Absolute Nucleated RBC 0.000 (0.0-0.012) X10*3/uL Nucleated RBC % (auto) 0.0 (0.0-0.2) /100WBC Sodium 137 (135-145) mmol/L Potassium 3.4 (3.3-5.1) mmol/L Chloride 102 (96-108) mmol/L Carbon Dioxide 25 (22-29) mmol/L Anion Gap 13 (12-20) BUN 7 L (9-16) mg/dL Creatinine 0.72 (0.5-1.4) mg/dL Estim Creat Clear Calc 107.0 Estimated GFR > 60 Random Glucose 101 (60-115) mg/dL Calcium 9.6 D (8.4-10.2) mg/dL Magnesium 1.9 (1.6-2.6) mg/dL Total Bilirubin 2.7 H (0.0-1.0) mg/dL Direct Bilirubin 1.7 H (0.0-0.5) mg/dL AST 998 H (5-31) U/L ALT 222 H (0-31) U/L Alkaline Phosphatase 195 H (39-117) U/L Total Protein 8.0 (6.5-8.0) g/dL Albumin 4.8 (3.5-5.0) g/dL Lipase 83 H (8-78) U/L Beta HCG, Quant < 2 mIU/mL Urine Color Dark Yellow Urine Appearance Clear Urine pH 6.5 (5.0-9.0) Ur Specific [place] >= 1.030 H (1.005-1.025) Urine Protein 30 (1+) H (Neg-Trace) mg/dL Urine Glucose (UA) Negative (Negative) mg/dL Urine Ketones 80 (Negative) mg/dL Urine Blood Negative (Negative) Urine Nitrite Positive H (Negative) Ur Leukocyte Esterase Small (1+) H (Negative) Urine RBC 3-5 H (0-2) /HPF Urine WBC 0-5 (0-5) /HPF Ur Squamous Epith Cells 11-20 (0-2) /HPF Urine Bacteria 2+ (None Seen) Hyaline Casts 0-2 (0-2) /LPF Urine Opiates Screen POSITIVE H (Not Detect) Ur Buprenorphine Scrn Not Detected (Not Detect) ng/mL Ur Oxycodone Screen Not Detected (Not Detect) ng/mL Urine Methadone Screen Not Detected (Not Detect) ng/mL Urine Fentanyl Screen Not Detected (Not Detect) Ur Barbiturates Screen Not Detected (Not Detect) Ur Phencyclidine Scrn Not Detected (Not Detect) Ur Amphetamines Screen Not Detected (Not Detect) U Benzodiazepines Scrn Not Detected (Not Detect) Urine Cocaine Screen Not Detected (Not Detect) U Marijuana (THC) Screen POSITIVE H (Not Detect) Ethyl Alcohol < 10 mg/dL Discharge Plan Discharge Clinical Impression: Alcohol use disorder, Transaminitis Pancreatitis Qualifiers: Chronicity: acute Pancreatitis type: alcohol induced Acute pancreatitis complication: no infection or necrosis Qualified Code(s): K85.20 - Alcohol induced acute pancreatitis without necrosis or infection Patient Disposition: Admitted As Inpatient Interventions: Admission Worksheet (ED) Last Done: 03/09/25 01:09 Discharge Date/Time: 03/09/25 02:02
[2025-03-08 16:36] LABS: MANUAL DIFF FLAG NO
[2025-03-08 16:38] LABS: Basophils Percent Auto 0.8 % (0-2); Eosinophils Absolute Auto 0.1 X10*3/uL (0.0-0.4); Eosinophils Percent Auto 1.5 % (0-4); Hematocrit 38.4 % (37.0-47.0); Hemoglobin 13.3 g/dl (12.0-16.0); Imm Gran Abs Auto 0.01 X10*3/uL (0.00-0.03); Imm Gran Pct Auto 0.2 % (0.0-0.4); Lymphocytes Absolute Auto 1.2 X10*3/uL (1.2-4.9); Mean Corpuscular HGB Conc 34.6 g/dl (31.0-35.0); Mean Corpuscular Hemoglobin 31.3 pg (27.0-33.0); Mean Corpuscular Volume 90.4 fL (80.0-98.0); Mean Platelet Volume 9.5 fL (9.4-12.3); Monocytes Absolute Auto 0.4 X10*3/uL (0.1-1.2); Neutrophils Absolute Auto 3.5 x10*3/uL (2.0-8.3); Neutrophils Percent Auto 67.5 % (45-73); Platelet Count 289 X10*3/uL (160-400); Red Blood Count 4.25 X10*6/uL (4.20-5.50); Red Cell Distribution Width 14.6 % (11.0-16.0); White Blood Count 5.2 X10*3/uL (4.8-10.8)
[2025-03-08 16:44] LABS: Appearance Urine Clear; Color Urine Dark Yellow; Glucose Urine UA Negative (Negative); Leukocyte Esterase Urine Small (1+) (Negative); Nitrite Urine Positive (Negative); PH 6.5 (5.0-9.0); Specific Gravity - Urine >= 1.030 (1.005-1.025); UMIC TRIGGER UACC YES; Urine Blood Negative (Negative); Urine Ketones 80 mg/dL (Negative); Urine Protein 30 (1+) mg/dL (Neg-Trace)
[2025-03-08 16:58] LABS: Alanine Aminotransferase 222 U/L (0-31); Albumin Level 4.8 g/dL (3.5-5.0); Anion Gap 13 (12-20); Aspartate Amino Transferase 998 U/L (5-31); Bacteria Urine 2+ (None Seen); Bilirubin Total 2.7 mg/dL (0.0-1.0); Blood Urea Nitrogen 7 mg/dL (9-16); Calcium 9.6 mg/dL (8.4-10.2); Carbon Dioxide 25 mmol/L (22-29); Chloride 102 mmol/L (96-108); Estimated Glomerular Filt Rate > 60; Glucose Random 101 mg/dL (60-115); Hyaline Casts Urine 0-2 /LPF (0-2); Lipase 83 U/L (8-78); Magnesium 1.9 mg/dL (1.6-2.6); Potassium 3.4 mmol/L (3.3-5.1); Sodium 137 mmol/L (135-145); UACC Culture Trigger YES; WBC Urine 0-5 /HPF (0-5)
[2025-03-08 17:02] LABS: Alkaline Phosphatase 195 U/L (39-117); Ethanol < 10 mg/dL
[2025-03-08 17:06] LABS: HCG Quantitative < 2 mIU/mL
--- NOTE | 2025-03-08 19:09 | PC.NURSE ---
Requested & given new hot pack. Remains in waiting room.
[2025-03-08 19:28] VITALS: BP 154/91; PULSE 61; RESP 18; TEMP 35.6; O2SAT 100
[2025-03-08] MEDS: 0.9 % Sodium Chloride 1,000 ML 999 ML IV (19:58)
[2025-03-08] MEDS: ondansetron HCL 4 MG/2 ML VIAL IVPUSH (19:58)
[2025-03-08 20:00] VITALS: BP 154/91; PULSE 61; RESP 18; TEMP 35.6; O2SAT 100
[2025-03-08] MEDS: Morphine Sulfate 4 MG/ML CARTRIDGE IVPUSH ×2 (20:02→22:09)
[2025-03-08 21:19] LABS: Bilirubin Direct 1.7 mg/dL (0.0-0.5)
[2025-03-08] MEDS: iohexoL 350 MG/ML 100 ML INFUS..BTL 85 ML IV (21:56)
[2025-03-08 22:05] VITALS: BP 144/84; PULSE 59; RESP 18; TEMP 36.7; O2SAT 99
--- NOTE | 2025-03-08 23:30 | PM.IMHP ---
History of Present Illness Date of Service: 03/08/25 Chief Complaint: abd pain 30-year-old female with a past medical history of alcohol use disorder, history of pancreatitis, GERD, history of cholecystectomy; presented to the hospital today with a chief complaint of abdominal pain. Patient reports she has been having epigastric abdominal pain for 2 days associated nausea or vomiting. Denies any diarrhea. Reports that she has had few drinks prior to the start of the symptoms. Mentioned that she took about 9 tablets of extra-strength Tylenol yesterday and she took a few tablets this morning prior to coming to the hospital. Reports using cannabis. Denies any chest pain or palpitations. Patient denies any fever chills cough or sputum production. Denies any urinary symptoms. Review of other systems is negative except mentioned above ER course: Per ER team, patient noted to have epigastric tenderness without any guarding or rigidity; lipase 83; liver enzymes elevated with AST up to 900s; discussed with Dr. Limon-from GI who suggested admission to the hospital for possible MRCP. CT scan showed findings concerning for acute pancreatitis. Patient is started on NAC protocol. Tylenol level negative. [facility] Medical History Pancreatitis Asthma Social History Household Members: None Housing: Apartment Do you presently have visiting nurse or other home services: No Alcohol intake: current Alcohol intake frequency: a few times a month Alcohol type: wine and hard liquor Patient Tobacco Use Status: Current everyday Tobacco user Tobacco use type: Cigarette Cigarettes Per Day: 1 Smoked in Last 30 Days: Yes e-Cigarette/Vaping Use: Currently Using Patient Interested in Nicotine Replacement: No Patient Given Instructions on How to Stop Smoking: Yes Date Education Initiated: 03/09/25 Second Hand Smoke Exposure: No Use of substances other than those prescribed or required for medical reasons: No Substance Use Type: Marijuana Have you been hit, kicked, punched, or otherwise hurt by someone within the past year? If so, by whom?: No Do you feel safe in your current relationship?: Yes Is there a partner from a previous relationship who is making you feel unsafe now?: No Are you made to feel afraid or neglected: No Advance Directives: No Advance Directives Information Provided: No Advance Directives on File: No Do you have a plan to hurt others: No Plan Recently lost weight without trying: No Eating poorly because of decreased appetite: No Nutrition Risks: No Nutritional Risk Patient : No : No Poor oral hygiene: No service: No Meds Allergies Allergy/AdvReac Type Severity Reaction Status Date / Time amoxicillin Allergy Shortness Verified 03/08/25 14:28 of Breath ceftriaxone Allergy Hives Verified 03/08/25 14:28 Penicillins Allergy Shortness Verified 03/08/25 14:28 of Breath potassium chloride Allergy Itching Verified 03/08/25 14:28 Active Medications: Current Medications Calcium Carbonate (Calcium Carbonate 750 Mg Tab.Chew) 750 mg PO Q4H PRN PRN Reason: Heartburn Folic Acid (Folic Acid 1 Mg Tablet) 1 mg PO DAILY [facility] Stop: 03/12/25 08:59 Heparin Sodium (Porcine) (Heparin Sodium,Porcine 5,000 Unit/Ml Vial) 5,000 unit SUBCUT Q8H [facility] Acetylcysteine 10,886.25 mg/ (Dextrose) 254.4313 mls @ 200 mls/hr IV ONCE ONE Stop: 03/09/25 00:27 Acetylcysteine 3,628.75 mg/ (Dextrose) 518.1438 mls @ 125 mls/hr IV ONCE ONE Stop: 03/09/25 04:38 Acetylcysteine 7,257.5 mg/ (Dextrose) 1,036.2875 mls @ 62.5 mls/hr IV ONCE ONE Stop: 03/09/25 21:34 Dextrose/Sodium Chloride (D51/2ns) 1,000 mls @ 100 mls/hr IVCONT .Q10H [facility] Magnesium Hydroxide (Milk Of Magnesia 30 Ml Oral.Susp) 30 ml PO DAILY PRN PRN Reason: Constipation Melatonin (Melatonin 3 Mg Tablet) 6 mg PO BEDTIME PRN PRN Reason: Insomnia Multivitamins/Vitamin C (Multivitamin Tablet) 1 tab PO DAILY [facility] Stop: 03/12/25 08:59 Omeprazole (Omeprazole 20 Mg Capsule.Dr) 20 mg PO DAILY@0630 [facility] Pharmacy Consult (Consult Rx Etoh Phenob Im/Po) 1 each MISCELLANE ONCE PRN PRN Reason: Consult order Sodium Chloride (0.9 % Sodium Chloride Flush 3 Ml Syringe) 3 ml IVFLUSH QSHIFT [facility] Thiamine HCl (Thiamine Hcl 100 Mg Tablet) 100 mg PO DAILY BETTY Stop: 03/12/25 08:59 Home Medications ?Medication ?Instructions ?Recorded ?Confirmed ?Last Taken ?Type acetaminophen 325 mg tablet 650 - 1,950 mg PO Q4H PRN Pain 12/22/24 12/22/24 12/22/24 03:00 History (Tylenol) Physical Exam Vital Signs and Narrative: Vital Signs: Last Vital Signs Temp 98.0 F 03/08/25 22:05 Pulse 59 03/08/25 22:05 Resp 18 03/08/25 22:05 BP 144/84 H 03/08/25 22:05 Pulse Ox 99 03/08/25 22:05 O2 Del Method Room Air 03/08/25 22:05 BMI result Body Mass Index 28.3 Gen: Appears be in no acute distress HEENT: NCAT, Moist mucosa. Pulmonary: Vesicular breath sounds, fair air entry CVS: Normal S1-S2 Abdomen: Tender in the epigastrium, no guarding no rigidity Extremities: Warm well perfused Neuro: Alert and awake. Patient was examined along with a female data clerk at bedside. Results Labs 03/08/25 16:31 03/08/25 16:31 Labs: Laboratory Results - last 24 hr 03/08/25 16:31 MCV 90.4 MCH 31.3 MCHC 34.6 RDW 14.6 Plt Count 289 MPV 9.5 Immature Gran % (Auto) 0.2 Neut % (Auto) 67.5 Lymph % (Auto) 22.0 [place] % (Auto) 8.0 Eos % (Auto) 1.5 Baso % (Auto) 0.8 Lymph # (Auto) 1.2 [place] # (Auto) 0.4 Eos # (Auto) 0.1 Baso # (Auto) 0.0 Abs Immat Gran (auto) 0.01 Absolute Neuts (auto) 3.5 Absolute Nucleated RBC 0.000 Nucleated RBC % (auto) 0.0 Anion Gap 13 Estim Creat Clear Calc 107.0 Estimated GFR > 60 Random Glucose 101 Calcium 9.6 D Magnesium 1.9 Total Bilirubin 2.7 H Direct Bilirubin 1.7 H AST 998 H ALT 222 H Alkaline Phosphatase 195 H Total Protein 8.0 Albumin 4.8 Lipase 83 H Beta HCG, Quant < 2 Urine Color Dark Yellow Urine Appearance Clear Urine pH 6.5 Ur Specific [place] >= 1.030 H Urine Protein 30 (1+) H Urine Glucose (UA) Negative Urine Ketones 80 Urine Blood Negative Urine Nitrite Positive H Ur Leukocyte Esterase Small (1+) H Urine RBC 3-5 H Urine WBC 0-5 Ur Squamous Epith Cells 11-20 Urine Bacteria 2+ Hyaline Casts 0-2 Ethyl Alcohol < 10 Assessment and Plan (1) Transaminitis: Status: Acute Plan 30-year-old female with a past medical history of alcohol use disorder, history of pancreatitis, GERD, history of cholecystectomy; presented to the hospital today with a chief complaint of abdominal pain. Admitted for following Acute pancreatitis: Likely in setting of recent alcohol use. Pain control Supportive care IV fluids Advanced diet as tolerated Transaminitis: AST 9 9 date, ALT 222, alk-phos 195, T bili 2.7. Patient reports using multiple dose of Tylenol yesterday and this morning. Tylenol level negative Empirically started on NAC protocol Trend liver enzymes GI follow-up MRCP pending assisted by Dr. Andre Opiate abuse: Addiction medicine consult Alcohol use disorder: Monitor on CIWA protocol with Ativan. Thiamine folate and multivitamins. DVT prophylaxis: Lovenox Code status: Full code Quality Stroke Does the patient have a stroke diagnosis?: No VTE Prior VTE?: No VTE Risk Level:: Medical - moderate - high VTE Device Contraindication: Treatment Not Indicated VTE Drug Contraindication: N/A - Med Ordered
[2025-03-08 23:31] LABS: Amphetamine Screen Urine Not Detected (Not Detect); Barbiturates, Urine Not Detected (Not Detect); Benzodiazepines Screen Urine Not Detected (Not Detect); Buprenorphine Scr Not Detected (Not Detect); Cannabinoid Screen Urine POSITIVE (Not Detect); Cocaine Screen Urine Not Detected (Not Detect); Fentanyl, urine Not Detected (Not Detect); Methadone Screen, Urine Not Detected (Not Detect); Opiate Screen Urine POSITIVE (Not Detect); Oxycodone Screen Urine Not Detected (Not Detect); Phencyclidine Screen Urine Not Detected (Not Detect)
[2025-03-09] VITALS (7 sets, daily range): BP systolic 130–176; BP diastolic 75–106; PULSE 56–87; RESP 16–20; TEMP 36.3–36.9; O2SAT 94–100; BMI 28.7
[2025-03-09] MEDS: DEXTROSE 5% IV (00:09)
[2025-03-09] MEDS: ACETYLCYSTEINE IV (00:09)
--- NOTE | 2025-03-09 00:19 | PC.NURSE ---
medicated per mar, mixed with clinical coordinator rosalina and pharmacy.
[2025-03-09 00:33] LABS: Acetaminophen LAB < 3 mcg/mL (<30)
[2025-03-09] MEDS: LORazepam 1 MG TABLET 2 MG PO (01:03)
[2025-03-09] MEDS: HYDROmorphone HCl 0.5 MG/0.5 ML SYRINGE IVPUSH ×5 (01:33→22:43)
[2025-03-09] MEDS: 0.9 % Sodium Chloride Flush 3 ML SYRINGE IVFLUSH ×3 (01:33→21:35)
[2025-03-09] MEDS: Dextrose 5 % and 0.45 % NaCl 1,000 ML 100 ML IVCONT ×2 (01:33→09:32)
--- NOTE | 2025-03-09 01:39 | PC.NURSE ---
second Iv placed by ultrasound, medicated per mar.
--- NOTE | 2025-03-09 02:02 | PC.NURSE ---
report given pt, being transported to Room 468
[2025-03-09] MEDS: Morphine Sulfate 2 MG/ML CARTRIDGE 1 MG IVPUSH ×3 (03:12→10:22)
[2025-03-09] MEDS: ondansetron HCL 4 MG/2 ML VIAL IVPUSH ×3 (03:13→22:44)
[2025-03-09 07:27] LABS: Alanine Aminotransferase 223 U/L (0-31); Alkaline Phosphatase 167 U/L (39-117); Anion Gap 11 (12-20); Aspartate Amino Transferase 624 U/L (5-31); Bilirubin Total 1.1 mg/dL (0.0-1.0); Blood Urea Nitrogen 7 mg/dL (9-16); Carbon Dioxide 25 mmol/L (22-29); Chloride 103 mmol/L (96-108); Creatinine Clr Calc Pharmacy 99.5; Estimated Glomerular Filt Rate > 60; Glucose Random 121 mg/dL (60-115); Sodium 136 mmol/L (135-145); Total Protein 6.6 g/dL (6.5-8.0)
[2025-03-09] MEDS: Folic Acid 1 MG TABLET PO (07:40)
[2025-03-09] MEDS: Thiamine HCL 100 MG TABLET PO (07:40)
[2025-03-09] MEDS: Multivitamin TABLET 1 TAB PO (07:40)
[2025-03-09 07:55] LABS: Calcium 8.3 mg/dL (8.4-10.2)
--- NOTE | 2025-03-09 08:18 | PHA.MEDREC ---
Addendum entered by Evaristo Keene PharmD 03/09/25 08:22: reviewed Original Note: Pharmacy Consult ? Medication Reconciliation Pharmacy has completed the medication reconciliation. Patient states she only takes Tylenol PRN and an Albuterol inhaler PRN. not claims for inhaler so left off med rec.
[2025-03-09] MEDS: LORazepam 1 MG TABLET PO ×4 (09:34→21:34)
--- NOTE | 2025-03-09 09:50 | MHC.CM.PN ---
EMR REVIEWED, PT TRANSAMINITIS/ETOH, CM MET W/PT WHO IS A&O X4, FULLY INEP, NO DME/SERVICES AND GOAL FOR DC IS HOME NO SERVICES. PT REPORTS SHE DOES NOT HAVE A PCP AND LIVES IN [place] AND DOES NOT FEEL SHE NEEDS A PCP AT THIS TIME.
--- NOTE | 2025-03-09 11:14 | P.CNGI_ITS ---
History of Present Illness Data of Consult Service Date: 03/09/25 Primary Care Provider: Unknown Physician HPI Reason for consult: pancreatitis 30-year-old female with a past medical history of alcohol use disorder, history of pancreatitis, GERD, history of cholecystectomy; who I am seeing for assessment for abdominal pain. Patient came to ED with severe 10/10 epigastric abdominal pain for 2 days associated nausea or vomiting without coffee grounds. PAtient had been drinking too much cognac for several days due to parties before the pain came on, she has had pancreatitis in the past and this was the exact same symptoms. Patient had also been taking extra strength tylenol last few days and was also given NAC She denies constipation, no diarrhea rectal bleeding. Deniea new meds, or taking other drugs. Patient denies any fever chills cough or sputum production. Denies any urinary symptoms. LABS: Lipase 83; liver enzymes elevated with AST up to 900s; IMAGING: CT scan: acute pancreatitis. Review of Systems 2 Review of Systems: Constitutional : No Weight loss, No Fever, No Chills ENT/Mouth : No sore throat, No Rhinorrhea Eyes: No Swelling, No Redness Cardiovascular : No Chest Pain, No SOB, No Edema Respiratory : No Cough, No Sputum, No Wheezing Gastrointestinal : see HPI Genitourinary : NO Dysuria, No Urinary Frequency, No Hematuria, No Urgency Musculoskeletal : no joint pain, No Myalgias, No Joint Swelling Skin : No Skin Lesions, No rash Neuro : No Weakness, No Numbness, No Dizziness, No Headache Psych : No Anxiety/Panic, No Depression Heme/Lymph: No Bruising, No Lymphadenopathy Endocrine : No Polyuria, No Polydipsia All other systems reviewed and are negative. [facility] Past Medical History Medical History Pancreatitis Asthma Family History Pertinent family history: no Fh of pancreas dz Social History Social History Household Members: None Housing: Apartment Do you presently have visiting nurse or other home services: No Alcohol intake: current Alcohol intake frequency: a few times a month Alcohol type: wine and hard liquor Patient Tobacco Use Status: Current everyday Tobacco user Tobacco use type: Cigarette Cigarettes Per Day: 1 Smoked in Last 30 Days: Yes e-Cigarette/Vaping Use: Currently Using Patient Interested in Nicotine Replacement: No Patient Given Instructions on How to Stop Smoking: Yes Date Education Initiated: 03/09/25 Second Hand Smoke Exposure: No Use of substances other than those prescribed or required for medical reasons: No Substance Use Type: Marijuana Currently Displaying Signs/Symptoms of Drug Intoxication Withdrawal: No Have you been hit, kicked, punched, or otherwise hurt by someone within the past year? If so, by whom?: No Do you feel safe in your current relationship?: Yes Is there a partner from a previous relationship who is making you feel unsafe now?: No Are you made to feel afraid or neglected: No Advance Directives: No Advance Directives Information Provided: No Advance Directives on File: No Do you have a plan to hurt others: No Plan Recently lost weight without trying: No Eating poorly because of decreased appetite: No Nutrition Risks: No Nutritional Risk Patient : No : No Poor oral hygiene: No service: No Meds Allergies Allergy/AdvReac Type Severity Reaction Status Date / Time amoxicillin Allergy Shortness Verified 03/08/25 14:28 of Breath ceftriaxone Allergy Hives Verified 03/08/25 14:28 Penicillins Allergy Shortness Verified 03/08/25 14:28 of Breath potassium chloride Allergy Itching Verified 03/08/25 14:28 Active Medications: Current Medications Calcium Carbonate (Calcium Carbonate 750 Mg Tab.Chew) 750 mg PO Q4H PRN PRN Reason: Heartburn Folic Acid (Folic Acid 1 Mg Tablet) 1 mg PO DAILY [facility]TY Stop: 03/12/25 08:59 Last Admin: 03/09/25 07:40 Dose: 1 mg Heparin Sodium (Porcine) (Heparin Sodium,Porcine 5,000 Unit/Ml Vial) 5,000 unit SUBCUT Q8H [facility] Last Admin: 03/09/25 07:42 Dose: Not Given Dextrose/Sodium Chloride (D51/2ns) 1,000 mls @ 100 mls/hr IVCONT .Q10H [facility]TY Last Admin: 03/09/25 09:32 Dose: 100 mls/hr Lorazepam (Lorazepam 1 Mg Tablet) 1 mg PO Q4H BETTY; Taper Stop: 03/13/25 02:29 Last Admin: 03/09/25 09:34 Dose: 1 mg Lorazepam (Lorazepam 1 Mg Tablet) 1 mg PO Q4H PRN PRN Reason: Breakthrough alcohol withdrawa Stop: 03/13/25 00:08 Magnesium Hydroxide (Milk Of Magnesia 30 Ml Oral.Susp) 30 ml PO DAILY PRN PRN Reason: Constipation Melatonin (Melatonin 3 Mg Tablet) 6 mg PO BEDTIME PRN PRN Reason: Insomnia Morphine Sulfate (Morphine Sulfate 2 Mg/Ml Cartridge) 1 mg IVPUSH Q4H PRN; Protocol PRN Reason: Breakthrough Pain Last Admin: 03/09/25 10:22 Dose: 1 mg Multivitamins/Vitamin C (Multivitamin Tablet) 1 tab PO DAILY [facility] Stop: 03/12/25 08:59 Last Admin: 03/09/25 07:40 Dose: 1 tab Omeprazole (Omeprazole 20 Mg Capsule.Dr) 20 mg PO DAILY@0630 [facility] Last Admin: 03/09/25 06:42 Dose: Not Given Ondansetron HCl (Ondansetron Hcl 4 Mg/2 Ml Vial) 4 mg IVPUSH Q4H PRN PRN Reason: Nausea and Vomiting Last Admin: 03/09/25 10:22 Dose: 4 mg Sodium Chloride (0.9 % Sodium Chloride Flush 3 Ml Syringe) 3 ml IVFLUSH QSHIFT [facility] Last Admin: 03/09/25 07:41 Dose: Not Given Thiamine HCl (Thiamine Hcl 100 Mg Tablet) 100 mg PO DAILY [facility] Stop: 03/12/25 08:59 Last Admin: 03/09/25 07:40 Dose: 100 mg Home Medications ?Medication ?Instructions ?Recorded ?Confirmed ?Last Taken ?Type acetaminophen 325 mg tablet 650 - 1,950 mg PO Q4H PRN Pain 12/22/24 03/09/25 12/22/24 03:00 History (Tylenol) Physical Exam 2 Vital Signs: Vital Signs: Last Vital Signs Temp 97.9 F 03/09/25 07:24 Pulse 58 03/09/25 07:24 Resp 18 03/09/25 07:24 BP 144/80 H 03/09/25 07:24 Pulse Ox 100 03/09/25 07:24 O2 Del Method Room Air 03/09/25 07:24 BMI result Body Mass Index 28.7 EXAM: GENERAL: The patient is well developed and nontoxic. VITAL SIGNS:see workflow HEENT: Nonicteric sclerae, PERRLA, EOMI. Oropharynx clear. Moist mucous membranes. Conjunctivae appear well perfused. No thyroid mass. CHEST: Chest wall is nontender. HEART: Regular rate and rhythm without murmurs. LUNGS: Clear to auscultation bilaterally. ABDOMEN: Soft, positive bowel sounds, mildly tender epigastrium, no organomegaly.no flank tenderness SKIN: No rash, no excessive bruising, petechiae, or purpura. NEUROLOGIC: Cranial nerves II-XII intact without motor/sensory deficit. Psych: normal affect Results Labs 03/08/25 16:31 03/09/25 06:42 Labs: Short CBC 03/08/25 Range/Units 16:31 WBC 5.2 (4.8-10.8) X10*3/uL Hgb 13.3 (12.0-16.0) g/dl Hct 38.4 (37.0-47.0) % Plt Count 289 (160-400) X10*3/uL BMP 03/08/25 03/09/25 16:31 06:42 Sodium 137 136 Potassium 3.4 3.0 L Chloride 102 103 Carbon Dioxide 25 25 BUN 7 L 7 L Creatinine 0.72 0.78 Calcium 9.6 D 8.3 L D Liver Function 03/08/25 03/09/25 Range/Units 16:31 06:42 Total Bilirubin 2.7 H 1.1 H (0.0-1.0) mg/dL Direct Bilirubin 1.7 H (0.0-0.5) mg/dL AST 998 H 624 H (5-31) U/L ALT 222 H 223 H (0-31) U/L Alkaline Phosphatase 195 H 167 H (39-117) U/L Albumin 4.8 4.0 (3.5-5.0) g/dL Urine 03/08/25 Range/Units 16:31 Urine Color Dark Yellow Urine Appearance Clear Urine pH 6.5 (5.0-9.0) Ur Specific [place] >= 1.030 H (1.005-1.025) Urine Protein 30 (1+) H (Neg-Trace) mg/dL Urine Glucose (UA) Negative (Negative) mg/dL Microbiology Microbiology Results: Microbiology 03/08/25 20:05 Urine clean catch - Clean Catch Midstream Urine Culture - Preliminary No growth to date. Assessment and Plan (1) Pancreatitis: Qualifiers: Acute pancreatitis complication: no infection or necrosis Chronicity: a cute Pancreatitis type: alcohol induced Qualified Code(s): K85.20 - Alcohol induced acute pancreatitis without necrosis or infection Status: Acute Plan 1/ Acute pancreatitis likely from alcohol, also elevated LFT possibly from tylenol use or could be from CBD lesion or sludge She feels better today and wants to try to eat PLAN: 1/ Advance deit as tolerated 2/ cont IV fluids with LR 3/ await MRCP read, I see no filling defect question of possible distal cbd stricture with dilated CBD, if LFT keep coming down and she is improving then can consider o/p ERCP, otherwise can do as in aptient Procedures Date of Service Date of Service: 03/09/25
--- NOTE | 2025-03-09 11:46 | P.PNIM_ITS ---
Subjective Subjective Date of Service: 03/09/25 Interval History: abd pain Physical Exam 2 Vital Signs: Vital Signs: Last Vital Signs Temp 98.5 F 03/09/25 11:15 Pulse 87 03/09/25 11:15 Resp 16 03/09/25 11:15 BP 149/98 H 03/09/25 11:15 Pulse Ox 99 03/09/25 11:15 O2 Del Method Room Air 03/09/25 11:15 BMI result Body Mass Index 28.7 General: AO X 3, no acute distress Resp: CTA bilateral, no accessory muscles used CVS: S1,S2,RRR GI: soft, tender, non distended Neuro: motor grossly intact, alert Psych: appropriate affect, appropriate insight Objective Data Active Medications Calcium Carbonate (Calcium Carbonate 750 Mg Tab.Chew) 750 mg PO Q4H PRN PRN Reason: Heartburn Folic Acid (Folic Acid 1 Mg Tablet) 1 mg PO DAILY [facility] Stop: 03/12/25 08:59 Last Admin: 03/09/25 07:40 Dose: 1 mg Documented By: SUAD Heparin Sodium (Porcine) (Heparin Sodium,Porcine 5,000 Unit/Ml Vial) 5,000 unit SUBCUT Q8H [facility] Last Admin: 03/09/25 07:42 Dose: Not Given Documented By: SUAD Non-Admin Reason: Patient Refused Dextrose/Sodium Chloride (D51/2ns) 1,000 mls @ 100 mls/hr IVCONT .Q10H [facility] Last Admin: 03/09/25 09:32 Dose: 100 mls/hr Documented By: SUAD Lorazepam (Lorazepam 1 Mg Tablet) 1 mg PO Q4H [facility]; Taper Stop: 03/13/25 02:29 Last Admin: 03/09/25 09:34 Dose: 1 mg Documented By: SUAD Lorazepam (Lorazepam 1 Mg Tablet) 1 mg PO Q4H PRN PRN Reason: Breakthrough alcohol withdrawa Stop: 03/13/25 00:08 Magnesium Hydroxide (Milk Of Magnesia 30 Ml Oral.Susp) 30 ml PO DAILY PRN PRN Reason: Constipation Melatonin (Melatonin 3 Mg Tablet) 6 mg PO BEDTIME PRN PRN Reason: Insomnia Morphine Sulfate (Morphine Sulfate 2 Mg/Ml Cartridge) 1 mg IVPUSH Q4H PRN; Protocol PRN Reason: Breakthrough Pain Last Admin: 03/09/25 10:22 Dose: 1 mg Documented By: SUAD Multivitamins/Vitamin C (Multivitamin Tablet) 1 tab PO DAILY [facility] Stop: 03/12/25 08:59 Last Admin: 03/09/25 07:40 Dose: 1 tab Documented By: SUAD Omeprazole (Omeprazole 20 Mg Capsule.) 20 mg PO DAILY@0630 [facility] Last Admin: 03/09/25 06:42 Dose: Not Given Documented By: WILNER Non-Admin Reason: Nausea Ondansetron HCl (Ondansetron Hcl 4 Mg/2 Ml Vial) 4 mg IVPUSH Q4H PRN PRN Reason: Nausea and Vomiting Last Admin: 03/09/25 10:22 Dose: 4 mg Documented By: SUAD Sodium Chloride (0.9 % Sodium Chloride Flush 3 Ml Syringe) 3 ml IVFLUSH QSHIFT [facility] Last Admin: 03/09/25 07:41 Dose: Not Given Documented By: SUAD Non-Admin Reason: IV Running Thiamine HCl (Thiamine Hcl 100 Mg Tablet) 100 mg PO DAILY [facility] Stop: 03/12/25 08:59 Last Admin: 03/09/25 07:40 Dose: 100 mg Documented By: SUAD Labs 03/08/25 16:31 03/09/25 06:42 Labs: Laboratory Results - last 24 hr 03/08/25 03/08/25 03/08/25 16:31 23:14 23:57 MCV 90.4 MCH 31.3 MCHC 34.6 RDW 14.6 Plt Count 289 MPV 9.5 Immature Gran % (Auto) 0.2 Neut % (Auto) 67.5 Lymph % (Auto) 22.0 [place] % (Auto) 8.0 Eos % (Auto) 1.5 Baso % (Auto) 0.8 Lymph # (Auto) 1.2 [place] # (Auto) 0.4 Eos # (Auto) 0.1 Baso # (Auto) 0.0 Abs Immat Gran (auto) 0.01 Absolute Neuts (auto) 3.5 Absolute Nucleated RBC 0.000 Nucleated RBC % (auto) 0.0 Anion Gap 13 Estim Creat Clear Calc 107.0 Estimated GFR > 60 Random Glucose 101 Calcium 9.6 D Magnesium 1.9 Total Bilirubin 2.7 H Direct Bilirubin 1.7 H AST 998 H ALT 222 H Alkaline Phosphatase 195 H Total Protein 8.0 Albumin 4.8 Lipase 83 H Beta HCG, Quant < 2 Urine Color Dark Yellow Urine Appearance Clear Urine pH 6.5 Ur Specific [place] >= 1.030 H Urine Protein 30 (1+) H Urine Glucose (UA) Negative Urine Ketones 80 Urine Blood Negative Urine Nitrite Positive H Ur Leukocyte Esterase Small (1+) H Urine RBC 3-5 H Urine WBC 0-5 Ur Squamous Epith Cells 11-20 Urine Bacteria 2+ Hyaline Casts 0-2 Urine Opiates Screen POSITIVE H Ur Buprenorphine Scrn Not Detected Ur Oxycodone Screen Not Detected Urine Methadone Screen Not Detected Urine Fentanyl Screen Not Detected Acetaminophen < 3 Ur Barbiturates Screen Not Detected Ur Phencyclidine Scrn Not Detected Ur Amphetamines Screen Not Detected U Benzodiazepines Scrn Not Detected Urine Cocaine Screen Not Detected U Marijuana (THC) Screen POSITIVE H Ethyl Alcohol < 10 03/09/25 06:42 MCV MCH MCHC RDW Plt Count MPV Immature Gran % (Auto) Neut % (Auto) Lymph % (Auto) [place] % (Auto) Eos % (Auto) Baso % (Auto) Lymph # (Auto) [place] # (Auto) Eos # (Auto) Baso # (Auto) Abs Immat Gran (auto) Absolute Neuts (auto) Absolute Nucleated RBC Nucleated RBC % (auto) Anion Gap 11 L Estim Creat Clear Calc 99.5 Estimated GFR > 60 Random Glucose 121 H Calcium 8.3 L D Magnesium Total Bilirubin 1.1 H Direct Bilirubin AST 624 H ALT 223 H Alkaline Phosphatase 167 H Total Protein 6.6 Albumin 4.0 Lipase Beta HCG, Quant Urine Color Urine Appearance Urine pH Ur Specific [place] Urine Protein Urine Glucose (UA) Urine Ketones Urine Blood Urine Nitrite Ur Leukocyte Esterase Urine RBC Urine WBC Ur Squamous Epith Cells Urine Bacteria Hyaline Casts Urine Opiates Screen Ur Buprenorphine Scrn Ur Oxycodone Screen Urine Methadone Screen Urine Fentanyl Screen Acetaminophen Ur Barbiturates Screen Ur Phencyclidine Scrn Ur Amphetamines Screen U Benzodiazepines Scrn Urine Cocaine Screen U Marijuana (THC) Screen Ethyl Alcohol Microbiology Microbiology Results: Microbiology 03/08/25 20:05 Urine Culture - Preliminary Urine clean catch - Clean Catch Midstream No growth to date. Assessment and Plan (1) Pancreatitis: Status: Acute Plan 30F PMH alcohol dependence, opiate dependence with history of pancreatitis, presented with abdominal pain Acute alcoholic pancreatitis IV fluids, pain meds, continue clears Follow up GI, MRCP Opiate dependence Addiction team eval Reported Tylenol toxicity Acetaminophen undetectable Full code reason for continued hospitalization:not tolerating po Quality Stroke Does the patient have a stroke diagnosis?: No VTE Prior VTE?: No VTE Risk Level:: Medical - moderate - high VTE Device Contraindication: Treatment Not Indicated VTE Drug Contraindication: N/A - Med Ordered
[2025-03-09] MEDS: Lactated Ringers 1,000 ML 100 ML IVCONT (12:05)
--- NOTE | 2025-03-09 14:23 | PM.EVENT ---
Event Note Date of Service: 03/09/25 Event Note: Addiction consult placed for patient with AUD Patient requesting to not be seen today. Will revisit tomorrow. Time Spent With Patient Time: Total time managing care of this patient today ____ minutes.
[2025-03-09] MEDS: Melatonin 3 MG TABLET 6 MG PO (22:56)
[2025-03-10] VITALS: BP 147/86; PULSE 78; RESP 18; TEMP 36.7; O2SAT 95
[2025-03-10] MEDS: LORazepam 1 MG TABLET PO ×3 (01:58→16:09)
[2025-03-10] MEDS: HYDROmorphone HCl 0.5 MG/0.5 ML SYRINGE IVPUSH ×3 (02:01→07:40)
[2025-03-10 03:18] VITALS: RESP 16
[2025-03-10 04:00] VITALS: BP 175/97; PULSE 88; RESP 18; TEMP 36.5; O2SAT 95
[2025-03-10] MEDS: Lactated Ringers 1,000 ML 100 ML IVCONT (04:33)
[2025-03-10] MEDS: Omeprazole 20 MG CAPSULE.DR PO (05:47)
[2025-03-10 06:19] LABS: Mean Corpuscular HGB Conc 34.3 g/dl (31.0-35.0); Mean Corpuscular Hemoglobin 31.4 pg (27.0-33.0); Mean Corpuscular Volume 91.6 fL (80.0-98.0); Mean Platelet Volume 9.7 fL (9.4-12.3); Platelet Count 255 X10*3/uL (160-400); Red Blood Count 3.82 X10*6/uL (4.20-5.50); Red Cell Distribution Width 14.5 % (11.0-16.0); White Blood Count 6.4 X10*3/uL (4.8-10.8)
[2025-03-10 06:57] LABS: Alanine Aminotransferase 265 U/L (0-31); Alkaline Phosphatase 198 U/L (39-117); Anion Gap 11 (12-20); Aspartate Amino Transferase 562 U/L (5-31); Bilirubin Direct 0.9 mg/dL (0.0-0.5); Bilirubin Total 1.5 mg/dL (0.0-1.0); Blood Urea Nitrogen 3 mg/dL (9-16); Calcium 9.1 mg/dL (8.4-10.2); Carbon Dioxide 31 mmol/L (22-29); Chloride 101 mmol/L (96-108); Estimated Glomerular Filt Rate > 60; Glucose Random 91 mg/dL (60-115); Magnesium 1.8 mg/dL (1.6-2.6); Sodium 140 mmol/L (135-145); Total Protein 6.6 g/dL (6.5-8.0)
[2025-03-10 07:01] LABS: Potassium 2.9 mmol/L (3.3-5.1)
[2025-03-10 07:27] VITALS: BP 166/98; PULSE 69; RESP 18; TEMP 36.6; O2SAT 96
[2025-03-10] MEDS: ondansetron HCL 4 MG/2 ML VIAL IVPUSH ×2 (07:42→16:21)
[2025-03-10] MEDS: 0.9 % Sodium Chloride Flush 3 ML SYRINGE IVFLUSH (07:43)
[2025-03-10] MEDS: Folic Acid 1 MG TABLET PO (07:45)
[2025-03-10] MEDS: Potassium Chloride ER 20 MEQ TAB.ER.PRT 40 MEQ PO (07:45)
[2025-03-10] MEDS: Multivitamin TABLET 1 TAB PO (07:46)
[2025-03-10] MEDS: Thiamine HCL 100 MG TABLET PO (07:46)
--- NOTE | 2025-03-10 10:21 | MHC.CM.PN ---
ANTIC PT TO BE MEDICALLY CLEARED HOME SELF-CARE IF TOLERATING DIET, PT WILL ARRANGE PRIVATE TRANSPORT
[2025-03-10] MEDS: HYDROmorphone HCl 0.5 MG/0.5 ML SYRINGE 1 MG IVPUSH ×2 (10:39→16:09)
[2025-03-10 11:07] VITALS: BP 133/85; PULSE 65; RESP 16; TEMP 36.7; O2SAT 96
--- NOTE | 2025-03-10 11:25 | P.PNIM_ITS ---
Subjective Subjective Date of Service: 03/10/25 Interval History: wants to advance to solids Physical Exam 2 Vital Signs: Vital Signs: Last Vital Signs Temp 98.0 F 03/10/25 11:07 Pulse 65 03/10/25 11:07 Resp 16 03/10/25 11:07 BP 133/85 03/10/25 11:07 Pulse Ox 96 03/10/25 11:07 O2 Del Method Room Air 03/10/25 11:07 BMI result Body Mass Index 28.7 General: AO X 3, no acute distress Resp: CTA bilateral, no accessory muscles used CVS: S1,S2,RRR GI: soft, tender, non distended Neuro: motor grossly intact, alert Psych: appropriate affect, appropriate insight Objective Data Active Medications Calcium Carbonate (Calcium Carbonate 750 Mg Tab.Chew) 750 mg PO Q4H PRN PRN Reason: Heartburn Folic Acid (Folic Acid 1 Mg Tablet) 1 mg PO DAILY [facility] Stop: 03/12/25 08:59 Last Admin: 03/10/25 07:45 Dose: 1 mg Documented By: ZURI Heparin Sodium (Porcine) (Heparin Sodium,Porcine 5,000 Unit/Ml Vial) 5,000 unit SUBCUT Q8H [facility] Last Admin: 03/10/25 07:51 Dose: Not Given Documented By: ZURI Non-Admin Reason: Patient Refused Hydromorphone HCl (Hydromorphone Hcl 0.5 Mg/0.5 Ml Syringe) 1 mg IVPUSH Q3H PRN; Protocol PRN Reason: Pain, Severe (Pain Scale 7-10) Last Admin: 03/10/25 10:39 Dose: 1 mg Documented By: ZURI Lactated Ringer's (Lr) 1,000 mls @ 100 mls/hr IVCONT .Q10H [facility] Last Admin: 03/10/25 04:33 Dose: 100 mls/hr Documented By: CASH Lorazepam (Lorazepam 1 Mg Tablet) 1 mg PO Q6H [facility]; Taper Stop: 03/13/25 02:29 Last Admin: 03/10/25 08:02 Dose: 1 mg Documented By: ZURI Lorazepam (Lorazepam 1 Mg Tablet) 1 mg PO Q4H PRN PRN Reason: Breakthrough alcohol withdrawa Stop: 03/13/25 00:08 Magnesium Hydroxide (Milk Of Magnesia 30 Ml Oral.Susp) 30 ml PO DAILY PRN PRN Reason: Constipation Melatonin (Melatonin 3 Mg Tablet) 6 mg PO BEDTIME PRN PRN Reason: Insomnia Last Admin: 03/09/25 22:56 Dose: 6 mg Documented By: CASH Multivitamins/Vitamin C (Multivitamin Tablet) 1 tab PO DAILY [facility] Stop: 03/12/25 08:59 Last Admin: 03/10/25 07:46 Dose: 1 tab Documented By: ZURI Omeprazole (Omeprazole 20 Mg Capsule.Dr) 20 mg PO DAILY@0630 [facility] Last Admin: 03/10/25 05:47 Dose: 20 mg Documented By: CLAUDIA Ondansetron HCl (Ondansetron Hcl 4 Mg/2 Ml Vial) 4 mg IVPUSH Q4H PRN PRN Reason: Nausea and Vomiting Last Admin: 03/10/25 07:42 Dose: 4 mg Documented By: ZURI Potassium Chloride (Potassium Chloride Er 10 Meq Tablet.Er) 20 meq PO ONCE ONE Stop: 03/10/25 14:01 Sodium Chloride (0.9 % Sodium Chloride Flush 3 Ml Syringe) 3 ml IVFLUSH QSHIFT [facility] Last Admin: 03/10/25 07:43 Dose: 3 ml Documented By: ZURI Thiamine HCl (Thiamine Hcl 100 Mg Tablet) 100 mg PO DAILY [facility] Stop: 03/12/25 08:59 Last Admin: 03/10/25 07:46 Dose: 100 mg Documented By: ZURI Labs 03/10/25 05:46 03/10/25 05:46 Labs: Laboratory Results - last 24 hr 03/10/25 05:46 MCV 91.6 MCH 31.4 MCHC 34.3 RDW 14.5 Plt Count 255 MPV 9.7 Absolute Nucleated RBC 0.000 Nucleated RBC % (auto) 0.0 Anion Gap 11 L Estim Creat Clear Calc 97.0 Estimated GFR > 60 Random Glucose 91 Calcium 9.1 D Magnesium 1.8 Total Bilirubin 1.5 H Direct Bilirubin 0.9 H AST 562 H ALT 265 H Alkaline Phosphatase 198 H Total Protein 6.6 Albumin 4.0 Microbiology Microbiology Results: Microbiology 03/08/25 20:05 Urine Culture - Final Urine clean catch - Clean Catch Midstream Assessment and Plan (1) Pancreatitis: Status: Acute Plan 30F PMH alcohol dependence, opiate dependence with history of pancreatitis, presented with abdominal pain Acute alcoholic pancreatitis IV fluids, pain meds, advance to solids MRCP negative, follow up with gi as outpaitent acute hypokalemia replace and [facility] Opiate dependence Addiction team ora Reported Tylenol toxicity Acetaminophen undetectable Full code reason for continued hospitalization:not tolerating po Quality Stroke Does the patient have a stroke diagnosis?: No VTE Prior VTE?: No VTE Risk Level:: Medical - moderate - high VTE Device Contraindication: Treatment Not Indicated VTE Drug Contraindication: N/A - Med Ordered
--- NOTE | 2025-03-10 14:09 | HO.ADDICT_ITS ---
History of Present Illness Date of Service: 03/10/2025 Chief Complaint: transaminitis Reason for Consult: AUD Sources of Information: patient interviewed and chart reviewed HPI Narrative: Patient is a 30 year old female with AUD and hospitalizations for pancreatitis realted to ongoing alcohol use. Patient known to this writer editor via previous consults. Patient has presented to ED 6 times from 11/2024 until now and this is her 3rd admission. Today patient seen in 468. She is awake, alert, somewhat guarded. Scheduled to discharge today. She reports that he last drink was March 06. Prior to that, her last binge was on her birthday--where she says she planned that as a goodbye to drinking, because she planned to stop. She is aware of the impact alcohol has been having on her overall health, and states that it also has been impacting her in otehr areas of life--basketball, working out, etc. She also shared increasing pressure from loved ones to stop drinking. Medical Evaluation Reviewed: Yes Review of Systems Constitutional: Reports as per HPI Gastrointestinal: Reports abdominal pain (improving), Denies loose stools and Denies nausea Musculoskeletal: Denies myalgias Diagnostics Vital Signs (24Hr): Vital Signs - 24 hr 03/09/25 15:15 03/09/25 20:00 03/09/25 23:15 Temperature 97.7 F 97.4 F Pulse Rate 73 63 Respiratory Rate 16 18 18 Blood Pressure 136/79 130/75 Pulse Oximetry 99 99 Oxygen Delivery Method Room Air Room Air 03/10/25 00:00 03/10/25 03:18 03/10/25 04:00 Temperature 98.0 F 97.7 F Pulse Rate 78 88 Respiratory Rate 18 16 18 Blood Pressure 147/86 H 175/97 H Pulse Oximetry 95 95 Oxygen Delivery Method Room Air 03/10/25 07:27 03/10/25 11:07 Temperature 97.9 F 98.0 F Pulse Rate 69 65 Respiratory Rate 18 16 Blood Pressure 166/98 H 133/85 Pulse Oximetry 96 96 Oxygen Delivery Method Room Air Room Air BMI result Body Mass Index 28.7 Labs 03/10/25 05:46 03/10/25 05:46 Labs: Laboratory Results - last 48 hr 03/08/25 03/08/25 03/08/25 16:31 23:14 23:57 WBC 5.2 RBC 4.25 Hgb 13.3 Hct 38.4 MCV 90.4 MCH 31.3 MCHC 34.6 RDW 14.6 Plt Count 289 MPV 9.5 Immature Gran % (Auto) 0.2 Neut % (Auto) 67.5 Lymph % (Auto) 22.0 [place] % (Auto) 8.0 Eos % (Auto) 1.5 Baso % (Auto) 0.8 Lymph # (Auto) 1.2 [place] # (Auto) 0.4 Eos # (Auto) 0.1 Baso # (Auto) 0.0 Abs Immat Gran (auto) 0.01 Absolute Neuts (auto) 3.5 Absolute Nucleated RBC 0.000 Nucleated RBC % (auto) 0.0 Sodium 137 Potassium 3.4 Chloride 102 Carbon Dioxide 25 Anion Gap 13 BUN 7 L Creatinine 0.72 Estim Creat Clear Calc 107.0 Estimated GFR > 60 Random Glucose 101 Calcium 9.6 D Magnesium 1.9 Total Bilirubin 2.7 H Direct Bilirubin 1.7 H AST 998 H ALT 222 H Alkaline Phosphatase 195 H Total Protein 8.0 Albumin 4.8 Lipase 83 H Beta HCG, Quant < 2 Urine Color Dark Yellow Urine Appearance Clear Urine pH 6.5 Ur Specific [place] >= 1.030 H Urine Protein 30 (1+) H Urine Glucose (UA) Negative Urine Ketones 80 Urine Blood Negative Urine Nitrite Positive H Ur Leukocyte Esterase Small (1+) H Urine RBC 3-5 H Urine WBC 0-5 Ur Squamous Epith Cells 11-20 Urine Bacteria 2+ Hyaline Casts 0-2 Urine Opiates Screen POSITIVE H Ur Buprenorphine Scrn Not Detected Ur Oxycodone Screen Not Detected Urine Methadone Screen Not Detected Urine Fentanyl Screen Not Detected Acetaminophen < 3 Ur Barbiturates Screen Not Detected Ur Phencyclidine Scrn Not Detected Ur Amphetamines Screen Not Detected U Benzodiazepines Scrn Not Detected Urine Cocaine Screen Not Detected U Marijuana (THC) Screen POSITIVE H Ethyl Alcohol < 10 03/09/25 03/10/25 06:42 05:46 WBC 6.4 RBC 3.82 L Hgb 12.0 Hct 35.0 L MCV 91.6 MCH 31.4 MCHC 34.3 RDW 14.5 Plt Count 255 MPV 9.7 Immature Gran % (Auto) Neut % (Auto) Lymph % (Auto) [place] % (Auto) Eos % (Auto) Baso % (Auto) Lymph # (Auto) [place] # (Auto) Eos # (Auto) Baso # (Auto) Abs Immat Gran (auto) Absolute Neuts (auto) Absolute Nucleated RBC 0.000 Nucleated RBC % (auto) 0.0 Sodium 136 140 Potassium 3.0 L 2.9 L* Chloride 103 101 Carbon Dioxide 25 31 H Anion Gap 11 L 11 L BUN 7 L 3 L Creatinine 0.78 0.80 Estim Creat Clear Calc 99.5 97.0 Estimated GFR > 60 > 60 Random Glucose 121 H 91 Calcium 8.3 L D 9.1 D Magnesium 1.8 Total Bilirubin 1.1 H 1.5 H Direct Bilirubin 0.9 H AST 624 H 562 H ALT 223 H 265 H Alkaline Phosphatase 167 H 198 H Total Protein 6.6 6.6 Albumin 4.0 4.0 Lipase Beta HCG, Quant Urine Color Urine Appearance Urine pH Ur Specific [place] Urine Protein Urine Glucose (UA) Urine Ketones Urine Blood Urine Nitrite Ur Leukocyte Esterase Urine RBC Urine WBC Ur Squamous Epith Cells Urine Bacteria Hyaline Casts Urine Opiates Screen Ur Buprenorphine Scrn Ur Oxycodone Screen Urine Methadone Screen Urine Fentanyl Screen Acetaminophen Ur Barbiturates Screen Ur Phencyclidine Scrn Ur Amphetamines Screen U Benzodiazepines Scrn Urine Cocaine Screen U Marijuana (THC) Screen Ethyl Alcohol Imaging Radiology Impressions: ITS Impressions Orbit X-Ray 03/09/25 11:32 IMPRESSION: No radiopaque foreign body between the hip and knee of the left leg. Electronically signed by: Darin Serna MD 03/09/2025 01:04 PM EDT RP Cholangiopancreatography MRI 03/09/25 13:52 IMPRESSION: 1. No peripancreatic inflammatory stranding or fluid to suggest acute pancreatitis. 2. No evidence of choledocholithiasis. There is narrowing of the common bile duct in the pancreatic head which could indicate a stricture. Suggest ERCP evaluation. Electronically signed by: Marquis Doan MD 03/09/2025 03:01 PM EDT RP Mental Status Exam Mental Status Exam Patient Appearance: Appropriate Level of Consciousness: Awake, Appropriate and Alert Patient Behavior: Appropriate and Guarded Affect Description: Blunted Speech Pattern: Clear Hallucinations: None Judgement: Fair Medications Medications Current Medications Calcium Carbonate (Calcium Carbonate 750 Mg Tab.Chew) 750 mg PO Q4H PRN PRN Reason: Heartburn Folic Acid (Folic Acid 1 Mg Tablet) 1 mg PO DAILY [facility] Stop: 03/12/25 08:59 Last Admin: 03/10/25 07:45 Dose: 1 mg Heparin Sodium (Porcine) (Heparin Sodium,Porcine 5,000 Unit/Ml Vial) 5,000 unit SUBCUT Q8H [facility] Last Admin: 03/10/25 07:51 Dose: Not Given Hydromorphone HCl (Hydromorphone Hcl 0.5 Mg/0.5 Ml Syringe) 1 mg IVPUSH Q3H PRN; Protocol PRN Reason: Pain, Severe (Pain Scale 7-10) Last Admin: 03/10/25 10:39 Dose: 1 mg Lactated Ringer's (Lr) 1,000 mls @ 100 mls/hr IVCONT .Q10H [facility] Last Admin: 03/10/25 12:44 Dose: Not Given Lorazepam (Lorazepam 1 Mg Tablet) 1 mg PO Q6H [facility]; Taper Stop: 03/13/25 02:29 Last Admin: 03/10/25 08:02 Dose: 1 mg Lorazepam (Lorazepam 1 Mg Tablet) 1 mg PO Q4H PRN PRN Reason: Breakthrough alcohol withdrawa Stop: 03/13/25 00:08 Magnesium Hydroxide (Milk Of Magnesia 30 Ml Oral.Susp) 30 ml PO DAILY PRN PRN Reason: Constipation Melatonin (Melatonin 3 Mg Tablet) 6 mg PO BEDTIME PRN PRN Reason: Insomnia Last Admin: 03/09/25 22:56 Dose: 6 mg Multivitamins/Vitamin C (Multivitamin Tablet) 1 tab PO DAILY [facility] Stop: 03/12/25 08:59 Last Admin: 03/10/25 07:46 Dose: 1 tab Omeprazole (Omeprazole 20 Mg Capsule.Dr) 20 mg PO DAILY@0630 [facility] Last Admin: 03/10/25 05:47 Dose: 20 mg Ondansetron HCl (Ondansetron Hcl 4 Mg/2 Ml Vial) 4 mg IVPUSH Q4H PRN PRN Reason: Nausea and Vomiting Last Admin: 03/10/25 07:42 Dose: 4 mg Sodium Chloride (0.9 % Sodium Chloride Flush 3 Ml Syringe) 3 ml IVFLUSH QSHIFT [facility] Last Admin: 03/10/25 07:43 Dose: 3 ml Thiamine HCl (Thiamine Hcl 100 Mg Tablet) 100 mg PO DAILY [facility] Stop: 03/12/25 08:59 Last Admin: 03/10/25 07:46 Dose: 100 mg Allergies Allergies Allergy/AdvReac Type Severity Reaction Status Date / Time amoxicillin Allergy Shortness Verified 03/08/25 14:28 of Breath ceftriaxone Allergy Hives Verified 03/08/25 14:28 Penicillins Allergy Shortness Verified 03/08/25 14:28 of Breath potassium chloride Allergy Itching Verified 03/08/25 14:28 Assessment & Plan Assessment & Plan (1) Alcohol use disorder: Status: Acute Code(s): F10.90 - Alcohol use, unspecified, uncomplicated Assessment and Plan: * declines intervention at this time, however accepted information for [facility] and encouraged to call office should she change her mind or have any questions * discussed reaching out to supports as needed * aware of [facility] options and declines at this time Total time managing care of this patient today __15__ minutes. PMFSH Past Medical History Medical History Pancreatitis Asthma Social History Social History Household Members: None Housing: Apartment Do you presently have visiting nurse or other home services: No Alcohol intake: current Alcohol intake frequency: a few times a month Alcohol type: wine and hard liquor Patient Tobacco Use Status: Current everyday Tobacco user Tobacco use type: Cigarette Cigarettes Per Day: 1 Smoked in Last 30 Days: Yes e-Cigarette/Vaping Use: Currently Using Patient Interested in Nicotine Replacement: No Patient Given Instructions on How to Stop Smoking: Yes Date Education Initiated: 03/09/25 Second Hand Smoke Exposure: No Use of substances other than those prescribed or required for medical reasons: No Substance Use Type: Marijuana Currently Displaying Signs/Symptoms of Drug Intoxication Withdrawal: No Have you been hit, kicked, punched, or otherwise hurt by someone within the past year? If so, by whom?: No Do you feel safe in your current relationship?: Yes Is there a partner from a previous relationship who is making you feel unsafe now?: No Are you made to feel afraid or neglected: No Advance Directives: No Advance Directives Information Provided: No Advance Directives on File: No Do you have a plan to hurt others: No Plan Recently lost weight without trying: No Eating poorly because of decreased appetite: No Nutrition Risks: No Nutritional Risk Patient : No : No Poor oral hygiene: No service: No
[2025-03-10 15:09] VITALS: BP 170/86; PULSE 82; RESP 18; TEMP 36.3; O2SAT 98
[2025-03-10 15:47] LABS: Potassium 3.8 mmol/L (3.3-5.1)
--- NOTE | 2025-03-10 15:53 | P.DS_ITS ---
DS: Providers Provider Date of Service: 03/10/25 Date of admission: 03/08/25 23:18 Date of discharge: 03/10/25 Primary care physician: None Physician Consults: 03/08/25 23:18 Consult to Gastroenterology Routine Consulting Provider: Paddy Tavarez Reason for consultation: transaminitis 03/09/25 02:51 Addiction Medicine Provider Routine Consulting Provider: Lenka Covering Reason for consultation: opiate abuse DS: Diagnosis Discharge Diagnosis (1) Alcohol use disorder: Status: Acute DS: Summary Hospital Course Hospital Course: from initial hpi: 30-year-old female with a past medical history of alcohol use disorder, history of pancreatitis, GERD, history of cholecystectomy; presented to the hospital today with a chief complaint of abdominal pain. Patient reports she has been having epigastric abdominal pain for 2 days associated nausea or vomiting. Denies any diarrhea. Reports that she has had few drinks prior to the start of the symptoms. Mentioned that she took about 9 tablets of extra-strength Tylenol yesterday and she took a few tablets this morning prior to coming to the hospital. Reports using cannabis. Denies any chest pain or palpitations. Patient denies any fever chills cough or sputum production. Denies any urinary symptoms. Review of other systems is negative except mentioned above ER course: Per ER team, patient noted to have epigastric tenderness without any guarding or rigidity; lipase 83; liver enzymes elevated with AST up to 900s; discussed with Dr. Limon-from GI who suggested admission to the hospital for possible MRCP. CT scan showed findings concerning for acute pancreatitis. Patient is started on NAC protocol. Tylenol level negative. hospital course: Patient admitted for acute alcoholic pancreatitis. She was treated with IV fluids, pain meds diet slowly advanced and patient now tolerating will be followed up by GI as outpatient for possible ERCP. For acute hypokalemia received replacement. For opiate dependence was seen by Addiction team. For reported Tylenol toxicity acetaminophen level was undetectable and was likely noncontributing. Time Attestation Discharge Coordination Time (in mins): 34 Quality: Safe Use of Opioids Does Pt have an Active Cancer Diagnosis on the Problem List?: No Quality: Stroke Does the patient have a stroke diagnosis?: No Physical Exam Vital Signs: Vital Signs: Last Vital Signs Temp 97.4 F 03/10/25 15:09 Pulse 82 03/10/25 15:09 Resp 18 03/10/25 15:09 BP 170/86 H 03/10/25 15:09 Pulse Ox 98 03/10/25 15:09 O2 Del Method Room Air 03/10/25 15:09 BMI result Body Mass Index 28.7 General: AO X 3, no acute distress Resp: CTA bilateral, no accessory muscles used CVS: S1,S2,RRR GI: soft, non tender, non distended Neuro: motor grossly intact, alert Psych: appropriate affect, appropriate insight DS: Data Data Completed and Pending Labs on day of discharge: Laboratory Results - last 24 hr 03/10/25 03/10/25 05:46 15:05 WBC 6.4 RBC 3.82 L Hgb 12.0 Hct 35.0 L MCV 91.6 MCH 31.4 MCHC 34.3 RDW 14.5 Plt Count 255 MPV 9.7 Absolute Nucleated RBC 0.000 Nucleated RBC % (auto) 0.0 Sodium 140 Potassium 2.9 L* 3.8 D Chloride 101 Carbon Dioxide 31 H Anion Gap 11 L BUN 3 L Creatinine 0.80 Estim Creat Clear Calc 97.0 Estimated GFR > 60 Random Glucose 91 Calcium 9.1 D Magnesium 1.8 Total Bilirubin 1.5 H Direct Bilirubin 0.9 H AST 562 H ALT 265 H Alkaline Phosphatase 198 H Total Protein 6.6 Albumin 4.0 Discharge Plan Discharge Anticipated Discharge Date/Time: 03/10/25 15:50 Patient Disposition: Home, Self-Care Discharge Diagnosis: etoh pancreatitis Referrals: Physician,None [Primary Care Provider] - 1 Week Discharge Medications: New oxycodone 5 mg tablet 5 mg PO Q8H PRN (Reason: pain (scale score 7-10)) Qty: 10 0RF Rx Instructions: Partial Fill upon patient request. Discontinued acetaminophen [Tylenol] 325 mg Tablet 650 - 1,950 mg PO Q4H PRN (Reason: Pain) Discharge Orders: Discharge Order (Routine); Ordered 03/10/25 Ordered By: Bakari Boggs Diet: Advance to usual diet Activity on Discharge: As tolerated Stand Alone Forms: Patient Portal Discharge page Print Language: Belarusian Care Plan Goals: recovery Health Concerns: pancreatitis Plan of Treatment: avoid etoh low fat foods Assessment: see above
[2025-03-10] MEDS: Potassium Chloride ER 10 MEQ TABLET.ER 20 MEQ PO (16:22)
== END 2025-03-10 18:06 | disposition home or self-care (01) | DRG 282 ==
LOC: HO.ED 22:59 → HO.EDOVER 23:30 → HO.IMC 03-09 00:56
PROVIDERS: Physician Assistant; Physician Assistant Medical; Admitting Provider Hospitalist; Emergency Provider Emergency Medicine; Visit Provider Internal Medicine
DX: K85.20 Alcohol induced acute pancreatitis without necrosis or infection (principal); E87.6 Hypokalemia; F10.90 Alcohol use, unspecified, uncomplicated; F11.20 Opioid dependence, uncomplicated; F17.210 Nicotine dependence, cigarettes, uncomplicated; Z71.6 Tobacco abuse counseling
CPT/HCPCS: 36415; 74177; 74181; 80048; 80053; 80076; 80143; 80307; 81001; 82248; 83690; 83735; 84132; 84702; 85025; 85027; 87086; 93005; 99285; J0132; J1171; J2270; J2405; J7120; Q9967

== ENCOUNTER → 2025-03-08 14:28 | Outpatient (BNV) | payer MEDICAID, SELFPAY | PROVIDERS: Emergency Provider Emergency Medicine; Visit Provider Internal Medicine | DX: R10.9 Unspecified abdominal pain (principal) | CPT/HCPCS: 93010 ==

== ENCOUNTER → 2025-03-08 19:50 | Outpatient (BNV) | payer MEDICAID, SELFPAY | PROVIDERS: Emergency Provider Emergency Medicine; Visit Provider Radiology Diagnostic Radiology | DX: K85.90 Acute pancreatitis without necrosis or infection, unspecified (principal) | CPT/HCPCS: 74177 ==

== ENCOUNTER 2025-03-08 23:18 | Outpatient (BNV) | payer MEDICAID, SELFPAY | END 2025-03-09 14:11 | PROVIDERS: Admitting Provider Hospitalist; Emergency Provider Emergency Medicine; Visit Provider Radiology Diagnostic Radiology | DX: K83.1 Obstruction of bile duct (principal) | CPT/HCPCS: 74181 ==

== ENCOUNTER → 2025-03-08 23:18 | Outpatient (BNV) | payer MEDICAID, SELFPAY | PROVIDERS: Admitting Provider Hospitalist; Emergency Provider Emergency Medicine; Visit Provider Internal Medicine Gastroenterology | DX: K85.20 Alcohol induced acute pancreatitis without necrosis or infection (principal) | CPT/HCPCS: 99223 ==

== ENCOUNTER → 2025-03-08 23:18 | Outpatient (BNV) | payer MEDICAID, SELFPAY | PROVIDERS: Admitting Provider Hospitalist; Emergency Provider Emergency Medicine; Visit Provider Nurse Practitioner Psychiatric/Mental Health | DX: F10.90 Alcohol use, unspecified, uncomplicated (principal) | CPT/HCPCS: 99221; 99499 ==

== ENCOUNTER → 2025-03-08 23:18 | Outpatient (BNV) | payer MEDICAID, SELFPAY | PROVIDERS: Admitting Provider Hospitalist; Emergency Provider Emergency Medicine; Visit Provider Internal Medicine | DX: K85.20 Alcohol induced acute pancreatitis without necrosis or infection (principal); F10.90 Alcohol use, unspecified, uncomplicated | CPT/HCPCS: 99223; 99232; 99239 ==